=== PATIENT | male | born 1955 | race Caucasian/White ===

== ENCOUNTER 2016-07-14 06:16 | Inpatient (IN) | payer MEDICARE, OTHER ==
[~2016-07-14] VITALS: Ht 193 cm; Wt 117.4 kg
[~2016-07-14 06:16] MED LIST: ACYC-113 PO; ASPI1TAB85 PO; ASPI325T4 PO; ATOR80TA PO; ATOR80TA75 PO; CALC0.25 PO; CEFD300C2 PO; CEPH-368 PO; CYAN1TAB18 PO; CYCL5TAB PO; DOXY100C2 PO; ERGO500017 PO; ESOM40CA PO; ESZO2TAB34 PO; ETANERCEPT INJ; FURO20TA3 PO; FURO40TA6 PO; GABA100C8 PO; GLIP2.5T16 PO; HYDR-3144 PO; HYDR-3307 PO; HYDR10TA11 PO; HYDR200T PO; HYDR20TA22 PO; HYDROCORT PO; IMMUNOGLOBULIN IV; LISI-167 PO; LISI-170 PO; LOSA25TA5 PO; MAGN400T36 PO; MAGNESIUM PO; METO10TA6 PO; MORP15TA3 PO; POTA20TA91 PO; PRED10TA PO; SEVE800T8 PO; TAMS0.4C2 PO; VITA1CAP PO; [UNRECOGNIZED DRUG - OTHER]; calcium PO
[2016-07-14 07:18] LABS: BLOOD UREA NITROGEN 55 mg/dL (7-18)
[2016-07-14 07:23] LABS: IS PT STATUS REG ER OR PRE ER? YES
[2016-07-14] MEDS ORDERED: ASPIRIN 325 MG TABLET PO STA (07:32)
[2016-07-14] MEDS ORDERED: ASPIRIN 325 MG TABLET ONE (07:35)
[2016-07-14] MEDS: SODIUM CHLORIDE FLUSH 10ML SYR IVF ONE ×2 (07:50→09:32)
[2016-07-14 08:03] LABS: DIFF TOTAL CELLS COUNTED 100 CELL DIFF; HEMOGLOBIN 9.9 g/dL (13.7-18.0)
[2016-07-14 08:05] LABS: ANISOCYTOSIS 1+; POLYCHROMASIA 1+; VERIFY COUNTS? YES
[2016-07-14] MEDS ORDERED: ARANESP 100 MCG/ML **ESRD SQ SCH (10:00)
[2016-07-14 10:18] VITALS: BP 110/67
[2016-07-14] MEDS ORDERED: HYDROcodone/APAP 10/325 MG TABLET PO PRN (10:30)
[2016-07-14] MEDS ORDERED: HYDROcodone/APAP 5/325 TABLET ONE (10:46)
[2016-07-14 12:29] VITALS: BP_SYST 122; BP_SYST 141; BP_DIAS 62; BP_DIAS 74
[2016-07-14 12:31] VITALS: BP 146/77
[2016-07-14] MEDS ORDERED: SEVE800T8 PO (12:51)
[2016-07-14] MEDS ORDERED: ALEN70TA5 PO (12:51)
[2016-07-14] MEDS ORDERED: HYDR20TA22 PO (13:58)
[2016-07-14] MEDS ORDERED: ONDANSETRON 2MG/ML, 2ML IVP PRN (14:30)
[2016-07-14] MEDS ORDERED: BISACODYL 10 MG SUPP PR PRN (14:30)
[2016-07-14] MEDS ORDERED: MORPHINE SULFATE 4 MG/ML, 1ML IVPush PRN (14:30)
[2016-07-14] MEDS ORDERED: POLYETHYLENE GLYCOL 17 GM PACKET PO PRN (14:30)
[2016-07-14] MEDS ORDERED: morphine SULFATE 10 MG/ML, 1ML IVPush ONE (15:30)
[2016-07-14] MEDS: GABAPENTIN 100 MG CAPSULE PO SCH (16:00)
[2016-07-14] MEDS: SEVELAMER 800MG TABLET PO SCH (17:00)
[2016-07-14 20:06] LABS: IS PT STATUS REG ER OR PRE ER? NO
[2016-07-14] MEDS ORDERED: TEMPLATE NON-FORMULARY MED. (Vitamin B Complex** 1 TAB) PO SCH (21:00)
[2016-07-14] MEDS: OMEPRAZOLE 20 MG CAPSULE.DR PO SCH (21:00)
[2016-07-14 21:10] VITALS: BP 142/66
[2016-07-14] MEDS ORDERED: DEXTROSE 50%, 50ML SYRINGE ONE (21:15)
[2016-07-14] MEDS ORDERED: DEXTROSE 50%, 50ML SYRINGE IVPush PRN (21:30)
[2016-07-14 21:56] LABS: BLOOD UREA NITROGEN 27 mg/dL (7-18)
[2016-07-14] MEDS ORDERED: ACETAMINOPHEN 325 MG TABLET PO ONE (22:00)
[2016-07-14 22:01] LABS: HEMOGLOBIN 10.1 g/dL (13.7-18.0)
[2016-07-14 23:46] LABS: PATH.CAST-FLAG NOT PRESENT; SPERM-FLAG NOT PRESENT; SRC-FLAG NOT PRESENT; XTAL-FLAG NOT PRESENT; YLC-FLAG NOT PRESENT
[2016-07-15] MEDS: HEPARIN 5,000 UNITS/ML, 1ML SQ SCH ×3 (00:32→17:51)
[2016-07-15] MEDS: PIPERACILLIN/TAZO/PMX 3.375GM 50 ML IV SCH ×2 (00:32→06:03)
[2016-07-15] MEDS: ACYCLOVIR 200 MG CAPSULE PO SCH ×3 (00:33→21:46)
[2016-07-15] MEDS: ASPIRIN 325 MG TABLET PO SCH ×2 (00:33→21:46)
[2016-07-15] MEDS: MAGNESIUM OXIDE 400 MG TABLET PO SCH ×2 (00:33→21:46)
[2016-07-15] MEDS: GABAPENTIN 100 MG CAPSULE PO SCH ×4 (00:33→21:46)
[2016-07-15] MEDS: ATORVASTATIN 80 MG TABLET PO SCH ×2 (00:33→21:46)
[2016-07-15] MEDS: CALCIUM CARBONATE 500 MG TAB.CHEW PO SCH ×3 (00:33→21:46)
[2016-07-15] MEDS: HYDROCORTISONE 20 MG TABLET PO SCH ×4 (00:34→17:51)
[2016-07-15 00:41] VITALS: BP 147/67
[2016-07-15 01:52] VITALS: BP 95/50
[2016-07-15 02:37] LABS: HEMOGLOBIN 9.6 g/dL (13.7-18.0)
[2016-07-15 02:53] LABS: IS PT STATUS REG ER OR PRE ER? NO
[2016-07-15 02:56] LABS: BLOOD UREA NITROGEN 29 mg/dL (7-18)
[2016-07-15 02:59] LABS: ASPARTATE AMINO TRANSFERASE 31 U/L (15-37)
[2016-07-15] MEDS: HYDROcodone/APAP 10/325 MG TABLET PO PRN (03:07)
[2016-07-15] MEDS ORDERED: D5%-0.45% NACL 1,000 ML IV SCH (05:00)
[2016-07-15 05:44] VITALS: BP 97/49
[2016-07-15] MEDS: ALENDRONATE 70 MG TABLET PO SCH (06:05)
[2016-07-15 08:15] VITALS: BP 128/56
[2016-07-15] MEDS: SEVELAMER 800MG TABLET PO SCH ×3 (08:16→17:51)
[2016-07-15] MEDS: CALCITRIOL 0.25 MCG CAPSULE PO SCH (08:16)
[2016-07-15] MEDS: OMEPRAZOLE 20 MG CAPSULE.DR PO SCH ×2 (08:16→21:46)
[2016-07-15] MEDS: MULTIVITS,STRESS FORMULA 1 TABLET PO SCH (08:18)
[2016-07-15] MEDS: SENNA/DOCUSATE TABLET PO SCH (08:20)
[2016-07-15] MEDS ORDERED: CALCITRIOL 0.25 MCG CAPSULE PO SCH (09:00)
[2016-07-15] MEDS ORDERED: [UNRECOGNIZED DRUG - OTHER] PO SCH (09:00)
[2016-07-15] MEDS ORDERED: CYANOCOBALAMIN PO SCH (09:00)
[2016-07-15] MEDS ORDERED: PYRIDOXINE PO SCH (09:00)
[2016-07-15] MEDS ORDERED: PHARMACOKINETIC MONITORING MC PRN (12:00)
[2016-07-15] MEDS ORDERED: VANCOMYCIN PMX 1GM/200ML 200 ML IV ONE (12:00)
[2016-07-15] MEDS ORDERED: VANCOMYCIN PER PHARMACY MC PRN (12:00)
[2016-07-15] MEDS ORDERED: PHARMACOKINETIC CONSULTATION MC ONE (12:00)
[2016-07-15] MEDS: CEFTRIAXONE PMX 1GM/50ML 50 ML IV SCH (12:02)
[2016-07-15] MEDS ORDERED: VANCOMYCIN 2,100 MG in SODIUM CHLORIDE 0.9% 500 ML IV ONE (12:30)
[2016-07-15] MEDS: FLUTICASONE/VILANTEROL 200-25MCG/INH INH SCH (12:57)
[2016-07-15] MEDS: OXYcodone IR 5MG TABLET PO PRN (14:00)
[2016-07-15 14:06] VITALS: BP 133/70
[2016-07-15] MEDS ORDERED: SODIUM BICARBONATE 4.2%, 5ML ONE (16:28)
[2016-07-15] MEDS ORDERED: LIDOCAINE 1%, 20ML ONE (16:28)
[2016-07-15 17:09] LABS: CYTOLOGY BODY FLUID RECD INTO PATHOLOGY; CYTOLOGY BODY FLUID SOURCE SYNOVIAL FLUID
[2016-07-15 19:13] VITALS: BP 124/69
[2016-07-16 00:16] VITALS: BP 112/65
[2016-07-16] MEDS: HEPARIN 5,000 UNITS/ML, 1ML SQ SCH ×3 (00:28→17:29)
[2016-07-16 08:05] LABS: BLOOD UREA NITROGEN 54 mg/dL (7-18)
[2016-07-16] MEDS: FLUTICASONE/VILANTEROL 200-25MCG/INH INH SCH (08:51)
[2016-07-16] MEDS: GABAPENTIN 100 MG CAPSULE PO SCH ×3 (08:53→20:54)
[2016-07-16] MEDS: HYDROCORTISONE 20 MG TABLET PO SCH ×3 (08:53→17:29)
[2016-07-16] MEDS: SEVELAMER 800MG TABLET PO SCH ×3 (08:54→17:29)
[2016-07-16] MEDS: SENNA/DOCUSATE TABLET PO SCH (08:54)
[2016-07-16] MEDS: OMEPRAZOLE 20 MG CAPSULE.DR PO SCH ×2 (08:54→20:54)
[2016-07-16] MEDS: ACYCLOVIR 200 MG CAPSULE PO SCH ×2 (08:55→20:54)
[2016-07-16] MEDS: MULTIVITS,STRESS FORMULA 1 TABLET PO SCH (08:55)
[2016-07-16] MEDS: CALCIUM CARBONATE 500 MG TAB.CHEW PO SCH ×2 (08:55→21:40)
[2016-07-16 09:01] LABS: DIFF TOTAL CELLS COUNTED 100 CELL DIFF
[2016-07-16 09:02] LABS: ANISOCYTOSIS 1+; VERIFY COUNTS? YES
[2016-07-16 09:03] LABS: OVALOCYTES 1+; TARGET CELLS 1+
[2016-07-16 09:04] LABS: SCHISTOCYTES 1+; SPHEROCYTES 1+
[2016-07-16 09:06] LABS: HOWELL-JOLLY BODIES 1+
[2016-07-16 09:07] LABS: ECHINOCYTES 1+; POLYCHROMASIA 1+
[2016-07-16] MEDS: CEFTRIAXONE PMX 1GM/50ML 50 ML IV SCH (14:14)
[2016-07-16 15:26] VITALS: BP 161/66
[2016-07-16] MEDS: HYDROcodone/APAP 10/325 MG TABLET PO PRN (17:29)
[2016-07-16 18:55] VITALS: BP 166/78
[2016-07-16] MEDS: ASPIRIN 325 MG TABLET PO SCH (20:54)
[2016-07-16] MEDS: ATORVASTATIN 80 MG TABLET PO SCH (20:54)
[2016-07-16] MEDS: MAGNESIUM OXIDE 400 MG TABLET PO SCH (20:54)
[2016-07-17] VITALS (9 sets, daily range): BP systolic 155–200; BP diastolic 71–107
[2016-07-17] MEDS: HEPARIN 5,000 UNITS/ML, 1ML SQ SCH ×3 (00:25→17:01)
[2016-07-17] MEDS: HYDROcodone/APAP 10/325 MG TABLET PO PRN ×3 (01:51→20:19)
[2016-07-17] MEDS: FLUTICASONE/VILANTEROL 200-25MCG/INH INH SCH (07:45)
[2016-07-17] MEDS: HYDROCORTISONE 20 MG TABLET PO SCH ×3 (07:45→17:01)
[2016-07-17] MEDS: CALCIUM CARBONATE 500 MG TAB.CHEW PO SCH ×2 (07:46→20:19)
[2016-07-17] MEDS: SEVELAMER 800MG TABLET PO SCH ×3 (07:46→17:01)
[2016-07-17] MEDS: OMEPRAZOLE 20 MG CAPSULE.DR PO SCH ×2 (07:47→20:19)
[2016-07-17] MEDS: CALCITRIOL 0.25 MCG CAPSULE PO SCH (07:47)
[2016-07-17] MEDS: SENNA/DOCUSATE TABLET PO SCH (07:47)
[2016-07-17] MEDS: GABAPENTIN 100 MG CAPSULE PO SCH ×3 (07:47→20:19)
[2016-07-17] MEDS: MULTIVITS,STRESS FORMULA 1 TABLET PO SCH (07:48)
[2016-07-17] MEDS: ACYCLOVIR 200 MG CAPSULE PO SCH ×2 (07:48→20:19)
[2016-07-17] MEDS: AMLODIPINE 2.5 MG TABLET PO SCH ×3 (10:26→17:00)
[2016-07-17] MEDS: CEFTRIAXONE PMX 1GM/50ML 50 ML IV SCH (12:57)
[2016-07-17] MEDS ORDERED: VANCOMYCIN 2,000 MG in SODIUM CHLORIDE 0.9% 250 ML IV ONE (16:00)
[2016-07-17] MEDS: ENALAPRILAT 1.25 MG/ML, 2ML IV PRN (17:32)
[2016-07-17] MEDS ORDERED: hydrALAzine 20 MG/ML, 1ML ONE (18:35)
[2016-07-17] MEDS ORDERED: hydrALAzine 20 MG/ML, 1ML IV ONE ×2 (19:00)
[2016-07-17] MEDS: MAGNESIUM OXIDE 400 MG TABLET PO SCH (20:19)
[2016-07-17] MEDS: ATORVASTATIN 80 MG TABLET PO SCH (20:19)
[2016-07-17] MEDS: ASPIRIN 325 MG TABLET PO SCH (20:19)
[2016-07-17] MEDS ORDERED: AMLODIPINE 5 MG TABLET PO ONE (21:00)
[2016-07-18] VITALS (8 sets, daily range): BP systolic 135–168; BP diastolic 3–85
[2016-07-18] MEDS: HEPARIN 5,000 UNITS/ML, 1ML SQ SCH ×4 (00:18→23:17)
[2016-07-18] MEDS: ENALAPRILAT 1.25 MG/ML, 2ML IV PRN ×2 (04:54→23:21)
[2016-07-18] MEDS: HYDROcodone/APAP 10/325 MG TABLET PO PRN ×2 (04:54→20:02)
[2016-07-18 05:41] LABS: HEMOGLOBIN 9.7 g/dL (13.7-18.0)
[2016-07-18 05:48] LABS: BLOOD UREA NITROGEN 52 mg/dL (7-18)
[2016-07-18 06:07] LABS: DIFF TOTAL CELLS COUNTED 100 CELL DIFF
[2016-07-18 06:09] LABS: VERIFY COUNTS? YES
[2016-07-18 06:10] LABS: ANISOCYTOSIS 1+; OVALOCYTES 1+; POLYCHROMASIA 1+
[2016-07-18 06:11] LABS: ECHINOCYTES 1+
[2016-07-18 06:13] LABS: SPHEROCYTES 1+
[2016-07-18] MEDS: SEVELAMER 800MG TABLET PO SCH ×3 (08:14→15:41)
[2016-07-18] MEDS: HYDROCORTISONE 20 MG TABLET PO SCH ×2 (08:15→20:00)
[2016-07-18] MEDS: FLUTICASONE/VILANTEROL 200-25MCG/INH INH SCH (08:15)
[2016-07-18] MEDS: GABAPENTIN 100 MG CAPSULE PO SCH ×3 (08:15→20:00)
[2016-07-18] MEDS: OMEPRAZOLE 20 MG CAPSULE.DR PO SCH ×2 (08:16→20:00)
[2016-07-18] MEDS: SENNA/DOCUSATE TABLET PO SCH (08:16)
[2016-07-18] MEDS: CALCIUM CARBONATE 500 MG TAB.CHEW PO SCH ×2 (08:16→20:02)
[2016-07-18] MEDS: ACYCLOVIR 200 MG CAPSULE PO SCH ×2 (08:18→20:00)
[2016-07-18] MEDS ORDERED: HYDROCORTISONE 20 MG TABLET PO SCH (09:00)
[2016-07-18] MEDS: MULTIVITS,STRESS FORMULA 1 TABLET PO SCH (13:07)
[2016-07-18] MEDS: CEFTRIAXONE PMX 1GM/50ML 50 ML IV SCH (13:07)
[2016-07-18] MEDS: OXYcodone IR 5MG TABLET PO PRN ×2 (16:35→23:21)
[2016-07-18] MEDS: ASPIRIN 325 MG TABLET PO SCH (20:00)
[2016-07-18] MEDS: ATORVASTATIN 80 MG TABLET PO SCH (20:00)
[2016-07-18] MEDS: MAGNESIUM OXIDE 400 MG TABLET PO SCH (20:00)
[2016-07-18] MEDS: AMLODIPINE 2.5 MG TABLET PO SCH (20:02)
[2016-07-19 01:42] VITALS: BP_SYST 175; BP_SYST 177; BP_SYST 186; BP_DIAS 83; BP_DIAS 88; BP_DIAS 92
[2016-07-19 05:45] VITALS: BP 153/75
[2016-07-19 06:13] LABS: HEMOGLOBIN 9.8 g/dL (13.7-18.0)
[2016-07-19 06:21] LABS: ASPARTATE AMINO TRANSFERASE 18 U/L (15-37); BLOOD UREA NITROGEN 37 mg/dL (7-18)
[2016-07-19 06:36] LABS: DIFF TOTAL CELLS COUNTED 100 CELL DIFF
[2016-07-19 06:38] LABS: ANISOCYTOSIS 1+; VERIFY COUNTS? YES
[2016-07-19 06:39] LABS: OVALOCYTES 1+; POIKILOCYTOSIS 1+; POLYCHROMASIA 1+; SCHISTOCYTES 1+; SPHEROCYTES 1+
[2016-07-19 07:14] VITALS: BP 151/73
[2016-07-19] MEDS: FLUTICASONE/VILANTEROL 200-25MCG/INH INH SCH (08:31)
[2016-07-19] MEDS: MULTIVITS,STRESS FORMULA 1 TABLET PO SCH (08:31)
[2016-07-19] MEDS: ACYCLOVIR 200 MG CAPSULE PO SCH ×2 (08:32→20:44)
[2016-07-19] MEDS: GABAPENTIN 100 MG CAPSULE PO SCH ×3 (08:32→20:44)
[2016-07-19] MEDS: CALCIUM CARBONATE 500 MG TAB.CHEW PO SCH ×2 (08:32→20:44)
[2016-07-19] MEDS: SENNA/DOCUSATE TABLET PO SCH (08:32)
[2016-07-19] MEDS: SEVELAMER 800MG TABLET PO SCH ×3 (08:32→16:52)
[2016-07-19] MEDS: AMLODIPINE 2.5 MG TABLET PO SCH ×2 (08:32→20:43)
[2016-07-19] MEDS: HYDROCORTISONE 20 MG TABLET PO SCH ×2 (08:33→20:44)
[2016-07-19] MEDS: OMEPRAZOLE 20 MG CAPSULE.DR PO SCH ×2 (08:33→20:44)
[2016-07-19] MEDS: HEPARIN 5,000 UNITS/ML, 1ML SQ SCH ×2 (08:33→16:52)
[2016-07-19] MEDS: CALCITRIOL 0.25 MCG CAPSULE PO SCH (08:33)
[2016-07-19] MEDS: HYDROcodone/APAP 10/325 MG TABLET PO PRN ×2 (08:34→16:51)
[2016-07-19] MEDS: METOPROLOL SUCCINATE 25 MG TAB.ER.24H PO SCH (08:34)
[2016-07-19] MEDS ORDERED: ARANESP 100 MCG/ML **ESRD SQ SCH (09:24)
[2016-07-19] MEDS: CEFTRIAXONE PMX 1GM/50ML 50 ML IV SCH (12:07)
[2016-07-19] MEDS: OXYcodone IR 5MG TABLET PO PRN ×2 (13:31→20:43)
[2016-07-19 13:58] VITALS: BP 148/71
[2016-07-19 18:55] VITALS: BP 168/84
[2016-07-19] MEDS: ATORVASTATIN 80 MG TABLET PO SCH (20:44)
[2016-07-19] MEDS: ASPIRIN 325 MG TABLET PO SCH (20:44)
[2016-07-19] MEDS: MAGNESIUM OXIDE 400 MG TABLET PO SCH (20:44)
[2016-07-20] MEDS: HEPARIN 5,000 UNITS/ML, 1ML SQ SCH ×3 (00:04→16:13)
[2016-07-20] MEDS: HYDROcodone/APAP 10/325 MG TABLET PO PRN ×2 (00:04→20:34)
[2016-07-20 02:30] VITALS: BP 157/76
[2016-07-20 04:54] VITALS: BP 162/74
[2016-07-20] MEDS: METOPROLOL SUCCINATE 25 MG TAB.ER.24H PO SCH ×3 (05:04→20:35)
[2016-07-20 06:10] LABS: BLOOD UREA NITROGEN 49 mg/dL (7-18); TOTAL IRON BINDING CAPACITY 193 mcg/dL (250-450)
[2016-07-20 07:00] VITALS: BP_SYST 147; BP_SYST 164; BP_DIAS 63; BP_DIAS 82
[2016-07-20] MEDS: CALCIUM CARBONATE 500 MG TAB.CHEW PO SCH ×2 (07:49→20:35)
[2016-07-20] MEDS: AMLODIPINE 2.5 MG TABLET PO SCH ×2 (07:49→20:35)
[2016-07-20] MEDS: GABAPENTIN 100 MG CAPSULE PO SCH ×3 (07:51→20:35)
[2016-07-20] MEDS: OMEPRAZOLE 20 MG CAPSULE.DR PO SCH ×2 (07:51→21:05)
[2016-07-20] MEDS: SEVELAMER 800MG TABLET PO SCH ×3 (07:51→16:12)
[2016-07-20] MEDS: ACYCLOVIR 200 MG CAPSULE PO SCH ×2 (07:51→20:35)
[2016-07-20] MEDS: FLUTICASONE/VILANTEROL 200-25MCG/INH INH SCH (07:51)
[2016-07-20] MEDS: HYDROCORTISONE 20 MG TABLET PO SCH ×2 (07:51→20:35)
[2016-07-20] MEDS: MULTIVITS,STRESS FORMULA 1 TABLET PO SCH (07:52)
[2016-07-20] MEDS: SENNA/DOCUSATE TABLET PO SCH (08:04)
[2016-07-20] MEDS ORDERED: METHOCARBAMOL 500 MG TABLET PO PRN (08:30)
[2016-07-20] MEDS ORDERED: ERGOCALCIFEROL 50,000 UNIT CAPSULE PO SCH (09:00)
[2016-07-20] MEDS ORDERED: ACETAMINOPHEN 325 MG TABLET PO PRN (09:30)
[2016-07-20 14:03] VITALS: BP 164/83
[2016-07-20] MEDS: CEFTRIAXONE PMX 1GM/50ML 50 ML IV SCH (14:14)
[2016-07-20] MEDS: OXYcodone IR 5MG TABLET PO PRN (16:12)
[2016-07-20 19:28] VITALS: BP 154/80
[2016-07-20] MEDS: ATORVASTATIN 80 MG TABLET PO SCH (20:35)
[2016-07-20] MEDS: MAGNESIUM OXIDE 400 MG TABLET PO SCH (20:35)
[2016-07-20] MEDS: ASPIRIN 325 MG TABLET PO SCH (20:35)
[2016-07-21 01:40] VITALS: BP 153/75
[2016-07-21] MEDS: HEPARIN 5,000 UNITS/ML, 1ML SQ SCH ×3 (01:44→20:23)
[2016-07-21] MEDS: OXYcodone IR 5MG TABLET PO PRN (01:46)
[2016-07-21 05:42] LABS: BLOOD UREA NITROGEN 58 mg/dL (7-18)
[2016-07-21 07:23] VITALS: BP 147/72
[2016-07-21] MEDS ORDERED: ARANESP 100 MCG/ML **ESRD SQ SCH (09:00)
[2016-07-21] MEDS: SEVELAMER 800MG TABLET PO SCH ×3 (09:33→20:21)
[2016-07-21] MEDS: FLUTICASONE/VILANTEROL 200-25MCG/INH INH SCH (09:34)
[2016-07-21] MEDS: HYDROCORTISONE 20 MG TABLET PO SCH ×2 (09:36→20:21)
[2016-07-21] MEDS: GABAPENTIN 100 MG CAPSULE PO SCH ×3 (09:37→20:21)
[2016-07-21] MEDS: AMLODIPINE 2.5 MG TABLET PO SCH ×2 (09:37→20:21)
[2016-07-21] MEDS: OMEPRAZOLE 20 MG CAPSULE.DR PO SCH ×2 (09:38→20:21)
[2016-07-21] MEDS: SENNA/DOCUSATE TABLET PO SCH (09:38)
[2016-07-21] MEDS: CALCITRIOL 0.25 MCG CAPSULE PO SCH (09:38)
[2016-07-21] MEDS: ACYCLOVIR 200 MG CAPSULE PO SCH ×2 (09:39→20:21)
[2016-07-21] MEDS: CALCIUM CARBONATE 500 MG TAB.CHEW PO SCH ×2 (09:39→20:21)
[2016-07-21] MEDS: METOPROLOL SUCCINATE 25 MG TAB.ER.24H PO SCH ×2 (09:39→20:26)
[2016-07-21] MEDS: MULTIVITS,STRESS FORMULA 1 TABLET PO SCH (09:39)
[2016-07-21] MEDS: CEFTRIAXONE PMX 1GM/50ML 50 ML IV SCH (12:22)
[2016-07-21 14:20] VITALS: BP 131/80
[2016-07-21 19:28] VITALS: BP_SYST 168; BP_SYST 170; BP_SYST 178; BP_DIAS 83; BP_DIAS 84; BP_DIAS 85
[2016-07-21] MEDS: ATORVASTATIN 80 MG TABLET PO SCH (20:21)
[2016-07-21] MEDS: MAGNESIUM OXIDE 400 MG TABLET PO SCH (20:21)
[2016-07-21] MEDS: HYDROcodone/APAP 10/325 MG TABLET PO PRN (20:21)
[2016-07-21] MEDS: ASPIRIN 325 MG TABLET PO SCH (20:21)
[2016-07-22 03:17] VITALS: BP 154/75
[2016-07-22] MEDS: HEPARIN 5,000 UNITS/ML, 1ML SQ SCH (04:46)
[2016-07-22 06:29] VITALS: BP 157/75
[2016-07-22] MEDS: ALENDRONATE 70 MG TABLET PO SCH (07:00)
[2016-07-22] MEDS ORDERED: METO25TA91 PO (09:38)
[2016-07-22] MEDS ORDERED: AMLO2.5T PO (09:38)
[2016-07-22] MEDS ORDERED: FLUT1BLS INH (09:38)
[2016-07-22] MEDS: SEVELAMER 800MG TABLET PO SCH (10:06)
[2016-07-22] MEDS: FLUTICASONE/VILANTEROL 200-25MCG/INH INH SCH (10:07)
[2016-07-22] MEDS: HYDROCORTISONE 20 MG TABLET PO SCH (10:07)
[2016-07-22] MEDS: GABAPENTIN 100 MG CAPSULE PO SCH (10:07)
[2016-07-22] MEDS: OMEPRAZOLE 20 MG CAPSULE.DR PO SCH (10:09)
[2016-07-22] MEDS: AMLODIPINE 2.5 MG TABLET PO SCH (10:09)
[2016-07-22] MEDS: SENNA/DOCUSATE TABLET PO SCH (10:09)
[2016-07-22] MEDS: METOPROLOL SUCCINATE 25 MG TAB.ER.24H PO SCH (10:10)
[2016-07-22] MEDS: ACYCLOVIR 200 MG CAPSULE PO SCH (10:10)
[2016-07-22] MEDS: CALCIUM CARBONATE 500 MG TAB.CHEW PO SCH (10:10)
[2016-07-22] MEDS: MULTIVITS,STRESS FORMULA 1 TABLET PO SCH (10:10)
== END 2016-07-22 11:40 | DRG 871 ==
LOC: ED 08:12 → EDIP 08:13 → ED 08:14 → 5SO 09:12 → DCLOUNGE 07-22 11:15
PROVIDERS: ADMIT Hospitalist; ATTEND Hospitalist
PROC: 0T9B70Z Drainage of Bladder with Drainage Device, Via Natural or Artificial Opening (ICD-10-PCS; 2016-07-14)
PROC: 0S9D3ZZ Drainage of Left Knee Joint, Percutaneous Approach (ICD-10-PCS; 2016-07-15)
PROC: BQ48ZZZ Ultrasonography of Left Knee (ICD-10-PCS; 2016-07-15)
PROC: 5A1D60Z (ICD-10-PCS; principal; 2016-07-21)
DX: A41.9 Sepsis, unspecified organism (principal); N18.6 End stage renal disease; E27.40 Unspecified adrenocortical insufficiency; I50.32 Chronic diastolic (congestive) heart failure; I13.2 Hypertensive heart and chronic kidney disease with heart failure and with stage 5 chronic kidney disease, or end stage renal disease; E87.1 Hypo-osmolality and hyponatremia; I47.1 Supraventricular tachycardia; E11.22 Type 2 diabetes mellitus with diabetic chronic kidney disease; D63.1 Anemia in chronic kidney disease; J44.9 Chronic obstructive pulmonary disease, unspecified; E11.649 Type 2 diabetes mellitus with hypoglycemia without coma; E78.5 Hyperlipidemia, unspecified; K21.9 Gastro-esophageal reflux disease without esophagitis; M06.9 Rheumatoid arthritis, unspecified; N40.0 Benign prostatic hyperplasia without lower urinary tract symptoms; D53.9 Nutritional anemia, unspecified; R25.1 Tremor, unspecified; G89.29 Other chronic pain; Z20.5 Contact with and (suspected) exposure to viral hepatitis; M54.9 Dorsalgia, unspecified; Z99.2 Dependence on renal dialysis; Z90.81 Acquired absence of spleen; Z87.891 Personal history of nicotine dependence; Z98.1 Arthrodesis status
CPT/HCPCS: 20611; 36415; 70450; 70551; 71010; 80048; 80053; 80061; 80069; 80202; 81001; 82040; 82533; 82728; 82962; 83036; 83540; 83550; 83605; 83735; 83880; 84439; 84443; 84484; 85014; 85018; 85025; 85810; 87040; 87070; 87075; 87205; 88112; 88305; 89050; 89060; 93005; 93880; 93970; 99285; J0696; J1644; J2543; J3370; J3490; J0360; J0882; J7040

== ENCOUNTER 2016-08-11 11:48 | Inpatient (IN) | payer MEDICARE, OTHER ==
[~2016-08-11] VITALS: Ht 190.5 cm; Wt 108.5 kg
[~2016-08-11 11:48] MED LIST changes: +ALEN70TA5 PO; +AMLO2.5T PO; +FLUT1BLS INH; +METO25TA91 PO
[2016-08-11] MEDS ORDERED: DEXTROSE 10% 500 ML IV ONE (11:59)
[2016-08-11] MEDS ORDERED: SODIUM CHLORIDE FLUSH 10ML SYR IVF ONE (12:00)
[2016-08-11] MEDS ORDERED: DEXTROSE 50%, 50ML SYRINGE IVPush ONE ×2 (12:00→14:30)
[2016-08-11 13:02] LABS: ASPARTATE AMINO TRANSFERASE 31 U/L (15-37); BLOOD UREA NITROGEN 22 mg/dL (7-18)
[2016-08-11] MEDS ORDERED: DEXTROSE 50%, 50ML SYRINGE ONE ×2 (13:02→14:27)
[2016-08-11] MEDS ORDERED: GLUCAGON 1 MG ONE (13:14)
[2016-08-11] MEDS ORDERED: DEXTROSE 50%, 50ML VIAL IVPush ONE (13:30)
[2016-08-11] MEDS ORDERED: GLUCAGON 1 MG IM ONE (13:30)
[2016-08-11 13:49] LABS: DIFF TOTAL CELLS COUNTED 100 CELL DIFF
[2016-08-11 13:50] LABS: ANISOCYTOSIS 1+; POLYCHROMASIA 1+; SCHISTOCYTES 1+
[2016-08-11 13:52] LABS: VERIFY COUNTS? YES
[2016-08-11 13:54] LABS: IS PT STATUS REG ER OR PRE ER? YES
[2016-08-11] MEDS ORDERED: LABETALOL 5MG/ML, 20ML IV PRN (14:30)
[2016-08-11] MEDS ORDERED: POLYETHYLENE GLYCOL 17 GM PACKET PO PRN (14:30)
[2016-08-11] MEDS ORDERED: TOFA5TAB PO (15:37)
[2016-08-11] MEDS ORDERED: METH750T2 PO (15:37)
[2016-08-11] MEDS ORDERED: CYAN1TAB18 PO (15:37)
[2016-08-11] MEDS ORDERED: LOSA50TA6 PO (15:37)
[2016-08-11] MEDS ORDERED: LEFL10TA14 PO (15:37)
[2016-08-11] MEDS ORDERED: HYDR-879 PO (15:37)
[2016-08-11] MEDS ORDERED: FURO20TA3 PO (15:37)
[2016-08-11] MEDS ORDERED: METO-93 PO (15:37)
[2016-08-11] MEDS ORDERED: HYDR-3342 PO (15:37)
[2016-08-11] MEDS ORDERED: MAGN400T7 PO (15:37)
[2016-08-11] MEDS ORDERED: METO10TA6 PO (15:37)
[2016-08-11] MEDS: DEXTROSE 10% 1,000 ML IV SCH ×2 (16:00→21:24)
[2016-08-11] MEDS: DEXTROSE 50%, 50ML SYRINGE IVPush PRN ×4 (16:03→20:50)
[2016-08-11 16:20] LABS: ABG COLLECTION SITE RIGHT BRACHIAL
[2016-08-11] MEDS ORDERED: LINEZOLID PMX 600MG/300ML 300 ML IV SCH (16:30)
[2016-08-11] MEDS: CEFTRIAXONE PMX 1GM/50ML 50 ML IV SCH (16:39)
[2016-08-11] MEDS: HEPARIN 5,000 UNITS/ML, 1ML SQ SCH ×2 (16:39→23:13)
[2016-08-11] MEDS: AZITHROMYCIN 500 MG in SODIUM CHLORIDE 0.9% 250 ML IV SCH (18:03)
[2016-08-11] MEDS: LINEZOLID PMX 600MG/300ML 300 ML IV SCH (21:23)
[2016-08-11] MEDS: OXYcodone IR 5MG TABLET PO PRN (23:13)
[2016-08-12] MEDS: DEXTROSE 50%, 50ML VIAL IVPush PRN ×4 (00:15→10:32)
[2016-08-12] MEDS: OXYcodone IR 5MG TABLET PO PRN ×5 (04:25→23:42)
[2016-08-12 04:41] LABS: BLOOD UREA NITROGEN 14 mg/dL (7-18)
[2016-08-12 04:45] LABS: ASPARTATE AMINO TRANSFERASE 28 U/L (15-37)
[2016-08-12 04:53] VITALS: BP 117/57
[2016-08-12 08:14] LABS: DIFF TOTAL CELLS COUNTED 100 CELL DIFF
[2016-08-12 08:15] LABS: ANISOCYTOSIS 1+; SCHISTOCYTES 1+; SPHEROCYTES 1+; VERIFY COUNTS? YES
[2016-08-12 08:16] LABS: HOWELL-JOLLY BODIES 1+
[2016-08-12] MEDS: HEPARIN 5,000 UNITS/ML, 1ML SQ SCH ×3 (09:02→23:42)
[2016-08-12] MEDS: PANTOPRAZOLE 40 MG IV IVP SCH (09:02)
[2016-08-12] MEDS: SENNA/DOCUSATE TABLET PO SCH (09:03)
[2016-08-12] MEDS: LINEZOLID PMX 600MG/300ML 300 ML IV SCH ×2 (09:12→21:08)
[2016-08-12] MEDS: DEXTROSE 10% 1,000 ML IV SCH ×2 (09:13→21:09)
[2016-08-12] MEDS: DARBEPOETIN 100 MCG/ML SQ SCH (10:20)
[2016-08-12] MEDS: CEFTRIAXONE PMX 1GM/50ML 50 ML IV SCH (16:22)
[2016-08-12] MEDS: AZITHROMYCIN 500 MG in SODIUM CHLORIDE 0.9% 250 ML IV SCH (17:15)
[2016-08-12] MEDS: ONDANSETRON 2MG/ML, 2ML IVP PRN (19:31)
[2016-08-13] MEDS: ACETAMINOPHEN 325 MG TABLET PO PRN (02:37)
[2016-08-13] MEDS: OXYcodone IR 5MG TABLET PO PRN ×4 (03:53→20:09)
[2016-08-13 03:55] VITALS: BP 116/47
[2016-08-13 05:20] LABS: BLOOD UREA NITROGEN 11 mg/dL (7-18)
[2016-08-13] MEDS: SENNA/DOCUSATE TABLET PO SCH (08:39)
[2016-08-13] MEDS: DEXTROSE 10% 1,000 ML IV SCH ×2 (08:47→18:29)
[2016-08-13] MEDS: LINEZOLID PMX 600MG/300ML 300 ML IV SCH ×2 (08:48→21:12)
[2016-08-13] MEDS: HEPARIN 5,000 UNITS/ML, 1ML SQ SCH ×2 (08:48→16:57)
[2016-08-13] MEDS: PANTOPRAZOLE 40 MG IV IVP SCH (08:48)
[2016-08-13] MEDS: AZITHROMYCIN 500 MG in SODIUM CHLORIDE 0.9% 250 ML IV SCH (16:57)
[2016-08-13] MEDS: CEFTRIAXONE PMX 1GM/50ML 50 ML IV SCH (16:57)
[2016-08-13] MEDS: ONDANSETRON 2MG/ML, 2ML IVP PRN (18:38)
[2016-08-13] MEDS: MORPHINE SULFATE 4 MG/ML, 1ML IVPush PRN (21:13)
[2016-08-14] MEDS: HEPARIN 5,000 UNITS/ML, 1ML SQ SCH ×3 (00:11→18:24)
[2016-08-14] MEDS: OXYcodone IR 5MG TABLET PO PRN ×3 (02:43→18:52)
[2016-08-14 04:17] VITALS: BP 112/68
[2016-08-14] MEDS: DEXTROSE 10% 1,000 ML IV SCH ×2 (04:17→13:58)
[2016-08-14 05:02] LABS: BLOOD UREA NITROGEN 8 mg/dL (7-18)
[2016-08-14] MEDS: PANTOPRAZOLE 40 MG IV IVP SCH (08:49)
[2016-08-14] MEDS: ONDANSETRON 2MG/ML, 2ML IVP PRN ×3 (08:49→18:21)
[2016-08-14] MEDS: SENNA/DOCUSATE TABLET PO SCH (08:57)
[2016-08-14] MEDS: LINEZOLID PMX 600MG/300ML 300 ML IV SCH ×2 (08:57→22:30)
[2016-08-14] MEDS: ACETAMINOPHEN 325 MG TABLET PO PRN (08:57)
[2016-08-14] MEDS: CEFTRIAXONE PMX 1GM/50ML 50 ML IV SCH (18:24)
[2016-08-14] MEDS: AZITHROMYCIN 500 MG in SODIUM CHLORIDE 0.9% 250 ML IV SCH (18:24)
[2016-08-14 21:00] VITALS: BP 148/76
[2016-08-15] MEDS: ONDANSETRON 2MG/ML, 2ML IVP PRN ×4 (00:24→23:53)
[2016-08-15] MEDS: OXYcodone IR 5MG TABLET PO PRN ×4 (00:24→23:53)
[2016-08-15] MEDS ORDERED: OXYMETAZOLINE NASAL SPRAY 0.05%, 15ML NAS PRN (00:30)
[2016-08-15] MEDS: DEXTROSE 10% 1,000 ML IV SCH ×2 (01:58→16:38)
[2016-08-15] MEDS: HEPARIN 5,000 UNITS/ML, 1ML SQ SCH ×4 (02:00→23:56)
[2016-08-15 02:18] VITALS: BP 129/57
[2016-08-15 06:08] LABS: BLOOD UREA NITROGEN 14 mg/dL (7-18)
[2016-08-15 07:29] VITALS: BP 155/83
[2016-08-15 08:23] LABS: DIFF TOTAL CELLS COUNTED 100 CELL DIFF
[2016-08-15 08:30] LABS: ANISOCYTOSIS 1+; VERIFY COUNTS? YES
[2016-08-15 08:31] LABS: OVALOCYTES 1+
[2016-08-15] MEDS: SENNA/DOCUSATE TABLET PO SCH (09:00)
[2016-08-15] MEDS: LINEZOLID PMX 600MG/300ML 300 ML IV SCH ×2 (09:49→21:30)
[2016-08-15] MEDS: MORPHINE SULFATE 4 MG/ML, 1ML IVPush PRN (13:11)
[2016-08-15] MEDS: CEFTRIAXONE PMX 1GM/50ML 50 ML IV SCH (16:38)
[2016-08-15] MEDS: hydrALAzine 20 MG/ML, 1ML IV PRN (17:11)
[2016-08-15] MEDS: AZITHROMYCIN 500 MG in SODIUM CHLORIDE 0.9% 250 ML IV SCH (17:28)
[2016-08-15 20:11] VITALS: BP 123/52
[2016-08-16 04:21] VITALS: BP_SYST 182; BP_SYST 191; BP_DIAS 83; BP_DIAS 88
[2016-08-16 04:35] LABS: BLOOD UREA NITROGEN 10 mg/dL (7-18)
[2016-08-16] MEDS: hydrALAzine 20 MG/ML, 1ML IV PRN ×3 (04:45→09:50)
[2016-08-16] MEDS: MORPHINE SULFATE 4 MG/ML, 1ML IVPush PRN (05:18)
[2016-08-16] MEDS: ONDANSETRON 2MG/ML, 2ML IVP PRN (05:32)
[2016-08-16] MEDS: DEXTROSE 10% 1,000 ML IV SCH ×2 (06:00→18:31)
[2016-08-16 07:38] VITALS: BP 184/119
[2016-08-16] MEDS: HEPARIN 5,000 UNITS/ML, 1ML SQ SCH ×3 (07:50→18:24)
[2016-08-16] MEDS: SENNA/DOCUSATE TABLET PO SCH (07:50)
[2016-08-16 08:02] LABS: DIFF TOTAL CELLS COUNTED 100 CELL DIFF
[2016-08-16 08:04] LABS: ANISOCYTOSIS 1+; OVALOCYTES 1+; POLYCHROMASIA 1+; VERIFY COUNTS? YES
[2016-08-16 09:37] VITALS: BP 205/85
[2016-08-16] MEDS: LINEZOLID PMX 600MG/300ML 300 ML IV SCH ×2 (09:51→22:06)
[2016-08-16 10:50] VITALS: BP 178/93
[2016-08-16] MEDS ORDERED: ONDANSETRON 2MG/ML, 2ML IVP PRN (11:30)
[2016-08-16] MEDS: METOPROLOL TARTRATE 25 MG TABLET PO SCH ×2 (11:35→18:24)
[2016-08-16 14:46] VITALS: BP 179/72
[2016-08-16] MEDS: CEFTRIAXONE PMX 1GM/50ML 50 ML IV SCH (18:23)
[2016-08-16] MEDS: AZITHROMYCIN 500 MG in SODIUM CHLORIDE 0.9% 250 ML IV SCH (18:23)
[2016-08-16 18:40] VITALS: BP 177/74
[2016-08-16] MEDS: LOSARTAN 50MG TABLET PO SCH (22:05)
[2016-08-17 00:57] VITALS: BP 170/74
[2016-08-17] MEDS: DEXTROSE 10% 1,000 ML IV SCH (04:50)
[2016-08-17 04:53] LABS: ASPARTATE AMINO TRANSFERASE 18 U/L (15-37); BLOOD UREA NITROGEN 13 mg/dL (7-18)
[2016-08-17] MEDS: METOPROLOL TARTRATE 25 MG TABLET PO SCH (05:53)
[2016-08-17 07:42] VITALS: BP 159/78
[2016-08-17] MEDS: SENNA/DOCUSATE TABLET PO SCH (09:00)
[2016-08-17] MEDS: LOSARTAN 50MG TABLET PO SCH ×2 (10:32→21:49)
[2016-08-17] MEDS: HEPARIN 5,000 UNITS/ML, 1ML SQ SCH ×2 (10:32→18:12)
[2016-08-17] MEDS: OXYcodone IR 5MG TABLET PO PRN ×2 (10:32→16:22)
[2016-08-17] MEDS: LINEZOLID PMX 600MG/300ML 300 ML IV SCH (12:19)
[2016-08-17 14:00] VITALS: BP 156/72
[2016-08-17] MEDS: METOCLOPRAMIDE 10MG TABLET PO SCH ×3 (14:32→22:24)
[2016-08-17] MEDS ORDERED: DEXTROSE 10% 1,000 ML IV SCH (16:00)
[2016-08-17] MEDS: CEFTRIAXONE PMX 1GM/50ML 50 ML IV SCH (18:11)
[2016-08-17] MEDS: METOPROLOL TARTRATE 50 MG TABLET PO SCH (18:11)
[2016-08-17] MEDS: ONDANSETRON 2MG/ML, 2ML IVP PRN (18:32)
[2016-08-17 19:27] VITALS: BP 142/72
[2016-08-18 03:12] VITALS: BP 163/79
[2016-08-18] MEDS: HEPARIN 5,000 UNITS/ML, 1ML SQ SCH ×3 (05:14→23:22)
[2016-08-18] MEDS: METOPROLOL TARTRATE 50 MG TABLET PO SCH ×2 (05:17→18:31)
[2016-08-18 07:12] VITALS: BP 170/78
[2016-08-18] MEDS: METOCLOPRAMIDE 10MG TABLET PO SCH ×4 (07:34→23:20)
[2016-08-18] MEDS: SENNA/DOCUSATE TABLET PO SCH (08:15)
[2016-08-18] MEDS: LOSARTAN 50MG TABLET PO SCH ×2 (08:18→23:20)
[2016-08-18] MEDS: ONDANSETRON 2MG/ML, 2ML IVP PRN (12:05)
[2016-08-18] MEDS: OXYcodone IR 5MG TABLET PO PRN ×2 (12:05→23:53)
[2016-08-18 13:44] VITALS: BP 158/72
[2016-08-18] MEDS ORDERED: GLUCAGON 1 MG IM PRN (22:30)
[2016-08-18] MEDS ORDERED: DEXTROSE 4 GM TAB.CHEW PO PRN (22:30)
[2016-08-18] MEDS ORDERED: DEXTROSE 50%, 50ML SYRINGE IVPush PRN (22:30)
[2016-08-18] MEDS ORDERED: DEXTROSE 10% 1,000 ML IV SCH (22:30)
[2016-08-18 23:10] VITALS: BP 185/85
[2016-08-18] MEDS: CEFTRIAXONE PMX 1GM/50ML 50 ML IV SCH (23:21)
[2016-08-18] MEDS: DEXTROSE 50%, 50ML VIAL IVPush PRN (23:21)
[2016-08-18] MEDS: SODIUM CHLORIDE FLUSH 10ML SYR IVF SCH (23:23)
[2016-08-18 23:40] VITALS: BP 170/95
[2016-08-19 01:28] VITALS: BP 171/91
[2016-08-19 03:29] VITALS: BP 147/75
[2016-08-19] MEDS: METOPROLOL TARTRATE 50 MG TABLET PO SCH ×2 (05:09→17:39)
[2016-08-19 05:11] VITALS: BP 150/75
[2016-08-19 06:14] LABS: ASPARTATE AMINO TRANSFERASE 24 U/L (15-37); BLOOD UREA NITROGEN 11 mg/dL (7-18)
[2016-08-19 06:42] VITALS: BP 150/81
[2016-08-19 08:35] LABS: DIFF TOTAL CELLS COUNTED 100 CELL DIFF
[2016-08-19 08:38] LABS: VERIFY COUNTS? YES
[2016-08-19 08:40] LABS: ANISOCYTOSIS 1+; OVALOCYTES 1+; POLYCHROMASIA 1+; TARGET CELLS 1+
[2016-08-19 08:41] LABS: SCHISTOCYTES 1+
[2016-08-19 08:42] LABS: HYPOCHROMIA 1+
[2016-08-19] MEDS: SENNA/DOCUSATE TABLET PO SCH (09:00)
[2016-08-19] MEDS: SODIUM CHLORIDE FLUSH 10ML SYR IVF SCH ×2 (09:00→20:42)
[2016-08-19 09:24] LABS: SPHEROCYTES 1+
[2016-08-19] MEDS: LOSARTAN 50MG TABLET PO SCH ×2 (09:24→20:43)
[2016-08-19] MEDS: METOCLOPRAMIDE 10MG TABLET PO SCH ×4 (09:24→20:43)
[2016-08-19] MEDS: HEPARIN 5,000 UNITS/ML, 1ML SQ SCH ×2 (09:25→17:39)
[2016-08-19] MEDS: DARBEPOETIN 100 MCG/ML SQ SCH (09:25)
[2016-08-19] MEDS: ONDANSETRON 2MG/ML, 2ML IVP PRN ×2 (09:25→20:44)
[2016-08-19] MEDS: OXYcodone IR 5MG TABLET PO PRN ×2 (09:32→17:44)
[2016-08-19 12:55] VITALS: BP 179/93
[2016-08-19] MEDS ORDERED: DEXTROSE 10% 1,000 ML IV SCH ×2 (16:00→22:30)
[2016-08-19 19:27] VITALS: BP 179/66
[2016-08-19] MEDS: CEFTRIAXONE PMX 1GM/50ML 50 ML IV SCH (22:20)
[2016-08-20 01:48] VITALS: BP 179/77
[2016-08-20] MEDS: HEPARIN 5,000 UNITS/ML, 1ML SQ SCH ×3 (02:39→18:08)
[2016-08-20] MEDS: METOPROLOL TARTRATE 50 MG TABLET PO SCH ×2 (05:48→18:08)
[2016-08-20] MEDS: OXYcodone IR 5MG TABLET PO PRN ×3 (06:18→23:52)
[2016-08-20 07:02] LABS: BLOOD UREA NITROGEN 15 mg/dL (7-18)
[2016-08-20 07:30] VITALS: BP 147/85
[2016-08-20] MEDS: ONDANSETRON 2MG/ML, 2ML IVP PRN ×2 (08:09→21:31)
[2016-08-20] MEDS: METOCLOPRAMIDE 10MG TABLET PO SCH ×4 (08:09→21:13)
[2016-08-20] MEDS: SODIUM CHLORIDE FLUSH 10ML SYR IVF SCH ×2 (08:10→21:00)
[2016-08-20] MEDS: LOSARTAN 50MG TABLET PO SCH ×2 (08:10→21:12)
[2016-08-20] MEDS: SENNA/DOCUSATE TABLET PO SCH (08:10)
[2016-08-20 13:20] VITALS: BP 154/74
[2016-08-20 20:00] VITALS: BP 144/77
[2016-08-20] MEDS: CEFTRIAXONE PMX 1GM/50ML 50 ML IV SCH (22:29)
[2016-08-21 02:00] VITALS: BP 164/69
[2016-08-21] MEDS: HEPARIN 5,000 UNITS/ML, 1ML SQ SCH ×3 (04:04→20:44)
[2016-08-21] MEDS: OXYcodone IR 5MG TABLET PO PRN (04:20)
[2016-08-21] MEDS: METOPROLOL TARTRATE 50 MG TABLET PO SCH ×2 (06:06→19:39)
[2016-08-21 06:19] LABS: BLOOD UREA NITROGEN 10 mg/dL (7-18)
[2016-08-21 07:00] VITALS: BP 128/79
[2016-08-21] MEDS: SODIUM CHLORIDE FLUSH 10ML SYR IVF SCH ×2 (09:00→20:45)
[2016-08-21] MEDS: SENNA/DOCUSATE TABLET PO SCH (09:00)
[2016-08-21] MEDS: LOSARTAN 50MG TABLET PO SCH ×2 (09:05→20:45)
[2016-08-21] MEDS: METOCLOPRAMIDE 10MG TABLET PO SCH ×4 (09:07→20:44)
[2016-08-21] MEDS: ONDANSETRON 2MG/ML, 2ML IVP PRN (09:09)
[2016-08-21 12:46] VITALS: BP 106/62
[2016-08-21] MEDS: CHOLESTYRAMINE 4GM PACKET PO PRN (18:21)
[2016-08-21 20:00] VITALS: BP 107/56
[2016-08-22 02:00] VITALS: BP 112/63
[2016-08-22] MEDS: HEPARIN 5,000 UNITS/ML, 1ML SQ SCH ×2 (03:43→12:00)
[2016-08-22] MEDS: CHOLESTYRAMINE 4GM PACKET PO PRN ×2 (03:44→12:54)
[2016-08-22 05:18] LABS: BLOOD UREA NITROGEN 16 mg/dL (7-18)
[2016-08-22 05:44] LABS: DIFF TOTAL CELLS COUNTED 100 CELL DIFF
[2016-08-22 05:47] LABS: ANISOCYTOSIS 1+; HYPOCHROMIA 1+; OVALOCYTES 1+; POLYCHROMASIA 1+; SCHISTOCYTES 1+; SPHEROCYTES 1+; VERIFY COUNTS? YES
[2016-08-22 05:48] LABS: LARGE PLATELETS 1+; TARGET CELLS 1+
[2016-08-22] MEDS: METOPROLOL TARTRATE 50 MG TABLET PO SCH ×2 (06:48→18:39)
[2016-08-22 07:01] VITALS: BP 117/56
[2016-08-22] MEDS: METOCLOPRAMIDE 10MG TABLET PO SCH ×3 (08:32→17:21)
[2016-08-22] MEDS: SENNA/DOCUSATE TABLET PO SCH (08:33)
[2016-08-22] MEDS: SODIUM CHLORIDE FLUSH 10ML SYR IVF SCH (08:33)
[2016-08-22] MEDS: OXYcodone IR 5MG TABLET PO PRN (10:42)
[2016-08-22 12:53] VITALS: BP 119/64
[2016-08-22] MEDS ORDERED: ONDANSETRON 4 MG TABLET PO PRN (17:00)
[2016-08-22] MEDS ORDERED: ONDANSETRON ODT 4 MG PO PRN (17:01)
[2016-08-22] MEDS ORDERED: LOSARTAN 50MG TABLET PO SCH (21:00)
== END 2016-08-22 18:47 | disposition home or self-care (01) | DRG 871 ==
LOC: ED 13:04 → EDIP 13:05 → ED 13:50 → CSU 15:53 → ICU 08-15 03:00 → 4WST 08-18 23:04
PROVIDERS: ADMIT Internal Medicine; ATTEND Internal Medicine
PROC: 0T9B70Z Drainage of Bladder with Drainage Device, Via Natural or Artificial Opening (ICD-10-PCS; principal; 2016-08-12)
PROC: 5A1D60Z (ICD-10-PCS; 2016-08-12)
DX: A41.9 Sepsis, unspecified organism (principal); J18.9 Pneumonia, unspecified organism; N18.6 End stage renal disease; E43 Unspecified severe protein-calorie malnutrition; G93.41 Metabolic encephalopathy; L03.115 Cellulitis of right lower limb; L03.116 Cellulitis of left lower limb; I50.32 Chronic diastolic (congestive) heart failure; B00.2 Herpesviral gingivostomatitis and pharyngotonsillitis; E87.1 Hypo-osmolality and hyponatremia; I13.2 Hypertensive heart and chronic kidney disease with heart failure and with stage 5 chronic kidney disease, or end stage renal disease; J44.0 Chronic obstructive pulmonary disease with (acute) lower respiratory infection; I47.1 Supraventricular tachycardia; D50.9 Iron deficiency anemia, unspecified; D63.1 Anemia in chronic kidney disease; E11.22 Type 2 diabetes mellitus with diabetic chronic kidney disease; E11.649 Type 2 diabetes mellitus with hypoglycemia without coma; E11.65 Type 2 diabetes mellitus with hyperglycemia; E78.5 Hyperlipidemia, unspecified; G25.2 Other specified forms of tremor; E11.21 Type 2 diabetes mellitus with diabetic nephropathy; G89.29 Other chronic pain; I45.10 Unspecified right bundle-branch block; I80.8 Phlebitis and thrombophlebitis of other sites; K21.9 Gastro-esophageal reflux disease without esophagitis; M06.9 Rheumatoid arthritis, unspecified; N40.0 Benign prostatic hyperplasia without lower urinary tract symptoms; M54.9 Dorsalgia, unspecified; Z79.82 Long term (current) use of aspirin; Z79.899 Other long term (current) drug therapy; Z80.9 Family history of malignant neoplasm, unspecified; Z87.891 Personal history of nicotine dependence; Z90.81 Acquired absence of spleen; Z87.828 Personal history of other (healed) physical injury and trauma; Z98.1 Arthrodesis status; Z99.2 Dependence on renal dialysis; Z68.29 Body mass index [BMI] 29.0-29.9, adult
CPT/HCPCS: 36415; 36600; 71010; 74000; 80048; 80053; 80069; 81001; 82010; 82803; 82962; 83605; 83690; 83735; 84484; 85025; 85610; 87040; 87081; 87324; 93005; 96372; 96374; 96376; J0456; J0696; J0881; J1644; J2020; J2405; Q0162; C9113; J0360; J1610; J7050

== ENCOUNTER 2016-09-09 05:39 | Emergency (ER) | payer MEDICARE, OTHER ==
[~2016-09-09] VITALS: Ht 193 cm; Wt 109.0 kg
[~2016-09-09 05:39] MED LIST changes: -CEFD300C2 PO; +CEFD300C37 PO; +HYDR-3342 PO; +HYDR-879 PO; +LEFL10TA14 PO; +LOSA50TA6 PO; +MAGN400T7 PO; +METH750T2 PO; +METO-93 PO; +TOFA5TAB PO
[2016-09-09] MEDS ORDERED: HYDROcodone/APAP 5/325 TABLET PO STA (05:57)
[2016-09-09] MEDS ORDERED: HYDROcodone/APAP 5/325 TABLET ONE (06:28)
[2016-09-09 07:23] VITALS: BP 138/84
== END 2016-09-09 07:25 | disposition home or self-care (01) ==
LOC: ED 07:10
DX: S42.121A Displaced fracture of acromial process, right shoulder, initial encounter for closed fracture (principal); J44.9 Chronic obstructive pulmonary disease, unspecified; K21.9 Gastro-esophageal reflux disease without esophagitis; I11.0 Hypertensive heart disease with heart failure; I50.9 Heart failure, unspecified; E78.5 Hyperlipidemia, unspecified; E11.9 Type 2 diabetes mellitus without complications; M06.9 Rheumatoid arthritis, unspecified; W07.XXXA Fall from chair, initial encounter; Y93.89 Activity, other specified; Y92.009 Unspecified place in unspecified non-institutional (private) residence as the place of occurrence of the external cause; Y99.9 Unspecified external cause status
CPT/HCPCS: 29105; 99284

== ENCOUNTER 2016-10-22 07:46 | Inpatient (IN) | payer MEDICARE, OTHER ==
[~2016-10-22] VITALS: Ht 193 cm; Wt 105.5 kg
[~2016-10-22 07:46] MED LIST changes: +GABA-826 PO; -GABA100C8 PO
[2016-10-22] MEDS ORDERED: DIPHENHYDRAMINE 50 MG/ML, 1ML ONE (08:28)
[2016-10-22] MEDS ORDERED: SODIUM CHLORIDE FLUSH 10ML SYR IVF ONE (08:30)
[2016-10-22] MEDS ORDERED: SODIUM CHLORIDE 0.9% 1,000ML IVBOLUS ONE (08:30)
[2016-10-22] MEDS ORDERED: DIPHENHYDRAMINE 50 MG/ML, 1ML IVPush ONE (08:30)
[2016-10-22] MEDS ORDERED: AMLO5TAB2 PO (09:11)
[2016-10-22] MEDS ORDERED: MAGN500T PO (09:14)
[2016-10-22 09:23] LABS: ASPARTATE AMINO TRANSFERASE 17 U/L (15-37); BLOOD UREA NITROGEN 45 mg/dL (7-18)
[2016-10-22 09:28] LABS: IS PT STATUS REG ER OR PRE ER? YES
[2016-10-22] MEDS ORDERED: LORazepam 2 MG/ML, 1ML ONE (10:52)
[2016-10-22] MEDS ORDERED: OMNIPAQUE 350 MG/ML, 100ML BOTTLE ONE (11:22)
[2016-10-22] MEDS ORDERED: LORazepam 2 MG/ML, 1ML IVPush STA (11:42)
[2016-10-22] MEDS ORDERED: ALBUTEROL/IPRATROPIUM 2.5MG/0.5MG, 3 ML NPPB ONE (12:00)
[2016-10-22] MEDS ORDERED: ALBUTEROL/IPRATROPIUM 2.5MG/0.5MG, 3 ML ONE (12:49)
[2016-10-22] MEDS ORDERED: ALENDRONATE 70 MG TABLET PO SCH (13:00)
[2016-10-22] MEDS ORDERED: BISACODYL 10 MG SUPP PR PRN (13:00)
[2016-10-22] MEDS ORDERED: ACETAMINOPHEN 325 MG TABLET PO PRN (13:00)
[2016-10-22] MEDS ORDERED: DOCUSATE 100 MG CAPSULE PO PRN (13:00)
[2016-10-22] MEDS ORDERED: POLYETHYLENE GLYCOL 17 GM PACKET PO PRN (13:00)
[2016-10-22 13:53] LABS: IS PT STATUS REG ER OR PRE ER? NO
[2016-10-22 14:15] VITALS: BP 140/76
[2016-10-22] MEDS ORDERED: NALOXONE 0.4 MG/ML, 1ML IVPush ONE (14:30)
[2016-10-22] MEDS ORDERED: DEXTROSE 4 GM TAB.CHEW PO PRN (15:00)
[2016-10-22] MEDS ORDERED: GLUCAGON 1 MG IM PRN (15:00)
[2016-10-22] MEDS ORDERED: DEXTROSE 50%, 50ML SYRINGE IVPush PRN (15:00)
[2016-10-22] MEDS: SEVELAMER 800MG TABLET PO SCH (18:18)
[2016-10-22] MEDS: HEPARIN 5,000 UNITS/ML, 1ML SQ SCH ×2 (18:18→22:57)
[2016-10-22 19:18] LABS: IS PT STATUS REG ER OR PRE ER? NO
[2016-10-22] MEDS ORDERED: ARANESP 100 MCG/ML **ESRD SQ SCH (20:00)
[2016-10-22] MEDS ORDERED: ATORVASTATIN 80 MG TABLET PO SCH (21:00)
[2016-10-22] MEDS ORDERED: ASPIRIN 325 MG TABLET PO SCH (21:00)
[2016-10-22] MEDS ORDERED: AMLODIPINE 5 MG TABLET PO SCH (21:00)
[2016-10-22 22:53] VITALS: BP 145/67
[2016-10-22] MEDS: ACYCLOVIR 200 MG CAPSULE PO SCH (22:55)
[2016-10-22] MEDS: FUROSEMIDE 20 MG TABLET PO SCH (22:56)
[2016-10-22] MEDS: methylPREDNISolone SOD SUCC 125 MG/2 ML IVPush SCH (22:57)
[2016-10-22] MEDS: PANTOPROZOLE 40MG TABLET PO SCH (22:57)
[2016-10-22] MEDS: LOSARTAN 50MG TABLET PO SCH (22:57)
[2016-10-22] MEDS: TEMPLATE NON-FORMULARY MED. (Tofacitinib Citrate** (Xeljanz**) 5 MG) PO SCH (22:57)
[2016-10-23 00:28] VITALS: BP 141/68
[2016-10-23 06:03] LABS: BLOOD UREA NITROGEN 31 mg/dL (7-18)
[2016-10-23 06:17] LABS: ASPARTATE AMINO TRANSFERASE 16 U/L (15-37)
[2016-10-23 07:30] VITALS: BP 116/67
[2016-10-23] MEDS ORDERED: MULTIVITS,STRESS FORMULA 1 TABLET PO SCH (09:00)
[2016-10-23] MEDS ORDERED: METOLAZONE 10 MG TABLET PO SCH (09:00)
[2016-10-23] MEDS: TEMPLATE NON-FORMULARY MED. (Tofacitinib Citrate** (Xeljanz**) 5 MG) PO SCH (09:00)
[2016-10-23] MEDS ORDERED: MAGNESIUM OXIDE 400 MG TABLET PO SCH (09:00)
[2016-10-23] MEDS ORDERED: METOPROLOL SUCCINATE 50 MG TAB.ER.24H PO SCH (09:00)
[2016-10-23] MEDS ORDERED: LEFLUNOMIDE 20 MG TABLET PO SCH (09:00)
[2016-10-23] MEDS: SEVELAMER 800MG TABLET PO SCH (09:06)
[2016-10-23] MEDS: HEPARIN 5,000 UNITS/ML, 1ML SQ SCH (09:07)
[2016-10-23] MEDS: methylPREDNISolone SOD SUCC 125 MG/2 ML IVPush SCH (09:07)
[2016-10-23] MEDS: LOSARTAN 50MG TABLET PO SCH (09:08)
[2016-10-23] MEDS: FUROSEMIDE 20 MG TABLET PO SCH (09:09)
[2016-10-23] MEDS: PANTOPROZOLE 40MG TABLET PO SCH (09:10)
[2016-10-23] MEDS: ACYCLOVIR 200 MG CAPSULE PO SCH (09:11)
== END 2016-10-23 11:57 | disposition home or self-care (01) | DRG 91 ==
LOC: ED 09:20 → EDIP 11:56 → 4EST 13:52 → DCLOUNGE 10-23 11:23
PROVIDERS: ADMIT Internal Medicine; ATTEND Internal Medicine
PROC: 5A1D00Z (ICD-10-PCS; principal; 2016-10-22)
DX: R25.3 Fasciculation (principal); N18.6 End stage renal disease; J96.01 Acute respiratory failure with hypoxia; I13.2 Hypertensive heart and chronic kidney disease with heart failure and with stage 5 chronic kidney disease, or end stage renal disease; M48.54XA Collapsed vertebra, not elsewhere classified, thoracic region, initial encounter for fracture; J44.1 Chronic obstructive pulmonary disease with (acute) exacerbation; B00.2 Herpesviral gingivostomatitis and pharyngotonsillitis; I50.32 Chronic diastolic (congestive) heart failure; E11.22 Type 2 diabetes mellitus with diabetic chronic kidney disease; K21.9 Gastro-esophageal reflux disease without esophagitis; N40.0 Benign prostatic hyperplasia without lower urinary tract symptoms; M06.9 Rheumatoid arthritis, unspecified; I65.22 Occlusion and stenosis of left carotid artery; D63.1 Anemia in chronic kidney disease; M54.9 Dorsalgia, unspecified; D72.829 Elevated white blood cell count, unspecified; G89.4 Chronic pain syndrome; I77.1 Stricture of artery; Z90.81 Acquired absence of spleen; Z98.1 Arthrodesis status; Z99.2 Dependence on renal dialysis; Z87.891 Personal history of nicotine dependence; Z87.01 Personal history of pneumonia (recurrent); Z79.82 Long term (current) use of aspirin; Z79.899 Other long term (current) drug therapy
CPT/HCPCS: 36415; 71010; 71275; 80053; 82550; 82962; 83735; 84100; 84443; 84484; 85025; 85379; 85610; 85730; 87040; 93005; 96361; 96374; 96375; J0882; J1644; J2310; J7620; Q9967; J1200; J2060; J2930; J7030; J7512

== ENCOUNTER 2017-02-09 20:46 | Inpatient (IN) | payer MEDICARE, OTHER ==
[~2017-02-09] VITALS: Ht 193 cm; Wt 99.7 kg
[~2017-02-09 20:46] MED LIST changes: +AMLO5TAB2 PO; +ASPI325T17 PO; -ASPI325T4 PO; +ATOR-2 PO; -ATOR80TA75 PO; +ESZO2TAB22 PO; -ESZO2TAB34 PO; -HYDR-3144 PO; +HYDR-3245 PO; +MAGN500T PO
[2017-02-09] MEDS ORDERED: DEXTROSE 50%, 50ML SYRINGE ONE (21:28)
[2017-02-09] MEDS ORDERED: SODIUM CHLORIDE FLUSH 10ML SYR IVF ONE (21:30)
[2017-02-09 21:31] LABS: HEMATOCRIT 33.7 % (39.2-51.8); HEMOGLOBIN 11.1 g/dL (13.7-18.0); WHITE BLOOD COUNT 25.4 x10^3/uL (3.4-10)
[2017-02-09 21:42] LABS: ACETAMINOPHEN < 2 mcg/mL (10-30); BLOOD UREA NITROGEN 68 mg/dL (7-18)
[2017-02-09] MEDS ORDERED: SODIUM CHLORIDE 0.9% 1,000 ML IV ONE (21:42)
[2017-02-09] MEDS ORDERED: D5%-0.45% NACL 1,000 ML IV ONE (21:46)
[2017-02-09 21:48] LABS: DIFF TOTAL CELLS COUNTED 100 CELL DIFF
[2017-02-09] MEDS ORDERED: HEPARIN SODIUM (21:52)
[2017-02-09] MEDS ORDERED: DOCU-131 PO (21:52)
[2017-02-09] MEDS ORDERED: BACI1TAB2 PO (21:52)
[2017-02-09] MEDS ORDERED: CLON-275 PO (21:52)
[2017-02-09] MEDS ORDERED: FLUT1DIS3 INH (21:52)
[2017-02-09] MEDS ORDERED: MORP-52 PO (21:52)
[2017-02-09] MEDS ORDERED: ACET650S21 PO (21:52)
[2017-02-09] MEDS ORDERED: IRON200V PO (21:52)
[2017-02-09] MEDS ORDERED: PIPERACILLIN/TAZO/PMX 3.375GM 50 ML ONE (21:56)
[2017-02-09 21:57] LABS: ANISOCYTOSIS 1+
[2017-02-09 21:58] LABS: POIKILOCYTOSIS 1+; TARGET CELLS 1+
[2017-02-09 21:59] LABS: OVALOCYTES 1+; SCHISTOCYTES 1+
[2017-02-09] MEDS ORDERED: PHARMACOKINETIC CONSULTATION MC ONE (22:00)
[2017-02-09] MEDS ORDERED: PIPERACILLIN/TAZO/PMX 3.375GM 50 ML IVPB ONE (22:00)
[2017-02-09] MEDS ORDERED: PHARMACOKINETIC MONITORING MC ONE ×2 (22:00→23:45)
[2017-02-09] MEDS ORDERED: VANCOMYCIN PER PHARMACY MC ONE (22:00)
[2017-02-09] MEDS ORDERED: VANCOMYCIN 1,800 MG in SODIUM CHLORIDE 0.9% 250 ML IV ONE (22:00)
[2017-02-09] MEDS ORDERED: DEXTROSE 50%, 50ML SYRINGE IVPush ONE (22:00)
[2017-02-09 22:01] LABS: LARGE PLATELETS 1+; SPHEROCYTES 1+
[2017-02-09 22:10] LABS: VERIFY COUNTS? YES
[2017-02-09] MEDS ORDERED: LIDOCAINE 1%, 20ML ONE (22:12)
[2017-02-09 22:52] LABS: GLUCOSE, CSF 25 mg/dL (40-80)
[2017-02-09] MEDS ORDERED: AMPICILLIN/SULBACTAM 3 GM in SODIUM CHLORIDE 0.9% 100 ML IV SCH (23:00)
[2017-02-09] MEDS ORDERED: ONDANSETRON 2MG/ML, 2ML IVPush PRN (23:00)
[2017-02-09] MEDS ORDERED: POLYETHYLENE GLYCOL 17 GM PACKET PO PRN (23:00)
[2017-02-09] MEDS ORDERED: VANCOMYCIN PER PHARMACY MC PRN (23:00)
[2017-02-09] MEDS ORDERED: DOCUSATE 100 MG CAPSULE PO PRN (23:00)
[2017-02-09] MEDS ORDERED: D5%-0.9% NACL 1,000 ML IV SCH (23:00)
[2017-02-09] MEDS ORDERED: morphine SULFATE 10 MG/ML, 1ML IVPush PRN (23:00)
[2017-02-09] MEDS ORDERED: ACETAMINOPHEN 325 MG TABLET PO PRN (23:00)
[2017-02-09] MEDS ORDERED: HYDROcodone/APAP 5/325 TABLET PO PRN (23:00)
[2017-02-10] MEDS ORDERED: ACYCLOVIR 500 MG in SODIUM CHLORIDE 0.9% 100 ML IV SCH (00:30)
[2017-02-10] MEDS ORDERED: DEXTROSE 50%, 50ML SYRINGE IVPush ONE (00:30)
[2017-02-10] MEDS: INSULIN ASPART 100 UNITS/ML, PEN SQ-INSULIN SCH ×6 (00:42→20:00)
[2017-02-10] MEDS: ASPIRIN 325 MG TABLET PO SCH ×2 (00:43→21:00)
[2017-02-10] MEDS: ATORVASTATIN 80 MG TABLET PO SCH ×2 (00:43→21:00)
[2017-02-10] MEDS: HYDROCORTISONE 20 MG TABLET PO SCH ×3 (00:45→21:00)
[2017-02-10 01:00] VITALS: BP 110/56
[2017-02-10] MEDS: FUROSEMIDE 20 MG TABLET PO SCH ×3 (01:11→21:00)
[2017-02-10] MEDS ORDERED: DEXTROSE 50%, 50ML SYRINGE IVPush PRN (01:30)
[2017-02-10] MEDS: CEFTRIAXONE PMX 2GM/50ML 50 ML IV SCH ×2 (04:06→13:11)
[2017-02-10] MEDS: ACYCLOVIR 500 MG in SODIUM CHLORIDE 0.9% 100 ML IV SCH (04:06)
[2017-02-10] MEDS: HEPARIN 5,000 UNITS/ML, 1ML SQ SCH ×3 (04:14→22:43)
[2017-02-10 05:26] LABS: ASPARTATE AMINO TRANSFERASE 145 U/L (15-37); BLOOD UREA NITROGEN 67 mg/dL (7-18)
[2017-02-10 05:34] LABS: HEMATOCRIT 35.2 % (39.2-51.8); HEMOGLOBIN 11.4 g/dL (13.7-18.0); WHITE BLOOD COUNT 23.5 x10^3/uL (3.4-10)
[2017-02-10 06:06] LABS: DIFF TOTAL CELLS COUNTED 100 CELL DIFF
[2017-02-10 06:08] LABS: VERIFY COUNTS? YES
[2017-02-10 06:09] LABS: ANISOCYTOSIS 1+; HOWELL-JOLLY BODIES 1+
[2017-02-10 06:10] LABS: POIKILOCYTOSIS 1+; POLYCHROMASIA 1+; SPHEROCYTES 1+
[2017-02-10 06:11] LABS: TARGET CELLS 1+
[2017-02-10 06:12] LABS: OVALOCYTES 1+
[2017-02-10 06:13] LABS: LARGE PLATELETS 1+; SCHISTOCYTES 1+
[2017-02-10 06:21] VITALS: BP 101/55
[2017-02-10] MEDS ORDERED: DEXTROSE 50%, 50ML VIAL ONE (07:11)
[2017-02-10] MEDS: SEVELAMER 800MG TABLET PO SCH ×3 (08:00→17:00)
[2017-02-10] MEDS: TEMPLATE NON-FORMULARY MED. (Fluticasone/Salmeterol** (Advair 250-50 Diskus**) 1 PUFF) INH SCH (09:00)
[2017-02-10] MEDS: SENNA/DOCUSATE TABLET PO SCH (09:00)
[2017-02-10] MEDS: LOSARTAN 50MG TABLET PO SCH ×2 (09:00→21:00)
[2017-02-10] MEDS ORDERED: ACYCLOVIR 200 MG CAPSULE PO SCH (09:00)
[2017-02-10] MEDS: METOLAZONE 10 MG TABLET PO SCH (09:00)
[2017-02-10] MEDS: METOPROLOL SUCCINATE 50 MG TAB.ER.24H PO SCH (09:00)
[2017-02-10] MEDS: LEFLUNOMIDE 20 MG TABLET PO SCH (09:00)
[2017-02-10] MEDS: DEXTROSE 10% IV SCH (10:34)
[2017-02-10] MEDS: SODIUM CHLORIDE IV SCH (10:34)
[2017-02-10] MEDS ORDERED: PHARMACOKINETIC MONITORING MC PRN (16:00)
[2017-02-10] MEDS ORDERED: NALOXONE 0.4 MG/ML, 1ML ONE (19:50)
[2017-02-10] MEDS: NALOXONE 0.4 MG/ML, 1ML IVPush PRN (19:53)
[2017-02-10] MEDS: AMLODIPINE 5 MG TABLET PO SCH (21:00)
[2017-02-11] MEDS: DEXTROSE 10% IV SCH ×2 (00:29→17:41)
[2017-02-11] MEDS: SODIUM CHLORIDE IV SCH ×2 (00:29→17:41)
[2017-02-11] MEDS: CEFTRIAXONE PMX 2GM/50ML 50 ML IV SCH ×2 (00:31→13:26)
[2017-02-11] MEDS: INSULIN ASPART 100 UNITS/ML, PEN SQ-INSULIN SCH ×6 (04:55→20:00)
[2017-02-11] MEDS: HEPARIN 5,000 UNITS/ML, 1ML SQ SCH ×3 (04:55→20:51)
[2017-02-11] MEDS: ACYCLOVIR 500 MG in SODIUM CHLORIDE 0.9% 100 ML IV SCH (04:56)
[2017-02-11 05:57] VITALS: BP 96/60
[2017-02-11 06:11] LABS: ABG COLLECTION SITE RIGHT BRACHIAL
[2017-02-11 06:13] LABS: HEMATOCRIT 31.1 % (39.2-51.8); HEMOGLOBIN 10.2 g/dL (13.7-18.0); WHITE BLOOD COUNT 22.3 x10^3/uL (3.4-10)
[2017-02-11 06:35] LABS: DIFF TOTAL CELLS COUNTED 100 CELL DIFF
[2017-02-11 06:40] LABS: ANISOCYTOSIS 1+; OVALOCYTES 1+; POIKILOCYTOSIS 1+; POLYCHROMASIA 1+; SCHISTOCYTES 1+
[2017-02-11 06:43] LABS: LARGE PLATELETS 1+; VERIFY COUNTS? YES
[2017-02-11 06:50] LABS: ASPARTATE AMINO TRANSFERASE 100 U/L (15-37); BLOOD UREA NITROGEN 77 mg/dL (7-18)
[2017-02-11] MEDS: NALOXONE 0.4 MG/ML, 1ML IVPush PRN (08:00)
[2017-02-11] MEDS: SEVELAMER 800MG TABLET PO SCH ×3 (08:00→16:53)
[2017-02-11] MEDS: LOSARTAN 50MG TABLET PO SCH ×2 (08:06→21:35)
[2017-02-11] MEDS: LEFLUNOMIDE 20 MG TABLET PO SCH (08:07)
[2017-02-11] MEDS: TEMPLATE NON-FORMULARY MED. (Fluticasone/Salmeterol** (Advair 250-50 Diskus**) 1 PUFF) INH SCH (08:07)
[2017-02-11] MEDS: HYDROCORTISONE 20 MG TABLET PO SCH ×2 (08:07→22:13)
[2017-02-11] MEDS: FUROSEMIDE 20 MG TABLET PO SCH ×2 (08:08→21:36)
[2017-02-11] MEDS: METOPROLOL SUCCINATE 50 MG TAB.ER.24H PO SCH (08:08)
[2017-02-11] MEDS: SENNA/DOCUSATE TABLET PO SCH (08:08)
[2017-02-11] MEDS: METOLAZONE 10 MG TABLET PO SCH (08:08)
[2017-02-11] MEDS ORDERED: NALOXONE IV SCH ×2 (08:30→10:30)
[2017-02-11] MEDS ORDERED: SODIUM CHLORIDE 0.9% IV SCH ×2 (08:30→10:30)
[2017-02-11] MEDS: ASPIRIN 325 MG TABLET PO SCH (21:35)
[2017-02-11] MEDS: AMLODIPINE 5 MG TABLET PO SCH (21:37)
[2017-02-11] MEDS: ATORVASTATIN 80 MG TABLET PO SCH (21:37)
[2017-02-12] MEDS: CEFTRIAXONE PMX 2GM/50ML 50 ML IV SCH ×2 (00:09→13:10)
[2017-02-12] MEDS: ACYCLOVIR 500 MG in SODIUM CHLORIDE 0.9% 100 ML IV SCH (01:08)
[2017-02-12 03:52] VITALS: BP 155/69
[2017-02-12] MEDS: INSULIN ASPART 100 UNITS/ML, PEN SQ-INSULIN SCH ×6 (04:00→20:00)
[2017-02-12] MEDS: HEPARIN 5,000 UNITS/ML, 1ML SQ SCH ×3 (04:26→20:37)
[2017-02-12 04:46] LABS: ABG COLLECTION SITE RIGHT BRACHIAL
[2017-02-12 04:50] LABS: HEMATOCRIT 35.6 % (39.2-51.8); HEMOGLOBIN 11.6 g/dL (13.7-18.0); WHITE BLOOD COUNT 18.4 x10^3/uL (3.4-10)
[2017-02-12 05:09] LABS: ASPARTATE AMINO TRANSFERASE 97 U/L (15-37); BLOOD UREA NITROGEN 40 mg/dL (7-18)
[2017-02-12] MEDS: SEVELAMER 800MG TABLET PO SCH ×3 (08:00→16:59)
[2017-02-12] MEDS: TEMPLATE NON-FORMULARY MED. (Fluticasone/Salmeterol** (Advair 250-50 Diskus**) 1 PUFF) INH SCH (08:44)
[2017-02-12] MEDS: SENNA/DOCUSATE TABLET PO SCH (08:44)
[2017-02-12] MEDS: FUROSEMIDE 20 MG TABLET PO SCH ×2 (08:45→20:37)
[2017-02-12] MEDS: LOSARTAN 50MG TABLET PO SCH ×2 (08:46→20:35)
[2017-02-12] MEDS: METOPROLOL SUCCINATE 50 MG TAB.ER.24H PO SCH (08:46)
[2017-02-12] MEDS: METOLAZONE 10 MG TABLET PO SCH (08:46)
[2017-02-12] MEDS: LEFLUNOMIDE 20 MG TABLET PO SCH (08:46)
[2017-02-12 09:07] LABS: HEP B SURF. AB 105.2 mIU/mL (0.0-10.0)
[2017-02-12] MEDS: DEXTROSE 10% IV SCH ×2 (10:30→22:13)
[2017-02-12] MEDS: SODIUM CHLORIDE IV SCH ×2 (10:30→22:13)
[2017-02-12] MEDS ORDERED: MIDAZOLAM 1 MG/ML, 5ML ONE (10:54)
[2017-02-12] MEDS: HYDROCORTISONE 20 MG TABLET PO SCH ×2 (13:11→22:13)
[2017-02-12 16:09] LABS: PATH.CAST-FLAG NOT PRESENT; SPERM-FLAG NOT PRESENT; SRC-FLAG NOT PRESENT; XTAL-FLAG NOT PRESENT; YLC-FLAG NOT PRESENT
[2017-02-12] MEDS: ATORVASTATIN 80 MG TABLET PO SCH (20:35)
[2017-02-12] MEDS: AMLODIPINE 5 MG TABLET PO SCH (20:36)
[2017-02-12] MEDS: ASPIRIN 325 MG TABLET PO SCH (20:36)
[2017-02-13] MEDS: CEFTRIAXONE PMX 2GM/50ML 50 ML IV SCH (00:21)
[2017-02-13] MEDS: hydrALAzine 20 MG/ML, 1ML IV PRN ×2 (00:46→04:43)
[2017-02-13] MEDS: ACYCLOVIR 500 MG in SODIUM CHLORIDE 0.9% 100 ML IV SCH (00:46)
[2017-02-13] MEDS: LABETALOL 5MG/ML, 20ML IVPush PRN ×2 (01:16→04:43)
[2017-02-13] MEDS: INSULIN ASPART 100 UNITS/ML, PEN SQ-INSULIN SCH ×6 (04:00→19:47)
[2017-02-13 04:31] LABS: HEMATOCRIT 30.4 % (39.2-51.8); WHITE BLOOD COUNT 12.8 x10^3/uL (3.4-10)
[2017-02-13 04:34] LABS: BLOOD UREA NITROGEN 47 mg/dL (7-18)
[2017-02-13 04:37] LABS: ASPARTATE AMINO TRANSFERASE 72 U/L (15-37)
[2017-02-13] MEDS: HEPARIN 5,000 UNITS/ML, 1ML SQ SCH ×3 (05:13→19:51)
[2017-02-13] MEDS: SEVELAMER 800MG TABLET PO SCH ×4 (08:00→17:00)
[2017-02-13] MEDS: TEMPLATE NON-FORMULARY MED. (Fluticasone/Salmeterol** (Advair 250-50 Diskus**) 1 PUFF) INH SCH (09:00)
[2017-02-13] MEDS: METOPROLOL SUCCINATE 50 MG TAB.ER.24H PO SCH (09:00)
[2017-02-13] MEDS: AMPICILLIN/SULBACTAM 3 GM in SODIUM CHLORIDE 0.9% 100 ML IV SCH (09:00)
[2017-02-13] MEDS ORDERED: VANCOMYCIN 1,800 MG in SODIUM CHLORIDE 0.9% 500 ML IV ONE (09:00)
[2017-02-13] MEDS: LEFLUNOMIDE 20 MG TABLET PO SCH (10:07)
[2017-02-13] MEDS: METOLAZONE 10 MG TABLET PO SCH (10:08)
[2017-02-13] MEDS: FUROSEMIDE 20 MG TABLET PO SCH ×2 (10:08→19:52)
[2017-02-13] MEDS: PANTOPRAZOLE 40 MG IV IVPush SCH (10:09)
[2017-02-13] MEDS: LOSARTAN 50MG TABLET PO SCH ×2 (10:09→19:52)
[2017-02-13] MEDS: SENNA/DOCUSATE TABLET PO SCH (10:09)
[2017-02-13] MEDS: HYDROCORTISONE 20 MG TABLET PO SCH (10:34)
[2017-02-13] MEDS ORDERED: PROPOFOL 10 MG/ML, 20ML ONE (12:30)
[2017-02-13] MEDS ORDERED: PROPOFOL 10 MG/ML, 100ML IV ONE (12:30)
[2017-02-13] MEDS ORDERED: AMPICILLIN/SULBACTAM 3 GM in SODIUM CHLORIDE 0.9% 100 ML IV SCH (12:30)
[2017-02-13] MEDS ORDERED: PROPOFOL 100 ML IV PRN (15:48)
[2017-02-13] MEDS ORDERED: LIDOCAINE-MPF 1%, 2ML ENDO PRN (16:00)
[2017-02-13] MEDS ORDERED: ALBUTEROL/IPRATROPIUM 2.5MG/0.5MG, 3 ML INLINE SCH (16:00)
[2017-02-13] MEDS: DEXTROSE 10% IV SCH (19:47)
[2017-02-13] MEDS: SODIUM CHLORIDE IV SCH (19:47)
[2017-02-13] MEDS: ATORVASTATIN 80 MG TABLET PO SCH (19:50)
[2017-02-13] MEDS: ASPIRIN 325 MG TABLET PO SCH (19:51)
[2017-02-13] MEDS: AMLODIPINE 5 MG TABLET PO SCH (19:51)
[2017-02-14] MEDS: INSULIN ASPART 100 UNITS/ML, PEN SQ-INSULIN SCH ×6 (04:00→20:00)
[2017-02-14 05:18] LABS: HEMATOCRIT 32.5 % (39.2-51.8); HEMOGLOBIN 10.7 g/dL (13.7-18.0); WHITE BLOOD COUNT 11.3 x10^3/uL (3.4-10)
[2017-02-14] MEDS: HEPARIN 5,000 UNITS/ML, 1ML SQ SCH ×2 (05:30→13:49)
[2017-02-14 05:31] LABS: BLOOD UREA NITROGEN 29 mg/dL (7-18)
[2017-02-14 06:21] LABS: ABG COLLECTION SITE RIGHT RADIAL; COLLATERAL CIRCULATION TESTING NORMAL
[2017-02-14] MEDS ORDERED: NALOXONE 0.2 MG in SODIUM CHLORIDE 0.9% 1,000 ML IV SCH (06:30)
[2017-02-14] MEDS ORDERED: NALOXONE IV SCH (06:30)
[2017-02-14] MEDS ORDERED: SODIUM CHLORIDE 0.9% IV SCH (06:30)
[2017-02-14] MEDS: SEVELAMER 800MG TABLET PO SCH ×2 (08:00→11:54)
[2017-02-14] MEDS: TEMPLATE NON-FORMULARY MED. (Fluticasone/Salmeterol** (Advair 250-50 Diskus**) 1 PUFF) INH SCH (08:27)
[2017-02-14] MEDS: METOPROLOL SUCCINATE 50 MG TAB.ER.24H PO SCH (08:28)
[2017-02-14] MEDS: METOLAZONE 10 MG TABLET PO SCH (08:44)
[2017-02-14] MEDS: LEFLUNOMIDE 20 MG TABLET PO SCH (08:44)
[2017-02-14] MEDS: HYDROCORTISONE 20 MG TABLET PO SCH ×2 (08:45→21:22)
[2017-02-14] MEDS: LOSARTAN 50MG TABLET PO SCH ×2 (08:46→21:22)
[2017-02-14] MEDS: PANTOPRAZOLE 40 MG IV IVPush SCH (08:46)
[2017-02-14] MEDS: SENNA/DOCUSATE TABLET PO SCH (08:47)
[2017-02-14] MEDS: FUROSEMIDE 20 MG TABLET PO SCH ×2 (08:47→21:00)
[2017-02-14] MEDS ORDERED: DARBEPOETIN 100 MCG/ML SQ SCH (09:00)
[2017-02-14] MEDS: AMPICILLIN/SULBACTAM 3 GM in SODIUM CHLORIDE 0.9% 100 ML IV SCH (10:04)
[2017-02-14] MEDS: SODIUM CHLORIDE IV SCH (10:04)
[2017-02-14] MEDS: DEXTROSE 10% IV SCH (10:04)
[2017-02-14] MEDS: ALBUTEROL/IPRATROPIUM 2.5MG/0.5MG, 3 ML INLINE SCH ×5 (11:45→22:08)
[2017-02-14] MEDS ORDERED: PROPOFOL 100 ML IV PRN (11:46)
[2017-02-14 12:36] LABS: ABG COLLECTION SITE LEFT RADIAL; COLLATERAL CIRCULATION TESTING NORMAL
[2017-02-14] MEDS ORDERED: PROPOFOL 10 MG/ML, 100ML IV ONE (13:00)
[2017-02-14] MEDS ORDERED: PROPOFOL 10 MG/ML, 20ML ONE (13:00)
[2017-02-14] MEDS ORDERED: OMNIPAQUE 350 MG/ML, 75ML BOTTLE ONE (13:29)
[2017-02-14] MEDS: SEVELAMER 2.4 GM POWD.PACK PO SCH (13:48)
[2017-02-14] MEDS ORDERED: PIPERACILLIN/TAZO/PMX 4.5GM 100 ML IV SCH ×2 (14:30→16:30)
[2017-02-14] MEDS: METRONIDAZOLE PMX 500MG/100ML 100 ML IV SCH ×2 (15:09→21:21)
[2017-02-14] MEDS: AMLODIPINE 5 MG TABLET PO SCH (21:00)
[2017-02-14] MEDS: PIPERACILLIN/TAZO/PMX 2.25GM 50 ML IVPB SCH (21:22)
[2017-02-14] MEDS: ASPIRIN 325 MG TABLET PO SCH (21:22)
[2017-02-14] MEDS: ATORVASTATIN 80 MG TABLET PO SCH (21:22)
[2017-02-15] MEDS: HEPARIN 5,000 UNITS/ML, 1ML SQ SCH ×4 (00:01→20:32)
[2017-02-15] MEDS: SEVELAMER 2.4 GM POWD.PACK PO SCH ×4 (00:04→20:32)
[2017-02-15] MEDS: ALBUTEROL/IPRATROPIUM 2.5MG/0.5MG, 3 ML INLINE SCH ×6 (02:10→22:39)
[2017-02-15] MEDS: METRONIDAZOLE PMX 500MG/100ML 100 ML IV SCH ×4 (02:41→22:43)
[2017-02-15] MEDS: PIPERACILLIN/TAZO/PMX 2.25GM 50 ML IVPB SCH ×4 (02:42→23:49)
[2017-02-15 03:44] LABS: ABG COLLECTION SITE RIGHT BRACHIAL
[2017-02-15 03:57] LABS: BLOOD UREA NITROGEN 36 mg/dL (7-18)
[2017-02-15] MEDS: INSULIN ASPART 100 UNITS/ML, PEN SQ-INSULIN SCH ×7 (04:00→23:53)
[2017-02-15 04:16] LABS: HEMATOCRIT 27.3 % (39.2-51.8); WHITE BLOOD COUNT 8.2 x10^3/uL (3.4-10)
[2017-02-15] MEDS: SODIUM CHLORIDE IV SCH ×3 (06:11→22:44)
[2017-02-15] MEDS: DEXTROSE 10% IV SCH ×3 (06:11→22:44)
[2017-02-15] MEDS: TEMPLATE NON-FORMULARY MED. (Fluticasone/Salmeterol** (Advair 250-50 Diskus**) 1 PUFF) INH SCH (09:00)
[2017-02-15] MEDS: HYDROCORTISONE 20 MG TABLET PO SCH ×2 (10:33→20:32)
[2017-02-15] MEDS: PANTOPRAZOLE 40 MG IV IVPush SCH (10:33)
[2017-02-15] MEDS: SENNA/DOCUSATE TABLET PO SCH (10:34)
[2017-02-15] MEDS: LOSARTAN 50MG TABLET PO SCH ×2 (10:34→20:33)
[2017-02-15] MEDS: FUROSEMIDE 20 MG TABLET PO SCH ×2 (10:34→20:34)
[2017-02-15] MEDS: METOLAZONE 10 MG TABLET PO SCH (10:35)
[2017-02-15] MEDS ORDERED: POLYETHYLENE GLYCOL 17 GM PACKET PO PRN (19:30)
[2017-02-15] MEDS ORDERED: NALOXONE 0.4 MG/ML, 1ML IVPush PRN (19:30)
[2017-02-15] MEDS ORDERED: DOCUSATE 100 MG CAPSULE PO PRN (19:30)
[2017-02-15] MEDS ORDERED: PHARMACOKINETIC MONITORING MC PRN (19:30)
[2017-02-15] MEDS ORDERED: ONDANSETRON 2MG/ML, 2ML IVPush PRN (19:30)
[2017-02-15] MEDS ORDERED: LIDOCAINE-MPF 1%, 2ML ENDO PRN (19:30)
[2017-02-15] MEDS ORDERED: DEXTROSE 50%, 50ML SYRINGE IVPush PRN (19:30)
[2017-02-15] MEDS: ASPIRIN 325 MG TABLET PO SCH (20:32)
[2017-02-15] MEDS: ATORVASTATIN 80 MG TABLET PO SCH (20:32)
[2017-02-15] MEDS: AMLODIPINE 5 MG TABLET PO SCH (20:33)
[2017-02-16] MEDS: ALBUTEROL/IPRATROPIUM 2.5MG/0.5MG, 3 ML INLINE SCH ×5 (02:36→18:25)
[2017-02-16 04:00] VITALS: BP 110/62
[2017-02-16] MEDS: INSULIN ASPART 100 UNITS/ML, PEN SQ-INSULIN SCH ×5 (04:10→19:50)
[2017-02-16] MEDS: METRONIDAZOLE PMX 500MG/100ML 100 ML IV SCH ×3 (04:30→19:47)
[2017-02-16 04:39] LABS: ABG COLLECTION SITE RIGHT BRACHIAL
[2017-02-16 04:47] LABS: HEMATOCRIT 27.2 % (39.2-51.8); HEMOGLOBIN 8.9 g/dL (13.7-18.0); WHITE BLOOD COUNT 10.6 x10^3/uL (3.4-10)
[2017-02-16 04:53] LABS: BLOOD UREA NITROGEN 46 mg/dL (7-18)
[2017-02-16 05:43] LABS: ANISOCYTOSIS 1+; HYPOCHROMIA 1+; OVALOCYTES 1+
[2017-02-16 05:44] LABS: TARGET CELLS 1+
[2017-02-16 05:45] LABS: POIKILOCYTOSIS 1+
[2017-02-16] MEDS: PIPERACILLIN/TAZO/PMX 2.25GM 50 ML IVPB SCH ×3 (05:51→21:31)
[2017-02-16] MEDS: SEVELAMER 2.4 GM POWD.PACK PO SCH ×3 (05:51→21:32)
[2017-02-16] MEDS: HEPARIN 5,000 UNITS/ML, 1ML SQ SCH ×3 (05:52→21:32)
[2017-02-16] MEDS: TEMPLATE NON-FORMULARY MED. (Fluticasone/Salmeterol** (Advair 250-50 Diskus**) 1 PUFF) INH SCH (07:56)
[2017-02-16] MEDS: PANTOPRAZOLE 40 MG IV IVPush SCH (08:53)
[2017-02-16] MEDS: LOSARTAN 50MG TABLET PO SCH ×2 (08:54→21:33)
[2017-02-16] MEDS: FUROSEMIDE 20 MG TABLET PO SCH ×2 (08:54→21:31)
[2017-02-16] MEDS: HYDROCORTISONE 20 MG TABLET PO SCH ×2 (08:54→21:00)
[2017-02-16] MEDS: METOLAZONE 10 MG TABLET PO SCH (08:54)
[2017-02-16] MEDS: SENNA/DOCUSATE TABLET PO SCH (08:55)
[2017-02-16] MEDS: DEXTROSE 10% IV SCH (19:30)
[2017-02-16] MEDS: SODIUM CHLORIDE IV SCH (19:30)
[2017-02-16] MEDS: ATORVASTATIN 80 MG TABLET PO SCH (21:31)
[2017-02-16] MEDS: AMLODIPINE 5 MG TABLET PO SCH (21:32)
[2017-02-16] MEDS: ASPIRIN 325 MG TABLET PO SCH (21:33)
[2017-02-17] MEDS: METRONIDAZOLE PMX 500MG/100ML 100 ML IV SCH ×4 (01:35→20:07)
[2017-02-17] MEDS: PIPERACILLIN/TAZO/PMX 2.25GM 50 ML IVPB SCH ×4 (03:03→21:32)
[2017-02-17 04:00] VITALS: BP 147/70
[2017-02-17] MEDS: INSULIN ASPART 100 UNITS/ML, PEN SQ-INSULIN SCH ×7 (04:00→23:52)
[2017-02-17] MEDS: ACETAMINOPHEN 325 MG TABLET PO PRN ×3 (04:17→16:07)
[2017-02-17 05:08] LABS: BLOOD UREA NITROGEN 30 mg/dL (7-18)
[2017-02-17] MEDS: SEVELAMER 2.4 GM POWD.PACK PO SCH ×3 (06:00→21:36)
[2017-02-17] MEDS: HEPARIN 5,000 UNITS/ML, 1ML SQ SCH ×3 (06:01→21:35)
[2017-02-17 06:11] LABS: ABG COLLECTION SITE RIGHT RADIAL; COLLATERAL CIRCULATION TESTING NORMAL
[2017-02-17] MEDS: TEMPLATE NON-FORMULARY MED. (Fluticasone/Salmeterol** (Advair 250-50 Diskus**) 1 PUFF) INH SCH (07:51)
[2017-02-17 07:52] LABS: HEMATOCRIT 29.5 % (39.2-51.8); HEMOGLOBIN 9.5 g/dL (13.7-18.0); WHITE BLOOD COUNT 11.5 x10^3/uL (3.4-10)
[2017-02-17] MEDS: PANTOPRAZOLE 40 MG IV IVPush SCH (08:06)
[2017-02-17] MEDS: SENNA/DOCUSATE TABLET PO SCH (08:59)
[2017-02-17] MEDS: LOSARTAN 50MG TABLET PO SCH ×2 (09:03→21:33)
[2017-02-17] MEDS: FUROSEMIDE 20 MG TABLET PO SCH ×2 (09:03→21:33)
[2017-02-17] MEDS: DEXTROSE 10% IV SCH (09:04)
[2017-02-17] MEDS: SODIUM CHLORIDE IV SCH (09:04)
[2017-02-17] MEDS: METOLAZONE 10 MG TABLET PO SCH (10:19)
[2017-02-17] MEDS: HYDROCORTISONE 20 MG TABLET PO SCH ×2 (11:17→21:37)
[2017-02-17] MEDS ORDERED: ALBUTEROL/IPRATROPIUM 2.5MG/0.5MG, 3 ML NPPB PRN (21:00)
[2017-02-17] MEDS: ASPIRIN 325 MG TABLET PO SCH (21:32)
[2017-02-17] MEDS: ATORVASTATIN 80 MG TABLET PO SCH (21:33)
[2017-02-17] MEDS: AMLODIPINE 5 MG TABLET PO SCH (21:34)
[2017-02-18] MEDS: METRONIDAZOLE PMX 500MG/100ML 100 ML IV SCH ×4 (02:26→19:49)
[2017-02-18] MEDS: SODIUM CHLORIDE IV SCH (02:27)
[2017-02-18] MEDS: DEXTROSE 10% IV SCH (02:27)
[2017-02-18] MEDS: PIPERACILLIN/TAZO/PMX 2.25GM 50 ML IVPB SCH ×4 (03:04→21:26)
[2017-02-18] MEDS: INSULIN ASPART 100 UNITS/ML, PEN SQ-INSULIN SCH ×6 (04:00→23:50)
[2017-02-18 04:37] VITALS: BP 178/96
[2017-02-18 04:38] LABS: ABG COLLECTION SITE RIGHT RADIAL; COLLATERAL CIRCULATION TESTING NORMAL
[2017-02-18 04:52] LABS: BLOOD UREA NITROGEN 38 mg/dL (7-18)
[2017-02-18 05:12] LABS: HEMATOCRIT 30.1 % (39.2-51.8); HEMOGLOBIN 9.9 g/dL (13.7-18.0); WHITE BLOOD COUNT 14.5 x10^3/uL (3.4-10)
[2017-02-18] MEDS: SEVELAMER 2.4 GM POWD.PACK PO SCH ×3 (05:20→19:52)
[2017-02-18] MEDS: HEPARIN 5,000 UNITS/ML, 1ML SQ SCH ×3 (05:20→19:52)
[2017-02-18] MEDS: PANTOPRAZOLE 40 MG IV IVPush SCH (07:34)
[2017-02-18] MEDS: HYDROCORTISONE 20 MG TABLET PO SCH ×2 (09:00→19:53)
[2017-02-18] MEDS: METOLAZONE 10 MG TABLET PO SCH (09:00)
[2017-02-18] MEDS: LOSARTAN 50MG TABLET PO SCH ×2 (09:00→19:53)
[2017-02-18] MEDS: SENNA/DOCUSATE TABLET PO SCH (09:00)
[2017-02-18] MEDS: TEMPLATE NON-FORMULARY MED. (Fluticasone/Salmeterol** (Advair 250-50 Diskus**) 1 PUFF) INH SCH (09:00)
[2017-02-18] MEDS: FUROSEMIDE 20 MG TABLET PO SCH ×2 (09:00→19:52)
[2017-02-18] MEDS ORDERED: PIPERACILLIN/TAZO/PMX 2.25GM 50 ML IVPB SCH ×2 (15:30)
[2017-02-18] MEDS: ATORVASTATIN 80 MG TABLET PO SCH (19:52)
[2017-02-18] MEDS: AMLODIPINE 5 MG TABLET PO SCH (19:52)
[2017-02-18] MEDS: ASPIRIN 325 MG TABLET PO SCH (19:53)
[2017-02-18] MEDS: hydrALAzine 20 MG/ML, 1ML IV PRN (21:32)
[2017-02-19 00:47] LABS: HEMATOCRIT 34.6 % (39.2-51.8); HEMOGLOBIN 11.3 g/dL (13.7-18.0)
[2017-02-19] MEDS: METRONIDAZOLE PMX 500MG/100ML 100 ML IV SCH ×4 (02:06→20:58)
[2017-02-19] MEDS: LABETALOL 5MG/ML, 20ML IVPush PRN ×3 (02:07→21:46)
[2017-02-19] MEDS: INSULIN ASPART 100 UNITS/ML, PEN SQ-INSULIN SCH ×5 (04:00→20:58)
[2017-02-19 04:27] LABS: HEMATOCRIT 33.5 % (39.2-51.8); HEMOGLOBIN 10.9 g/dL (13.7-18.0)
[2017-02-19 04:33] LABS: BLOOD UREA NITROGEN 27 mg/dL (7-18)
[2017-02-19] MEDS: HEPARIN 5,000 UNITS/ML, 1ML SQ SCH (04:45)
[2017-02-19] MEDS: SEVELAMER 2.4 GM POWD.PACK PO SCH ×3 (04:45→21:00)
[2017-02-19] MEDS: PIPERACILLIN/TAZO/PMX 2.25GM 50 ML IVPB SCH ×3 (05:12→22:58)
[2017-02-19 05:16] LABS: ABG COLLECTION SITE RIGHT RADIAL; COLLATERAL CIRCULATION TESTING NORMAL
[2017-02-19] MEDS: hydrALAzine 20 MG/ML, 1ML IV PRN ×2 (05:16→12:46)
[2017-02-19 05:46] LABS: DIFF TOTAL CELLS COUNTED 100 CELL DIFF
[2017-02-19 05:48] LABS: VERIFY COUNTS? YES
[2017-02-19 05:49] LABS: ANISOCYTOSIS 1+; POLYCHROMASIA 1+; SPHEROCYTES 1+; TARGET CELLS 1+
[2017-02-19 05:50] LABS: HOWELL-JOLLY BODIES 1+; LARGE PLATELETS 1+
[2017-02-19 05:53] LABS: POIKILOCYTOSIS 1+
[2017-02-19 06:04] VITALS: BP 184/80
[2017-02-19] MEDS: PANTOPRAZOLE 40 MG IV IVPush SCH (08:59)
[2017-02-19] MEDS: TEMPLATE NON-FORMULARY MED. (Fluticasone/Salmeterol** (Advair 250-50 Diskus**) 1 PUFF) INH SCH (09:00)
[2017-02-19] MEDS: SENNA/DOCUSATE TABLET PO SCH (09:00)
[2017-02-19] MEDS: METOLAZONE 10 MG TABLET PO SCH (09:00)
[2017-02-19] MEDS: HYDROCORTISONE 20 MG TABLET PO SCH ×2 (09:44→20:59)
[2017-02-19] MEDS: LOSARTAN 50MG TABLET PO SCH ×2 (09:45→21:00)
[2017-02-19] MEDS ORDERED: AMLODIPINE 5 MG TABLET PO ONE ×2 (10:00)
[2017-02-19] MEDS ORDERED: PHYTONADIONE 10 MG/ML, 1ML SQ ONE (12:30)
[2017-02-19] MEDS: THIAMINE 100 MG in SODIUM CHLORIDE 0.9% 50 ML IV SCH (12:46)
[2017-02-19 13:03] LABS: ASPARTATE AMINO TRANSFERASE 16 U/L (15-37); BLOOD UREA NITROGEN 32 mg/dL (7-18)
[2017-02-19] MEDS ORDERED: FENTANYL PF 100 MCG/2ML ONE ×2 (13:32→13:33)
[2017-02-19] MEDS ORDERED: EPINEPHRINE 1 MG/ML, 1ML ONE (13:39)
[2017-02-19] MEDS ORDERED: BUPIVACAINE/PF 0.5% ONE (13:39)
[2017-02-19] MEDS ORDERED: BACITRACIN 50,000 UNIT ONE (13:39)
[2017-02-19] MEDS ORDERED: THROMBIN 5,000 UNIT VIAL TP ONE (13:39)
[2017-02-19] MEDS ORDERED: LIDOCAINE-MPF 1%, 2ML ENDO PRN (14:00)
[2017-02-19] MEDS ORDERED: PROPOFOL 10 MG/ML, 20ML ONE (14:02)
[2017-02-19] MEDS ORDERED: THROMBIN 20,000 UNIT VIAL TP ONE (14:10)
[2017-02-19] MEDS ORDERED: SODIUM CHLORIDE 0.9% IVPB ONE (14:30)
[2017-02-19] MEDS ORDERED: DESMOPRESSIN IVPB ONE (14:30)
[2017-02-19] MEDS ORDERED: SUCCINYLCHOLINE 20 MG/ML, 10ML ONE (15:17)
[2017-02-19] MEDS ORDERED: ROCURONIUM 10 MG/ML,10ML ONE (15:17)
[2017-02-19] MEDS ORDERED: CEFAZOLIN 1,000 MG ONE ×2 (15:18)
[2017-02-19] MEDS ORDERED: PHENYLEPHRINE 10 MG/ML ONE (15:18)
[2017-02-19] MEDS ORDERED: BACITRACIN OINT 500U/GM, 15 GM ONE (16:53)
[2017-02-19] MEDS: FUROSEMIDE 40 MG TABLET PO SCH (17:00)
[2017-02-19] MEDS ORDERED: ACETAMINOPHEN 325 MG TABLET PO PRN (18:00)
[2017-02-19] MEDS ORDERED: ONDANSETRON 2MG/ML, 2ML IV PRN (18:00)
[2017-02-19] MEDS: DEXTROSE 10% IV SCH (20:54)
[2017-02-19] MEDS: SODIUM CHLORIDE IV SCH (20:54)
[2017-02-19] MEDS: AMLODIPINE 5 MG TABLET PO SCH (20:59)
[2017-02-19] MEDS: ATORVASTATIN 80 MG TABLET PO SCH (20:59)
[2017-02-19] MEDS: HYDROmorphone 2 MG/ML, 1ML IV PRN ×2 (21:00→22:19)
[2017-02-19] MEDS: CEFAZOLIN PMX 1GM/50ML 50 ML IVPB SCH (22:19)
[2017-02-20] MEDS: hydrALAzine 20 MG/ML, 1ML IV PRN ×2 (00:04→03:23)
[2017-02-20] MEDS: INSULIN ASPART 100 UNITS/ML, PEN SQ-INSULIN SCH ×7 (00:08→23:39)
[2017-02-20] MEDS: HYDROmorphone 2 MG/ML, 1ML IV PRN ×5 (01:12→23:35)
[2017-02-20] MEDS: LABETALOL 5MG/ML, 20ML IVPush PRN (02:16)
[2017-02-20] MEDS: METRONIDAZOLE PMX 500MG/100ML 100 ML IV SCH ×4 (03:44→20:59)
[2017-02-20 04:30] VITALS: BP 143/51
[2017-02-20 05:38] LABS: ABG COLLECTION SITE ARTERIAL LINE
[2017-02-20 05:45] LABS: ASPARTATE AMINO TRANSFERASE 26 U/L (15-37); BLOOD UREA NITROGEN 37 mg/dL (7-18)
[2017-02-20] MEDS: SEVELAMER 2.4 GM POWD.PACK PO SCH ×3 (05:51→21:01)
[2017-02-20] MEDS: CEFAZOLIN PMX 1GM/50ML 50 ML IVPB SCH (05:52)
[2017-02-20 05:54] LABS: HEMATOCRIT 23.2 % (39.2-51.8); HEMOGLOBIN 7.5 g/dL (13.7-18.0); WHITE BLOOD COUNT 19.6 x10^3/uL (3.4-10)
[2017-02-20 05:55] LABS: DIFF TOTAL CELLS COUNTED 100 CELL DIFF
[2017-02-20 05:57] LABS: ANISOCYTOSIS 1+; VERIFY COUNTS? YES
[2017-02-20 05:58] LABS: OVALOCYTES 1+; POIKILOCYTOSIS 1+; POLYCHROMASIA 1+
[2017-02-20 05:59] LABS: SCHISTOCYTES 1+
[2017-02-20 06:03] LABS: HOWELL-JOLLY BODIES 1+
[2017-02-20 06:07] LABS: LARGE PLATELETS 1+
[2017-02-20] MEDS: PIPERACILLIN/TAZO/PMX 2.25GM 50 ML IVPB SCH ×3 (06:44→21:42)
[2017-02-20] MEDS: PANTOPRAZOLE 40 MG IV IVPush SCH (07:30)
[2017-02-20] MEDS: FUROSEMIDE 40 MG TABLET PO SCH ×2 (08:00→17:00)
[2017-02-20] MEDS: TEMPLATE NON-FORMULARY MED. (Fluticasone/Salmeterol** (Advair 250-50 Diskus**) 1 PUFF) INH SCH (09:00)
[2017-02-20] MEDS: HYDROCORTISONE 20 MG TABLET PO SCH ×2 (09:00→20:59)
[2017-02-20] MEDS: METOLAZONE 10 MG TABLET PO SCH (09:00)
[2017-02-20] MEDS: LOSARTAN 50MG TABLET PO SCH ×2 (09:00→21:00)
[2017-02-20] MEDS: AMLODIPINE 5 MG TABLET PO SCH ×2 (09:00→21:00)
[2017-02-20] MEDS: SENNA/DOCUSATE TABLET PO SCH (09:00)
[2017-02-20] MEDS: SODIUM CHLORIDE IV SCH (09:00)
[2017-02-20] MEDS: DEXTROSE 10% IV SCH (09:00)
[2017-02-20] MEDS ORDERED: LORazepam 2 MG/ML, 1ML ONE (09:42)
[2017-02-20] MEDS ORDERED: LORazepam 2 MG/ML, 1ML IVPush PRN (10:00)
[2017-02-20] MEDS ORDERED: LEVETIRACETAM 500 MG in SODIUM CHLORIDE 0.9% 100 ML IV SCH (10:00)
[2017-02-20] MEDS: LEVETIRACETAM 750 MG in SODIUM CHLORIDE 0.9% 100 ML IV SCH ×2 (10:32→21:43)
[2017-02-20] MEDS: THIAMINE 100 MG in SODIUM CHLORIDE 0.9% 50 ML IV SCH (13:09)
[2017-02-20] MEDS: ATORVASTATIN 80 MG TABLET PO SCH (21:00)
[2017-02-20] MEDS: PROPOFOL 100 ML IV PRN (21:38)
[2017-02-20] MEDS ORDERED: LEVETIRACETAM 750 MG in SODIUM CHLORIDE 0.9% 100 ML IV SCH (22:00)
[2017-02-21] MEDS: hydrALAzine 20 MG/ML, 1ML IV PRN (00:53)
[2017-02-21] MEDS: PROPOFOL 100 ML IV PRN (02:58)
[2017-02-21] MEDS: METRONIDAZOLE PMX 500MG/100ML 100 ML IV SCH ×4 (02:58→20:37)
[2017-02-21] MEDS: INSULIN ASPART 100 UNITS/ML, PEN SQ-INSULIN SCH ×6 (04:00→23:59)
[2017-02-21] MEDS: HYDROmorphone 2 MG/ML, 1ML IV PRN ×6 (04:04→20:00)
[2017-02-21 04:51] LABS: ABG COLLECTION SITE NOT DOCUMENTED
[2017-02-21 04:57] LABS: WHITE BLOOD COUNT 16.2 x10^3/uL (3.4-10)
[2017-02-21 05:04] LABS: HEMATOCRIT 21.1 % (39.2-51.8); HEMOGLOBIN 6.7 g/dL (13.7-18.0)
[2017-02-21 05:05] LABS: BLOOD UREA NITROGEN 23 mg/dL (7-18)
[2017-02-21] MEDS: SEVELAMER 2.4 GM POWD.PACK PO SCH ×3 (05:36→20:50)
[2017-02-21] MEDS: PIPERACILLIN/TAZO/PMX 2.25GM 50 ML IVPB SCH ×3 (05:36→22:18)
[2017-02-21] MEDS: HYDROmorphone 2MG TABLET PO PRN (05:44)
[2017-02-21 05:48] LABS: DIFF TOTAL CELLS COUNTED 100 CELL DIFF
[2017-02-21 05:50] LABS: ANISOCYTOSIS 2+; OVALOCYTES 1+; SCHISTOCYTES 1+; SPHEROCYTES 1+; TARGET CELLS 1+; VERIFY COUNTS? YES
[2017-02-21 05:51] LABS: HOWELL-JOLLY BODIES 1+; LARGE PLATELETS 1+; POIKILOCYTOSIS 1+; POLYCHROMASIA 1+
[2017-02-21] MEDS: PANTOPRAZOLE 40 MG IV IVPush SCH (07:41)
[2017-02-21] MEDS: FUROSEMIDE 40 MG TABLET PO SCH ×2 (07:43→17:58)
[2017-02-21] MEDS: AMLODIPINE 5 MG TABLET PO SCH ×2 (07:43→20:50)
[2017-02-21] MEDS: METOLAZONE 10 MG TABLET PO SCH (07:44)
[2017-02-21] MEDS: HYDROCORTISONE 20 MG TABLET PO SCH ×2 (07:44→20:50)
[2017-02-21] MEDS: LOSARTAN 50MG TABLET PO SCH ×2 (07:44→20:50)
[2017-02-21] MEDS: SENNA/DOCUSATE TABLET PO SCH (07:44)
[2017-02-21] MEDS: TEMPLATE NON-FORMULARY MED. (Fluticasone/Salmeterol** (Advair 250-50 Diskus**) 1 PUFF) INH SCH (09:00)
[2017-02-21 09:17] VITALS: BP 148/65
[2017-02-21 09:35] VITALS: BP 122/60
[2017-02-21] MEDS: LEVETIRACETAM 750 MG in SODIUM CHLORIDE 0.9% 100 ML IV SCH ×2 (10:34→22:48)
[2017-02-21] MEDS: THIAMINE 100 MG in SODIUM CHLORIDE 0.9% 50 ML IV SCH (10:34)
[2017-02-21 10:45] VITALS: BP 146/78
[2017-02-21 11:00] VITALS: BP 144/64
[2017-02-21 11:16] VITALS: BP 162/68
[2017-02-21 12:30] VITALS: BP 147/72
[2017-02-21] MEDS: ACETAMINOPHEN 650 MG/20.3 ML UDC PO PRN (15:42)
[2017-02-21] MEDS: ATORVASTATIN 80 MG TABLET PO SCH (20:50)
[2017-02-22] MEDS: HYDROmorphone 2 MG/ML, 1ML IV PRN ×2 (00:05→04:23)
[2017-02-22] MEDS: METRONIDAZOLE PMX 500MG/100ML 100 ML IV SCH ×4 (02:56→21:02)
[2017-02-22 04:00] VITALS: BP 144/68
[2017-02-22] MEDS: INSULIN ASPART 100 UNITS/ML, PEN SQ-INSULIN SCH ×5 (04:03→21:04)
[2017-02-22 05:07] LABS: HEMATOCRIT 24.6 % (39.2-51.8); HEMOGLOBIN 8.1 g/dL (13.7-18.0); WHITE BLOOD COUNT 13.9 x10^3/uL (3.4-10)
[2017-02-22 05:15] LABS: BLOOD UREA NITROGEN 37 mg/dL (7-18)
[2017-02-22 05:16] LABS: ABG COLLECTION SITE NOT DOCUMENTED
[2017-02-22 05:19] LABS: ASPARTATE AMINO TRANSFERASE 12 U/L (15-37)
[2017-02-22] MEDS: PIPERACILLIN/TAZO/PMX 2.25GM 50 ML IVPB SCH ×3 (05:44→22:50)
[2017-02-22] MEDS: SEVELAMER 2.4 GM POWD.PACK PO SCH ×3 (05:44→21:03)
[2017-02-22 05:52] LABS: DIFF TOTAL CELLS COUNTED 100 CELL DIFF
[2017-02-22 05:53] LABS: ANISOCYTOSIS 2+; POLYCHROMASIA 1+; SPHEROCYTES 1+; VERIFY COUNTS? YES
[2017-02-22 05:54] LABS: GIANT PLATELETS 1+; HOWELL-JOLLY BODIES 1+; LARGE PLATELETS 1+; OVALOCYTES 1+; TARGET CELLS 1+
[2017-02-22 05:56] LABS: POIKILOCYTOSIS 1+; SCHISTOCYTES 1+
[2017-02-22] MEDS: PANTOPRAZOLE 40 MG IV IVPush SCH (08:14)
[2017-02-22] MEDS: FUROSEMIDE 40 MG TABLET PO SCH ×2 (08:14→17:13)
[2017-02-22] MEDS: HYDROCORTISONE 20 MG TABLET PO SCH ×2 (08:40→21:04)
[2017-02-22] MEDS: LOSARTAN 50MG TABLET PO SCH ×2 (08:41→21:04)
[2017-02-22] MEDS: AMLODIPINE 5 MG TABLET PO SCH ×2 (08:41→21:04)
[2017-02-22] MEDS: SENNA/DOCUSATE TABLET PO SCH (08:41)
[2017-02-22] MEDS: METOLAZONE 10 MG TABLET PO SCH (08:42)
[2017-02-22] MEDS: TEMPLATE NON-FORMULARY MED. (Fluticasone/Salmeterol** (Advair 250-50 Diskus**) 1 PUFF) INH SCH (09:00)
[2017-02-22] MEDS ORDERED: ARANESP 100 MCG/ML **ESRD SQ SCH (10:00)
[2017-02-22] MEDS: THIAMINE 100 MG in SODIUM CHLORIDE 0.9% 50 ML IV SCH (10:07)
[2017-02-22] MEDS: LEVETIRACETAM 750 MG in SODIUM CHLORIDE 0.9% 100 ML IV SCH (10:14)
[2017-02-22] MEDS: HYDROmorphone 2MG TABLET PO PRN (12:20)
[2017-02-22] MEDS: ACETAMINOPHEN 650 MG/20.3 ML UDC PO PRN (14:57)
[2017-02-22] MEDS: hydrALAzine 20 MG/ML, 1ML IV PRN (15:20)
[2017-02-22] MEDS ORDERED: LIDOCAINE-MPF 1%, 2ML ENDO PRN (15:30)
[2017-02-22] MEDS ORDERED: ONDANSETRON 2MG/ML, 2ML IVPush PRN (15:30)
[2017-02-22] MEDS ORDERED: DOCUSATE 100 MG CAPSULE PO PRN (15:30)
[2017-02-22] MEDS ORDERED: DEXTROSE 50%, 50ML SYRINGE IVPush PRN (15:30)
[2017-02-22] MEDS ORDERED: LORazepam 2 MG/ML, 1ML IVPush PRN (15:30)
[2017-02-22] MEDS ORDERED: POLYETHYLENE GLYCOL 17 GM PACKET PO PRN (15:30)
[2017-02-22] MEDS ORDERED: ONDANSETRON 2MG/ML, 2ML IV PRN (15:30)
[2017-02-22] MEDS ORDERED: ALBUTEROL/IPRATROPIUM 2.5MG/0.5MG, 3 ML NPPB PRN (15:30)
[2017-02-22] MEDS ORDERED: ACETAMINOPHEN 650 MG/20.3 ML UDC PO PRN (15:30)
[2017-02-22] MEDS ORDERED: ALBUTEROL SULFATE 2.5 MG/3 ML NPPB PRN (17:30)
[2017-02-22] MEDS: LEVETIRACETAM 500 MG TABLET NG SCH (21:03)
[2017-02-22] MEDS: ATORVASTATIN 80 MG TABLET PO SCH (21:03)
[2017-02-23] MEDS: HYDROmorphone 2MG TABLET PO PRN ×4 (00:12→18:02)
[2017-02-23] MEDS: METRONIDAZOLE PMX 500MG/100ML 100 ML IV SCH ×3 (03:02→19:08)
[2017-02-23] MEDS: hydrALAzine 20 MG/ML, 1ML IV PRN ×2 (03:03→13:01)
[2017-02-23] MEDS: INSULIN ASPART 100 UNITS/ML, PEN SQ-INSULIN SCH ×4 (03:15→21:30)
[2017-02-23 04:00] VITALS: BP 153/76
[2017-02-23 04:39] LABS: ASPARTATE AMINO TRANSFERASE 12 U/L (15-37); BLOOD UREA NITROGEN 27 mg/dL (7-18)
[2017-02-23 06:04] LABS: ABG COLLECTION SITE RIGHT RADIAL; COLLATERAL CIRCULATION TESTING NORMAL
[2017-02-23] MEDS: PIPERACILLIN/TAZO/PMX 2.25GM 50 ML IVPB SCH ×3 (06:04→23:39)
[2017-02-23 06:06] LABS: HEMATOCRIT 26.1 % (39.2-51.8); HEMOGLOBIN 8.8 g/dL (13.7-18.0); WHITE BLOOD COUNT 14.9 x10^3/uL (3.4-10)
[2017-02-23] MEDS: SENNA/DOCUSATE TABLET PO SCH (09:00)
[2017-02-23] MEDS: SEVELAMER 2.4 GM POWD.PACK PO SCH ×2 (09:00→16:39)
[2017-02-23] MEDS ORDERED: POTASSIUM PHOSPHATE 44 MEQ in SODIUM CHLORIDE 0.9% 500 ML IV ONE (09:00)
[2017-02-23] MEDS: TEMPLATE NON-FORMULARY MED. (Fluticasone/Salmeterol** (Advair 250-50 Diskus**) 1 PUFF) INH SCH (09:00)
[2017-02-23] MEDS: AMLODIPINE 5 MG TABLET PO SCH (09:33)
[2017-02-23] MEDS: LOSARTAN 50MG TABLET PO SCH (09:33)
[2017-02-23] MEDS: THIAMINE 100 MG in SODIUM CHLORIDE 0.9% 50 ML IV SCH (12:37)
[2017-02-23] MEDS: PANTOPRAZOLE 40 MG IV IVPush SCH (12:40)
[2017-02-23] MEDS: FUROSEMIDE 40 MG TABLET PO SCH ×2 (12:41→19:09)
[2017-02-23] MEDS: HYDROCORTISONE 20 MG TABLET PO SCH (12:42)
[2017-02-23] MEDS: LEVETIRACETAM 500 MG TABLET NG SCH (12:42)
[2017-02-23] MEDS: METOLAZONE 10 MG TABLET PO SCH (12:43)
[2017-02-23] MEDS: LABETALOL 5MG/ML, 20ML IVPush PRN (13:37)
[2017-02-23 19:43] VITALS: BP 172/82
[2017-02-23] MEDS ORDERED: LEVETIRACETAM 100 MG/ML, 5ML IVPush SCH (22:30)
[2017-02-23] MEDS: LEVETIRACETAM 750 MG in SODIUM CHLORIDE 0.9% 100 ML IV SCH (23:39)
[2017-02-23] MEDS: HYDROCORTISONE 100 MG INJ. IVPush SCH (23:39)
[2017-02-24] VITALS (10 sets, daily range): BP systolic 147–206; BP diastolic 76–92
[2017-02-24] MEDS: METRONIDAZOLE PMX 500MG/100ML 100 ML IV SCH ×4 (00:52→19:24)
[2017-02-24] MEDS: INSULIN ASPART 100 UNITS/ML, PEN SQ-INSULIN SCH ×4 (03:30→20:43)
[2017-02-24 05:27] LABS: BLOOD UREA NITROGEN 19 mg/dL (7-18)
[2017-02-24 05:28] LABS: HEMATOCRIT 30.1 % (39.2-51.8); HEMOGLOBIN 9.9 g/dL (13.7-18.0); WHITE BLOOD COUNT 17.4 x10^3/uL (3.4-10)
[2017-02-24 05:30] LABS: ASPARTATE AMINO TRANSFERASE 16 U/L (15-37)
[2017-02-24] MEDS: PIPERACILLIN/TAZO/PMX 2.25GM 50 ML IVPB SCH ×3 (05:36→21:59)
[2017-02-24] MEDS: TEMPLATE NON-FORMULARY MED. (Fluticasone/Salmeterol** (Advair 250-50 Diskus**) 1 PUFF) INH SCH (07:14)
[2017-02-24] MEDS: SENNA/DOCUSATE TABLET PO SCH ×2 (07:15→13:21)
[2017-02-24] MEDS: PANTOPRAZOLE 40 MG IV IVPush SCH (07:23)
[2017-02-24] MEDS: hydrALAzine 20 MG/ML, 1ML IV PRN ×2 (07:23→18:39)
[2017-02-24] MEDS: LABETALOL 5MG/ML, 20ML IVPush PRN ×2 (08:14→09:41)
[2017-02-24] MEDS: THIAMINE 100 MG in SODIUM CHLORIDE 0.9% 50 ML IV SCH (09:40)
[2017-02-24] MEDS ORDERED: LIDOCAINE GEL 2%, 5ML ONE (11:26)
[2017-02-24] MEDS: FUROSEMIDE 40 MG TABLET PO SCH ×2 (12:02→20:41)
[2017-02-24] MEDS: LEVETIRACETAM 750 MG in SODIUM CHLORIDE 0.9% 100 ML IV SCH ×2 (12:25→22:58)
[2017-02-24] MEDS: AMLODIPINE 5 MG TABLET PO SCH (13:00)
[2017-02-24] MEDS: METOLAZONE 10 MG TABLET PO SCH (13:00)
[2017-02-24] MEDS: LOSARTAN 50MG TABLET PO SCH ×2 (13:00→20:40)
[2017-02-24] MEDS: ACETAMINOPHEN 325 MG TABLET PO PRN (13:22)
[2017-02-24] MEDS: CARVEDILOL 12.5 MG TABLET PO SCH ×2 (13:49→20:40)
[2017-02-24] MEDS: D5%-0.45% NACL 1,000 ML IV SCH (15:00)
[2017-02-24 15:12] LABS: ABG COLLECTION SITE RIGHT RADIAL; COLLATERAL CIRCULATION TESTING NORMAL
[2017-02-24] MEDS: HYDROCORTISONE 100 MG INJ. IVPush SCH (22:00)
[2017-02-25] MEDS: METRONIDAZOLE PMX 500MG/100ML 100 ML IV SCH ×4 (00:56→20:34)
[2017-02-25] MEDS: INSULIN ASPART 100 UNITS/ML, PEN SQ-INSULIN SCH ×4 (03:28→21:25)
[2017-02-25 04:00] VITALS: BP 121/49
[2017-02-25] MEDS: hydrALAzine 20 MG/ML, 1ML IV PRN ×2 (04:31→14:12)
[2017-02-25 05:26] LABS: HEMATOCRIT 29.7 % (39.2-51.8); HEMOGLOBIN 9.8 g/dL (13.7-18.0)
[2017-02-25 05:35] LABS: ASPARTATE AMINO TRANSFERASE 14 U/L (15-37); BLOOD UREA NITROGEN 34 mg/dL (7-18)
[2017-02-25] MEDS: PIPERACILLIN/TAZO/PMX 2.25GM 50 ML IVPB SCH ×3 (06:06→22:15)
[2017-02-25] MEDS: CARVEDILOL 12.5 MG TABLET PO SCH ×2 (06:06→17:43)
[2017-02-25] MEDS: TEMPLATE NON-FORMULARY MED. (Fluticasone/Salmeterol** (Advair 250-50 Diskus**) 1 PUFF) INH SCH (09:00)
[2017-02-25] MEDS: PANTOPRAZOLE 40 MG IV IVPush SCH (11:52)
[2017-02-25] MEDS: AMLODIPINE 5 MG TABLET PO SCH (11:53)
[2017-02-25] MEDS: FUROSEMIDE 40 MG TABLET PO SCH ×2 (11:53→17:43)
[2017-02-25] MEDS: LOSARTAN 50MG TABLET PO SCH ×2 (11:53→20:34)
[2017-02-25] MEDS: METOLAZONE 10 MG TABLET PO SCH (11:54)
[2017-02-25] MEDS: LEVETIRACETAM 750 MG in SODIUM CHLORIDE 0.9% 100 ML IV SCH ×2 (11:54→23:24)
[2017-02-25] MEDS: THIAMINE 100 MG in SODIUM CHLORIDE 0.9% 50 ML IV SCH (11:54)
[2017-02-25] MEDS: D5%-0.45% NACL 1,000 ML IV SCH (14:00)
[2017-02-25] MEDS: HYDROCORTISONE 100 MG INJ. IVPush SCH (23:24)
[2017-02-26] MEDS: METRONIDAZOLE PMX 500MG/100ML 100 ML IV SCH ×4 (01:06→19:52)
[2017-02-26] MEDS: INSULIN ASPART 100 UNITS/ML, PEN SQ-INSULIN SCH ×6 (01:15→21:04)
[2017-02-26] MEDS: hydrALAzine 20 MG/ML, 1ML IV PRN (03:15)
[2017-02-26 04:00] VITALS: BP 160/75
[2017-02-26 05:20] LABS: HEMATOCRIT 30.1 % (39.2-51.8); HEMOGLOBIN 9.7 g/dL (13.7-18.0); WHITE BLOOD COUNT 16.8 x10^3/uL (3.4-10)
[2017-02-26 05:23] LABS: BLOOD UREA NITROGEN 28 mg/dL (7-18)
[2017-02-26 05:28] LABS: ASPARTATE AMINO TRANSFERASE 19 U/L (15-37)
[2017-02-26 05:44] LABS: POLYCHROMASIA 1+; TARGET CELLS 1+
[2017-02-26 05:45] LABS: HOWELL-JOLLY BODIES 1+; SPHEROCYTES 1+
[2017-02-26] MEDS: CARVEDILOL 12.5 MG TABLET PO SCH ×2 (05:45→17:03)
[2017-02-26] MEDS: PIPERACILLIN/TAZO/PMX 2.25GM 50 ML IVPB SCH ×3 (05:45→22:02)
[2017-02-26 05:46] LABS: ANISOCYTOSIS 2+; HYPOCHROMIA 1+; OVALOCYTES 1+
[2017-02-26 05:47] LABS: LARGE PLATELETS 1+
[2017-02-26 05:48] LABS: GIANT PLATELETS 1+
[2017-02-26] MEDS: SENNA/DOCUSATE TABLET PO SCH (09:00)
[2017-02-26] MEDS ORDERED: TAMSULOSIN 0.4 MG CAP.ER.24H PO ONE (09:00)
[2017-02-26] MEDS: TEMPLATE NON-FORMULARY MED. (Fluticasone/Salmeterol** (Advair 250-50 Diskus**) 1 PUFF) INH SCH (09:00)
[2017-02-26] MEDS: AMLODIPINE 5 MG TABLET PO SCH (09:22)
[2017-02-26] MEDS: PANTOPRAZOLE 40 MG IV IVPush SCH (09:22)
[2017-02-26] MEDS: FUROSEMIDE 40 MG TABLET PO SCH ×2 (09:23→17:02)
[2017-02-26] MEDS: METOLAZONE 10 MG TABLET PO SCH (09:23)
[2017-02-26] MEDS: LEVETIRACETAM 750 MG in SODIUM CHLORIDE 0.9% 100 ML IV SCH ×2 (09:23→22:39)
[2017-02-26] MEDS: THIAMINE 100 MG in SODIUM CHLORIDE 0.9% 50 ML IV SCH (09:23)
[2017-02-26] MEDS: LOSARTAN 50MG TABLET PO SCH ×2 (09:23→21:04)
[2017-02-26] MEDS ORDERED: IMMUNE GLOBULIN IV ONE (14:30)
[2017-02-26] MEDS: HYDROCORTISONE 100 MG INJ. IVPush SCH (22:39)
[2017-02-27] MEDS: METRONIDAZOLE PMX 500MG/100ML 100 ML IV SCH ×2 (01:09→09:35)
[2017-02-27] MEDS: INSULIN ASPART 100 UNITS/ML, PEN SQ-INSULIN SCH ×6 (01:10→21:01)
[2017-02-27] MEDS: HYDROcodone/APAP 5/325 TABLET PO PRN (03:39)
[2017-02-27 04:00] VITALS: BP 153/70
[2017-02-27 04:53] LABS: HEMATOCRIT 27.2 % (39.2-51.8); HEMOGLOBIN 8.9 g/dL (13.7-18.0); WHITE BLOOD COUNT 11.2 x10^3/uL (3.4-10)
[2017-02-27 05:18] LABS: ASPARTATE AMINO TRANSFERASE 19 U/L (15-37); BLOOD UREA NITROGEN 45 mg/dL (7-18)
[2017-02-27] MEDS: PIPERACILLIN/TAZO/PMX 2.25GM 50 ML IVPB SCH ×3 (05:39→23:16)
[2017-02-27] MEDS: CARVEDILOL 12.5 MG TABLET PO SCH ×2 (05:39→17:26)
[2017-02-27] MEDS: SENNA/DOCUSATE TABLET PO SCH (07:38)
[2017-02-27] MEDS ORDERED: ARANESP 100 MCG/ML **ESRD SQ SCH (08:26)
[2017-02-27] MEDS: TEMPLATE NON-FORMULARY MED. (Fluticasone/Salmeterol** (Advair 250-50 Diskus**) 1 PUFF) INH SCH (09:00)
[2017-02-27] MEDS ORDERED: POTASSIUM PHOSPHATE 22 MEQ in SODIUM CHLORIDE 0.9% 500 ML IV ONE (09:00)
[2017-02-27] MEDS: PANTOPRAZOLE 40 MG IV IVPush SCH (09:34)
[2017-02-27] MEDS: LOSARTAN 50MG TABLET PO SCH ×2 (09:35→21:01)
[2017-02-27] MEDS: AMLODIPINE 5 MG TABLET PO SCH (09:35)
[2017-02-27] MEDS: TAMSULOSIN 0.4 MG CAP.ER.24H PO SCH (09:35)
[2017-02-27] MEDS: METOLAZONE 10 MG TABLET PO SCH (09:35)
[2017-02-27] MEDS: FUROSEMIDE 40 MG TABLET PO SCH ×2 (09:35→17:26)
[2017-02-27] MEDS: ACETAMINOPHEN 325 MG TABLET PO PRN (09:44)
[2017-02-27] MEDS: THIAMINE 100 MG in SODIUM CHLORIDE 0.9% 50 ML IV SCH (11:55)
[2017-02-27] MEDS: LEVETIRACETAM 750 MG in SODIUM CHLORIDE 0.9% 100 ML IV SCH (13:21)
[2017-02-27] MEDS: HYDROCORTISONE 100 MG INJ. IVPush SCH (22:09)
[2017-02-28] MEDS: LEVETIRACETAM 750 MG in SODIUM CHLORIDE 0.9% 100 ML IV SCH ×2 (01:22→13:13)
[2017-02-28] MEDS: INSULIN ASPART 100 UNITS/ML, PEN SQ-INSULIN SCH ×6 (01:25→20:52)
[2017-02-28 04:27] LABS: ASPARTATE AMINO TRANSFERASE 18 U/L (15-37); BLOOD UREA NITROGEN 31 mg/dL (7-18)
[2017-02-28 04:36] LABS: HEMATOCRIT 29.2 % (39.2-51.8); HEMOGLOBIN 9.4 g/dL (13.7-18.0); WHITE BLOOD COUNT 10.5 x10^3/uL (3.4-10)
[2017-02-28] MEDS: CARVEDILOL 12.5 MG TABLET PO SCH (05:30)
[2017-02-28 05:38] VITALS: BP 162/98
[2017-02-28] MEDS: hydrALAzine 20 MG/ML, 1ML IV PRN (06:01)
[2017-02-28] MEDS: PIPERACILLIN/TAZO/PMX 2.25GM 50 ML IVPB SCH (07:42)
[2017-02-28] MEDS: PANTOPRAZOLE 40 MG IV IVPush SCH (07:42)
[2017-02-28] MEDS: TAMSULOSIN 0.4 MG CAP.ER.24H PO SCH (07:43)
[2017-02-28] MEDS: TEMPLATE NON-FORMULARY MED. (Fluticasone/Salmeterol** (Advair 250-50 Diskus**) 1 PUFF) INH SCH (07:43)
[2017-02-28] MEDS: FUROSEMIDE 40 MG TABLET PO SCH ×2 (07:43→16:35)
[2017-02-28] MEDS: AMLODIPINE 5 MG TABLET PO SCH (07:44)
[2017-02-28] MEDS: SENNA/DOCUSATE TABLET PO SCH (07:44)
[2017-02-28] MEDS: LOSARTAN 50MG TABLET PO SCH ×2 (07:44→20:56)
[2017-02-28] MEDS: METOLAZONE 10 MG TABLET PO SCH (07:46)
[2017-02-28] MEDS ORDERED: CARVEDILOL 12.5 MG TABLET PO ONE (08:30)
[2017-02-28] MEDS: THIAMINE 100 MG in SODIUM CHLORIDE 0.9% 50 ML IV SCH (09:30)
[2017-02-28] MEDS: CARVEDILOL 25 MG TABLET PO SCH (16:36)
[2017-02-28] MEDS: HYDROCORTISONE 100 MG INJ. IVPush SCH (23:32)
[2017-03-01] MEDS: LEVETIRACETAM 750 MG in SODIUM CHLORIDE 0.9% 100 ML IV SCH ×2 (01:19→13:08)
[2017-03-01] MEDS: INSULIN ASPART 100 UNITS/ML, PEN SQ-INSULIN SCH ×6 (01:24→21:30)
[2017-03-01] MEDS: hydrALAzine 20 MG/ML, 1ML IV PRN ×2 (03:04→12:06)
[2017-03-01 04:00] VITALS: BP 153/73
[2017-03-01 05:17] LABS: HEMATOCRIT 30.2 % (39.2-51.8); WHITE BLOOD COUNT 11.8 x10^3/uL (3.4-10)
[2017-03-01 05:36] LABS: ASPARTATE AMINO TRANSFERASE 24 U/L (15-37); BLOOD UREA NITROGEN 43 mg/dL (7-18)
[2017-03-01] MEDS: CARVEDILOL 25 MG TABLET PO SCH ×2 (05:57→18:05)
[2017-03-01] MEDS: TEMPLATE NON-FORMULARY MED. (Fluticasone/Salmeterol** (Advair 250-50 Diskus**) 1 PUFF) INH SCH (07:38)
[2017-03-01] MEDS: SENNA/DOCUSATE TABLET PO SCH (07:39)
[2017-03-01] MEDS: METOLAZONE 10 MG TABLET PO SCH (08:12)
[2017-03-01] MEDS: AMLODIPINE 5 MG TABLET PO SCH (08:13)
[2017-03-01] MEDS: LOSARTAN 50MG TABLET PO SCH ×2 (08:13→22:25)
[2017-03-01] MEDS: TAMSULOSIN 0.4 MG CAP.ER.24H PO SCH (08:13)
[2017-03-01] MEDS: FUROSEMIDE 40 MG TABLET PO SCH ×2 (08:13→18:04)
[2017-03-01] MEDS: ARANESP 100 MCG/ML **ESRD SQ SCH (08:13)
[2017-03-01] MEDS: PANTOPRAZOLE 40 MG IV IVPush SCH (08:13)
[2017-03-01 11:43] VITALS: BP 172/82
[2017-03-01 13:09] VITALS: BP 168/78
[2017-03-01 14:20] VITALS: BP 155/79
[2017-03-01] MEDS ORDERED: DEXTROSE 50%, 50ML SYRINGE IVPush PRN (16:30)
[2017-03-01] MEDS ORDERED: POLYETHYLENE GLYCOL 17 GM PACKET PO PRN (16:30)
[2017-03-01] MEDS ORDERED: DOCUSATE 100 MG CAPSULE PO PRN (16:30)
[2017-03-01 20:34] VITALS: BP 182/93
[2017-03-01] MEDS: HYDROCORTISONE 100 MG INJ. IVPush SCH (22:25)
[2017-03-02] MEDS: LEVETIRACETAM 750 MG in SODIUM CHLORIDE 0.9% 100 ML IV SCH ×2 (01:24→17:15)
[2017-03-02] MEDS: INSULIN ASPART 100 UNITS/ML, PEN SQ-INSULIN SCH ×6 (01:30→20:47)
[2017-03-02 01:51] VITALS: BP 180/94
[2017-03-02] MEDS: hydrALAzine 20 MG/ML, 1ML IV PRN (02:27)
[2017-03-02 04:00] VITALS: BP 160/80
[2017-03-02 05:53] LABS: HEMATOCRIT 30.1 % (39.2-51.8); WHITE BLOOD COUNT 12.4 x10^3/uL (3.4-10)
[2017-03-02 06:06] LABS: ASPARTATE AMINO TRANSFERASE 14 U/L (15-37); BLOOD UREA NITROGEN 55 mg/dL (7-18)
[2017-03-02] MEDS: CARVEDILOL 25 MG TABLET PO SCH ×2 (06:18→17:17)
[2017-03-02 06:28] LABS: ANISOCYTOSIS 2+
[2017-03-02 06:29] LABS: HOWELL-JOLLY BODIES 1+; OVALOCYTES 1+; POLYCHROMASIA 1+; SPHEROCYTES 1+; TARGET CELLS 1+
[2017-03-02 06:30] LABS: MICROCYTOSIS 1+
[2017-03-02 08:21] VITALS: BP 160/82
[2017-03-02] MEDS ORDERED: SENNA/DOCUSATE TABLET PO SCH ×2 (09:00)
[2017-03-02] MEDS: TEMPLATE NON-FORMULARY MED. (Fluticasone/Salmeterol** (Advair 250-50 Diskus**) 1 PUFF) INH SCH (09:00)
[2017-03-02] MEDS: METOLAZONE 10 MG TABLET PO SCH (09:50)
[2017-03-02] MEDS: FUROSEMIDE 40 MG TABLET PO SCH ×2 (09:51→17:16)
[2017-03-02] MEDS: TAMSULOSIN 0.4 MG CAP.ER.24H PO SCH (09:51)
[2017-03-02] MEDS: AMLODIPINE 5 MG TABLET PO SCH (09:51)
[2017-03-02] MEDS: LOSARTAN 50MG TABLET PO SCH ×2 (09:51→20:53)
[2017-03-02 12:35] VITALS: BP 154/81
[2017-03-02] MEDS: HYDROcodone/APAP 5/325 TABLET PO PRN (14:11)
[2017-03-02] MEDS ORDERED: OXYcodone 5 MG/5 ML ORAL.SOL UDC PO ONE (15:30)
[2017-03-02 19:00] VITALS: BP 173/84
[2017-03-02] MEDS: HYDROCORTISONE 100 MG INJ. IVPush SCH (22:12)
[2017-03-03] VITALS: BP 174/85
[2017-03-03] MEDS: hydrALAzine 20 MG/ML, 1ML IV PRN (01:06)
[2017-03-03] MEDS: INSULIN ASPART 100 UNITS/ML, PEN SQ-INSULIN SCH ×6 (01:30→19:38)
[2017-03-03 04:00] VITALS: BP 147/82
[2017-03-03] MEDS: LEVETIRACETAM 750 MG in SODIUM CHLORIDE 0.9% 100 ML IV SCH ×2 (05:09→16:37)
[2017-03-03] MEDS: CARVEDILOL 25 MG TABLET PO SCH ×2 (05:10→18:14)
[2017-03-03 05:54] LABS: HEMATOCRIT 29.8 % (39.2-51.8); HEMOGLOBIN 9.7 g/dL (13.7-18.0); WHITE BLOOD COUNT 10.9 x10^3/uL (3.4-10)
[2017-03-03 06:06] LABS: ASPARTATE AMINO TRANSFERASE 23 U/L (15-37); BLOOD UREA NITROGEN 28 mg/dL (7-18)
[2017-03-03 06:54] VITALS: BP 163/80
[2017-03-03] MEDS: TEMPLATE NON-FORMULARY MED. (Fluticasone/Salmeterol** (Advair 250-50 Diskus**) 1 PUFF) INH SCH (08:28)
[2017-03-03] MEDS: SENNA/DOCUSATE TABLET PO SCH (08:28)
[2017-03-03] MEDS: TAMSULOSIN 0.4 MG CAP.ER.24H PO SCH (10:01)
[2017-03-03] MEDS: FUROSEMIDE 40 MG TABLET PO SCH ×2 (10:01→18:14)
[2017-03-03] MEDS: AMLODIPINE 5 MG TABLET PO SCH (10:01)
[2017-03-03] MEDS: METOLAZONE 10 MG TABLET PO SCH (10:02)
[2017-03-03] MEDS: LOSARTAN 50MG TABLET PO SCH ×2 (10:02→20:15)
[2017-03-03] MEDS: ACETAMINOPHEN 325 MG TABLET PO PRN (11:43)
[2017-03-03 13:27] VITALS: BP 157/76
[2017-03-03 18:30] VITALS: BP 166/84
[2017-03-03] MEDS: HYDROCORTISONE 100 MG INJ. IVPush SCH (22:17)
[2017-03-04] MEDS: INSULIN ASPART 100 UNITS/ML, PEN SQ-INSULIN SCH ×6 (01:30→21:30)
[2017-03-04 02:22] VITALS: BP 150/80
[2017-03-04] MEDS: LEVETIRACETAM 750 MG in SODIUM CHLORIDE 0.9% 100 ML IV SCH ×2 (03:32→16:25)
[2017-03-04 06:03] LABS: HEMOGLOBIN 9.2 g/dL (13.7-18.0); WHITE BLOOD COUNT 11.2 x10^3/uL (3.4-10)
[2017-03-04] MEDS: CARVEDILOL 25 MG TABLET PO SCH ×2 (06:05→18:09)
[2017-03-04 06:13] LABS: BLOOD UREA NITROGEN 40 mg/dL (7-18)
[2017-03-04 06:59] VITALS: BP 135/74
[2017-03-04] MEDS: METOLAZONE 10 MG TABLET PO SCH (09:00)
[2017-03-04] MEDS: FUROSEMIDE 40 MG TABLET PO SCH ×2 (09:00→16:24)
[2017-03-04] MEDS: TAMSULOSIN 0.4 MG CAP.ER.24H PO SCH (09:00)
[2017-03-04] MEDS: LOSARTAN 50MG TABLET PO SCH ×2 (09:00→22:23)
[2017-03-04] MEDS: SENNA/DOCUSATE TABLET PO SCH (09:00)
[2017-03-04] MEDS: TEMPLATE NON-FORMULARY MED. (Fluticasone/Salmeterol** (Advair 250-50 Diskus**) 1 PUFF) INH SCH (09:00)
[2017-03-04] MEDS: AMLODIPINE 5 MG TABLET PO SCH (09:00)
[2017-03-04] MEDS ORDERED: NICOTINE 14MG/24 HR PATCH.TD24 TD SCH (10:30)
[2017-03-04] MEDS: ACETAMINOPHEN 325 MG TABLET PO PRN (11:15)
[2017-03-04 12:50] VITALS: BP 158/77
[2017-03-04 18:28] VITALS: BP 149/70
[2017-03-04] MEDS: HYDROCORTISONE 20 MG TABLET PO SCH (22:25)
[2017-03-05] MEDS: INSULIN ASPART 100 UNITS/ML, PEN SQ-INSULIN SCH ×7 (01:07→20:01)
[2017-03-05 03:30] VITALS: BP 169/84
[2017-03-05] MEDS: LEVETIRACETAM 750 MG in SODIUM CHLORIDE 0.9% 100 ML IV SCH ×2 (04:16→16:56)
[2017-03-05 06:25] VITALS: BP 160/77
[2017-03-05] MEDS: CARVEDILOL 25 MG TABLET PO SCH ×2 (06:45→18:17)
[2017-03-05] MEDS: TAMSULOSIN 0.4 MG CAP.ER.24H PO SCH (08:29)
[2017-03-05] MEDS: HYDROCORTISONE 20 MG TABLET PO SCH ×2 (08:29→20:01)
[2017-03-05] MEDS: METOLAZONE 10 MG TABLET PO SCH (08:29)
[2017-03-05] MEDS: AMLODIPINE 5 MG TABLET PO SCH (08:30)
[2017-03-05] MEDS: LOSARTAN 50MG TABLET PO SCH ×2 (08:30→20:01)
[2017-03-05] MEDS: FUROSEMIDE 40 MG TABLET PO SCH ×2 (08:30→16:42)
[2017-03-05] MEDS: SENNA/DOCUSATE TABLET PO SCH (08:36)
[2017-03-05] MEDS: TEMPLATE NON-FORMULARY MED. (Fluticasone/Salmeterol** (Advair 250-50 Diskus**) 1 PUFF) INH SCH (09:00)
[2017-03-05 12:00] VITALS: BP 151/74
[2017-03-05 19:42] VITALS: BP 140/73
[2017-03-06] MEDS: INSULIN ASPART 100 UNITS/ML, PEN SQ-INSULIN SCH ×6 (01:00→21:30)
[2017-03-06 01:46] VITALS: BP 149/70
[2017-03-06] MEDS: LEVETIRACETAM 750 MG in SODIUM CHLORIDE 0.9% 100 ML IV SCH ×2 (05:28→17:38)
[2017-03-06 06:02] LABS: BLOOD UREA NITROGEN 35 mg/dL (7-18)
[2017-03-06 06:21] LABS: HEMATOCRIT 30.9 % (39.2-51.8); HEMOGLOBIN 10.2 g/dL (13.7-18.0); WHITE BLOOD COUNT 8.4 x10^3/uL (3.4-10)
[2017-03-06 06:22] LABS: DIFF TOTAL CELLS COUNTED 100 CELL DIFF
[2017-03-06 06:24] LABS: ANISOCYTOSIS 2+; MICROCYTOSIS 1+; OVALOCYTES 1+; POLYCHROMASIA 1+; TARGET CELLS 1+; VERIFY COUNTS? YES
[2017-03-06 06:25] LABS: LARGE PLATELETS 1+
[2017-03-06] MEDS: CARVEDILOL 25 MG TABLET PO SCH ×2 (06:34→17:39)
[2017-03-06] MEDS: SENNA/DOCUSATE TABLET PO SCH (09:00)
[2017-03-06] MEDS: TEMPLATE NON-FORMULARY MED. (Fluticasone/Salmeterol** (Advair 250-50 Diskus**) 1 PUFF) INH SCH (09:00)
[2017-03-06 09:12] VITALS: BP 158/81
[2017-03-06] MEDS: HYDROcodone/APAP 5/325 TABLET PO PRN (11:33)
[2017-03-06] MEDS: HYDROCORTISONE 20 MG TABLET PO SCH ×2 (14:11→21:00)
[2017-03-06] MEDS: LOSARTAN 50MG TABLET PO SCH ×2 (14:11→21:31)
[2017-03-06] MEDS: FUROSEMIDE 40 MG TABLET PO SCH ×2 (14:12→17:38)
[2017-03-06] MEDS: METOLAZONE 10 MG TABLET PO SCH (14:12)
[2017-03-06] MEDS: TAMSULOSIN 0.4 MG CAP.ER.24H PO SCH (14:13)
[2017-03-06] MEDS: AMLODIPINE 5 MG TABLET PO SCH (14:14)
[2017-03-06 15:07] VITALS: BP 160/85
[2017-03-06 19:10] VITALS: BP 130/65
[2017-03-07] MEDS: INSULIN ASPART 100 UNITS/ML, PEN SQ-INSULIN SCH ×6 (01:30→21:30)
[2017-03-07 01:36] VITALS: BP 155/77
[2017-03-07] MEDS: LEVETIRACETAM 750 MG in SODIUM CHLORIDE 0.9% 100 ML IV SCH ×2 (04:10→17:31)
[2017-03-07 05:24] LABS: HEMATOCRIT 30.1 % (39.2-51.8); HEMOGLOBIN 9.9 g/dL (13.7-18.0); WHITE BLOOD COUNT 9.2 x10^3/uL (3.4-10)
[2017-03-07 05:31] LABS: BLOOD UREA NITROGEN 19 mg/dL (7-18)
[2017-03-07 05:44] VITALS: BP 147/79
[2017-03-07] MEDS: CARVEDILOL 25 MG TABLET PO SCH ×2 (05:45→17:31)
[2017-03-07 07:35] VITALS: BP 124/48
[2017-03-07] MEDS: SENNA/DOCUSATE TABLET PO SCH (08:17)
[2017-03-07] MEDS: TEMPLATE NON-FORMULARY MED. (Fluticasone/Salmeterol** (Advair 250-50 Diskus**) 1 PUFF) INH SCH (08:17)
[2017-03-07] MEDS: METOLAZONE 10 MG TABLET PO SCH (08:20)
[2017-03-07] MEDS: TAMSULOSIN 0.4 MG CAP.ER.24H PO SCH (08:20)
[2017-03-07] MEDS: FUROSEMIDE 40 MG TABLET PO SCH ×2 (08:20→17:31)
[2017-03-07] MEDS: AMLODIPINE 5 MG TABLET PO SCH (08:21)
[2017-03-07] MEDS: HYDROCORTISONE 20 MG TABLET PO SCH ×2 (08:22→22:22)
[2017-03-07] MEDS: LOSARTAN 50MG TABLET PO SCH ×2 (08:22→22:22)
[2017-03-07] MEDS: HYDROcodone/APAP 5/325 TABLET PO PRN (10:11)
[2017-03-07 13:40] VITALS: BP 129/68
[2017-03-07 22:20] VITALS: BP 142/75
[2017-03-08] MEDS: INSULIN ASPART 100 UNITS/ML, PEN SQ-INSULIN SCH ×6 (01:30→21:15)
[2017-03-08 01:39] VITALS: BP 152/83
[2017-03-08] MEDS: LEVETIRACETAM 750 MG in SODIUM CHLORIDE 0.9% 100 ML IV SCH ×2 (04:03→17:22)
[2017-03-08] MEDS: HYDROcodone/APAP 5/325 TABLET PO PRN ×2 (04:03→12:42)
[2017-03-08 05:22] LABS: HEMATOCRIT 28.3 % (39.2-51.8); HEMOGLOBIN 9.4 g/dL (13.7-18.0); WHITE BLOOD COUNT 11.2 x10^3/uL (3.4-10)
[2017-03-08 05:38] LABS: BLOOD UREA NITROGEN 25 mg/dL (7-18)
[2017-03-08] MEDS: CARVEDILOL 25 MG TABLET PO SCH ×2 (05:53→17:22)
[2017-03-08 06:25] VITALS: BP 135/77
[2017-03-08] MEDS: SENNA/DOCUSATE TABLET PO SCH (09:00)
[2017-03-08] MEDS: LOSARTAN 50MG TABLET PO SCH ×2 (09:00→21:15)
[2017-03-08] MEDS: TEMPLATE NON-FORMULARY MED. (Fluticasone/Salmeterol** (Advair 250-50 Diskus**) 1 PUFF) INH SCH (09:00)
[2017-03-08] MEDS: HYDROCORTISONE 20 MG TABLET PO SCH ×2 (09:11→21:15)
[2017-03-08] MEDS: METOLAZONE 10 MG TABLET PO SCH (09:11)
[2017-03-08] MEDS: TAMSULOSIN 0.4 MG CAP.ER.24H PO SCH (09:12)
[2017-03-08] MEDS: AMLODIPINE 5 MG TABLET PO SCH (09:12)
[2017-03-08] MEDS: FUROSEMIDE 40 MG TABLET PO SCH ×2 (09:12→17:22)
[2017-03-08] MEDS: ARANESP 100 MCG/ML **ESRD SQ SCH (10:00)
[2017-03-08 12:14] VITALS: BP 140/79
[2017-03-08 19:00] LABS: IS PT STATUS REG ER OR PRE ER? NO
[2017-03-08 20:00] VITALS: BP 144/73
[2017-03-08] MEDS ORDERED: ONDANSETRON 2MG/ML, 2ML IV PRN (21:30)
[2017-03-08] MEDS ORDERED: POLYETHYLENE GLYCOL 17 GM PACKET PO PRN (21:30)
[2017-03-08] MEDS ORDERED: DOCUSATE 100 MG CAPSULE PO PRN (21:30)
[2017-03-09 01:07] LABS: IS PT STATUS REG ER OR PRE ER? NO
[2017-03-09] MEDS: INSULIN ASPART 100 UNITS/ML, PEN SQ-INSULIN SCH ×6 (01:30→21:38)
[2017-03-09 02:00] VITALS: BP 152/77
[2017-03-09] MEDS: LEVETIRACETAM 750 MG in SODIUM CHLORIDE 0.9% 100 ML IV SCH ×2 (05:41→18:47)
[2017-03-09] MEDS: CARVEDILOL 25 MG TABLET PO SCH ×2 (05:42→18:47)
[2017-03-09 05:56] LABS: ASPARTATE AMINO TRANSFERASE 18 U/L (15-37); BLOOD UREA NITROGEN 32 mg/dL (7-18)
[2017-03-09 06:32] LABS: HEMATOCRIT 29.1 % (39.2-51.8); HEMOGLOBIN 9.5 g/dL (13.7-18.0); WHITE BLOOD COUNT 11.9 x10^3/uL (3.4-10)
[2017-03-09 06:33] LABS: DIFF TOTAL CELLS COUNTED 100 CELL DIFF
[2017-03-09 06:36] LABS: ANISOCYTOSIS 2+; MICROCYTOSIS 1+; VERIFY COUNTS? YES
[2017-03-09 06:37] LABS: OVALOCYTES 1+; POLYCHROMASIA 1+; TARGET CELLS 1+
[2017-03-09 06:41] LABS: LARGE PLATELETS 1+
[2017-03-09 07:26] VITALS: BP 146/76
[2017-03-09] MEDS: FUROSEMIDE 40 MG TABLET PO SCH ×2 (09:00→17:19)
[2017-03-09] MEDS: TEMPLATE NON-FORMULARY MED. (Fluticasone/Salmeterol** (Advair 250-50 Diskus**) 1 PUFF) INH SCH (09:00)
[2017-03-09] MEDS: METOLAZONE 10 MG TABLET PO SCH (09:00)
[2017-03-09] MEDS: LOSARTAN 50MG TABLET PO SCH ×2 (09:00→21:38)
[2017-03-09] MEDS: AMLODIPINE 5 MG TABLET PO SCH (09:00)
[2017-03-09] MEDS: HYDROCORTISONE 20 MG TABLET PO SCH ×2 (09:54→21:38)
[2017-03-09] MEDS: SENNA/DOCUSATE TABLET PO SCH (09:55)
[2017-03-09] MEDS: TAMSULOSIN 0.4 MG CAP.ER.24H PO SCH (09:55)
[2017-03-09 14:10] VITALS: BP 148/85
[2017-03-09] MEDS ORDERED: INSU100I18 SQ-INSULIN (16:07)
[2017-03-09] MEDS ORDERED: HYDR20TA PO (16:07)
[2017-03-09] MEDS ORDERED: HYDR-3240 PO (16:07)
[2017-03-09] MEDS ORDERED: ACET325T14 PO (16:07)
[2017-03-09] MEDS ORDERED: DARB100V SQ (16:07)
[2017-03-09] MEDS ORDERED: HYDR-3343 PO (16:07)
[2017-03-09] MEDS ORDERED: POLY17PO5 PO (16:07)
[2017-03-09] MEDS ORDERED: TAMS-11 PO (16:07)
[2017-03-09] MEDS ORDERED: FURO40TA6 PO (16:07)
[2017-03-09] MEDS ORDERED: LOSA50TA2 PO (16:07)
[2017-03-09] MEDS ORDERED: CARV25TA12 PO (16:07)
[2017-03-09] MEDS ORDERED: DOCU-131 PO (16:07)
[2017-03-09] MEDS ORDERED: SENN1TAB7 PO (16:07)
[2017-03-09] MEDS ORDERED: AMLO5TAB2 PO (16:07)
[2017-03-09] MEDS ORDERED: LEVE750T37 PO (16:08)
[2017-03-09] MEDS: ACETAMINOPHEN 325 MG TABLET PO PRN (17:19)
[2017-03-09 20:00] VITALS: BP 147/73
[2017-03-10] MEDS: INSULIN ASPART 100 UNITS/ML, PEN SQ-INSULIN SCH ×4 (01:29→13:04)
[2017-03-10 02:00] VITALS: BP 146/78
[2017-03-10 05:15] LABS: HEMATOCRIT 29.1 % (39.2-51.8); HEMOGLOBIN 9.4 g/dL (13.7-18.0); WHITE BLOOD COUNT 10.8 x10^3/uL (3.4-10)
[2017-03-10 05:17] LABS: BLOOD UREA NITROGEN 17 mg/dL (7-18)
[2017-03-10 05:21] LABS: ASPARTATE AMINO TRANSFERASE 19 U/L (15-37)
[2017-03-10] MEDS: CARVEDILOL 25 MG TABLET PO SCH (05:45)
[2017-03-10] MEDS: LEVETIRACETAM 750 MG in SODIUM CHLORIDE 0.9% 100 ML IV SCH (05:46)
[2017-03-10 07:17] VITALS: BP 149/73
[2017-03-10] MEDS: FUROSEMIDE 40 MG TABLET PO SCH ×2 (07:58→16:18)
[2017-03-10] MEDS: TEMPLATE NON-FORMULARY MED. (Fluticasone/Salmeterol** (Advair 250-50 Diskus**) 1 PUFF) INH SCH (09:00)
[2017-03-10] MEDS: SENNA/DOCUSATE TABLET PO SCH (09:00)
[2017-03-10] MEDS: HYDROCORTISONE 20 MG TABLET PO SCH (09:03)
[2017-03-10] MEDS: TAMSULOSIN 0.4 MG CAP.ER.24H PO SCH (09:03)
[2017-03-10] MEDS: METOLAZONE 10 MG TABLET PO SCH (09:03)
[2017-03-10] MEDS: LOSARTAN 50MG TABLET PO SCH (09:04)
[2017-03-10] MEDS: AMLODIPINE 5 MG TABLET PO SCH (09:11)
[2017-03-10 14:10] VITALS: BP 144/73
== END 2017-03-10 17:58 | DRG 853 ==
LOC: SUATTDRO 22:20 → ED 22:29 → EDIP 22:35 → ED 23:08 → CCU 23:30 → ICU 02-19 04:04 → CCU 02-20 17:00 → 4WST 02-23 19:34 → CCU 02-24 16:47 → 4EST 03-01 11:01
PROVIDERS: ADMIT Family Medicine; ATTEND Family Medicine
PROC: 5A1D70Z Performance of Urinary Filtration, Intermittent, Less than 6 Hours Per Day (ICD-10-PCS; 2017-02-11)
PROC: 0T9B70Z Drainage of Bladder with Drainage Device, Via Natural or Artificial Opening (ICD-10-PCS; 2017-02-12)
PROC: 5A1D70Z Performance of Urinary Filtration, Intermittent, Less than 6 Hours Per Day (ICD-10-PCS; 2017-02-13)
PROC: 5A1935Z Respiratory Ventilation, Less than 24 Consecutive Hours (ICD-10-PCS; 2017-02-13)
PROC: 0BH17EZ Insertion of Endotracheal Airway into Trachea, Via Natural or Artificial Opening (ICD-10-PCS; 2017-02-13)
PROC: 5A1945Z Respiratory Ventilation, 24-96 Consecutive Hours (ICD-10-PCS; 2017-02-14)
PROC: 0BH17EZ Insertion of Endotracheal Airway into Trachea, Via Natural or Artificial Opening (ICD-10-PCS; 2017-02-14)
PROC: 5A1D70Z Performance of Urinary Filtration, Intermittent, Less than 6 Hours Per Day (ICD-10-PCS; 2017-02-15)
PROC: 5A1D70Z Performance of Urinary Filtration, Intermittent, Less than 6 Hours Per Day (ICD-10-PCS; 2017-02-16)
PROC: 5A1D70Z Performance of Urinary Filtration, Intermittent, Less than 6 Hours Per Day (ICD-10-PCS; 2017-02-18)
PROC: 00C40ZZ Extirpation of Matter from Intracranial Subdural Space, Open Approach (ICD-10-PCS; 2017-02-19)
PROC: 6A551Z2 Pheresis of Platelets, Multiple (ICD-10-PCS; 2017-02-19)
PROC: 30233L1 Transfusion of Nonautologous Fresh Plasma into Peripheral Vein, Percutaneous Approach (ICD-10-PCS; 2017-02-19)
PROC: 30233K1 Transfusion of Nonautologous Frozen Plasma into Peripheral Vein, Percutaneous Approach (ICD-10-PCS; 2017-02-19)
PROC: 5A1945Z Respiratory Ventilation, 24-96 Consecutive Hours (ICD-10-PCS; 2017-02-19)
PROC: 0BH17EZ Insertion of Endotracheal Airway into Trachea, Via Natural or Artificial Opening (ICD-10-PCS; 2017-02-19)
PROC: 009U3ZX Drainage of Spinal Canal, Percutaneous Approach, Diagnostic (ICD-10-PCS; principal; 2017-02-19 13:30)
PROC: 5A1D70Z Performance of Urinary Filtration, Intermittent, Less than 6 Hours Per Day (ICD-10-PCS; 2017-02-20)
PROC: 5A1D70Z Performance of Urinary Filtration, Intermittent, Less than 6 Hours Per Day (ICD-10-PCS; 2017-02-20)
PROC: 30233N1 Transfusion of Nonautologous Red Blood Cells into Peripheral Vein, Percutaneous Approach (ICD-10-PCS; 2017-02-21)
PROC: 5A1D70Z Performance of Urinary Filtration, Intermittent, Less than 6 Hours Per Day (ICD-10-PCS; 2017-02-22)
PROC: 5A1D70Z Performance of Urinary Filtration, Intermittent, Less than 6 Hours Per Day (ICD-10-PCS; 2017-02-23)
PROC: 5A1D70Z Performance of Urinary Filtration, Intermittent, Less than 6 Hours Per Day (ICD-10-PCS; 2017-02-25)
PROC: 5A1D70Z Performance of Urinary Filtration, Intermittent, Less than 6 Hours Per Day (ICD-10-PCS; 2017-02-27)
PROC: 5A1D70Z Performance of Urinary Filtration, Intermittent, Less than 6 Hours Per Day (ICD-10-PCS; 2017-03-02)
PROC: 5A1D70Z Performance of Urinary Filtration, Intermittent, Less than 6 Hours Per Day (ICD-10-PCS; 2017-03-04)
PROC: 5A1D70Z Performance of Urinary Filtration, Intermittent, Less than 6 Hours Per Day (ICD-10-PCS; 2017-03-06)
PROC: 5A1D70Z Performance of Urinary Filtration, Intermittent, Less than 6 Hours Per Day (ICD-10-PCS; 2017-03-09)
DX: A41.9 Sepsis, unspecified organism (principal); G93.41 Metabolic encephalopathy; J96.00 Acute respiratory failure, unspecified whether with hypoxia or hypercapnia; Z99.11 Dependence on respirator [ventilator] status; I13.2 Hypertensive heart and chronic kidney disease with heart failure and with stage 5 chronic kidney disease, or end stage renal disease; I62.01 Nontraumatic acute subdural hemorrhage; J18.9 Pneumonia, unspecified organism; D83.9 Common variable immunodeficiency, unspecified; N18.6 End stage renal disease; G40.209 Localization-related (focal) (partial) symptomatic epilepsy and epileptic syndromes with complex partial seizures, not intractable, without status epilepticus; I50.30 Unspecified diastolic (congestive) heart failure; I82.619 Acute embolism and thrombosis of superficial veins of unspecified upper extremity; J44.0 Chronic obstructive pulmonary disease with (acute) lower respiratory infection; R47.01 Aphasia; E11.21 Type 2 diabetes mellitus with diabetic nephropathy; E11.649 Type 2 diabetes mellitus with hypoglycemia without coma; D64.9 Anemia, unspecified; D75.89 Other specified diseases of blood and blood-forming organs; E11.22 Type 2 diabetes mellitus with diabetic chronic kidney disease; E78.5 Hyperlipidemia, unspecified; E83.39 Other disorders of phosphorus metabolism; E86.0 Dehydration; H70.90 Unspecified mastoiditis, unspecified ear; K21.9 Gastro-esophageal reflux disease without esophagitis; K81.9 Cholecystitis, unspecified; M06.9 Rheumatoid arthritis, unspecified; N40.0 Benign prostatic hyperplasia without lower urinary tract symptoms; R13.10 Dysphagia, unspecified; Z51.5 Encounter for palliative care; Z78.1 Physical restraint status; Z79.52 Long term (current) use of systemic steroids; Z79.899 Other long term (current) drug therapy; Z80.9 Family history of malignant neoplasm, unspecified; Z83.3 Family history of diabetes mellitus; Z87.891 Personal history of nicotine dependence; Z90.81 Acquired absence of spleen; Z98.1 Arthrodesis status; Z99.2 Dependence on renal dialysis
CPT/HCPCS: 36415; 36600; 62270; 70450; 70551; 71010; 71260; 74000; 74177; 74230; 74340; 76700; 78227; 80047; 80048; 80053; 80069; 80202; 80307; 80329; 81001; 82040; 82140; 82330; 82607; 82746; 82803; 82945; 82947; 82962; 83036; 83605; 83735; 84100; 84132; 84145; 84157; 84295; 84443; 84478; 84484; 84550; 85014; 85018; 85025; 85610; 85651; 85730; 86141; 86480; 86592; 86706; 86850; 86870; 86900; 86902; 86923; 87040; 87070; 87081; 87205; 87252; 87324; 87340; 89051; 93005; 93306; 93970; 94002; 94003; 94150; 94640; 95819; 96365; 96366; 96375; C1713; C1729; J0133; J0171; J0295; J0690; J0696; J0881; J0882; J1170; J1459; J1644; J1815; J1953; J2310; J2543; J2597; J2704; J3010; J3370; J3411; J3430; J3490; J7042; J7613; J7620; Q9967; A9537; C1781; C9113; C9898; G0479; G0480; J0330; J0360; J1720; J2370; J7030; J7040; J7050; P9016; P9017; P9035

== ENCOUNTER 2017-04-19 09:34 | Emergency (ER) | payer MEDICARE ==
[~2017-04-19] VITALS: Ht 193 cm; Wt 98.0 kg
[~2017-04-19 09:34] MED LIST changes: +ACET325T14 PO; +ACET650S21 PO; +BACI1TAB2 PO; +CARV25TA12 PO; +CLON-275 PO; +DARB100V SQ; +DOCU-131 PO; +FLUT1DIS3 INH; +HEPARIN SODIUM; +HYDR-3240 PO; +HYDR-3343 PO; +HYDR20TA PO; +INSU100I18 SQ-INSULIN; +IRON200V PO; +LEVE750T37 PO; +LOSA50TA2 PO; +MORP-52 PO; +POLY17PO5 PO; +SENN1TAB7 PO; +TAMS-11 PO
[2017-04-19] MEDS ORDERED: SODIUM CHLORIDE FLUSH 10ML SYR IVF ONE (10:00)
[2017-04-19 10:12] LABS: HEMATOCRIT 35.2 % (39.2-51.8); HEMOGLOBIN 11.4 g/dL (13.7-18.0)
[2017-04-19 10:21] LABS: ASPARTATE AMINO TRANSFERASE 9 U/L (15-37); BLOOD UREA NITROGEN 42 mg/dL (7-18)
[2017-04-19 10:27] LABS: IS PT STATUS REG ER OR PRE ER? YES
[2017-04-19 10:44] LABS: DIFF TOTAL CELLS COUNTED 100 CELL DIFF
[2017-04-19 10:51] LABS: ANISOCYTOSIS 1+; POLYCHROMASIA 1+; VERIFY COUNTS? YES
[2017-04-19 10:52] LABS: HOWELL-JOLLY BODIES 1+
[2017-04-19 10:53] LABS: HYPOCHROMIA 1+; LARGE PLATELETS 1+; OVALOCYTES 1+; TARGET CELLS 1+
[2017-04-19 10:54] LABS: SCHISTOCYTES 1+
[2017-04-19 10:57] LABS: SPHEROCYTES 1+
[2017-04-19 10:58] LABS: ECHINOCYTES 1+; POIKILOCYTOSIS 1+
[2017-04-19] MEDS ORDERED: MECLIZINE CHEWABLE 25 MG TAB PO ONE (11:30)
[2017-04-19] MEDS ORDERED: MECLIZINE CHEWABLE 25 MG TAB ONE (11:32)
[2017-04-19 12:37] VITALS: BP 121/67
== END 2017-04-19 12:49 | disposition home or self-care (01) ==
LOC: ED 12:29
DX: R42 Dizziness and giddiness (principal); R53.1 Weakness; R25.1 Tremor, unspecified; I13.2 Hypertensive heart and chronic kidney disease with heart failure and with stage 5 chronic kidney disease, or end stage renal disease; E11.22 Type 2 diabetes mellitus with diabetic chronic kidney disease; N18.6 End stage renal disease; I50.9 Heart failure, unspecified; Z99.2 Dependence on renal dialysis; E78.5 Hyperlipidemia, unspecified; K21.9 Gastro-esophageal reflux disease without esophagitis; Z98.890 Other specified postprocedural states
CPT/HCPCS: 36415; 70450; 71010; 80053; 82962; 84484; 85025; 93005; 99285

== ENCOUNTER 2017-04-20 05:25 | Inpatient (IN) | payer MEDICARE, OTHER ==
[~2017-04-20] VITALS: Ht 193 cm; Wt 89.2 kg
[2017-04-20 06:28] LABS: BASOPHILS # (AUTO) 0.04 x10^3/uL (0-0.1); BASOPHILS % (AUTO) 0 % (0-1); EOSINOPHILS % (AUTO) 0 % (1-7); LYMPHOCYTES # (AUTO) 1.63 x10^3/uL (1-3.4); LYMPHOCYTES % (AUTO) 12 % (22-44); MD NO; MEAN CORPUSCULAR HEMOGLOBIN 32.2 pg (27.5-34.5); MEAN CORPUSCULAR HGB CONC 33.1 g/dL (33.2-36.2); MEAN CORPUSCULAR VOLUME 97.4 fL (81-97); MEAN PLATELET VOLUME 8.6 fL (7.4-10.4); MONOCYTES # (AUTO) 1.14 x10^3/uL (0.2-0.8); MONOCYTES % (AUTO) 8 % (2-9); NEUTROPHILS % (AUTO) 79 % (42-75); PLATELET COUNT 296 x10^3/uL (130-400); RED BLOOD COUNT 3.23 x10^6/uL (4.38-5.82); RED CELL DISTRIBUTION WIDTH 17.4 % (9.4-14.8)
[2017-04-20] MEDS ORDERED: SODIUM CHLORIDE FLUSH 10ML SYR IVF ONE (06:30)
[2017-04-20 06:41] LABS: ALANINE AMINOTRANSFERASE 12 U/L (12-78); ALBUMIN 2.7 g/dL (3.4-5.0); ANION GAP 11 mmol/L (5-15); CALCIUM 8.8 mg/dL (8.5-10.1); CHLORIDE 98 mmol/L (98-107); CREATININE 8.33 mg/dL (0.7-1.3)
[2017-04-20 06:42] LABS: SALICYLATE LEVEL < 1.7 mg/dL (2.8-20.0)
[2017-04-20 06:46] LABS: ACETAMINOPHEN < 2 mcg/mL (10-30); ALKALINE PHOSPHATASE 175 U/L (45-117); BILIRUBIN,TOTAL 0.5 mg/dL (0.2-1.0); TOTAL PROTEIN 6.4 g/dL (6.4-8.2)
[2017-04-20] MEDS ORDERED: SODIUM CHLORIDE FLUSH 10ML SYR IVF PRN (09:00)
[2017-04-20] MEDS ORDERED: POLYETHYLENE GLYCOL 17 GM PACKET PO PRN (10:00)
[2017-04-20] MEDS ORDERED: ONDANSETRON ODT 4 MG PO PRN (10:30)
[2017-04-20] MEDS ORDERED: TRAZODONE 50MG TABLET PO PRN (10:30)
[2017-04-20] MEDS ORDERED: ONDANSETRON 2MG/ML, 2ML IVPush PRN (10:30)
[2017-04-20 11:01] VITALS: BP 123/67
[2017-04-20 11:43] LABS: TROPONIN I 0.078 ng/mL (0.000-0.045)
[2017-04-20 12:16] VITALS: BP 113/57
[2017-04-20] MEDS: SEVELAMER 800MG TABLET PO SCH ×2 (12:37→17:00)
[2017-04-20] MEDS: LEVETIRACETAM 500 MG TABLET PO SCH ×2 (12:37→21:00)
[2017-04-20] MEDS: DARBEPOETIN 100 MCG/ML SQ SCH (12:39)
[2017-04-20 13:57] VITALS: BP 123/67
[2017-04-20] MEDS ORDERED: GLUCAGON 1 MG IM PRN (14:00)
[2017-04-20] MEDS: DEXTROSE 4 GM TAB.CHEW PO PRN ×2 (14:00→18:05)
[2017-04-20] MEDS ORDERED: DEXTROSE 10% 250 ML IV SCH (18:00)
[2017-04-20 20:00] VITALS: BP 126/71
[2017-04-20] MEDS: ASPIRIN 325 MG TABLET PO SCH (21:00)
[2017-04-20] MEDS ORDERED: SODIUM CHLORIDE FLUSH 10ML SYR IVF SCH (21:00)
[2017-04-20] MEDS: ATORVASTATIN 80 MG TABLET PO SCH (21:00)
[2017-04-20] MEDS: OMEPRAZOLE 20 MG CAPSULE.DR PO SCH (21:00)
[2017-04-20] MEDS: DEXTROSE 50%, 50ML SYRINGE IVPush PRN (22:36)
[2017-04-20 22:45] VITALS: BP 102/48
[2017-04-20] MEDS ORDERED: DEXTROSE 10% 1,000 ML IV SCH (23:00)
[2017-04-20 23:42] VITALS: BP 102/56
[2017-04-21] MEDS: DEXTROSE 50%, 50ML SYRINGE IVPush PRN (00:07)
[2017-04-21 04:27] VITALS: BP 132/76
[2017-04-21 05:50] LABS: ALBUMIN 2.4 g/dL (3.4-5.0); ANION GAP 8 mmol/L (5-15); CALCIUM 8.3 mg/dL (8.5-10.1); CHLORIDE 92 mmol/L (98-107)
[2017-04-21 05:53] LABS: % IRON SATURATION 7 % (20-55); ALANINE AMINOTRANSFERASE 11 U/L (12-78); ALKALINE PHOSPHATASE 194 U/L (45-117); BILIRUBIN,TOTAL 0.6 mg/dL (0.2-1.0); CREATININE 6.27 mg/dL (0.7-1.3); IRON LEVEL 13 mcg/dL (65-175); TOTAL IRON BINDING CAPACITY 185 mcg/dL (250-450); TOTAL PROTEIN 6.3 g/dL (6.4-8.2)
[2017-04-21 05:56] LABS: MEAN CORPUSCULAR HEMOGLOBIN 32.6 pg (27.5-34.5); MEAN CORPUSCULAR HGB CONC 33.3 g/dL (33.2-36.2); MEAN CORPUSCULAR VOLUME 97.9 fL (81-97); PLATELET COUNT 234 x10^3/uL (130-400); RED BLOOD COUNT 3.22 x10^6/uL (4.38-5.82); RED CELL DISTRIBUTION WIDTH 18.2 % (9.4-14.8)
[2017-04-21 06:19] LABS: BASOPHILS # (AUTO) 0.07 x10^3/uL (0-0.1); BASOPHILS % (AUTO) 1 % (0-1); EOSINOPHILS # (AUTO) 0.08 x10^3/uL (0-0.4); EOSINOPHILS % (AUTO) 1 % (1-7); LYMPHOCYTES % (AUTO) 13 % (22-44); MD SCAN; MONOCYTES # (AUTO) 1.66 x10^3/uL (0.2-0.8); MONOCYTES % (AUTO) 13 % (2-9); NEUTROPHILS # (AUTO) 9.42 x10^3/uL (1.8-6.8); NEUTROPHILS % (AUTO) 73 % (42-75)
[2017-04-21 07:18] VITALS: BP 142/68
[2017-04-21] MEDS: SEVELAMER 800MG TABLET PO SCH ×3 (08:00→17:18)
[2017-04-21] MEDS: METOPROLOL SUCCINATE 50 MG TAB.ER.24H PO SCH (09:00)
[2017-04-21] MEDS: OMEPRAZOLE 20 MG CAPSULE.DR PO SCH ×2 (09:00→20:20)
[2017-04-21] MEDS: SENNA/DOCUSATE TABLET PO SCH (09:00)
[2017-04-21] MEDS: LEVETIRACETAM 500 MG in SODIUM CHLORIDE 0.9% 100 ML IV SCH ×2 (09:37→17:18)
[2017-04-21 13:26] VITALS: BP 126/64
[2017-04-21] MEDS ORDERED: DEXTROSE 10% 250 ML IV SCH (18:00)
[2017-04-21 18:52] VITALS: BP 153/75
[2017-04-21] MEDS: ATORVASTATIN 80 MG TABLET PO SCH (20:19)
[2017-04-21] MEDS: ASPIRIN 325 MG TABLET PO SCH (20:20)
[2017-04-21] MEDS ORDERED: DEXTROSE 10% 1,000 ML IV SCH (23:00)
[2017-04-22 00:35] VITALS: BP 145/73
[2017-04-22] MEDS: LEVETIRACETAM 500 MG in SODIUM CHLORIDE 0.9% 100 ML IV SCH ×3 (00:44→17:35)
[2017-04-22] MEDS: ACETAMINOPHEN 325 MG TABLET PO PRN (00:45)
[2017-04-22] MEDS: DEXTROSE 10% 1,000 ML IV SCH ×2 (03:05→18:48)
[2017-04-22 06:12] LABS: ALANINE AMINOTRANSFERASE 12 U/L (12-78); ALBUMIN 2.2 g/dL (3.4-5.0); ANION GAP 10 mmol/L (5-15); CALCIUM 8.7 mg/dL (8.5-10.1); CHLORIDE 93 mmol/L (98-107); CREATININE 8.05 mg/dL (0.7-1.3)
[2017-04-22 06:29] LABS: ALKALINE PHOSPHATASE 264 U/L (45-117); BILIRUBIN,TOTAL 0.7 mg/dL (0.2-1.0); TOTAL PROTEIN 5.8 g/dL (6.4-8.2)
[2017-04-22 07:14] LABS: MEAN CORPUSCULAR HEMOGLOBIN 31.6 pg (27.5-34.5); MEAN CORPUSCULAR HGB CONC 32.6 g/dL (33.2-36.2); MEAN CORPUSCULAR VOLUME 96.9 fL (81-97); MEAN PLATELET VOLUME 8.3 fL (7.4-10.4); PLATELET COUNT 287 x10^3/uL (130-400); RED BLOOD COUNT 3.23 x10^6/uL (4.38-5.82); RED CELL DISTRIBUTION WIDTH 17.7 % (9.4-14.8)
[2017-04-22 07:27] VITALS: BP 142/70
[2017-04-22 07:33] LABS: BASOPHILS # (AUTO) 0.01 x10^3/uL (0-0.1); BASOPHILS % (AUTO) 0 % (0-1); EOSINOPHILS # (AUTO) 0.01 x10^3/uL (0-0.4); EOSINOPHILS % (AUTO) 0 % (1-7); LYMPHOCYTES # (AUTO) 1.55 x10^3/uL (1-3.4); LYMPHOCYTES % (AUTO) 11 % (22-44); MD SCAN; MONOCYTES # (AUTO) 1.63 x10^3/uL (0.2-0.8); MONOCYTES % (AUTO) 12 % (2-9); NEUTROPHILS % (AUTO) 77 % (42-75)
[2017-04-22] MEDS: SEVELAMER 800MG TABLET PO SCH ×3 (08:00→17:00)
[2017-04-22] MEDS: IRON SUCROSE COMPLEX 100MG/5ML IV SCH (08:50)
[2017-04-22] MEDS: METOPROLOL SUCCINATE 50 MG TAB.ER.24H PO SCH (08:55)
[2017-04-22] MEDS: OMEPRAZOLE 20 MG CAPSULE.DR PO SCH ×2 (08:55→19:44)
[2017-04-22] MEDS: SENNA/DOCUSATE TABLET PO SCH (08:55)
[2017-04-22] MEDS ORDERED: VANCOMYCIN PER PHARMACY MC PRN (11:00)
[2017-04-22] MEDS ORDERED: ACYCLOVIR IV SCH (11:00)
[2017-04-22] MEDS ORDERED: SODIUM CHLORIDE 0.9% IV SCH (11:00)
[2017-04-22] MEDS ORDERED: PHARMACOKINETIC CONSULTATION MC ONE (11:30)
[2017-04-22] MEDS ORDERED: VANCOMYCIN 1,900 MG in SODIUM CHLORIDE 0.9% 250 ML IV ONE (12:00)
[2017-04-22 13:04] LABS: HCT (SEDRATE) 32.6 % (39.2-51.8)
[2017-04-22 14:44] VITALS: BP 152/85
[2017-04-22] MEDS: CEFTRIAXONE PMX 2GM/50ML 50 ML IV SCH (15:49)
[2017-04-22 17:49] LABS: GLUCOSE, CSF 40 mg/dL (40-80); TOTAL PROTEIN,CSF 78 mg/dL (15-45)
[2017-04-22] MEDS: ATORVASTATIN 80 MG TABLET PO SCH (19:44)
[2017-04-22 20:06] VITALS: BP 139/62
[2017-04-23 00:58] VITALS: BP 139/66
[2017-04-23] MEDS: LEVETIRACETAM 500 MG in SODIUM CHLORIDE 0.9% 100 ML IV SCH ×3 (01:38→20:17)
[2017-04-23] MEDS: CEFTRIAXONE PMX 2GM/50ML 50 ML IV SCH ×2 (03:44→15:49)
[2017-04-23 06:10] LABS: BASOPHILS # (AUTO) 0.01 x10^3/uL (0-0.1); BASOPHILS % (AUTO) 0 % (0-1); EOSINOPHILS # (AUTO) 0.06 x10^3/uL (0-0.4); EOSINOPHILS % (AUTO) 1 % (1-7); LYMPHOCYTES # (AUTO) 1.17 x10^3/uL (1-3.4); LYMPHOCYTES % (AUTO) 13 % (22-44); MD NO; MEAN CORPUSCULAR HEMOGLOBIN 32.3 pg (27.5-34.5); MEAN CORPUSCULAR HGB CONC 33.4 g/dL (33.2-36.2); MEAN CORPUSCULAR VOLUME 96.8 fL (81-97); MEAN PLATELET VOLUME 8.3 fL (7.4-10.4); MONOCYTES # (AUTO) 1.35 x10^3/uL (0.2-0.8); MONOCYTES % (AUTO) 15 % (2-9); NEUTROPHILS # (AUTO) 6.57 x10^3/uL (1.8-6.8); NEUTROPHILS % (AUTO) 72 % (42-75); PLATELET COUNT 259 x10^3/uL (130-400); RED BLOOD COUNT 3.16 x10^6/uL (4.38-5.82); RED CELL DISTRIBUTION WIDTH 17.9 % (9.4-14.8)
[2017-04-23 06:18] LABS: ANION GAP 9 mmol/L (5-15); CALCIUM 8.7 mg/dL (8.5-10.1); CHLORIDE 95 mmol/L (98-107); CREATININE 5.68 mg/dL (0.7-1.3)
[2017-04-23 06:19] LABS: VANCOMYCIN,RANDOM 22.1 mcg/mL
[2017-04-23 07:05] VITALS: BP 167/83
[2017-04-23] MEDS: SEVELAMER 800MG TABLET PO SCH ×3 (08:00→17:00)
[2017-04-23] MEDS: DEXTROSE 10% 1,000 ML IV SCH (08:26)
[2017-04-23] MEDS: IRON SUCROSE COMPLEX 100MG/5ML IV SCH (08:26)
[2017-04-23] MEDS: SENNA/DOCUSATE TABLET PO SCH (09:00)
[2017-04-23] MEDS: OMEPRAZOLE 20 MG CAPSULE.DR PO SCH ×2 (09:00→20:17)
[2017-04-23] MEDS: METOPROLOL SUCCINATE 50 MG TAB.ER.24H PO SCH (09:00)
[2017-04-23 13:13] VITALS: BP 172/85
[2017-04-23] MEDS: LABETALOL 5MG/ML, 20ML IVPush PRN (13:27)
[2017-04-23 14:13] VITALS: BP 162/75
[2017-04-23 14:54] LABS: TROPONIN I 0.049 ng/mL (0.000-0.045)
[2017-04-23 15:20] LABS: RAPID INFLUENZA A Negative (Negative); RAPID INFLUENZA B Negative (Negative)
[2017-04-23] MEDS: ACYCLOVIR 500 MG in SODIUM CHLORIDE 0.9% 100 ML IV SCH (18:29)
[2017-04-23 19:59] VITALS: BP 137/72
[2017-04-23] MEDS: ATORVASTATIN 80 MG TABLET PO SCH (20:17)
[2017-04-24 00:53] VITALS: BP 170/80
[2017-04-24] MEDS: CEFTRIAXONE PMX 2GM/50ML 50 ML IV SCH ×2 (03:42→15:49)
[2017-04-24] MEDS: DEXTROSE 10% 1,000 ML IV SCH (03:43)
[2017-04-24] MEDS: LEVETIRACETAM 500 MG in SODIUM CHLORIDE 0.9% 100 ML IV SCH ×3 (04:39→22:39)
[2017-04-24 05:47] LABS: BASOPHILS # (AUTO) 0.02 x10^3/uL (0-0.1); BASOPHILS % (AUTO) 0 % (0-1); EOSINOPHILS # (AUTO) 0.11 x10^3/uL (0-0.4); EOSINOPHILS % (AUTO) 1 % (1-7); LYMPHOCYTES # (AUTO) 1.85 x10^3/uL (1-3.4); LYMPHOCYTES % (AUTO) 21 % (22-44); MD NO; MEAN CORPUSCULAR HEMOGLOBIN 32.1 pg (27.5-34.5); MEAN CORPUSCULAR VOLUME 97.3 fL (81-97); MEAN PLATELET VOLUME 8.4 fL (7.4-10.4); MONOCYTES # (AUTO) 1.18 x10^3/uL (0.2-0.8); MONOCYTES % (AUTO) 13 % (2-9); NEUTROPHILS % (AUTO) 65 % (42-75); PLATELET COUNT 278 x10^3/uL (130-400); RED BLOOD COUNT 3.36 x10^6/uL (4.38-5.82); RED CELL DISTRIBUTION WIDTH 17.8 % (9.4-14.8)
[2017-04-24 05:57] LABS: CHLORIDE 94 mmol/L (98-107)
[2017-04-24 06:10] LABS: ALANINE AMINOTRANSFERASE 16 U/L (12-78); ALBUMIN 2.1 g/dL (3.4-5.0); ALKALINE PHOSPHATASE 593 U/L (45-117); ANION GAP 12 mmol/L (5-15); BILIRUBIN,TOTAL 0.4 mg/dL (0.2-1.0); CALCIUM 8.6 mg/dL (8.5-10.1); CREATININE 7.48 mg/dL (0.7-1.3)
[2017-04-24 07:16] VITALS: BP 185/82
[2017-04-24] MEDS ORDERED: ETOMIDATE 20 MG/10 ML ONE (08:00)
[2017-04-24] MEDS ORDERED: MIDAZOLAM 1 MG/ML, 5ML ONE (08:00)
[2017-04-24] MEDS ORDERED: PROPOFOL 10 MG/ML, 100ML IV ONE (08:00)
[2017-04-24] MEDS: SEVELAMER 800MG TABLET PO SCH ×3 (08:00→17:00)
[2017-04-24] MEDS: SENNA/DOCUSATE TABLET PO SCH (08:51)
[2017-04-24] MEDS: METOPROLOL SUCCINATE 50 MG TAB.ER.24H PO SCH (08:51)
[2017-04-24] MEDS: OMEPRAZOLE 20 MG CAPSULE.DR PO SCH ×2 (08:51→21:12)
[2017-04-24 12:48] VITALS: BP 181/78
[2017-04-24] MEDS: LABETALOL 5MG/ML, 20ML IVPush PRN ×2 (13:47→21:36)
[2017-04-24] MEDS: IRON SUCROSE COMPLEX 100MG/5ML IV SCH (13:48)
[2017-04-24 14:20] VITALS: BP 155/79
[2017-04-24] MEDS: ACYCLOVIR 500 MG in SODIUM CHLORIDE 0.9% 100 ML IV SCH (17:08)
[2017-04-24] MEDS ORDERED: PHARMACY MAY ADJ FOR RENAL FX MC SCH (20:00)
[2017-04-24] MEDS ORDERED: LIDOCAINE-MPF 1%, 2ML ENDO PRN (20:00)
[2017-04-24] MEDS ORDERED: SODIUM CHLORIDE 0.9%, 500ML IVBOLUS PRN (21:00)
[2017-04-24] MEDS ORDERED: SODIUM CHLORIDE 0.9%, 500ML IVBOLUS ONE (21:00)
[2017-04-24] MEDS: ATORVASTATIN 80 MG TABLET PO SCH (21:12)
[2017-04-24] MEDS: METRONIDAZOLE PMX 500MG/100ML 100 ML IV SCH (21:22)
[2017-04-24] MEDS: DEXTROSE 50%, 50ML SYRINGE IVPush PRN (22:43)
[2017-04-25] MEDS: DEXTROSE 50%, 50ML SYRINGE IVPush PRN ×9 (03:21→18:24)
[2017-04-25] MEDS: CEFTRIAXONE PMX 2GM/50ML 50 ML IV SCH ×2 (03:22→15:28)
[2017-04-25] MEDS: LEVETIRACETAM 500 MG in SODIUM CHLORIDE 0.9% 100 ML IV SCH ×3 (03:39→21:15)
[2017-04-25 04:00] VITALS: BP 95/39
[2017-04-25] MEDS: METRONIDAZOLE PMX 500MG/100ML 100 ML IV SCH ×3 (04:33→21:15)
[2017-04-25 04:47] LABS: ALBUMIN 1.8 g/dL (3.4-5.0); ANION GAP 12 mmol/L (5-15); CALCIUM 8.1 mg/dL (8.5-10.1); CHLORIDE 99 mmol/L (98-107)
[2017-04-25 04:53] LABS: BASOPHILS # (AUTO) 0.03 x10^3/uL (0-0.1); BASOPHILS % (AUTO) 0 % (0-1); EOSINOPHILS # (AUTO) 0.02 x10^3/uL (0-0.4); EOSINOPHILS % (AUTO) 0 % (1-7); LYMPHOCYTES # (AUTO) 1.37 x10^3/uL (1-3.4); LYMPHOCYTES % (AUTO) 9 % (22-44); MD NO; MEAN CORPUSCULAR HEMOGLOBIN 32.3 pg (27.5-34.5); MEAN CORPUSCULAR HGB CONC 33.7 g/dL (33.2-36.2); MEAN CORPUSCULAR VOLUME 95.9 fL (81-97); MEAN PLATELET VOLUME 9.2 fL (7.4-10.4); MONOCYTES # (AUTO) 1.02 x10^3/uL (0.2-0.8); MONOCYTES % (AUTO) 7 % (2-9); NEUTROPHILS # (AUTO) 12.53 x10^3/uL (1.8-6.8); NEUTROPHILS % (AUTO) 84 % (42-75); PLATELET COUNT 252 x10^3/uL (130-400); RED BLOOD COUNT 3.29 x10^6/uL (4.38-5.82); RED CELL DISTRIBUTION WIDTH 16.5 % (9.4-14.8)
[2017-04-25 05:00] LABS: ALANINE AMINOTRANSFERASE 11 U/L (12-78); ALKALINE PHOSPHATASE 544 U/L (45-117); BILIRUBIN,TOTAL 0.5 mg/dL (0.2-1.0); CREATININE 5.81 mg/dL (0.7-1.3); TOTAL PROTEIN 5.3 g/dL (6.4-8.2); VANCOMYCIN,RANDOM 15.9 mcg/mL
[2017-04-25] MEDS: SEVELAMER 800MG TABLET PO SCH ×3 (08:00→17:00)
[2017-04-25] MEDS: METOPROLOL SUCCINATE 50 MG TAB.ER.24H PO SCH (09:00)
[2017-04-25] MEDS: OMEPRAZOLE 20 MG CAPSULE.DR PO SCH ×2 (09:00→21:15)
[2017-04-25] MEDS: SENNA/DOCUSATE TABLET PO SCH (09:00)
[2017-04-25] MEDS ORDERED: MAGNESIUM SULFATE PMX 4GM/100M 100 ML IV ONE (09:30)
[2017-04-25] MEDS ORDERED: VANCOMYCIN 1,900 MG in SODIUM CHLORIDE 0.9% 250 ML IV ONE (11:00)
[2017-04-25] MEDS ORDERED: NOREPINEPHRINE 4 MG in SODIUM CHLORIDE 0.9% 246 ML IV PRN (12:00)
[2017-04-25] MEDS: IRON SUCROSE COMPLEX 100MG/5ML IV SCH (12:04)
[2017-04-25] MEDS: ACYCLOVIR 500 MG in SODIUM CHLORIDE 0.9% 100 ML IV SCH (16:48)
[2017-04-25] MEDS: ACETAMINOPHEN 325 MG TABLET PO PRN ×2 (17:17→22:54)
[2017-04-25] MEDS ORDERED: MIDAZOLAM 1 MG/ML, 5ML ONE (20:18)
[2017-04-25] MEDS ORDERED: MIDAZOLAM 1 MG/ML, 2ML IVPush ONE (20:30)
[2017-04-25] MEDS: NOREPINEPHRINE 8 MG in SODIUM CHLORIDE 0.9% 242 ML IV PRN (21:29)
[2017-04-25] MEDS: ATORVASTATIN 80 MG TABLET PO SCH (21:42)
[2017-04-25] MEDS ORDERED: VASOPRESSIN 100 UNIT in SODIUM CHLORIDE 0.9% 495 ML IV PRN (22:30)
[2017-04-26] MEDS: PROPOFOL 100 ML IV PRN (00:51)
[2017-04-26] MEDS: NOREPINEPHRINE 8 MG in SODIUM CHLORIDE 0.9% 242 ML IV PRN ×3 (02:43→11:38)
[2017-04-26] MEDS: CEFTRIAXONE PMX 2GM/50ML 50 ML IV SCH ×2 (02:44→15:22)
[2017-04-26] MEDS: DEXTROSE 50%, 50ML SYRINGE IVPush PRN (02:47)
[2017-04-26] MEDS: LEVETIRACETAM 500 MG in SODIUM CHLORIDE 0.9% 100 ML IV SCH ×3 (03:20→19:48)
[2017-04-26] MEDS: METRONIDAZOLE PMX 500MG/100ML 100 ML IV SCH ×3 (03:20→19:48)
[2017-04-26 03:30] LABS: MEAN CORPUSCULAR HEMOGLOBIN 32.1 pg (27.5-34.5); MEAN CORPUSCULAR HGB CONC 33.3 g/dL (33.2-36.2); MEAN CORPUSCULAR VOLUME 96.2 fL (81-97); MEAN PLATELET VOLUME 9.9 fL (7.4-10.4); PLATELET COUNT 202 x10^3/uL (130-400); RED BLOOD COUNT 3.54 x10^6/uL (4.38-5.82); RED CELL DISTRIBUTION WIDTH 18.1 % (9.4-14.8)
[2017-04-26] MEDS ORDERED: PHENYLEPHRINE 20 MG in SODIUM CHLORIDE 0.9% 248 ML IV PRN (03:30)
[2017-04-26 03:36] LABS: ALANINE AMINOTRANSFERASE 22 U/L (12-78); ALBUMIN 1.8 g/dL (3.4-5.0); ANION GAP 13 mmol/L (5-15); CALCIUM 8.2 mg/dL (8.5-10.1); CHLORIDE 100 mmol/L (98-107); CREATININE 5.57 mg/dL (0.7-1.3)
[2017-04-26 03:38] LABS: ALKALINE PHOSPHATASE 602 U/L (45-117); TOTAL PROTEIN 5.4 g/dL (6.4-8.2)
[2017-04-26] MEDS: AMIODARONE 900 MG in DEXTROSE 5% 482 ML IV PRN (03:52)
[2017-04-26 04:00] VITALS: BP 147/60
[2017-04-26] MEDS ORDERED: AMIODARONE 150 MG in DEXTROSE 5% 100 ML IV ONE (04:00)
[2017-04-26] MEDS ORDERED: FILTER 0.22 MICRON IV PRN (04:00)
[2017-04-26 04:18] LABS: MD YES
[2017-04-26 04:20] LABS: BAND#(MANUAL) 2.37 x10^3/uL; BANDS%(MANUAL) 15 % (0-7); BASOS#(MANUAL) 0.16 x10^3/uL (0-0.1); BASOS% (MANUAL) 1 % (0-1); EOS#(MANUAL) 0.16 x10^3/uL (0.0-0.4); EOS% (MANUAL) 1 % (1-7); LYMPH#(MANUAL) 1.26 x10^3/uL (1-3.4); LYMPHS% (MANUAL) 8 % (22-44); MONOS#(MANUAL) 0.47 x10^3/uL (0.3-2.7); MONOS% (MANUAL) 3 % (2-9); NRBC % (MANUAL) 1 % (0-1); SEG#(MANUAL) 11.38 x10^3/uL (1.8-6.8); SEGS% (MANUAL) 72 % (42-75)
[2017-04-26 04:27] LABS: <PLATELET ESTIMATE> ADEQUATE; ANISOCYTOSIS 1+; LARGE PLATELETS 1+; OVALOCYTES 1+; POLYCHROMASIA 1+; TARGET CELLS 1+
[2017-04-26] MEDS: HYDROCORTISONE 100 MG INJ. IVPush SCH ×4 (06:05→23:11)
[2017-04-26] MEDS ORDERED: DEXTROSE 5% 1,000 ML IV SCH (07:00)
[2017-04-26] MEDS: SEVELAMER 800MG TABLET PO SCH ×3 (08:00→17:00)
[2017-04-26] MEDS: SENNA/DOCUSATE TABLET PO SCH (09:00)
[2017-04-26] MEDS: METOPROLOL SUCCINATE 50 MG TAB.ER.24H PO SCH (09:00)
[2017-04-26] MEDS ORDERED: PHARMACOKINETIC MONITORING MC PRN (09:30)
[2017-04-26] MEDS ORDERED: D5%-0.9% NACL 1,000 ML IV SCH (10:00)
[2017-04-26] MEDS: PANTOPRAZOLE 40 MG IV IVPush SCH ×2 (12:00→19:51)
[2017-04-26] MEDS: IRON SUCROSE COMPLEX 100MG/5ML IV SCH (12:00)
[2017-04-26] MEDS: ACYCLOVIR 500 MG in SODIUM CHLORIDE 0.9% 100 ML IV SCH (16:08)
[2017-04-26] MEDS: ATORVASTATIN 80 MG TABLET PO SCH (19:49)
[2017-04-27] MEDS: NOREPINEPHRINE 8 MG in SODIUM CHLORIDE 0.9% 242 ML IV PRN (02:01)
[2017-04-27] MEDS: PROPOFOL 100 ML IV PRN (03:44)
[2017-04-27] MEDS: CEFTRIAXONE PMX 2GM/50ML 50 ML IV SCH ×2 (03:44→15:37)
[2017-04-27] MEDS: LEVETIRACETAM 500 MG in SODIUM CHLORIDE 0.9% 100 ML IV SCH ×3 (04:42→20:32)
[2017-04-27] MEDS: METRONIDAZOLE PMX 500MG/100ML 100 ML IV SCH ×3 (04:42→20:32)
[2017-04-27 05:02] LABS: ALANINE AMINOTRANSFERASE 37 U/L (12-78); ALBUMIN 1.8 g/dL (3.4-5.0); ANION GAP 12 mmol/L (5-15); CALCIUM 7.9 mg/dL (8.5-10.1); CHLORIDE 99 mmol/L (98-107); CREATININE 6.45 mg/dL (0.7-1.3)
[2017-04-27 05:04] LABS: ALKALINE PHOSPHATASE 535 U/L (45-117); BILIRUBIN,TOTAL 0.5 mg/dL (0.2-1.0); TOTAL PROTEIN 5.5 g/dL (6.4-8.2); TRIGLYCERIDES 104 mg/dL (50-200); VANCOMYCIN,RANDOM 27.6 mcg/mL
[2017-04-27 05:47] LABS: MD YES; MEAN CORPUSCULAR HEMOGLOBIN 31.5 pg (27.5-34.5); MEAN CORPUSCULAR HGB CONC 32.7 g/dL (33.2-36.2); MEAN CORPUSCULAR VOLUME 96.4 fL (81-97); MEAN PLATELET VOLUME 10.1 fL (7.4-10.4); PLATELET COUNT 264 x10^3/uL (130-400); RED BLOOD COUNT 3.32 x10^6/uL (4.38-5.82); RED CELL DISTRIBUTION WIDTH 18.2 % (9.4-14.8)
[2017-04-27 05:49] LABS: ANISOCYTOSIS 1+; BAND#(MANUAL) 2.66 x10^3/uL; BANDS%(MANUAL) 20 % (0-7); ECHINOCYTES 1+; LYMPH#(MANUAL) 0.53 x10^3/uL (1-3.4); LYMPHS% (MANUAL) 4 % (22-44); MONOS#(MANUAL) 0.13 x10^3/uL (0.3-2.7); MONOS% (MANUAL) 1 % (2-9); SEG#(MANUAL) 9.98 x10^3/uL (1.8-6.8); SEGS% (MANUAL) 75 % (42-75); SPHEROCYTES 1+
[2017-04-27 05:50] LABS: <PLATELET ESTIMATE> ADEQUATE; LARGE PLATELETS 1+; OVALOCYTES 1+; PMNS WITH VACUOLES 1+; TARGET CELLS 1+
[2017-04-27 05:51] LABS: ACANTHOCYTES 1+; SCHISTOCYTES 1+
[2017-04-27 05:54] LABS: POLYCHROMASIA 1+
[2017-04-27] MEDS: HYDROCORTISONE 100 MG INJ. IVPush SCH ×4 (05:57→22:46)
[2017-04-27 06:18] VITALS: BP 132/68
[2017-04-27] MEDS: D5%-0.9% NACL 1,000 ML IV SCH (07:50)
[2017-04-27] MEDS: SEVELAMER 800MG TABLET PO SCH ×3 (08:00→17:00)
[2017-04-27] MEDS: SENNA/DOCUSATE TABLET PO SCH (08:42)
[2017-04-27] MEDS: METOPROLOL SUCCINATE 50 MG TAB.ER.24H PO SCH (08:43)
[2017-04-27] MEDS: PANTOPRAZOLE 40 MG IV IVPush SCH ×2 (11:41→20:33)
[2017-04-27] MEDS: DARBEPOETIN 100 MCG/ML SQ SCH (14:13)
[2017-04-27] MEDS: ALBUMIN HUMAN 25% 100 ML IV PRN ×2 (16:38→17:25)
[2017-04-27] MEDS ORDERED: ALBUMIN HUMAN 25% 50 ML IV PRN (17:00)
[2017-04-27] MEDS: ACYCLOVIR 500 MG in SODIUM CHLORIDE 0.9% 100 ML IV SCH (20:32)
[2017-04-27] MEDS: ATORVASTATIN 80 MG TABLET PO SCH (20:32)
[2017-04-28] MEDS: CEFTRIAXONE PMX 2GM/50ML 50 ML IV SCH ×2 (02:54→15:49)
[2017-04-28] MEDS: LEVETIRACETAM 500 MG in SODIUM CHLORIDE 0.9% 100 ML IV SCH ×3 (03:53→20:35)
[2017-04-28] MEDS: METRONIDAZOLE PMX 500MG/100ML 100 ML IV SCH ×3 (03:54→20:35)
[2017-04-28 04:48] LABS: ANION GAP 9 mmol/L (5-15); CALCIUM 8.1 mg/dL (8.5-10.1); CHLORIDE 101 mmol/L (98-107); CREATININE 4.37 mg/dL (0.7-1.3)
[2017-04-28 04:50] LABS: VANCOMYCIN,RANDOM 21.9 mcg/mL
[2017-04-28 05:00] VITALS: BP 134/72
[2017-04-28] MEDS: HYDROCORTISONE 100 MG INJ. IVPush SCH ×4 (05:26→23:40)
[2017-04-28] MEDS: D5%-0.9% NACL 1,000 ML IV SCH ×2 (06:00→09:19)
[2017-04-28 06:46] LABS: MEAN CORPUSCULAR HEMOGLOBIN 31.9 pg (27.5-34.5); MEAN CORPUSCULAR HGB CONC 33.4 g/dL (33.2-36.2); MEAN CORPUSCULAR VOLUME 95.4 fL (81-97); MEAN PLATELET VOLUME 10.5 fL (7.4-10.4); PLATELET COUNT 236 x10^3/uL (130-400); RED BLOOD COUNT 3.03 x10^6/uL (4.38-5.82); RED CELL DISTRIBUTION WIDTH 18.1 % (9.4-14.8)
[2017-04-28 07:08] LABS: MD YES
[2017-04-28 07:10] LABS: ANISOCYTOSIS 1+; BAND#(MANUAL) 0.65 x10^3/uL; BANDS%(MANUAL) 7 % (0-7); HYPOCHROMIA 1+; LYMPH#(MANUAL) 0.56 x10^3/uL (1-3.4); LYMPHS% (MANUAL) 6 % (22-44); MONOS#(MANUAL) 0.65 x10^3/uL (0.3-2.7); MONOS% (MANUAL) 7 % (2-9); NRBC % (MANUAL) 1 % (0-1); SEG#(MANUAL) 7.44 x10^3/uL (1.8-6.8); SEGS% (MANUAL) 80 % (42-75)
[2017-04-28 07:11] LABS: OVALOCYTES 1+; POLYCHROMASIA 1+; TARGET CELLS 1+
[2017-04-28 07:12] LABS: <PLATELET ESTIMATE> ADEQUATE; SCHISTOCYTES 1+
[2017-04-28 07:13] LABS: LARGE PLATELETS 1+
[2017-04-28] MEDS: SEVELAMER 800MG TABLET PO SCH ×3 (08:00→16:54)
[2017-04-28] MEDS: METOPROLOL SUCCINATE 50 MG TAB.ER.24H PO SCH (09:00)
[2017-04-28] MEDS: SENNA/DOCUSATE TABLET PO SCH (09:00)
[2017-04-28] MEDS: PANTOPRAZOLE 40 MG IV IVPush SCH ×2 (09:11→20:35)
[2017-04-28] MEDS: HEPARIN 5,000 UNITS/ML, 1ML SQ SCH ×2 (09:19→16:54)
[2017-04-28] MEDS: AMIODARONE 900 MG in DEXTROSE 5% 482 ML IV PRN (11:25)
[2017-04-28] MEDS: PROPOFOL 100 ML IV PRN (14:26)
[2017-04-28] MEDS: ACYCLOVIR 500 MG in SODIUM CHLORIDE 0.9% 100 ML IV SCH (16:54)
[2017-04-28] MEDS: ATORVASTATIN 80 MG TABLET PO SCH (20:34)
[2017-04-29] MEDS: HEPARIN 5,000 UNITS/ML, 1ML SQ SCH ×3 (02:02→17:03)
[2017-04-29] MEDS: LEVETIRACETAM 500 MG in SODIUM CHLORIDE 0.9% 100 ML IV SCH ×3 (03:34→19:57)
[2017-04-29] MEDS: CEFTRIAXONE PMX 2GM/50ML 50 ML IV SCH ×2 (03:35→19:57)
[2017-04-29] MEDS: METRONIDAZOLE PMX 500MG/100ML 100 ML IV SCH ×2 (03:35→12:52)
[2017-04-29] MEDS: PROPOFOL 100 ML IV PRN (03:38)
[2017-04-29] MEDS: HYDROCORTISONE 100 MG INJ. IVPush SCH ×4 (04:54→23:36)
[2017-04-29 05:05] VITALS: BP 147/83
[2017-04-29 05:47] LABS: MD YES; MEAN CORPUSCULAR HEMOGLOBIN 31.8 pg (27.5-34.5); MEAN CORPUSCULAR HGB CONC 33.3 g/dL (33.2-36.2); MEAN CORPUSCULAR VOLUME 95.5 fL (81-97); MEAN PLATELET VOLUME 11.2 fL (7.4-10.4); PLATELET COUNT 231 x10^3/uL (130-400); RED BLOOD COUNT 3.18 x10^6/uL (4.38-5.82); RED CELL DISTRIBUTION WIDTH 17.8 % (9.4-14.8)
[2017-04-29 05:50] LABS: ANISOCYTOSIS 1+; BAND#(MANUAL) 0.26 x10^3/uL; BANDS%(MANUAL) 4 % (0-7); BASOS#(MANUAL) 0.07 x10^3/uL (0-0.1); BASOS% (MANUAL) 1 % (0-1); HYPOCHROMIA 1+; LYMPH#(MANUAL) 0.33 x10^3/uL (1-3.4); LYMPHS% (MANUAL) 5 % (22-44); MONOS#(MANUAL) 0.33 x10^3/uL (0.3-2.7); MONOS% (MANUAL) 5 % (2-9); NRBC % (MANUAL) 5 % (0-1); OVALOCYTES 1+; POLYCHROMASIA 1+; SEG#(MANUAL) 5.53 x10^3/uL (1.8-6.8); SEGS% (MANUAL) 85 % (42-75)
[2017-04-29 05:51] LABS: <PLATELET ESTIMATE> ADEQUATE; ECHINOCYTES 1+; GIANT PLATELETS 1+; LARGE PLATELETS 1+; SCHISTOCYTES 1+; TARGET CELLS 1+
[2017-04-29 05:52] LABS: HOWELL-JOLLY BODIES 1+
[2017-04-29 06:12] LABS: ANION GAP 12 mmol/L (5-15); CALCIUM 7.6 mg/dL (8.5-10.1); CHLORIDE 102 mmol/L (98-107)
[2017-04-29 06:16] LABS: CREATININE 5.65 mg/dL (0.7-1.3)
[2017-04-29] MEDS: PANTOPRAZOLE 40 MG IV IVPush SCH ×2 (08:24→19:59)
[2017-04-29] MEDS: SEVELAMER 800MG TABLET PO SCH (08:24)
[2017-04-29] MEDS ORDERED: D5%-0.9% NACL 1,000 ML IV SCH (09:30)
[2017-04-29] MEDS: AMIODARONE 200 MG TABLET PO SCH ×2 (12:52→21:40)
[2017-04-29] MEDS: SEVELAMER 2.4 GM POWD.PACK NG SCH ×2 (12:52→17:03)
[2017-04-29 13:05] LABS: CLOSTRIDIUM DIFFICILE ANTIGEN NEGATIVE; CLOSTRIDIUM DIFFICILE TOXIN NEGATIVE (Negative)
[2017-04-29] MEDS: LABETALOL 5MG/ML, 20ML IVPush PRN ×4 (14:16→21:57)
[2017-04-29] MEDS: ATORVASTATIN 80 MG TABLET PO SCH (19:59)
[2017-04-29] MEDS: METOPROLOL TARTRATE 25 MG TABLET NG SCH (19:59)
[2017-04-29] MEDS: ENALAPRILAT 1.25 MG/ML, 2ML IVPush PRN (20:14)
[2017-04-29] MEDS: HYDROcodone/APAP 5/325 TABLET PO PRN (20:21)
[2017-04-30] MEDS: LABETALOL 5MG/ML, 20ML IVPush PRN ×4 (00:46→20:10)
[2017-04-30] MEDS: HEPARIN 5,000 UNITS/ML, 1ML SQ SCH ×3 (00:47→17:07)
[2017-04-30] MEDS: PROPOFOL 100 ML IV PRN (00:49)
[2017-04-30] MEDS: ENALAPRILAT 1.25 MG/ML, 2ML IVPush PRN ×2 (00:50→02:15)
[2017-04-30] MEDS: LEVETIRACETAM 500 MG in SODIUM CHLORIDE 0.9% 100 ML IV SCH ×3 (03:00→20:02)
[2017-04-30] MEDS: hydrALAzine 20 MG/ML, 1ML IV PRN ×3 (03:07→21:34)
[2017-04-30] MEDS: CEFTRIAXONE PMX 2GM/50ML 50 ML IV SCH ×2 (04:40→19:53)
[2017-04-30] MEDS: HYDROCORTISONE 100 MG INJ. IVPush SCH ×3 (04:40→19:54)
[2017-04-30 05:00] VITALS: BP 152/72
[2017-04-30] MEDS: SEVELAMER 2.4 GM POWD.PACK NG SCH ×3 (07:40→17:07)
[2017-04-30 08:20] LABS: ANION GAP 10 mmol/L (5-15); CALCIUM 7.8 mg/dL (8.5-10.1); CHLORIDE 100 mmol/L (98-107); CREATININE 4.45 mg/dL (0.7-1.3)
[2017-04-30 08:50] LABS: MEAN CORPUSCULAR HEMOGLOBIN 32.1 pg (27.5-34.5); MEAN CORPUSCULAR HGB CONC 33.8 g/dL (33.2-36.2); MEAN PLATELET VOLUME 11.6 fL (7.4-10.4); PLATELET COUNT 200 x10^3/uL (130-400); RED BLOOD COUNT 3.26 x10^6/uL (4.38-5.82)
[2017-04-30 08:51] LABS: MD YES
[2017-04-30 08:53] LABS: BAND#(MANUAL) 0.09 x10^3/uL; BANDS%(MANUAL) 1 % (0-7); LYMPH#(MANUAL) 0.79 x10^3/uL (1-3.4); LYMPHS% (MANUAL) 9 % (22-44); MONOS#(MANUAL) 0.53 x10^3/uL (0.3-2.7); MONOS% (MANUAL) 6 % (2-9); NRBC % (MANUAL) 1 % (0-1); SEG#(MANUAL) 7.39 x10^3/uL (1.8-6.8); SEGS% (MANUAL) 84 % (42-75)
[2017-04-30 08:54] LABS: ANISOCYTOSIS 1+; HYPOCHROMIA 1+; SPHEROCYTES 1+; TARGET CELLS 1+
[2017-04-30 08:55] LABS: ECHINOCYTES 1+; HOWELL-JOLLY BODIES 1+; OVALOCYTES 1+; POLYCHROMASIA 1+; SCHISTOCYTES 1+
[2017-04-30 08:56] LABS: <PLATELET ESTIMATE> ADEQUATE; GIANT PLATELETS 1+; LARGE PLATELETS 1+
[2017-04-30] MEDS ORDERED: POTASSIUM CHLORIDE 10% 20 MEQ/15 ML UDC PO/NG ONE (09:00)
[2017-04-30] MEDS: PANTOPRAZOLE 40 MG IV IVPush SCH ×2 (10:01→21:12)
[2017-04-30] MEDS: HYDROcodone/APAP 5/325 TABLET PO PRN ×3 (10:02→22:22)
[2017-04-30] MEDS: AMIODARONE 200 MG TABLET PO SCH ×2 (10:02→21:08)
[2017-04-30] MEDS: METOPROLOL TARTRATE 25 MG TABLET NG SCH ×2 (10:02→21:09)
[2017-04-30] MEDS: LOSARTAN 25MG TABLET PO SCH ×2 (10:09→21:08)
[2017-04-30] MEDS: CHOLESTYRAMINE LIGHT 4GM PACKET PO SCH ×2 (11:24→21:08)
[2017-04-30] MEDS: ATORVASTATIN 80 MG TABLET PO SCH (21:09)
[2017-05-01] MEDS: HEPARIN 5,000 UNITS/ML, 1ML SQ SCH ×3 (01:10→17:00)
[2017-05-01] MEDS: HYDROCORTISONE 100 MG INJ. IVPush SCH ×3 (02:54→20:00)
[2017-05-01] MEDS: LEVETIRACETAM 500 MG in SODIUM CHLORIDE 0.9% 100 ML IV SCH ×3 (04:15→20:01)
[2017-05-01 05:00] VITALS: BP 168/62
[2017-05-01 07:02] LABS: ANION GAP 14 mmol/L (5-15); CALCIUM 8.1 mg/dL (8.5-10.1); CHLORIDE 100 mmol/L (98-107); CREATININE 5.38 mg/dL (0.7-1.3)
[2017-05-01] MEDS: CEFTRIAXONE PMX 2GM/50ML 50 ML IV SCH ×2 (07:49→18:59)
[2017-05-01 07:54] LABS: MEAN CORPUSCULAR HEMOGLOBIN 31.3 pg (27.5-34.5); MEAN CORPUSCULAR HGB CONC 32.9 g/dL (33.2-36.2); MEAN CORPUSCULAR VOLUME 95.3 fL (81-97); RED BLOOD COUNT 3.34 x10^6/uL (4.38-5.82); RED CELL DISTRIBUTION WIDTH 18.1 % (9.4-14.8)
[2017-05-01 07:57] LABS: MEAN PLATELET VOLUME 12.4 fL (7.4-10.4); PLATELET COUNT 223 x10^3/uL (130-400)
[2017-05-01 07:58] LABS: MD YES
[2017-05-01 08:12] LABS: LYMPH#(MANUAL) 0.36 x10^3/uL (1-3.4); LYMPHS% (MANUAL) 4 % (22-44); MONOS#(MANUAL) 1.26 x10^3/uL (0.3-2.7); MONOS% (MANUAL) 14 % (2-9); NRBC % (MANUAL) 12 % (0-1); REACTIVE LYMPHS # (MANUAL) 0.09 x10^3/uL (0-0); REACTIVE LYMPHS % (MANUAL) 1 % (0-0); SEG#(MANUAL) 7.29 x10^3/uL (1.8-6.8); SEGS% (MANUAL) 81 % (42-75)
[2017-05-01 08:13] LABS: HOWELL-JOLLY BODIES 1+; SPHEROCYTES 1+
[2017-05-01 08:16] LABS: <PLATELET ESTIMATE> ADEQUATE; GIANT PLATELETS 1+; HYPOCHROMIA 1+; LARGE PLATELETS 1+; OVALOCYTES 1+; POLYCHROMASIA 1+; SCHISTOCYTES 1+
[2017-05-01] MEDS: SEVELAMER 2.4 GM POWD.PACK NG SCH ×3 (08:49→17:33)
[2017-05-01] MEDS: PANTOPRAZOLE 40 MG IV IVPush SCH ×2 (09:15→21:37)
[2017-05-01] MEDS: AMIODARONE 200 MG TABLET PO SCH ×2 (09:16→21:38)
[2017-05-01] MEDS: LOSARTAN 50MG TABLET PO SCH ×3 (09:16→21:38)
[2017-05-01] MEDS: METOPROLOL TARTRATE 25 MG TABLET NG SCH ×3 (09:16→21:38)
[2017-05-01] MEDS: HYDROcodone/APAP 5/325 TABLET PO PRN ×3 (09:16→22:34)
[2017-05-01] MEDS: LABETALOL 5MG/ML, 20ML IVPush PRN ×3 (09:17→17:33)
[2017-05-01] MEDS: OCULAR LUBRICANT OPHTH OINT 3.5 GM OP PRN ×2 (10:19→15:18)
[2017-05-01] MEDS: INSULIN REGULAR, HUMAN 100 UNITS/ML, 3ML MEDIUM DOSE SS SQ-INSULIN SCH ×3 (10:37→23:25)
[2017-05-01] MEDS: ALBUMIN HUMAN 25% 100 ML IV PRN (11:51)
[2017-05-01] MEDS: CHOLESTYRAMINE LIGHT 4GM PACKET PO SCH ×2 (12:27→21:37)
[2017-05-01] MEDS: hydrALAzine 20 MG/ML, 1ML IV PRN (18:01)
[2017-05-01] MEDS: ATORVASTATIN 80 MG TABLET PO SCH (21:38)
[2017-05-02] MEDS: PROPOFOL 100 ML IV PRN ×5 (02:43→21:16)
[2017-05-02] MEDS: hydrALAzine 20 MG/ML, 1ML IV PRN (03:11)
[2017-05-02] MEDS: HYDROCORTISONE 100 MG INJ. IVPush SCH (03:13)
[2017-05-02] MEDS: LEVETIRACETAM 500 MG in SODIUM CHLORIDE 0.9% 100 ML IV SCH ×3 (04:25→20:43)
[2017-05-02] MEDS: LABETALOL 5MG/ML, 20ML IVPush PRN ×2 (04:28→06:46)
[2017-05-02 05:48] LABS: MD YES; MEAN CORPUSCULAR HEMOGLOBIN 31.4 pg (27.5-34.5); MEAN CORPUSCULAR HGB CONC 32.8 g/dL (33.2-36.2); MEAN CORPUSCULAR VOLUME 95.6 fL (81-97); MEAN PLATELET VOLUME 12.2 fL (7.4-10.4); PLATELET COUNT 252 x10^3/uL (130-400); RED BLOOD COUNT 3.17 x10^6/uL (4.38-5.82); RED CELL DISTRIBUTION WIDTH 18.1 % (9.4-14.8)
[2017-05-02 05:50] LABS: LYMPH#(MANUAL) 0.51 x10^3/uL (1-3.4); LYMPHS% (MANUAL) 6 % (22-44); MONOS#(MANUAL) 0.77 x10^3/uL (0.3-2.7); MONOS% (MANUAL) 9 % (2-9); NRBC % (MANUAL) 14 % (0-1); SEG#(MANUAL) 7.23 x10^3/uL (1.8-6.8); SEGS% (MANUAL) 85 % (42-75)
[2017-05-02 05:51] LABS: <PLATELET ESTIMATE> ADEQUATE; ANISOCYTOSIS 1+; GIANT PLATELETS 1+; HOWELL-JOLLY BODIES 1+; LARGE PLATELETS 1+; OVALOCYTES 1+; SCHISTOCYTES 1+; SPHEROCYTES 1+
[2017-05-02 05:53] LABS: POLYCHROMASIA 1+
[2017-05-02] MEDS: INSULIN REGULAR, HUMAN 100 UNITS/ML, 3ML MEDIUM DOSE SS SQ-INSULIN SCH ×4 (05:58→23:12)
[2017-05-02 06:02] VITALS: BP 202/73
[2017-05-02] MEDS: CEFTRIAXONE PMX 2GM/50ML 50 ML IV SCH ×2 (06:47→17:36)
[2017-05-02] MEDS: PANTOPRAZOLE 40 MG IV IVPush SCH ×2 (08:24→21:20)
[2017-05-02] MEDS: METOPROLOL TARTRATE 25 MG TABLET NG SCH (08:24)
[2017-05-02] MEDS: LOSARTAN 50MG TABLET PO SCH ×2 (08:24→21:20)
[2017-05-02] MEDS: CHOLESTYRAMINE LIGHT 4GM PACKET PO SCH ×2 (08:46→21:20)
[2017-05-02] MEDS: SEVELAMER 2.4 GM POWD.PACK NG SCH ×3 (08:46→16:36)
[2017-05-02] MEDS: AMIODARONE 200 MG TABLET PO SCH ×2 (08:47→21:20)
[2017-05-02] MEDS: AMLODIPINE 5 MG TABLET PO SCH ×2 (08:50→21:20)
[2017-05-02] MEDS: HEPARIN 5,000 UNITS/ML, 1ML SQ SCH ×2 (11:57→16:40)
[2017-05-02 12:08] LABS: ANION GAP 11 mmol/L (5-15); CALCIUM 7.7 mg/dL (8.5-10.1); CHLORIDE 101 mmol/L (98-107); CREATININE 4.57 mg/dL (0.7-1.3)
[2017-05-02] MEDS: ATORVASTATIN 80 MG TABLET PO SCH (21:20)
[2017-05-02] MEDS: METOPROLOL TARTRATE 50 MG TABLET NG SCH (21:21)
[2017-05-03] MEDS: HEPARIN 5,000 UNITS/ML, 1ML SQ SCH ×3 (01:33→17:42)
[2017-05-03] MEDS: PROPOFOL 100 ML IV PRN ×3 (03:13→19:21)
[2017-05-03 04:15] VITALS: BP 137/58
[2017-05-03] MEDS: LEVETIRACETAM 500 MG in SODIUM CHLORIDE 0.9% 100 ML IV SCH ×3 (04:19→20:11)
[2017-05-03 04:37] LABS: ANION GAP 10 mmol/L (5-15); CALCIUM 7.9 mg/dL (8.5-10.1); CHLORIDE 101 mmol/L (98-107)
[2017-05-03] MEDS: INSULIN REGULAR, HUMAN 100 UNITS/ML, 3ML MEDIUM DOSE SS SQ-INSULIN SCH ×4 (05:06→22:00)
[2017-05-03 05:44] LABS: MD YES
[2017-05-03 05:45] LABS: MEAN CORPUSCULAR HEMOGLOBIN 31.7 pg (27.5-34.5); MEAN CORPUSCULAR HGB CONC 32.8 g/dL (33.2-36.2); MEAN CORPUSCULAR VOLUME 96.6 fL (81-97); MEAN PLATELET VOLUME 12.4 fL (7.4-10.4); PLATELET COUNT 318 x10^3/uL (130-400); RED BLOOD COUNT 3.33 x10^6/uL (4.38-5.82); RED CELL DISTRIBUTION WIDTH 18.2 % (9.4-14.8)
[2017-05-03 05:46] LABS: LYMPH#(MANUAL) 1.18 x10^3/uL (1-3.4); LYMPHS% (MANUAL) 13 % (22-44); MONOS#(MANUAL) 0.82 x10^3/uL (0.3-2.7); MONOS% (MANUAL) 9 % (2-9); NRBC % (MANUAL) 6 % (0-1); REACTIVE LYMPHS # (MANUAL) 0.09 x10^3/uL (0-0); REACTIVE LYMPHS % (MANUAL) 1 % (0-0); SEG#(MANUAL) 7.01 x10^3/uL (1.8-6.8); SEGS% (MANUAL) 77 % (42-75)
[2017-05-03 05:47] LABS: <PLATELET ESTIMATE> ADEQUATE; ANISOCYTOSIS 1+; HOWELL-JOLLY BODIES 1+; LARGE PLATELETS 2+; OVALOCYTES 1+; POLYCHROMASIA 1+; SCHISTOCYTES 1+; SPHEROCYTES 1+
[2017-05-03 05:48] LABS: GIANT PLATELETS 1+
[2017-05-03] MEDS: CEFTRIAXONE PMX 2GM/50ML 50 ML IV SCH ×2 (06:13→17:43)
[2017-05-03] MEDS ORDERED: POTASSIUM CHLORIDE 10% 40 MEQ/30 ML UDC PO ONE ×2 (07:30→12:00)
[2017-05-03] MEDS: SEVELAMER 2.4 GM POWD.PACK NG SCH ×3 (09:23→16:12)
[2017-05-03] MEDS: PANTOPRAZOLE 40 MG IV IVPush SCH ×2 (09:23→20:14)
[2017-05-03] MEDS: RISPERIDONE 1 MG/ML ORAL SOLN NG SCH ×2 (09:23→20:13)
[2017-05-03] MEDS: AMIODARONE 200 MG TABLET PO SCH ×2 (09:24→20:14)
[2017-05-03] MEDS: AMLODIPINE 5 MG TABLET PO SCH ×2 (09:24→20:13)
[2017-05-03] MEDS: LOSARTAN 50MG TABLET PO SCH ×2 (09:24→20:15)
[2017-05-03] MEDS: METOPROLOL TARTRATE 50 MG TABLET NG SCH ×2 (09:25→20:13)
[2017-05-03] MEDS: CHOLESTYRAMINE LIGHT 4GM PACKET PO SCH ×2 (11:04→20:15)
[2017-05-03] MEDS: ATORVASTATIN 80 MG TABLET PO SCH (20:13)
[2017-05-04] MEDS: HYDROcodone/APAP 5/325 TABLET PO PRN (00:49)
[2017-05-04] MEDS: HEPARIN 5,000 UNITS/ML, 1ML SQ SCH ×3 (00:51→17:42)
[2017-05-04] MEDS: PROPOFOL 100 ML IV PRN (01:41)
[2017-05-04] MEDS: INSULIN REGULAR, HUMAN 100 UNITS/ML, 3ML MEDIUM DOSE SS SQ-INSULIN SCH ×4 (04:00→21:31)
[2017-05-04] MEDS: CEFTRIAXONE PMX 2GM/50ML 50 ML IV SCH ×2 (05:18→17:38)
[2017-05-04] MEDS: LEVETIRACETAM 500 MG in SODIUM CHLORIDE 0.9% 100 ML IV SCH ×3 (05:18→20:42)
[2017-05-04 07:14] LABS: ANION GAP 13 mmol/L (5-15); CALCIUM 8.2 mg/dL (8.5-10.1); CHLORIDE 102 mmol/L (98-107); CREATININE 6.23 mg/dL (0.7-1.3)
[2017-05-04 07:27] LABS: MEAN CORPUSCULAR HEMOGLOBIN 31.8 pg (27.5-34.5); MEAN CORPUSCULAR HGB CONC 33.3 g/dL (33.2-36.2); MEAN CORPUSCULAR VOLUME 95.6 fL (81-97); MEAN PLATELET VOLUME 12.2 fL (7.4-10.4); PLATELET COUNT 313 x10^3/uL (130-400); RED BLOOD COUNT 3.33 x10^6/uL (4.38-5.82); RED CELL DISTRIBUTION WIDTH 18.6 % (9.4-14.8)
[2017-05-04 07:29] LABS: MD YES
[2017-05-04 07:32] LABS: LYMPH#(MANUAL) 1.37 x10^3/uL (1-3.4); LYMPHS% (MANUAL) 14 % (22-44); MONOS#(MANUAL) 0.78 x10^3/uL (0.3-2.7); MONOS% (MANUAL) 8 % (2-9); NRBC % (MANUAL) 17 % (0-1); SEG#(MANUAL) 7.64 x10^3/uL (1.8-6.8); SEGS% (MANUAL) 78 % (42-75)
[2017-05-04 07:33] LABS: ANISOCYTOSIS 1+; HOWELL-JOLLY BODIES 1+; POLYCHROMASIA 1+
[2017-05-04 07:34] LABS: <PLATELET ESTIMATE> ADEQUATE; GIANT PLATELETS 1+; LARGE PLATELETS 1+; OVALOCYTES 1+; SCHISTOCYTES 1+; SPHEROCYTES 1+
[2017-05-04] MEDS: SEVELAMER 2.4 GM POWD.PACK NG SCH ×3 (10:28→16:15)
[2017-05-04] MEDS: RISPERIDONE 1 MG/ML ORAL SOLN NG SCH ×2 (10:28→21:13)
[2017-05-04] MEDS: PANTOPRAZOLE 40 MG IV IVPush SCH ×2 (10:35→21:12)
[2017-05-04] MEDS: LOSARTAN 50MG TABLET PO SCH ×2 (11:52→21:12)
[2017-05-04] MEDS: AMIODARONE 200 MG TABLET PO SCH ×2 (11:52→21:13)
[2017-05-04] MEDS: METOPROLOL TARTRATE 50 MG TABLET NG SCH ×2 (11:52→21:14)
[2017-05-04] MEDS: AMLODIPINE 5 MG TABLET PO SCH ×2 (11:52→21:30)
[2017-05-04] MEDS: CHOLESTYRAMINE LIGHT 4GM PACKET PO SCH ×2 (13:16→21:13)
[2017-05-04] MEDS: DARBEPOETIN 100 MCG/ML SQ SCH (13:31)
[2017-05-04] MEDS: hydrALAzine 20 MG/ML, 1ML IV PRN (17:38)
[2017-05-04] MEDS: ATORVASTATIN 80 MG TABLET PO SCH (21:13)
[2017-05-05] MEDS: HEPARIN 5,000 UNITS/ML, 1ML SQ SCH ×3 (02:28→17:21)
[2017-05-05] MEDS: INSULIN REGULAR, HUMAN 100 UNITS/ML, 3ML MEDIUM DOSE SS SQ-INSULIN SCH ×4 (04:00→22:00)
[2017-05-05] MEDS: LEVETIRACETAM 500 MG in SODIUM CHLORIDE 0.9% 100 ML IV SCH ×3 (04:42→19:47)
[2017-05-05] MEDS: CEFTRIAXONE PMX 2GM/50ML 50 ML IV SCH ×2 (05:51→17:52)
[2017-05-05 06:27] VITALS: BP 152/62
[2017-05-05 08:46] LABS: ANION GAP 12 mmol/L (5-15); CALCIUM 8.4 mg/dL (8.5-10.1); CHLORIDE 101 mmol/L (98-107); CREATININE 5.02 mg/dL (0.7-1.3)
[2017-05-05 09:15] LABS: MD YES; MEAN CORPUSCULAR HEMOGLOBIN 32.5 pg (27.5-34.5); MEAN CORPUSCULAR HGB CONC 33.6 g/dL (33.2-36.2); MEAN CORPUSCULAR VOLUME 96.6 fL (81-97); MEAN PLATELET VOLUME 11.2 fL (7.4-10.4); PLATELET COUNT 295 x10^3/uL (130-400); RED BLOOD COUNT 3.35 x10^6/uL (4.38-5.82); RED CELL DISTRIBUTION WIDTH 19.1 % (9.4-14.8)
[2017-05-05] MEDS: SEVELAMER 2.4 GM POWD.PACK NG SCH ×3 (09:45→17:21)
[2017-05-05] MEDS: PANTOPRAZOLE 40 MG IV IVPush SCH ×2 (09:45→21:12)
[2017-05-05] MEDS: METOPROLOL TARTRATE 50 MG TABLET NG SCH ×2 (09:46→21:13)
[2017-05-05] MEDS: RISPERIDONE 1 MG/ML ORAL SOLN NG SCH ×2 (09:46→21:13)
[2017-05-05] MEDS: AMIODARONE 200 MG TABLET PO SCH ×2 (09:47→21:12)
[2017-05-05] MEDS: AMLODIPINE 5 MG TABLET PO SCH ×2 (09:47→21:12)
[2017-05-05] MEDS: LOSARTAN 50MG TABLET PO SCH ×2 (09:47→21:12)
[2017-05-05] MEDS: CHOLESTYRAMINE LIGHT 4GM PACKET PO SCH ×2 (09:47→21:14)
[2017-05-05 10:07] LABS: BAND#(MANUAL) 0.11 x10^3/uL; BANDS%(MANUAL) 1 % (0-7); EOS#(MANUAL) 0.22 x10^3/uL (0.0-0.4); EOS% (MANUAL) 2 % (1-7); LYMPH#(MANUAL) 0.65 x10^3/uL (1-3.4); LYMPHS% (MANUAL) 6 % (22-44); METAMYELOCYTES# (MANUAL) 0.11 x10^3/uL (0-0); METAMYELOCYTES% (MANUAL) 1 % (0-1); MONOS#(MANUAL) 1.08 x10^3/uL (0.3-2.7); MONOS% (MANUAL) 10 % (2-9); NRBC % (MANUAL) 10 % (0-1); SEG#(MANUAL) 8.64 x10^3/uL (1.8-6.8); SEGS% (MANUAL) 80 % (42-75)
[2017-05-05 10:08] LABS: ANISOCYTOSIS 1+; SCHISTOCYTES 1+
[2017-05-05 10:09] LABS: OVALOCYTES 1+; POLYCHROMASIA 1+; TARGET CELLS 1+
[2017-05-05 10:10] LABS: <PLATELET ESTIMATE> ADEQUATE; GIANT PLATELETS 1+; LARGE PLATELETS 2+
[2017-05-05 10:11] LABS: HOWELL-JOLLY BODIES 1+
[2017-05-05] MEDS: ATORVASTATIN 80 MG TABLET PO SCH (21:13)
[2017-05-06] MEDS: HEPARIN 5,000 UNITS/ML, 1ML SQ SCH ×3 (02:18→16:51)
[2017-05-06] MEDS: INSULIN REGULAR, HUMAN 100 UNITS/ML, 3ML MEDIUM DOSE SS SQ-INSULIN SCH ×4 (04:00→21:44)
[2017-05-06] MEDS: LEVETIRACETAM 500 MG in SODIUM CHLORIDE 0.9% 100 ML IV SCH ×3 (04:16→21:05)
[2017-05-06 04:47] LABS: ANION GAP 11 mmol/L (5-15); CALCIUM 8.6 mg/dL (8.5-10.1); CHLORIDE 101 mmol/L (98-107)
[2017-05-06 04:49] LABS: CREATININE 5.96 mg/dL (0.7-1.3)
[2017-05-06 05:00] VITALS: BP 133/47
[2017-05-06 07:26] LABS: MEAN CORPUSCULAR HEMOGLOBIN 31.8 pg (27.5-34.5); MEAN CORPUSCULAR HGB CONC 32.8 g/dL (33.2-36.2); MEAN CORPUSCULAR VOLUME 96.9 fL (81-97); MEAN PLATELET VOLUME 11.3 fL (7.4-10.4); PLATELET COUNT 343 x10^3/uL (130-400); RED BLOOD COUNT 3.28 x10^6/uL (4.38-5.82); RED CELL DISTRIBUTION WIDTH 19.1 % (9.4-14.8)
[2017-05-06] MEDS: PANTOPRAZOLE 40 MG IV IVPush SCH ×2 (07:57→20:44)
[2017-05-06] MEDS: RISPERIDONE 1 MG/ML ORAL SOLN NG SCH ×2 (07:57→20:45)
[2017-05-06] MEDS: SEVELAMER 2.4 GM POWD.PACK NG SCH ×3 (07:57→16:51)
[2017-05-06 09:25] LABS: BAND#(MANUAL) 0.22 x10^3/uL; BANDS%(MANUAL) 2 % (0-7); EOS#(MANUAL) 0.11 x10^3/uL (0.0-0.4); EOS% (MANUAL) 1 % (1-7); LYMPH#(MANUAL) 0.98 x10^3/uL (1-3.4); LYMPHS% (MANUAL) 9 % (22-44); MD YES; MONOS#(MANUAL) 1.96 x10^3/uL (0.3-2.7); MONOS% (MANUAL) 18 % (2-9); SEG#(MANUAL) 7.63 x10^3/uL (1.8-6.8); SEGS% (MANUAL) 70 % (42-75)
[2017-05-06 09:26] LABS: <PLATELET ESTIMATE> ADEQUATE; NRBC % (MANUAL) 6 % (0-1)
[2017-05-06 09:31] LABS: LARGE PLATELETS 2+; POLYCHROMASIA 1+
[2017-05-06 09:32] LABS: ANISOCYTOSIS 1+; HOWELL-JOLLY BODIES 1+; TARGET CELLS 1+
[2017-05-06 09:33] LABS: GIANT PLATELETS 2+
[2017-05-06 09:34] LABS: HYPOCHROMIA 1+
[2017-05-06] MEDS: AMLODIPINE 5 MG TABLET PO SCH ×2 (11:48→20:45)
[2017-05-06] MEDS: METOPROLOL TARTRATE 50 MG TABLET NG SCH ×2 (11:48→20:44)
[2017-05-06] MEDS: AMIODARONE 200 MG TABLET PO SCH ×2 (11:49→20:45)
[2017-05-06] MEDS: LOSARTAN 50MG TABLET PO SCH ×2 (11:49→20:44)
[2017-05-06] MEDS: CHOLESTYRAMINE LIGHT 4GM PACKET PO SCH ×2 (12:42→20:44)
[2017-05-06] MEDS: ATORVASTATIN 80 MG TABLET PO SCH (20:45)
[2017-05-07] MEDS: HEPARIN 5,000 UNITS/ML, 1ML SQ SCH ×3 (01:17→18:41)
[2017-05-07] MEDS: INSULIN REGULAR, HUMAN 100 UNITS/ML, 3ML MEDIUM DOSE SS SQ-INSULIN SCH ×4 (03:18→21:48)
[2017-05-07] MEDS: LEVETIRACETAM 500 MG in SODIUM CHLORIDE 0.9% 100 ML IV SCH ×3 (03:18→19:46)
[2017-05-07 04:00] VITALS: BP 157/67
[2017-05-07 04:39] LABS: ANION GAP 10 mmol/L (5-15); CALCIUM 8.3 mg/dL (8.5-10.1); CHLORIDE 98 mmol/L (98-107); CREATININE 4.89 mg/dL (0.7-1.3)
[2017-05-07 05:53] LABS: MEAN CORPUSCULAR HEMOGLOBIN 31.4 pg (27.5-34.5); MEAN CORPUSCULAR HGB CONC 32.2 g/dL (33.2-36.2); MEAN CORPUSCULAR VOLUME 97.3 fL (81-97); MEAN PLATELET VOLUME 11.1 fL (7.4-10.4); PLATELET COUNT 351 x10^3/uL (130-400); RED BLOOD COUNT 3.21 x10^6/uL (4.38-5.82); RED CELL DISTRIBUTION WIDTH 19.1 % (9.4-14.8)
[2017-05-07 05:54] LABS: MD YES
[2017-05-07 05:56] LABS: ANISOCYTOSIS 1+; EOS#(MANUAL) 0.11 x10^3/uL (0.0-0.4); EOS% (MANUAL) 1 % (1-7); LYMPHS% (MANUAL) 17 % (22-44); MONOS#(MANUAL) 1.79 x10^3/uL (0.3-2.7); MONOS% (MANUAL) 16 % (2-9); NRBC % (MANUAL) 1 % (0-1); SEG#(MANUAL) 7.39 x10^3/uL (1.8-6.8); SEGS% (MANUAL) 66 % (42-75)
[2017-05-07 05:57] LABS: POLYCHROMASIA 1+
[2017-05-07 05:58] LABS: TARGET CELLS 1+
[2017-05-07 06:00] LABS: <PLATELET ESTIMATE> ADEQUATE; GIANT PLATELETS 1+; LARGE PLATELETS 1+; MICROCYTOSIS 1+
[2017-05-07] MEDS: METOPROLOL TARTRATE 50 MG TABLET NG SCH ×2 (08:40→20:54)
[2017-05-07] MEDS: SEVELAMER 2.4 GM POWD.PACK NG SCH ×3 (08:40→16:20)
[2017-05-07] MEDS: AMIODARONE 200 MG TABLET PO SCH ×2 (08:40→20:53)
[2017-05-07] MEDS: RISPERIDONE 1 MG/ML ORAL SOLN NG SCH ×2 (08:41→20:55)
[2017-05-07] MEDS: AMLODIPINE 5 MG TABLET PO SCH ×2 (08:41→20:54)
[2017-05-07] MEDS: CHOLESTYRAMINE LIGHT 4GM PACKET PO SCH ×2 (08:41→20:54)
[2017-05-07] MEDS: PANTOPRAZOLE 40 MG IV IVPush SCH ×2 (08:41→20:53)
[2017-05-07] MEDS: LOSARTAN 50MG TABLET PO SCH ×2 (08:41→20:54)
[2017-05-07] MEDS: ATORVASTATIN 80 MG TABLET PO SCH (20:54)
[2017-05-08] MEDS: HEPARIN 5,000 UNITS/ML, 1ML SQ SCH ×3 (03:07→17:28)
[2017-05-08] MEDS: LEVETIRACETAM 500 MG in SODIUM CHLORIDE 0.9% 100 ML IV SCH ×3 (03:07→20:24)
[2017-05-08] MEDS: INSULIN REGULAR, HUMAN 100 UNITS/ML, 3ML MEDIUM DOSE SS SQ-INSULIN SCH ×4 (04:00→22:00)
[2017-05-08 05:10] VITALS: BP 131/46
[2017-05-08 06:36] LABS: ANION GAP 11 mmol/L (5-15); CALCIUM 8.7 mg/dL (8.5-10.1); CHLORIDE 99 mmol/L (98-107); CREATININE 6.36 mg/dL (0.7-1.3)
[2017-05-08 06:45] LABS: MD YES; MEAN CORPUSCULAR HEMOGLOBIN 32.4 pg (27.5-34.5); MEAN CORPUSCULAR HGB CONC 33.6 g/dL (33.2-36.2); MEAN CORPUSCULAR VOLUME 96.6 fL (81-97); MEAN PLATELET VOLUME 10.4 fL (7.4-10.4); PLATELET COUNT 416 x10^3/uL (130-400); RED BLOOD COUNT 2.97 x10^6/uL (4.38-5.82); RED CELL DISTRIBUTION WIDTH 18.8 % (9.4-14.8)
[2017-05-08 06:47] LABS: EOS#(MANUAL) 0.11 x10^3/uL (0.0-0.4); EOS% (MANUAL) 1 % (1-7); LYMPH#(MANUAL) 1.64 x10^3/uL (1-3.4); LYMPHS% (MANUAL) 15 % (22-44); METAMYELOCYTES# (MANUAL) 0.22 x10^3/uL (0-0); METAMYELOCYTES% (MANUAL) 2 % (0-1); MONOS#(MANUAL) 2.18 x10^3/uL (0.3-2.7); MONOS% (MANUAL) 20 % (2-9); SEG#(MANUAL) 6.76 x10^3/uL (1.8-6.8); SEGS% (MANUAL) 62 % (42-75)
[2017-05-08 06:49] LABS: ANISOCYTOSIS 1+; MICROCYTOSIS 1+; POLYCHROMASIA 1+
[2017-05-08 06:50] LABS: <PLATELET ESTIMATE> INCREASED; GIANT PLATELETS 1+; LARGE PLATELETS 1+; OVALOCYTES 1+
[2017-05-08] MEDS ORDERED: ETOMIDATE 20 MG/10 ML ONE (08:00)
[2017-05-08] MEDS ORDERED: PROPOFOL 10 MG/ML, 100ML IV ONE (08:00)
[2017-05-08] MEDS ORDERED: MIDAZOLAM 1 MG/ML, 5ML ONE (08:00)
[2017-05-08] MEDS: SEVELAMER 2.4 GM POWD.PACK NG SCH ×3 (10:36→17:28)
[2017-05-08] MEDS: PANTOPRAZOLE 40 MG IV IVPush SCH ×2 (10:36→20:24)
[2017-05-08] MEDS: CHOLESTYRAMINE LIGHT 4GM PACKET PO SCH ×2 (10:36→20:26)
[2017-05-08] MEDS: LOSARTAN 50MG TABLET PO SCH ×2 (10:37→20:28)
[2017-05-08] MEDS: AMLODIPINE 5 MG TABLET PO SCH ×2 (10:37→20:25)
[2017-05-08] MEDS: METOPROLOL TARTRATE 50 MG TABLET NG SCH ×2 (10:37→20:26)
[2017-05-08] MEDS: AMIODARONE 200 MG TABLET PO SCH ×2 (10:37→20:25)
[2017-05-08] MEDS: RISPERIDONE 1 MG/ML ORAL SOLN NG SCH ×2 (10:37→20:27)
[2017-05-08] MEDS ORDERED: DEXTROSE 50%, 50ML SYRINGE IVPush PRN (16:30)
[2017-05-08] MEDS ORDERED: BISACODYL 10 MG SUPP PR PRN (16:30)
[2017-05-08] MEDS ORDERED: PHARMACY MAY ADJ FOR RENAL FX MC SCH (16:30)
[2017-05-08] MEDS ORDERED: GLUCAGON 1 MG IM PRN (16:30)
[2017-05-08] MEDS ORDERED: LIDOCAINE-MPF 1%, 2ML ENDO PRN (16:30)
[2017-05-08] MEDS ORDERED: LACTULOSE 20 GM/30 ML UDC NG PRN (16:30)
[2017-05-08] MEDS ORDERED: SENNA/DOCUSATE TABLET NG PRN (16:30)
[2017-05-08] MEDS ORDERED: DEXTROSE 4 GM TAB.CHEW PO PRN (16:30)
[2017-05-08] MEDS ORDERED: SENNOSIDES 8.8 MG/5 ML ORAL SOL NG PRN (16:30)
[2017-05-08] MEDS: PROPOFOL 100 ML IV PRN ×2 (17:29→20:34)
[2017-05-08] MEDS: ATORVASTATIN 80 MG TABLET PO SCH (20:25)
[2017-05-08] MEDS: SODIUM CHLORIDE FLUSH 10ML SYR IVF SCH (20:36)
[2017-05-09] MEDS: INSULIN REGULAR, HUMAN 100 UNITS/ML, 3ML MEDIUM DOSE SS SQ-INSULIN SCH ×4 (04:00→22:00)
[2017-05-09 04:25] LABS: ANION GAP 9 mmol/L (5-15); CALCIUM 8.8 mg/dL (8.5-10.1); CHLORIDE 98 mmol/L (98-107); CREATININE 4.93 mg/dL (0.7-1.3); TRIGLYCERIDES 248 mg/dL (50-200)
[2017-05-09] MEDS: HEPARIN 5,000 UNITS/ML, 1ML SQ SCH ×3 (04:32→17:32)
[2017-05-09] MEDS: LEVETIRACETAM 500 MG in SODIUM CHLORIDE 0.9% 100 ML IV SCH ×3 (04:33→21:02)
[2017-05-09] MEDS: PROPOFOL 100 ML IV PRN (04:51)
[2017-05-09 05:42] LABS: MD YES; MEAN CORPUSCULAR HEMOGLOBIN 31.6 pg (27.5-34.5); MEAN CORPUSCULAR HGB CONC 32.6 g/dL (33.2-36.2); MEAN CORPUSCULAR VOLUME 96.9 fL (81-97); MEAN PLATELET VOLUME 9.9 fL (7.4-10.4); PLATELET COUNT 431 x10^3/uL (130-400); RED BLOOD COUNT 3.19 x10^6/uL (4.38-5.82); RED CELL DISTRIBUTION WIDTH 19.1 % (9.4-14.8)
[2017-05-09 05:44] LABS: EOS#(MANUAL) 0.19 x10^3/uL (0.0-0.4); EOS% (MANUAL) 2 % (1-7); NRBC % (MANUAL) 1 % (0-1)
[2017-05-09 05:45] LABS: LYMPH#(MANUAL) 1.92 x10^3/uL (1-3.4); LYMPHS% (MANUAL) 20 % (22-44); MONOS#(MANUAL) 1.44 x10^3/uL (0.3-2.7); MONOS% (MANUAL) 15 % (2-9); SEG#(MANUAL) 6.05 x10^3/uL (1.8-6.8); SEGS% (MANUAL) 63 % (42-75)
[2017-05-09 05:46] LABS: ANISOCYTOSIS 1+; MICROCYTOSIS 1+; POLYCHROMASIA 1+
[2017-05-09 05:47] LABS: HOWELL-JOLLY BODIES 1+
[2017-05-09 05:48] LABS: <PLATELET ESTIMATE> INCREASED; GIANT PLATELETS 1+; LARGE PLATELETS 1+
[2017-05-09] MEDS: SEVELAMER 2.4 GM POWD.PACK NG SCH ×3 (08:00→16:29)
[2017-05-09] MEDS: PANTOPRAZOLE 40 MG IV IVPush SCH ×2 (09:18→21:05)
[2017-05-09] MEDS: METOPROLOL TARTRATE 50 MG TABLET NG SCH (09:18)
[2017-05-09] MEDS: AMLODIPINE 5 MG TABLET PO SCH ×2 (09:18→21:03)
[2017-05-09] MEDS: RISPERIDONE 1 MG/ML ORAL SOLN NG SCH ×2 (09:18→21:04)
[2017-05-09] MEDS: AMIODARONE 200 MG TABLET PO SCH ×2 (09:19→21:04)
[2017-05-09] MEDS: SODIUM CHLORIDE FLUSH 10ML SYR IVF SCH ×2 (09:19→21:03)
[2017-05-09] MEDS: LOSARTAN 50MG TABLET PO SCH ×2 (09:19→21:04)
[2017-05-09] MEDS: CHOLESTYRAMINE LIGHT 4GM PACKET PO SCH ×2 (11:44→21:06)
[2017-05-09] MEDS: CARVEDILOL 6.25 MG TABLET PO SCH (17:32)
[2017-05-09] MEDS: ATORVASTATIN 80 MG TABLET PO SCH (21:03)
[2017-05-10] MEDS: HEPARIN 5,000 UNITS/ML, 1ML SQ SCH ×3 (02:00→17:39)
[2017-05-10] MEDS: INSULIN REGULAR, HUMAN 100 UNITS/ML, 3ML MEDIUM DOSE SS SQ-INSULIN SCH ×4 (04:00→22:00)
[2017-05-10 05:08] LABS: ALANINE AMINOTRANSFERASE 11 U/L (12-78); ALBUMIN 2.2 g/dL (3.4-5.0); ANION GAP 10 mmol/L (5-15); CALCIUM 8.4 mg/dL (8.5-10.1); CHLORIDE 99 mmol/L (98-107); CREATININE 6.62 mg/dL (0.7-1.3)
[2017-05-10 05:10] LABS: ALKALINE PHOSPHATASE 318 U/L (45-117); BILIRUBIN,TOTAL 0.4 mg/dL (0.2-1.0); TOTAL PROTEIN 5.6 g/dL (6.4-8.2)
[2017-05-10] MEDS: LEVETIRACETAM 500 MG in SODIUM CHLORIDE 0.9% 100 ML IV SCH ×3 (05:54→20:27)
[2017-05-10] MEDS: CARVEDILOL 6.25 MG TABLET PO SCH ×2 (05:55→17:16)
[2017-05-10 06:09] LABS: MEAN CORPUSCULAR HGB CONC 32.8 g/dL (33.2-36.2); MEAN CORPUSCULAR VOLUME 97.4 fL (81-97); MEAN PLATELET VOLUME 9.5 fL (7.4-10.4); PLATELET COUNT 485 x10^3/uL (130-400); RED BLOOD COUNT 3.08 x10^6/uL (4.38-5.82); RED CELL DISTRIBUTION WIDTH 19.2 % (9.4-14.8)
[2017-05-10 06:10] LABS: MD YES
[2017-05-10 06:12] LABS: BASOS#(MANUAL) 0.12 x10^3/uL (0-0.1); BASOS% (MANUAL) 1 % (0-1); EOS#(MANUAL) 0.12 x10^3/uL (0.0-0.4); EOS% (MANUAL) 1 % (1-7); LYMPH#(MANUAL) 1.69 x10^3/uL (1-3.4); LYMPHS% (MANUAL) 14 % (22-44); MONOS#(MANUAL) 2.18 x10^3/uL (0.3-2.7); MONOS% (MANUAL) 18 % (2-9); SEG#(MANUAL) 7.99 x10^3/uL (1.8-6.8); SEGS% (MANUAL) 66 % (42-75)
[2017-05-10 06:13] LABS: ANISOCYTOSIS 1+; POLYCHROMASIA 1+
[2017-05-10 06:14] LABS: HOWELL-JOLLY BODIES 1+
[2017-05-10 06:15] LABS: <PLATELET ESTIMATE> INCREASED; GIANT PLATELETS 1+; LARGE PLATELETS 1+; MICROCYTOSIS 1+; TARGET CELLS 1+
[2017-05-10] MEDS: SEVELAMER 2.4 GM POWD.PACK NG SCH ×3 (08:48→17:38)
[2017-05-10] MEDS: RISPERIDONE 1 MG/ML ORAL SOLN NG SCH ×2 (08:49→20:28)
[2017-05-10] MEDS: PANTOPRAZOLE 40 MG IV IVPush SCH ×2 (08:49→20:28)
[2017-05-10] MEDS: SODIUM CHLORIDE FLUSH 10ML SYR IVF SCH ×2 (08:49→20:28)
[2017-05-10] MEDS: AMIODARONE 200 MG TABLET PO SCH ×2 (09:00→20:27)
[2017-05-10] MEDS: LOSARTAN 50MG TABLET PO SCH ×2 (09:00→20:27)
[2017-05-10] MEDS: AMLODIPINE 5 MG TABLET PO SCH ×2 (09:00→20:27)
[2017-05-10] MEDS: CHOLESTYRAMINE LIGHT 4GM PACKET PO SCH ×2 (10:48→22:43)
[2017-05-10] MEDS ORDERED: NOREPINEPHRINE 4 MG in SODIUM CHLORIDE 0.9% 246 ML IV PRN (11:00)
[2017-05-10] MEDS: ACETAMINOPHEN 325 MG TABLET PO PRN (13:17)
[2017-05-10 13:58] LABS: INTERNATIONAL NORMALIZED RATIO 1.03 (0.93-1.1); PROTHROMBIN TIME 10.7 Seconds (9.6-11.5)
[2017-05-10] MEDS: ATORVASTATIN 80 MG TABLET PO SCH (20:27)
[2017-05-11] MEDS: LABETALOL 5MG/ML, 20ML IVPush PRN ×4 (00:22→20:57)
[2017-05-11] MEDS: HEPARIN 5,000 UNITS/ML, 1ML SQ SCH ×3 (02:51→17:06)
[2017-05-11] MEDS: LEVETIRACETAM 500 MG in SODIUM CHLORIDE 0.9% 100 ML IV SCH ×3 (04:13→20:57)
[2017-05-11] MEDS: INSULIN REGULAR, HUMAN 100 UNITS/ML, 3ML MEDIUM DOSE SS SQ-INSULIN SCH ×2 (04:52→10:00)
[2017-05-11] MEDS: CARVEDILOL 6.25 MG TABLET PO SCH ×2 (04:59→17:06)
[2017-05-11 05:00] LABS: MEAN CORPUSCULAR HGB CONC 33.1 g/dL (33.2-36.2); MEAN CORPUSCULAR VOLUME 96.5 fL (81-97); MEAN PLATELET VOLUME 8.9 fL (7.4-10.4); PLATELET COUNT 463 x10^3/uL (130-400); RED BLOOD COUNT 3.04 x10^6/uL (4.38-5.82); RED CELL DISTRIBUTION WIDTH 18.2 % (9.4-14.8)
[2017-05-11 05:14] LABS: ANION GAP 11 mmol/L (5-15); CALCIUM 8.9 mg/dL (8.5-10.1); CHLORIDE 100 mmol/L (98-107)
[2017-05-11 05:16] LABS: CREATININE 7.89 mg/dL (0.7-1.3)
[2017-05-11 05:48] LABS: MD YES
[2017-05-11 05:50] LABS: <PLATELET ESTIMATE> INCREASED; ANISOCYTOSIS 1+; BAND#(MANUAL) 0.11 x10^3/uL; BANDS%(MANUAL) 1 % (0-7); EOS#(MANUAL) 0.11 x10^3/uL (0.0-0.4); EOS% (MANUAL) 1 % (1-7); GIANT PLATELETS 1+; HOWELL-JOLLY BODIES 1+; LARGE PLATELETS 1+; LYMPH#(MANUAL) 1.25 x10^3/uL (1-3.4); LYMPHS% (MANUAL) 11 % (22-44); MICROCYTOSIS 1+; MONOS#(MANUAL) 2.28 x10^3/uL (0.3-2.7); MONOS% (MANUAL) 20 % (2-9); NRBC % (MANUAL) 2 % (0-1); POLYCHROMASIA 1+; SEG#(MANUAL) 7.64 x10^3/uL (1.8-6.8); SEGS% (MANUAL) 67 % (42-75)
[2017-05-11] MEDS: PANTOPRAZOLE 40 MG IV IVPush SCH ×2 (08:45→20:58)
[2017-05-11] MEDS: RISPERIDONE 1 MG/ML ORAL SOLN NG SCH ×2 (08:45→20:57)
[2017-05-11] MEDS: SEVELAMER 2.4 GM POWD.PACK NG SCH ×3 (08:45→17:00)
[2017-05-11] MEDS: AMLODIPINE 5 MG TABLET PO SCH ×2 (08:45→20:58)
[2017-05-11] MEDS: LOSARTAN 50MG TABLET PO SCH ×2 (08:46→20:58)
[2017-05-11] MEDS: AMIODARONE 200 MG TABLET PO SCH ×2 (08:46→20:58)
[2017-05-11] MEDS: SODIUM CHLORIDE FLUSH 10ML SYR IVF SCH ×2 (08:50→20:59)
[2017-05-11] MEDS: CHOLESTYRAMINE LIGHT 4GM PACKET PO SCH ×2 (09:55→20:58)
[2017-05-11] MEDS ORDERED: MIDAZOLAM 1 MG/ML, 5ML ONE (11:54)
[2017-05-11] MEDS ORDERED: FENTANYL PF 100 MCG/2ML ONE (11:54)
[2017-05-11] MEDS ORDERED: CEFAZOLIN PMX 1GM/50ML 50 ML IV ONE (12:30)
[2017-05-11] MEDS: DARBEPOETIN 100 MCG/ML SQ SCH (15:40)
[2017-05-11] MEDS: INSULIN REGULAR 100 UNITS/ML, 3ML VIAL SQ-INSULIN SCH (16:00)
[2017-05-11] MEDS: ATORVASTATIN 80 MG TABLET PO SCH (20:58)
[2017-05-12] MEDS: HEPARIN 5,000 UNITS/ML, 1ML SQ SCH ×3 (02:16→17:31)
[2017-05-12] MEDS: INSULIN REGULAR 100 UNITS/ML, 3ML VIAL SQ-INSULIN SCH ×2 (04:00→16:00)
[2017-05-12] MEDS: LEVETIRACETAM 500 MG in SODIUM CHLORIDE 0.9% 100 ML IV SCH ×3 (04:24→20:33)
[2017-05-12] MEDS: DEXTROSE 50%, 50ML SYRINGE IVPush PRN ×2 (04:35→09:43)
[2017-05-12 04:49] LABS: MEAN CORPUSCULAR HEMOGLOBIN 31.7 pg (27.5-34.5); MEAN CORPUSCULAR HGB CONC 33.1 g/dL (33.2-36.2); MEAN CORPUSCULAR VOLUME 95.9 fL (81-97); MEAN PLATELET VOLUME 8.9 fL (7.4-10.4); PLATELET COUNT 458 x10^3/uL (130-400); RED BLOOD COUNT 3.19 x10^6/uL (4.38-5.82); RED CELL DISTRIBUTION WIDTH 18.3 % (9.4-14.8)
[2017-05-12 05:01] LABS: CHLORIDE 101 mmol/L (98-107)
[2017-05-12 05:08] LABS: ALANINE AMINOTRANSFERASE 14 U/L (12-78); ALBUMIN 2.2 g/dL (3.4-5.0); ALKALINE PHOSPHATASE 365 U/L (45-117); ANION GAP 9 mmol/L (5-15); BILIRUBIN,TOTAL 0.6 mg/dL (0.2-1.0); CALCIUM 9.1 mg/dL (8.5-10.1); TOTAL PROTEIN 6.1 g/dL (6.4-8.2); TRIGLYCERIDES 129 mg/dL (50-200)
[2017-05-12 05:45] LABS: MD YES
[2017-05-12 05:47] LABS: <PLATELET ESTIMATE> INCREASED; ANISOCYTOSIS 1+; BAND#(MANUAL) 0.22 x10^3/uL; BANDS%(MANUAL) 2 % (0-7); HOWELL-JOLLY BODIES 1+; LYMPH#(MANUAL) 1.43 x10^3/uL (1-3.4); LYMPHS% (MANUAL) 13 % (22-44); MONOS#(MANUAL) 1.21 x10^3/uL (0.3-2.7); MONOS% (MANUAL) 11 % (2-9); NRBC % (MANUAL) 2 % (0-1); POLYCHROMASIA 1+; SEG#(MANUAL) 8.14 x10^3/uL (1.8-6.8); SEGS% (MANUAL) 74 % (42-75)
[2017-05-12 05:48] LABS: GIANT PLATELETS 1+; LARGE PLATELETS 1+
[2017-05-12 05:51] LABS: MICROCYTOSIS 1+
[2017-05-12] MEDS: CARVEDILOL 6.25 MG TABLET PO SCH ×2 (06:03→17:32)
[2017-05-12] MEDS: SEVELAMER 2.4 GM POWD.PACK NG SCH ×3 (08:00→17:32)
[2017-05-12] MEDS: LOSARTAN 50MG TABLET PO SCH ×2 (09:00→20:34)
[2017-05-12] MEDS: RISPERIDONE 1 MG/ML ORAL SOLN NG SCH ×2 (09:00→20:33)
[2017-05-12] MEDS: AMIODARONE 200 MG TABLET PO SCH ×2 (09:00→20:36)
[2017-05-12] MEDS: AMLODIPINE 5 MG TABLET PO SCH ×2 (09:00→20:35)
[2017-05-12] MEDS ORDERED: MIDAZOLAM 1 MG/ML, 5ML ONE (11:01)
[2017-05-12] MEDS ORDERED: FENTANYL PF 100 MCG/2ML ONE (11:04)
[2017-05-12] MEDS: SODIUM CHLORIDE FLUSH 10ML SYR IVF SCH ×2 (11:45→20:33)
[2017-05-12] MEDS: PANTOPRAZOLE 40 MG IV IVPush SCH ×2 (11:51→20:33)
[2017-05-12] MEDS: PSYLLIUM PACKET PO SCH ×2 (11:54→20:34)
[2017-05-12] MEDS ORDERED: FENTANYL PF 100 MCG/2ML IV ONE (12:00)
[2017-05-12] MEDS ORDERED: ROCURONIUM 10MG/ML,5ML IVPush ONE (12:00)
[2017-05-12] MEDS ORDERED: MIDAZOLAM 1 MG/ML, 5ML IVPush ONE (12:00)
[2017-05-12 12:07] LABS: MEAN CORPUSCULAR HEMOGLOBIN 31.5 pg (27.5-34.5); MEAN CORPUSCULAR HGB CONC 32.5 g/dL (33.2-36.2); MEAN CORPUSCULAR VOLUME 96.9 fL (81-97); MEAN PLATELET VOLUME 8.8 fL (7.4-10.4); PLATELET COUNT 469 x10^3/uL (130-400); RED BLOOD COUNT 3.27 x10^6/uL (4.38-5.82); RED CELL DISTRIBUTION WIDTH 18.1 % (9.4-14.8)
[2017-05-12 12:18] LABS: CHLORIDE 101 mmol/L (98-107)
[2017-05-12 12:20] LABS: BASOPHILS # (AUTO) 0.07 x10^3/uL (0-0.1); BASOPHILS % (AUTO) 1 % (0-1); EOSINOPHILS # (AUTO) 0.24 x10^3/uL (0-0.4); EOSINOPHILS % (AUTO) 2 % (1-7); LYMPHOCYTES # (AUTO) 2.17 x10^3/uL (1-3.4); LYMPHOCYTES % (AUTO) 20 % (22-44); MD SCAN; MONOCYTES # (AUTO) 1.62 x10^3/uL (0.2-0.8); MONOCYTES % (AUTO) 15 % (2-9); NEUTROPHILS % (AUTO) 62 % (42-75)
[2017-05-12 12:21] LABS: ANION GAP 10 mmol/L (5-15)
[2017-05-12] MEDS ORDERED: ROCURONIUM 10MG/ML,5ML ONE (14:00)
[2017-05-12] MEDS: ATORVASTATIN 80 MG TABLET PO SCH (20:35)
[2017-05-13] MEDS: HEPARIN 5,000 UNITS/ML, 1ML SQ SCH ×3 (02:04→20:49)
[2017-05-13] MEDS: INSULIN REGULAR 100 UNITS/ML, 3ML VIAL SQ-INSULIN SCH ×2 (04:00→16:00)
[2017-05-13] MEDS: LEVETIRACETAM 500 MG in SODIUM CHLORIDE 0.9% 100 ML IV SCH ×3 (04:01→20:49)
[2017-05-13] MEDS: CARVEDILOL 6.25 MG TABLET PO SCH ×2 (05:57→17:42)
[2017-05-13 06:21] LABS: MEAN CORPUSCULAR HEMOGLOBIN 32.3 pg (27.5-34.5); MEAN CORPUSCULAR HGB CONC 33.1 g/dL (33.2-36.2); MEAN CORPUSCULAR VOLUME 97.6 fL (81-97); MEAN PLATELET VOLUME 8.8 fL (7.4-10.4); PLATELET COUNT 322 x10^3/uL (130-400); RED BLOOD COUNT 3.07 x10^6/uL (4.38-5.82); RED CELL DISTRIBUTION WIDTH 18.3 % (9.4-14.8)
[2017-05-13 06:34] LABS: CHLORIDE 102 mmol/L (98-107)
[2017-05-13 06:41] LABS: ALANINE AMINOTRANSFERASE 10 U/L (12-78); ALBUMIN 2.1 g/dL (3.4-5.0); ALKALINE PHOSPHATASE 360 U/L (45-117); ANION GAP 9 mmol/L (5-15); BILIRUBIN,TOTAL 0.6 mg/dL (0.2-1.0); CREATININE 7.05 mg/dL (0.7-1.3); TOTAL PROTEIN 5.9 g/dL (6.4-8.2)
[2017-05-13 06:51] LABS: MD YES
[2017-05-13 06:55] LABS: BAND#(MANUAL) 0.62 x10^3/uL; BANDS%(MANUAL) 7 % (0-7); EOS#(MANUAL) 0.18 x10^3/uL (0.0-0.4); EOS% (MANUAL) 2 % (1-7); LYMPHS% (MANUAL) 18 % (22-44); METAMYELOCYTES# (MANUAL) 0.09 x10^3/uL (0-0); METAMYELOCYTES% (MANUAL) 1 % (0-1); MONOS#(MANUAL) 1.07 x10^3/uL (0.3-2.7); MONOS% (MANUAL) 12 % (2-9); NRBC % (MANUAL) 1 % (0-1); REACTIVE LYMPHS # (MANUAL) 0.18 x10^3/uL (0-0); REACTIVE LYMPHS % (MANUAL) 2 % (0-0); SEG#(MANUAL) 5.16 x10^3/uL (1.8-6.8); SEGS% (MANUAL) 58 % (42-75)
[2017-05-13 06:56] LABS: <PLATELET ESTIMATE> ADEQUATE; ANISOCYTOSIS 1+; HOWELL-JOLLY BODIES 1+; LARGE PLATELETS 1+; POLYCHROMASIA 1+
[2017-05-13] MEDS: PSYLLIUM PACKET PO SCH ×2 (09:16→20:51)
[2017-05-13] MEDS: SODIUM CHLORIDE FLUSH 10ML SYR IVF SCH ×2 (09:16→20:49)
[2017-05-13] MEDS: RISPERIDONE 1 MG/ML ORAL SOLN NG SCH ×2 (09:16→20:50)
[2017-05-13] MEDS: SEVELAMER 2.4 GM POWD.PACK NG SCH ×3 (09:16→20:51)
[2017-05-13] MEDS: PANTOPRAZOLE 40 MG IV IVPush SCH ×2 (09:17→20:49)
[2017-05-13] MEDS: AMLODIPINE 5 MG TABLET PO SCH ×2 (12:31→20:52)
[2017-05-13] MEDS: AMIODARONE 200 MG TABLET PO SCH ×2 (12:31→20:51)
[2017-05-13] MEDS: LOSARTAN 50MG TABLET PO SCH ×2 (12:31→20:51)
[2017-05-13] MEDS: ACETAMINOPHEN 325 MG TABLET PO PRN (12:38)
[2017-05-13] MEDS: ATORVASTATIN 80 MG TABLET PO SCH (20:50)
[2017-05-14] MEDS: ACETAMINOPHEN 325 MG TABLET PO PRN ×2 (03:19→12:07)
[2017-05-14] MEDS: INSULIN REGULAR 100 UNITS/ML, 3ML VIAL SQ-INSULIN SCH (04:00)
[2017-05-14] MEDS: LEVETIRACETAM 500 MG in SODIUM CHLORIDE 0.9% 100 ML IV SCH ×2 (04:08→11:42)
[2017-05-14] MEDS: HEPARIN 5,000 UNITS/ML, 1ML SQ SCH ×2 (04:09→11:42)
[2017-05-14 04:45] LABS: BASOPHILS # (AUTO) 0.08 x10^3/uL (0-0.1); BASOPHILS % (AUTO) 1 % (0-1); EOSINOPHILS # (AUTO) 0.07 x10^3/uL (0-0.4); EOSINOPHILS % (AUTO) 1 % (1-7); LYMPHOCYTES # (AUTO) 2.46 x10^3/uL (1-3.4); LYMPHOCYTES % (AUTO) 25 % (22-44); MD NO; MEAN CORPUSCULAR HEMOGLOBIN 31.4 pg (27.5-34.5); MEAN CORPUSCULAR HGB CONC 32.7 g/dL (33.2-36.2); MEAN CORPUSCULAR VOLUME 96.1 fL (81-97); MEAN PLATELET VOLUME 9.1 fL (7.4-10.4); MONOCYTES # (AUTO) 1.29 x10^3/uL (0.2-0.8); MONOCYTES % (AUTO) 13 % (2-9); NEUTROPHILS # (AUTO) 6.09 x10^3/uL (1.8-6.8); NEUTROPHILS % (AUTO) 61 % (42-75); PLATELET COUNT 366 x10^3/uL (130-400); RED BLOOD COUNT 3.07 x10^6/uL (4.38-5.82); RED CELL DISTRIBUTION WIDTH 18.4 % (9.4-14.8)
[2017-05-14 04:52] LABS: ALBUMIN 2.1 g/dL (3.4-5.0); ANION GAP 8 mmol/L (5-15); CALCIUM 9.1 mg/dL (8.5-10.1); CHLORIDE 99 mmol/L (98-107)
[2017-05-14 04:55] LABS: ALANINE AMINOTRANSFERASE 11 U/L (12-78); ALKALINE PHOSPHATASE 333 U/L (45-117); BILIRUBIN,TOTAL 0.4 mg/dL (0.2-1.0); CREATININE 5.05 mg/dL (0.7-1.3); TOTAL PROTEIN 5.8 g/dL (6.4-8.2)
[2017-05-14] MEDS: CARVEDILOL 6.25 MG TABLET PO SCH (05:48)
[2017-05-14] MEDS: AMLODIPINE 5 MG TABLET PO SCH (08:31)
[2017-05-14] MEDS: LOSARTAN 50MG TABLET PO SCH (08:31)
[2017-05-14] MEDS: AMIODARONE 200 MG TABLET PO SCH (08:36)
[2017-05-14] MEDS: RISPERIDONE 1 MG/ML ORAL SOLN NG SCH (08:36)
[2017-05-14] MEDS: SODIUM CHLORIDE FLUSH 10ML SYR IVF SCH (08:36)
[2017-05-14] MEDS: PSYLLIUM PACKET PO SCH (08:36)
[2017-05-14] MEDS: SEVELAMER 2.4 GM POWD.PACK NG SCH ×2 (08:37→11:42)
[2017-05-14] MEDS: PANTOPRAZOLE 40 MG IV IVPush SCH (08:38)
[2017-05-14] MEDS ORDERED: HEPA50002 SQ (10:50)
[2017-05-14] MEDS ORDERED: INSU100V5 SQ-INSULIN (10:50)
[2017-05-14] MEDS ORDERED: AMIO200T42 PO (10:50)
[2017-05-14] MEDS ORDERED: PANT40VI IVPush (10:50)
[2017-05-15] MEDS ORDERED: LOSARTAN 50MG TABLET PO SCH (09:00)
== END 2017-05-14 14:35 | DRG 3 ==
LOC: ED 06:49 → MERGE 06:49 → EDIP 08:42 → 4EST 10:10 → CCU 04-24 17:45 → CSU 04-24 19:14 → CCU 04-29 11:02
PROVIDERS: ADMIT Internal Medicine; ATTEND Internal Medicine
PROC: 0BH18EZ Insertion of Endotracheal Airway into Trachea, Via Natural or Artificial Opening Endoscopic (ICD-10-PCS; 2017-04-20)
PROC: 5A1955Z Respiratory Ventilation, Greater than 96 Consecutive Hours (ICD-10-PCS; 2017-04-20)
PROC: 5A1D70Z Performance of Urinary Filtration, Intermittent, Less than 6 Hours Per Day (ICD-10-PCS; 2017-04-20)
PROC: 009U3ZX Drainage of Spinal Canal, Percutaneous Approach, Diagnostic (ICD-10-PCS; principal; 2017-04-22)
PROC: B01B1ZZ Fluoroscopy of Spinal Cord using Low Osmolar Contrast (ICD-10-PCS; 2017-04-22)
PROC: 5A1D70Z Performance of Urinary Filtration, Intermittent, Less than 6 Hours Per Day (ICD-10-PCS; 2017-04-22)
PROC: 5A1D70Z Performance of Urinary Filtration, Intermittent, Less than 6 Hours Per Day (ICD-10-PCS; 2017-04-24)
PROC: 0B9J8ZZ Drainage of Left Lower Lung Lobe, Via Natural or Artificial Opening Endoscopic (ICD-10-PCS; 2017-04-24)
PROC: 0B9F8ZZ Drainage of Right Lower Lung Lobe, Via Natural or Artificial Opening Endoscopic (ICD-10-PCS; 2017-04-24)
PROC: 06HM33Z Insertion of Infusion Device into Right Femoral Vein, Percutaneous Approach (ICD-10-PCS; 2017-04-25)
PROC: 5A1D70Z Performance of Urinary Filtration, Intermittent, Less than 6 Hours Per Day (ICD-10-PCS; 2017-04-25)
PROC: 5A1D70Z Performance of Urinary Filtration, Intermittent, Less than 6 Hours Per Day (ICD-10-PCS; 2017-04-27)
PROC: 5A1D70Z Performance of Urinary Filtration, Intermittent, Less than 6 Hours Per Day (ICD-10-PCS; 2017-04-29)
PROC: 5A1D70Z Performance of Urinary Filtration, Intermittent, Less than 6 Hours Per Day (ICD-10-PCS; 2017-05-01)
PROC: 5A1D70Z Performance of Urinary Filtration, Intermittent, Less than 6 Hours Per Day (ICD-10-PCS; 2017-05-04)
PROC: 5A1D70Z Performance of Urinary Filtration, Intermittent, Less than 6 Hours Per Day (ICD-10-PCS; 2017-05-06)
PROC: 5A1D70Z Performance of Urinary Filtration, Intermittent, Less than 6 Hours Per Day (ICD-10-PCS; 2017-05-08)
PROC: 0DH63UZ Insertion of Feeding Device into Stomach, Percutaneous Approach (ICD-10-PCS; 2017-05-11)
PROC: 3E0G76Z Introduction of Nutritional Substance into Upper GI, Via Natural or Artificial Opening (ICD-10-PCS; 2017-05-11)
PROC: 5A1D70Z Performance of Urinary Filtration, Intermittent, Less than 6 Hours Per Day (ICD-10-PCS; 2017-05-11)
PROC: 0B113F4 Bypass Trachea to Cutaneous with Tracheostomy Device, Percutaneous Approach (ICD-10-PCS; 2017-05-12)
PROC: 5A1D70Z Performance of Urinary Filtration, Intermittent, Less than 6 Hours Per Day (ICD-10-PCS; 2017-05-13)
DX: A41.9 Sepsis, unspecified organism (principal); R65.21 Severe sepsis with septic shock; J69.0 Pneumonitis due to inhalation of food and vomit; G93.41 Metabolic encephalopathy; J96.21 Acute and chronic respiratory failure with hypoxia; I13.2 Hypertensive heart and chronic kidney disease with heart failure and with stage 5 chronic kidney disease, or end stage renal disease; E46 Unspecified protein-calorie malnutrition; D83.9 Common variable immunodeficiency, unspecified; E11.22 Type 2 diabetes mellitus with diabetic chronic kidney disease; N18.6 End stage renal disease; I47.1 Supraventricular tachycardia; Z99.11 Dependence on respirator [ventilator] status; E87.1 Hypo-osmolality and hyponatremia; I50.42 Chronic combined systolic (congestive) and diastolic (congestive) heart failure; G40.209 Localization-related (focal) (partial) symptomatic epilepsy and epileptic syndromes with complex partial seizures, not intractable, without status epilepticus; J98.11 Atelectasis; E11.649 Type 2 diabetes mellitus with hypoglycemia without coma; I95.3 Hypotension of hemodialysis; I48.91 Unspecified atrial fibrillation; D63.1 Anemia in chronic kidney disease; N25.0 Renal osteodystrophy; M06.9 Rheumatoid arthritis, unspecified; N40.0 Benign prostatic hyperplasia without lower urinary tract symptoms; K21.9 Gastro-esophageal reflux disease without esophagitis; Z66 Do not resuscitate; E87.6 Hypokalemia; Z51.5 Encounter for palliative care; Z86.718 Personal history of other venous thrombosis and embolism; Z99.2 Dependence on renal dialysis; Z90.81 Acquired absence of spleen; Z88.5 Allergy status to narcotic agent
CPT/HCPCS: 31622; 36415; 36600; 62270; 70450; 70551; 71010; 71045; 74000; 76700; 80048; 80053; 80069; 80202; 80307; 80329; 82140; 82306; 82533; 82607; 82728; 82803; 82805; 82945; 82947; 82962; 83525; 83540; 83550; 83605; 83735; 83880; 83970; 84100; 84157; 84443; 84478; 84484; 84550; 84681; 85025; 85610; 85651; 86140; 86704; 86706; 87040; 87070; 87081; 87205; 87324; 87340; 87400; 87496; 87529; 87798; 89051; 93005; 93306; 94002; 94003; 94150; 95819; 99285; B4087; J0133; J0690; J0696; J0881; J1644; J1756; J1815; J1953; J2250; J2704; J3010; J3370; J7042; P9047; C1751; C9113; G0480; J0282; J0360; J1720; J3475; J7040; J7050; J7060

== ENCOUNTER 2017-07-11 17:38 | Inpatient (IN) | payer MEDICARE, OTHER ==
[~2017-07-11] VITALS: Ht 193 cm; Wt 85.5 kg
[~2017-07-11 17:38] MED LIST changes: +ACET-1600 PO; +ACYC-57 PO; +AMIO100T4 PO; +AMIO200T42 PO; +CARV3.1212 PO; +CARV6.2512 PO; +DOCU-180 PO; +GABA-827 PO; +GABA100C PO; +HEPA50002 SQ; +HYDR-3237 PO; -HYDR200T PO; +HYDR200T72 PO; +INSU100V5 SQ-INSULIN; +LEVO200T PO; +LINE600T7 PO; +LOSA25TA2 PO; +PANT40TA5 PO; +PANT40VI IVPush; +PREG25CA PO; +SEVE800T7 PO; +SULF1TAB23 PO; +sulfamethoxazole PO
[2017-07-11] MEDS ORDERED: HYDR-3237 PO (18:20)
[2017-07-11] MEDS ORDERED: MORP-52 PO (18:20)
[2017-07-11] MEDS ORDERED: DOCU100C33 PO (18:20)
[2017-07-11] MEDS ORDERED: LOSA50TA6 PO (18:20)
[2017-07-11] MEDS ORDERED: ACET500T76 PO (18:20)
[2017-07-11] MEDS ORDERED: POLY17PO5 PO (18:20)
[2017-07-11] MEDS ORDERED: SODIUM CHLORIDE 0.9% 1,000ML IVBOLUS ONE (19:30)
[2017-07-11] MEDS ORDERED: MORPHINE SULFATE 4 MG/ML, 1ML IVPush PRN (19:30)
[2017-07-11] MEDS ORDERED: ONDANSETRON 2MG/ML, 2ML IVPush ONE (19:30)
[2017-07-11] MEDS ORDERED: SODIUM CHLORIDE FLUSH 10ML SYR IVF ONE (19:30)
[2017-07-11 19:42] LABS: ALANINE AMINOTRANSFERASE 10 U/L (12-78); ALBUMIN 2.4 g/dL (3.4-5.0); ANION GAP 7 mmol/L (5-15); CALCIUM 8.2 mg/dL (8.5-10.1); CHLORIDE 95 mmol/L (98-107); CREATININE 3.25 mg/dL (0.7-1.3)
[2017-07-11 19:44] LABS: ALKALINE PHOSPHATASE 211 U/L (45-117); BILIRUBIN,TOTAL 0.7 mg/dL (0.2-1.0); TOTAL PROTEIN 5.8 g/dL (6.4-8.2)
[2017-07-11 20:05] LABS: MEAN CORPUSCULAR HEMOGLOBIN 33.2 pg (27.5-34.5); MEAN CORPUSCULAR HGB CONC 33.2 g/dL (33.2-36.2); MEAN PLATELET VOLUME 8.9 fL (7.4-10.4); PLATELET COUNT 419 x10^3/uL (130-400); RED BLOOD COUNT 3.31 x10^6/uL (4.38-5.82)
[2017-07-11 20:06] LABS: MD YES
[2017-07-11 20:08] LABS: BAND#(MANUAL) 0.13 x10^3/uL; BANDS%(MANUAL) 1 % (0-7); LYMPH#(MANUAL) 1.02 x10^3/uL (1-3.4); LYMPHS% (MANUAL) 8 % (22-44); MONOS#(MANUAL) 1.54 x10^3/uL (0.3-2.7); MONOS% (MANUAL) 12 % (2-9); NRBC % (MANUAL) 1 % (0-1); SEG#(MANUAL) 10.11 x10^3/uL (1.8-6.8); SEGS% (MANUAL) 79 % (42-75)
[2017-07-11 20:09] LABS: ANISOCYTOSIS 2+; POLYCHROMASIA 1+
[2017-07-11 20:13] LABS: ACANTHOCYTES 1+; ECHINOCYTES 1+
[2017-07-11 20:18] LABS: <PLATELET ESTIMATE> INCREASED; SCHISTOCYTES 1+
[2017-07-11 20:19] LABS: LARGE PLATELETS 1+
[2017-07-11] MEDS ORDERED: ONDANSETRON 2MG/ML, 2ML ONE (20:39)
[2017-07-11] MEDS ORDERED: MORPHINE SULFATE 4 MG/ML, 1ML ONE (20:40)
[2017-07-11] MEDS ORDERED: POTASSIUM CHLORIDE 20 MEQ TAB.ER.PRT PO ONE (21:30)
[2017-07-11] MEDS ORDERED: LINEZOLID 600 MG TABLET PO ONE (21:30)
[2017-07-11] MEDS ORDERED: LINEZOLID 20MG/ML ORAL SUSP PO ONE (21:30)
[2017-07-11] MEDS ORDERED: SODIUM CHLORIDE 0.9% 1,000 ML IV SCH (21:44)
[2017-07-11] MEDS ORDERED: OXYcodone IR 5MG TABLET PO PRN (22:00)
[2017-07-11] MEDS ORDERED: HYDROCORTISONE PO SCH (22:00)
[2017-07-11] MEDS ORDERED: ERGOCALCIFEROL 50,000 UNIT CAPSULE PO SCH (22:00)
[2017-07-11] MEDS: AMLODIPINE 5 MG TABLET PO SCH (22:00)
[2017-07-11] MEDS ORDERED: POLYETHYLENE GLYCOL 17 GM PACKET PO SCH (22:00)
[2017-07-11] MEDS ORDERED: ONDANSETRON 2MG/ML, 2ML IVPush PRN (22:00)
[2017-07-11] MEDS ORDERED: hydrALAzine 20 MG/ML, 1ML IVPush PRN (22:00)
[2017-07-11] MEDS ORDERED: ACETAMINOPHEN 325 MG TABLET PO PRN (22:00)
[2017-07-12 00:25] VITALS: BP 153/54
[2017-07-12 02:00] VITALS: BP 153/54
[2017-07-12] MEDS: OXYcodone IR 5MG TABLET PO PRN ×4 (03:03→21:30)
[2017-07-12 03:15] VITALS: BP 159/80
[2017-07-12] MEDS ORDERED: DEXTROSE 50%, 50ML SYRINGE ONE (06:39)
[2017-07-12 06:45] LABS: MEAN CORPUSCULAR HEMOGLOBIN 33.5 pg (27.5-34.5); MEAN CORPUSCULAR HGB CONC 33.6 g/dL (33.2-36.2); MEAN CORPUSCULAR VOLUME 99.7 fL (81-97); MEAN PLATELET VOLUME 9.2 fL (7.4-10.4); PLATELET COUNT 365 x10^3/uL (130-400); RED BLOOD COUNT 3.23 x10^6/uL (4.38-5.82)
[2017-07-12 06:53] LABS: ALBUMIN 2.4 g/dL (3.4-5.0); ANION GAP 7 mmol/L (5-15); CALCIUM 8.1 mg/dL (8.5-10.1); CHLORIDE 95 mmol/L (98-107)
[2017-07-12 06:54] VITALS: BP 168/79
[2017-07-12 06:58] LABS: ALANINE AMINOTRANSFERASE 9 U/L (12-78); ALKALINE PHOSPHATASE 212 U/L (45-117); BILIRUBIN,TOTAL 0.9 mg/dL (0.2-1.0); CREATININE 3.82 mg/dL (0.7-1.3); TOTAL PROTEIN 5.7 g/dL (6.4-8.2)
[2017-07-12] MEDS ORDERED: GLUCAGON 1 MG IM PRN (07:00)
[2017-07-12] MEDS ORDERED: DEXTROSE 50%, 50ML SYRINGE IVPush PRN (07:00)
[2017-07-12] MEDS ORDERED: DEXTROSE 4 GM TAB.CHEW PO PRN (07:00)
[2017-07-12 07:37] LABS: BASOPHILS # (AUTO) 0.04 x10^3/uL (0-0.1); BASOPHILS % (AUTO) 0 % (0-1); EOSINOPHILS % (AUTO) 1 % (1-7); LYMPHOCYTES # (AUTO) 1.51 x10^3/uL (1-3.4); LYMPHOCYTES % (AUTO) 12 % (22-44); MD SCAN; MONOCYTES # (AUTO) 1.43 x10^3/uL (0.2-0.8); MONOCYTES % (AUTO) 11 % (2-9); NEUTROPHILS # (AUTO) 9.43 x10^3/uL (1.8-6.8); NEUTROPHILS % (AUTO) 75 % (42-75)
[2017-07-12] MEDS: SEVELAMER HCL 800MG TABLET PO SCH ×2 (08:00→12:00)
[2017-07-12] MEDS ORDERED: LINEZOLID 600 MG TABLET PO SCH (09:00)
[2017-07-12] MEDS ORDERED: HYDROCORTISONE 20 MG TABLET PO SCH (09:00)
[2017-07-12] MEDS ORDERED: FENTANYL PF 100 MCG/2ML ONE (09:47)
[2017-07-12] MEDS ORDERED: MIDAZOLAM 1 MG/ML, 2ML ONE (09:47)
[2017-07-12] MEDS ORDERED: CEFAZOLIN 1,000 MG ONE (09:48)
[2017-07-12] MEDS ORDERED: PROPOFOL 10 MG/ML, 20ML ONE (09:48)
[2017-07-12] MEDS ORDERED: DEXAMETHASONE 4 MG/ML, 1ML ONE (09:48)
[2017-07-12] MEDS ORDERED: ONDANSETRON 2MG/ML, 2ML ONE (09:48)
[2017-07-12] MEDS ORDERED: SUCCINYLCHOLINE 20 MG/ML, 10ML ONE (09:54)
[2017-07-12] MEDS ORDERED: EPHEDRINE 50 MG/ML, 1ML ONE (10:16)
[2017-07-12] MEDS ORDERED: HYDROCORTISONE 100 MG INJ. ONE (10:20)
[2017-07-12] MEDS ORDERED: morphine SULFATE 10 MG/ML, 1ML IV PRN (10:30)
[2017-07-12] MEDS ORDERED: FENTANYL PF 100 MCG/2ML IV PRN (10:30)
[2017-07-12] MEDS ORDERED: ALBUTEROL/IPRATROPIUM 2.5MG/0.5MG, 3 ML NPPB PRN (10:30)
[2017-07-12] MEDS ORDERED: ONDANSETRON 2MG/ML, 2ML IVPush PRN (10:30)
[2017-07-12] MEDS ORDERED: OXYcodone 5 MG/5 ML ORAL.SOL UDC PO PRN (10:30)
[2017-07-12] MEDS ORDERED: ACETAMINOPHEN 325 MG TABLET PO PRN (10:30)
[2017-07-12] MEDS ORDERED: MIDAZOLAM 1 MG/ML, 2ML IV PRN (10:30)
[2017-07-12] MEDS ORDERED: METOPROLOL 1 MG/ML, 5ML IV PRN (10:30)
[2017-07-12] MEDS ORDERED: hydrALAzine 20 MG/ML, 1ML IV PRN (10:30)
[2017-07-12] MEDS ORDERED: OXYcodone 5 MG/5 ML ORAL.SOL UDC ONE (11:12)
[2017-07-12] MEDS ORDERED: ACETAMINOPHEN 650 MG/20.3 ML UDC ONE (11:12)
[2017-07-12] MEDS: LEVETIRACETAM 500 MG TABLET PO SCH ×2 (11:59→21:00)
[2017-07-12] MEDS: AMIODARONE 200 MG TABLET PO SCH (12:01)
[2017-07-12] MEDS: ACYCLOVIR 200 MG CAPSULE PO SCH (12:01)
[2017-07-12] MEDS: PANTOPROZOLE 40MG TABLET PO SCH (12:02)
[2017-07-12] MEDS: LOSARTAN 50MG TABLET PO SCH ×2 (12:03→21:00)
[2017-07-12] MEDS: CARVEDILOL 6.25 MG TABLET PO SCH ×2 (12:04→21:00)
[2017-07-12] MEDS: SODIUM CHLORIDE FLUSH 10ML SYR IVF SCH ×2 (12:05→21:00)
[2017-07-12] MEDS: FLUTICASONE/VILANTEROL 200-25MCG/INH INH SCH (12:30)
[2017-07-12 12:50] VITALS: BP 143/70
[2017-07-12] MEDS: HYDROCORTISONE 100 MG INJ. IVPush SCH (14:04)
[2017-07-12] MEDS: INSULIN LISPRO 100 UNITS/ML, PEN SQ-INSULIN SCH ×2 (16:00→21:00)
[2017-07-12] MEDS: AMLODIPINE 5 MG TABLET PO SCH (21:00)
[2017-07-12] MEDS: PREGABALIN 25 MG CAPSULE PO SCH (21:00)
[2017-07-12] MEDS: LINEZOLID 600 MG TABLET PO SCH (21:00)
[2017-07-12] MEDS ORDERED: LINEZOLID PMX 600MG/300ML 300 ML IV SCH (21:00)
[2017-07-12 21:55] VITALS: BP 126/72
[2017-07-13] MEDS: HYDROCORTISONE 100 MG INJ. IVPush SCH (02:15)
[2017-07-13 02:47] VITALS: BP 119/44
[2017-07-13 05:10] LABS: ANION GAP 8 mmol/L (5-15); CALCIUM 7.9 mg/dL (8.5-10.1); CHLORIDE 94 mmol/L (98-107)
[2017-07-13 05:11] LABS: CREATININE 4.91 mg/dL (0.7-1.3)
[2017-07-13 05:19] LABS: MEAN CORPUSCULAR HEMOGLOBIN 32.8 pg (27.5-34.5); MEAN CORPUSCULAR HGB CONC 32.7 g/dL (33.2-36.2); MEAN CORPUSCULAR VOLUME 100.5 fL (81-97); PLATELET COUNT 314 x10^3/uL (130-400); RED BLOOD COUNT 2.99 x10^6/uL (4.38-5.82); RED CELL DISTRIBUTION WIDTH 24.4 % (9.4-14.8)
[2017-07-13 05:54] LABS: BASOPHILS % (AUTO) 0 % (0-1); EOSINOPHILS % (AUTO) 0 % (1-7); LYMPHOCYTES # (AUTO) 0.47 x10^3/uL (1-3.4); LYMPHOCYTES % (AUTO) 6 % (22-44); MD MORPH REVIEW ONLY; MONOCYTES # (AUTO) 0.48 x10^3/uL (0.2-0.8); MONOCYTES % (AUTO) 6 % (2-9); NEUTROPHILS # (AUTO) 7.48 x10^3/uL (1.8-6.8); NEUTROPHILS % (AUTO) 89 % (42-75)
[2017-07-13 05:55] LABS: ANISOCYTOSIS 2+; POLYCHROMASIA 1+; SCHISTOCYTES 1+; SPHEROCYTES 1+
[2017-07-13 05:56] LABS: HOWELL-JOLLY BODIES 1+
[2017-07-13 05:57] LABS: OVALOCYTES 1+; TARGET CELLS 1+
[2017-07-13 05:58] LABS: <PLATELET ESTIMATE> ADEQUATE; <PLT MORPHOLOGY> NORMAL PLT MORPH; ECHINOCYTES 1+
[2017-07-13] MEDS: INSULIN LISPRO 100 UNITS/ML, PEN SQ-INSULIN SCH ×4 (07:00→21:00)
[2017-07-13 08:29] VITALS: BP 116/46
[2017-07-13] MEDS: LINEZOLID 600 MG TABLET PO SCH ×2 (09:00→21:40)
[2017-07-13] MEDS: SODIUM CHLORIDE FLUSH 10ML SYR IVF SCH ×2 (09:00→22:00)
[2017-07-13] MEDS: ACYCLOVIR 200 MG CAPSULE PO SCH (09:00)
[2017-07-13] MEDS: CARVEDILOL 6.25 MG TABLET PO SCH ×2 (09:00→21:00)
[2017-07-13] MEDS: PANTOPROZOLE 40MG TABLET PO SCH (09:00)
[2017-07-13] MEDS: FLUTICASONE/VILANTEROL 200-25MCG/INH INH SCH (09:00)
[2017-07-13] MEDS: HYDROCORTISONE 20 MG TABLET PO SCH ×2 (09:00→21:40)
[2017-07-13] MEDS: LEVETIRACETAM 500 MG TABLET PO SCH ×2 (09:00→21:40)
[2017-07-13] MEDS: AMIODARONE 200 MG TABLET PO SCH (09:00)
[2017-07-13] MEDS: OXYcodone IR 5MG TABLET PO PRN (10:05)
[2017-07-13 13:20] VITALS: BP 114/55
[2017-07-13 19:45] VITALS: BP 147/72
[2017-07-13] MEDS: PREGABALIN 25 MG CAPSULE PO SCH (21:40)
[2017-07-13] MEDS: AMLODIPINE 5 MG TABLET PO SCH (22:00)
[2017-07-13] MEDS: LOSARTAN 50MG TABLET PO SCH (22:00)
[2017-07-14 01:03] VITALS: BP 121/57
[2017-07-14 02:04] VITALS: BP 121/57
[2017-07-14 05:09] LABS: MEAN CORPUSCULAR HEMOGLOBIN 33.6 pg (27.5-34.5); MEAN CORPUSCULAR HGB CONC 32.9 g/dL (33.2-36.2); MEAN CORPUSCULAR VOLUME 101.9 fL (81-97); MEAN PLATELET VOLUME 9.2 fL (7.4-10.4); PLATELET COUNT 273 x10^3/uL (130-400); RED BLOOD COUNT 2.78 x10^6/uL (4.38-5.82); RED CELL DISTRIBUTION WIDTH 26.3 % (9.4-14.8)
[2017-07-14 05:18] LABS: ALBUMIN 2.4 g/dL (3.4-5.0); ANION GAP 8 mmol/L (5-15); CALCIUM 7.8 mg/dL (8.5-10.1); CHLORIDE 98 mmol/L (98-107)
[2017-07-14 05:22] LABS: ALANINE AMINOTRANSFERASE 8 U/L (12-78); ALKALINE PHOSPHATASE 193 U/L (45-117); BILIRUBIN,TOTAL 0.9 mg/dL (0.2-1.0); CREATININE 3.97 mg/dL (0.7-1.3); TOTAL PROTEIN 5.9 g/dL (6.4-8.2)
[2017-07-14 05:49] LABS: BASOPHILS # (AUTO) 0.12 x10^3/uL (0-0.1); BASOPHILS % (AUTO) 1 % (0-1); EOSINOPHILS # (AUTO) 0.02 x10^3/uL (0-0.4); EOSINOPHILS % (AUTO) 0 % (1-7); LYMPHOCYTES # (AUTO) 0.85 x10^3/uL (1-3.4); LYMPHOCYTES % (AUTO) 9 % (22-44); MD SCAN; MONOCYTES # (AUTO) 0.88 x10^3/uL (0.2-0.8); MONOCYTES % (AUTO) 9 % (2-9); NEUTROPHILS # (AUTO) 7.57 x10^3/uL (1.8-6.8); NEUTROPHILS % (AUTO) 80 % (42-75)
[2017-07-14] MEDS: INSULIN LISPRO 100 UNITS/ML, PEN SQ-INSULIN SCH ×4 (07:00→21:00)
[2017-07-14 07:35] VITALS: BP 124/63
[2017-07-14] MEDS: LEVETIRACETAM 500 MG TABLET PO SCH ×2 (09:00→21:00)
[2017-07-14] MEDS: FLUTICASONE/VILANTEROL 200-25MCG/INH INH SCH (09:00)
[2017-07-14] MEDS: CARVEDILOL 6.25 MG TABLET PO SCH ×2 (09:00→21:46)
[2017-07-14] MEDS: SODIUM CHLORIDE FLUSH 10ML SYR IVF SCH ×2 (09:01→21:46)
[2017-07-14] MEDS: LINEZOLID 600 MG TABLET PO SCH ×2 (09:02→21:48)
[2017-07-14] MEDS: AMIODARONE 200 MG TABLET PO SCH (09:02)
[2017-07-14] MEDS: ACYCLOVIR 200 MG CAPSULE PO SCH (09:02)
[2017-07-14] MEDS: HYDROCORTISONE 20 MG TABLET PO SCH ×2 (09:02→21:47)
[2017-07-14] MEDS: PANTOPROZOLE 40MG TABLET PO SCH (09:02)
[2017-07-14 14:53] VITALS: BP 138/73
[2017-07-14] MEDS: OXYcodone IR 5MG TABLET PO PRN (17:53)
[2017-07-14 21:09] VITALS: BP 137/73
[2017-07-14] MEDS: PREGABALIN 25 MG CAPSULE PO SCH (21:47)
[2017-07-14] MEDS: LOSARTAN 50MG TABLET PO SCH (21:47)
[2017-07-14] MEDS: AMLODIPINE 5 MG TABLET PO SCH (21:48)
[2017-07-15 01:48] VITALS: BP 133/68
[2017-07-15 05:51] LABS: MEAN CORPUSCULAR HEMOGLOBIN 33.2 pg (27.5-34.5); MEAN CORPUSCULAR HGB CONC 32.8 g/dL (33.2-36.2); MEAN CORPUSCULAR VOLUME 101.1 fL (81-97); PLATELET COUNT 271 x10^3/uL (130-400); RED BLOOD COUNT 2.82 x10^6/uL (4.38-5.82)
[2017-07-15 05:58] LABS: CHLORIDE 96 mmol/L (98-107)
[2017-07-15 06:07] LABS: ALANINE AMINOTRANSFERASE 9 U/L (12-78); ALBUMIN 2.3 g/dL (3.4-5.0); ALKALINE PHOSPHATASE 184 U/L (45-117); BILIRUBIN,TOTAL 0.6 mg/dL (0.2-1.0); CALCIUM 8.2 mg/dL (8.5-10.1); CREATININE 5.12 mg/dL (0.7-1.3); TOTAL PROTEIN 5.6 g/dL (6.4-8.2)
[2017-07-15 06:10] LABS: ANION GAP 9 mmol/L (5-15)
[2017-07-15 06:21] LABS: BASOPHILS # (AUTO) 0.03 x10^3/uL (0-0.1); BASOPHILS % (AUTO) 0 % (0-1); EOSINOPHILS # (AUTO) 0.11 x10^3/uL (0-0.4); EOSINOPHILS % (AUTO) 1 % (1-7); LYMPHOCYTES # (AUTO) 0.86 x10^3/uL (1-3.4); LYMPHOCYTES % (AUTO) 7 % (22-44); MD SCAN; MONOCYTES # (AUTO) 1.25 x10^3/uL (0.2-0.8); MONOCYTES % (AUTO) 10 % (2-9); NEUTROPHILS # (AUTO) 10.38 x10^3/uL (1.8-6.8); NEUTROPHILS % (AUTO) 82 % (42-75)
[2017-07-15] MEDS: INSULIN LISPRO 100 UNITS/ML, PEN SQ-INSULIN SCH ×4 (07:00→21:00)
[2017-07-15 08:35] VITALS: BP 135/69
[2017-07-15] MEDS: SODIUM CHLORIDE FLUSH 10ML SYR IVF SCH ×2 (09:00→22:44)
[2017-07-15] MEDS: OXYcodone IR 5MG TABLET PO PRN (10:54)
[2017-07-15] MEDS: AMIODARONE 200 MG TABLET PO SCH (10:55)
[2017-07-15] MEDS: LEVETIRACETAM 500 MG TABLET PO SCH ×2 (10:56→22:46)
[2017-07-15] MEDS: CARVEDILOL 6.25 MG TABLET PO SCH ×2 (10:56→22:46)
[2017-07-15] MEDS: PANTOPROZOLE 40MG TABLET PO SCH (10:56)
[2017-07-15] MEDS: ACYCLOVIR 200 MG CAPSULE PO SCH (10:56)
[2017-07-15] MEDS: LINEZOLID 600 MG TABLET PO SCH ×2 (10:57→22:47)
[2017-07-15] MEDS: FLUTICASONE/VILANTEROL 200-25MCG/INH INH SCH (11:45)
[2017-07-15] MEDS: HYDROCORTISONE 20 MG TABLET PO SCH ×2 (11:45→22:44)
[2017-07-15 13:00] VITALS: BP 125/70
[2017-07-15 19:34] VITALS: BP 120/64
[2017-07-15] MEDS: AMLODIPINE 5 MG TABLET PO SCH (22:44)
[2017-07-15] MEDS: PREGABALIN 25 MG CAPSULE PO SCH (22:45)
[2017-07-15] MEDS: LOSARTAN 50MG TABLET PO SCH (22:46)
[2017-07-16 01:58] VITALS: BP 138/70
[2017-07-16 05:57] LABS: CHLORIDE 96 mmol/L (98-107)
[2017-07-16 06:05] LABS: ALANINE AMINOTRANSFERASE 12 U/L (12-78); ALBUMIN 2.4 g/dL (3.4-5.0); ALKALINE PHOSPHATASE 197 U/L (45-117); ANION GAP 11 mmol/L (5-15); BILIRUBIN,TOTAL 0.8 mg/dL (0.2-1.0); CALCIUM 8.1 mg/dL (8.5-10.1); CREATININE 4.31 mg/dL (0.7-1.3); TOTAL PROTEIN 5.8 g/dL (6.4-8.2)
[2017-07-16 06:06] LABS: MEAN CORPUSCULAR HEMOGLOBIN 33.7 pg (27.5-34.5); MEAN CORPUSCULAR HGB CONC 33.1 g/dL (33.2-36.2); MEAN CORPUSCULAR VOLUME 101.9 fL (81-97); MEAN PLATELET VOLUME 9.6 fL (7.4-10.4); PLATELET COUNT 245 x10^3/uL (130-400); RED BLOOD COUNT 2.95 x10^6/uL (4.38-5.82); RED CELL DISTRIBUTION WIDTH 24.5 % (9.4-14.8)
[2017-07-16 06:30] LABS: MD YES
[2017-07-16 06:32] LABS: ANISOCYTOSIS 2+; LYMPH#(MANUAL) 1.74 x10^3/uL (1-3.4); LYMPHS% (MANUAL) 16 % (22-44); MONOS#(MANUAL) 0.33 x10^3/uL (0.3-2.7); MONOS% (MANUAL) 3 % (2-9); POLYCHROMASIA 1+; SEG#(MANUAL) 8.83 x10^3/uL (1.8-6.8); SEGS% (MANUAL) 81 % (42-75)
[2017-07-16 06:34] LABS: OVALOCYTES 1+; SCHISTOCYTES 1+; TARGET CELLS 1+
[2017-07-16 06:35] LABS: ECHINOCYTES 1+; SPHEROCYTES 1+
[2017-07-16 06:36] LABS: <PLATELET ESTIMATE> ADEQUATE; LARGE PLATELETS 1+
[2017-07-16] MEDS: INSULIN LISPRO 100 UNITS/ML, PEN SQ-INSULIN SCH ×2 (07:00→11:24)
[2017-07-16 08:28] VITALS: BP 148/78
[2017-07-16] MEDS ORDERED: ARANESP 60 MCG/ML **ESRD SQ SCH (09:00)
[2017-07-16] MEDS: LINEZOLID 600 MG TABLET PO SCH (10:25)
[2017-07-16] MEDS: AMIODARONE 200 MG TABLET PO SCH (10:25)
[2017-07-16] MEDS: LEVETIRACETAM 500 MG TABLET PO SCH (10:25)
[2017-07-16] MEDS: PANTOPROZOLE 40MG TABLET PO SCH (10:25)
[2017-07-16] MEDS: CARVEDILOL 6.25 MG TABLET PO SCH (10:25)
[2017-07-16] MEDS: HYDROCORTISONE 20 MG TABLET PO SCH (10:25)
[2017-07-16] MEDS: SODIUM CHLORIDE FLUSH 10ML SYR IVF SCH (10:26)
[2017-07-16] MEDS: FLUTICASONE/VILANTEROL 200-25MCG/INH INH SCH (10:53)
[2017-07-16] MEDS: ACYCLOVIR 200 MG CAPSULE PO SCH (10:53)
[2017-07-16 14:20] VITALS: BP 146/63
[2017-07-16] MEDS ORDERED: ACETAMINOPHEN 500 MG TABLET PO PRN (15:04)
== END 2017-07-16 16:00 | DRG 500 ==
LOC: ED 21:01 → EDIP 21:25 → 4WST 07-12 00:08
PROVIDERS: ADMIT Hospitalist; ATTEND Hospitalist
PROC: 0MB30ZZ Excision of Right Elbow Bursa and Ligament, Open Approach (ICD-10-PCS; principal; 2017-07-12 10:00)
DX: M70.21 Olecranon bursitis, right elbow (principal); E43 Unspecified severe protein-calorie malnutrition; I13.2 Hypertensive heart and chronic kidney disease with heart failure and with stage 5 chronic kidney disease, or end stage renal disease; D84.9 Immunodeficiency, unspecified; E11.22 Type 2 diabetes mellitus with diabetic chronic kidney disease; E11.649 Type 2 diabetes mellitus with hypoglycemia without coma; N18.6 End stage renal disease; E87.1 Hypo-osmolality and hyponatremia; F19.20 Other psychoactive substance dependence, uncomplicated; E27.40 Unspecified adrenocortical insufficiency; N04.9 Nephrotic syndrome with unspecified morphologic changes; I50.32 Chronic diastolic (congestive) heart failure; E87.6 Hypokalemia; Z99.2 Dependence on renal dialysis; D63.1 Anemia in chronic kidney disease; Z96.659 Presence of unspecified artificial knee joint; M70.31 Other bursitis of elbow, right elbow; I48.91 Unspecified atrial fibrillation; G47.33 Obstructive sleep apnea (adult) (pediatric); G40.909 Epilepsy, unspecified, not intractable, without status epilepticus; M06.9 Rheumatoid arthritis, unspecified; Z86.711 Personal history of pulmonary embolism; Z87.891 Personal history of nicotine dependence; Z90.81 Acquired absence of spleen; Z86.718 Personal history of other venous thrombosis and embolism; Z80.8 Family history of malignant neoplasm of other organs or systems; Z93.1 Gastrostomy status; Z68.22 Body mass index [BMI] 22.0-22.9, adult
CPT/HCPCS: 36415; 71045; 80048; 80053; 82533; 82784; 82787; 82962; 83605; 83735; 84100; 84145; 85025; 87040; 87070; 87075; 87205; 93005; 99285; J0690; J0882; J1100; J2250; J2405; J2704; J3010; J0330; J1720; J7030

== ENCOUNTER 2017-10-26 09:36 | Inpatient (IN) | payer MEDICARE, OTHER ==
[~2017-10-26] VITALS: Ht 193 cm; Wt 108.4 kg
[~2017-10-26 09:36] MED LIST changes: +ACET500T76 PO; +ASPI-515 PO; +DARB60VI SQ; +DOCU100C33 PO; +LEFL20TA16 PO; +METO25TA35 PO; +SULF-169 PO
[2017-10-26] MEDS ORDERED: PLEASE ENTER HEIGHT AND WEIGHT MC SCH (09:51)
[2017-10-26] MEDS ORDERED: SODIUM CHLORIDE FLUSH 10ML SYR IVF ONE (10:00)
[2017-10-26] MEDS ORDERED: SODIUM CHLORIDE 0.9% 1,000ML IVBOLUS ONE ×3 (10:00→11:00)
[2017-10-26 10:18] LABS: MICROSCOPIC INDICATED
[2017-10-26 10:28] LABS: CULTURE INDICATED? NO
[2017-10-26] MEDS ORDERED: DEXTROSE 50%, 50ML SYRINGE ONE (10:29)
[2017-10-26] MEDS ORDERED: SODIUM CHLORIDE 0.9%, 500ML IVBOLUS ONE (10:30)
[2017-10-26] MEDS ORDERED: NOREPINEPHRINE 4 MG in SODIUM CHLORIDE 0.9% 246 ML IV PRN ×2 (10:30→13:00)
[2017-10-26 10:41] LABS: BASOPHILS # (AUTO) 0.04 x10^3/uL (0-0.1); BASOPHILS % (AUTO) 0 % (0-1); EOSINOPHILS # (AUTO) 0.02 x10^3/uL (0-0.4); EOSINOPHILS % (AUTO) 0 % (1-7); LYMPHOCYTES # (AUTO) 1.19 x10^3/uL (1-3.4); LYMPHOCYTES % (AUTO) 9 % (22-44); MD NO; MEAN CORPUSCULAR HEMOGLOBIN 34.6 pg (27.5-34.5); MEAN CORPUSCULAR HGB CONC 32.6 g/dL (33.2-36.2); MEAN CORPUSCULAR VOLUME 106.1 fL (81-97); MEAN PLATELET VOLUME 9.6 fL (7.4-10.4); MONOCYTES # (AUTO) 0.85 x10^3/uL (0.2-0.8); MONOCYTES % (AUTO) 7 % (2-9); NEUTROPHILS # (AUTO) 10.84 x10^3/uL (1.8-6.8); NEUTROPHILS % (AUTO) 84 % (42-75); PLATELET COUNT 253 x10^3/uL (130-400); RED BLOOD COUNT 3.57 x10^6/uL (4.38-5.82); RED CELL DISTRIBUTION WIDTH 18.6 % (9.4-14.8)
[2017-10-26 10:53] LABS: ALANINE AMINOTRANSFERASE 172 U/L (12-78); ALBUMIN 2.9 g/dL (3.4-5.0); ANION GAP 13 mmol/L (5-15); CHLORIDE 102 mmol/L (98-107)
[2017-10-26 10:55] LABS: ALKALINE PHOSPHATASE 202 U/L (45-117); BILIRUBIN,TOTAL 1.1 mg/dL (0.2-1.0); CREATININE 9.04 mg/dL (0.7-1.3)
[2017-10-26] MEDS ORDERED: DEXTROSE 50%, 50ML SYRINGE IVPush ONE (11:00)
[2017-10-26] MEDS ORDERED: PIPERACILLIN/TAZO/PMX 3.375GM 50 ML IV ONE (11:00)
[2017-10-26] MEDS ORDERED: DEXTROSE 10% 250 ML IV SCH (11:00)
[2017-10-26] MEDS ORDERED: VANCOMYCIN PER PHARMACY MC PRN ×2 (11:00→11:30)
[2017-10-26 11:07] LABS: INTERNATIONAL NORMALIZED RATIO 1.17 (0.93-1.1)
[2017-10-26] MEDS ORDERED: DEXAMETHASONE 4 MG/ML, 5ML ONE (11:09)
[2017-10-26] MEDS ORDERED: D5%-0.9% NACL 1,000 ML IV SCH (11:30)
[2017-10-26] MEDS ORDERED: CALCIUM CHLORIDE 13.6 MEQ in SODIUM CHLORIDE 0.9% 100 ML IV ONE (11:30)
[2017-10-26] MEDS ORDERED: CEFUROXIME 1.5 GM in SODIUM CHLORIDE 0.9% 100 ML IV ONE (11:30)
[2017-10-26] MEDS ORDERED: DEXAMETHASONE 12 MG in SODIUM CHLORIDE 0.9% 50 ML IV ONE (11:30)
[2017-10-26] MEDS ORDERED: VANCOMYCIN 1,800 MG in SODIUM CHLORIDE 0.9% 250 ML IV ONE (11:30)
[2017-10-26] MEDS ORDERED: DEXAMETHASONE 4 MG/ML, 1ML IVPush ONE (11:30)
[2017-10-26] MEDS ORDERED: ACETAMINOPHEN 325 MG TABLET PO PRN (11:30)
[2017-10-26] MEDS ORDERED: PIPERACILLIN/TAZO 0.75 GM in SODIUM CHLORIDE 0.9% 50 ML IV SCH (11:30)
[2017-10-26] MEDS ORDERED: ONDANSETRON ODT 4 MG PO PRN (11:30)
[2017-10-26] MEDS ORDERED: POLYETHYLENE GLYCOL 17 GM PACKET PO PRN (11:30)
[2017-10-26] MEDS ORDERED: DEXTROSE 10% 1,000 ML IV SCH (12:30)
[2017-10-26] MEDS ORDERED: VASOPRESSIN 100 UNIT in SODIUM CHLORIDE 0.9% 495 ML IV PRN (13:00)
[2017-10-26] MEDS: D5%-0.9% NACL 1,000 ML IV SCH ×2 (13:22→21:11)
[2017-10-26] MEDS: PIPERACILLIN/TAZO/PMX 2.25GM 50 ML IV SCH ×2 (13:32→19:29)
[2017-10-26] MEDS: LINEZOLID PMX 600MG/300ML 300 ML IV SCH (13:32)
[2017-10-26] MEDS: HYDROCORTISONE 100 MG INJ. IVPush SCH ×2 (13:35→19:29)
[2017-10-26] MEDS: HEPARIN 5,000 UNITS/ML, 1ML SQ SCH ×2 (13:35→21:06)
[2017-10-26] MEDS ORDERED: ERGOCALCIFEROL 50,000 UNIT CAPSULE PO SCH (14:00)
[2017-10-26] MEDS ORDERED: CALCIUM GLUCONATE 4.6 MEQ in SODIUM CHLORIDE 0.9% 50 ML IV STA (15:54)
[2017-10-26] MEDS ORDERED: CALCIUM GLUCONATE 4.6 MEQ/10 ML IVPush ONE (16:00)
[2017-10-26] MEDS ORDERED: ALBUMIN HUMAN 25% 100 ML IV PRN (17:00)
[2017-10-26] MEDS ORDERED: ALBUMIN HUMAN 25% 50 ML IV PRN (17:00)
[2017-10-26] MEDS: SEVELAMER CARBONATE 800MG TAB PO SCH ×2 (17:37→21:06)
[2017-10-26] MEDS: FLUTICASONE/VILANTEROL 200-25MCG/INH INH SCH (18:27)
[2017-10-26] MEDS: LEVETIRACETAM 500 MG TABLET PO SCH (21:03)
[2017-10-26] MEDS: PREGABALIN 25 MG CAPSULE PO SCH (21:04)
[2017-10-26] MEDS: ATORVASTATIN 80 MG TABLET PO SCH (21:04)
[2017-10-26] MEDS: GABAPENTIN 100 MG CAPSULE PO SCH (21:06)
[2017-10-27] MEDS: PIPERACILLIN/TAZO/PMX 2.25GM 50 ML IV SCH ×4 (02:11→23:24)
[2017-10-27] MEDS: LINEZOLID PMX 600MG/300ML 300 ML IV SCH ×2 (03:04→18:06)
[2017-10-27] MEDS: HYDROCORTISONE 100 MG INJ. IVPush SCH ×3 (03:42→19:34)
[2017-10-27 04:00] VITALS: BP 116/64
[2017-10-27 04:13] LABS: ALBUMIN 2.9 g/dL (3.4-5.0); ANION GAP 11 mmol/L (5-15); CALCIUM 8.7 mg/dL (8.5-10.1); CHLORIDE 100 mmol/L (98-107)
[2017-10-27 04:15] LABS: BASOPHILS # (AUTO) 0.01 x10^3/uL (0-0.1); BASOPHILS % (AUTO) 0 % (0-1); EOSINOPHILS % (AUTO) 0 % (1-7); LYMPHOCYTES # (AUTO) 0.61 x10^3/uL (1-3.4); LYMPHOCYTES % (AUTO) 4 % (22-44); MD NO; MEAN CORPUSCULAR HEMOGLOBIN 33.9 pg (27.5-34.5); MEAN PLATELET VOLUME 9.8 fL (7.4-10.4); MONOCYTES # (AUTO) 1.05 x10^3/uL (0.2-0.8); MONOCYTES % (AUTO) 7 % (2-9); NEUTROPHILS # (AUTO) 13.72 x10^3/uL (1.8-6.8); NEUTROPHILS % (AUTO) 89 % (42-75); PLATELET COUNT 242 x10^3/uL (130-400); RED BLOOD COUNT 3.57 x10^6/uL (4.38-5.82); RED CELL DISTRIBUTION WIDTH 18.5 % (9.4-14.8)
[2017-10-27 04:18] LABS: ALANINE AMINOTRANSFERASE 352 U/L (12-78); ALKALINE PHOSPHATASE 235 U/L (45-117); BILIRUBIN,TOTAL 0.8 mg/dL (0.2-1.0); CREATININE 6.63 mg/dL (0.7-1.3)
[2017-10-27] MEDS: HEPARIN 5,000 UNITS/ML, 1ML SQ SCH ×3 (05:38→21:05)
[2017-10-27] MEDS: D5%-0.9% NACL 1,000 ML IV SCH (08:58)
[2017-10-27] MEDS: ACYCLOVIR 200 MG CAPSULE PO SCH (09:56)
[2017-10-27] MEDS: SEVELAMER CARBONATE 800MG TAB PO SCH ×3 (09:57→17:17)
[2017-10-27] MEDS: ASPIRIN 325 MG TABLET EC PO SCH (09:57)
[2017-10-27] MEDS: SENNA/DOCUSATE TABLET PO SCH (09:58)
[2017-10-27] MEDS: GABAPENTIN 100 MG CAPSULE PO SCH ×2 (09:58→21:04)
[2017-10-27] MEDS: LEVETIRACETAM 500 MG TABLET PO SCH ×2 (10:00→21:03)
[2017-10-27] MEDS: LEFLUNOMIDE 20 MG TABLET PO SCH (10:05)
[2017-10-27] MEDS: INSULIN LISPRO 100 UNITS/ML, PEN SQ-INSULIN SCH ×3 (11:00→21:28)
[2017-10-27] MEDS: FLUTICASONE/VILANTEROL 200-25MCG/INH INH SCH (17:15)
[2017-10-27] MEDS: PREGABALIN 25 MG CAPSULE PO SCH (21:04)
[2017-10-27] MEDS: ATORVASTATIN 80 MG TABLET PO SCH (21:04)
[2017-10-28] MEDS: D5%-0.9% NACL 1,000 ML IV SCH ×2 (00:52→15:03)
[2017-10-28 02:00] VITALS: BP 137/76
[2017-10-28] MEDS: HYDROCORTISONE 100 MG INJ. IVPush SCH ×2 (03:34→11:44)
[2017-10-28] MEDS: PIPERACILLIN/TAZO/PMX 2.25GM 50 ML IV SCH ×4 (04:57→23:42)
[2017-10-28] MEDS: HEPARIN 5,000 UNITS/ML, 1ML SQ SCH ×3 (04:58→20:16)
[2017-10-28 05:29] LABS: MEAN CORPUSCULAR HEMOGLOBIN 34.2 pg (27.5-34.5); MEAN CORPUSCULAR HGB CONC 32.4 g/dL (33.2-36.2); MEAN CORPUSCULAR VOLUME 105.8 fL (81-97); MEAN PLATELET VOLUME 10.6 fL (7.4-10.4); PLATELET COUNT 230 x10^3/uL (130-400); RED BLOOD COUNT 3.62 x10^6/uL (4.38-5.82)
[2017-10-28 05:33] LABS: ALBUMIN 2.8 g/dL (3.4-5.0); ANION GAP 11 mmol/L (5-15); CALCIUM 8.8 mg/dL (8.5-10.1); CHLORIDE 100 mmol/L (98-107)
[2017-10-28 05:36] LABS: ALANINE AMINOTRANSFERASE 303 U/L (12-78); ALKALINE PHOSPHATASE 213 U/L (45-117); BILIRUBIN,TOTAL 0.8 mg/dL (0.2-1.0); CREATININE 5.22 mg/dL (0.7-1.3); TOTAL PROTEIN 6.2 g/dL (6.4-8.2)
[2017-10-28] MEDS: LINEZOLID PMX 600MG/300ML 300 ML IV SCH ×2 (05:47→18:13)
[2017-10-28 05:50] LABS: BASOPHILS # (AUTO) 0.01 x10^3/uL (0-0.1); BASOPHILS % (AUTO) 0 % (0-1); EOSINOPHILS % (AUTO) 0 % (1-7); LYMPHOCYTES # (AUTO) 1.38 x10^3/uL (1-3.4); LYMPHOCYTES % (AUTO) 12 % (22-44); MD SCAN; MONOCYTES # (AUTO) 1.03 x10^3/uL (0.2-0.8); MONOCYTES % (AUTO) 9 % (2-9); NEUTROPHILS # (AUTO) 9.57 x10^3/uL (1.8-6.8); NEUTROPHILS % (AUTO) 80 % (42-75)
[2017-10-28 06:55] VITALS: BP 160/91
[2017-10-28] MEDS: INSULIN LISPRO 100 UNITS/ML, PEN SQ-INSULIN SCH ×4 (07:00→22:59)
[2017-10-28] MEDS: SEVELAMER CARBONATE 800MG TAB PO SCH ×3 (09:00→20:15)
[2017-10-28] MEDS: ACYCLOVIR 200 MG CAPSULE PO SCH (09:23)
[2017-10-28] MEDS: ASPIRIN 325 MG TABLET EC PO SCH (09:23)
[2017-10-28] MEDS: LEVETIRACETAM 500 MG TABLET PO SCH ×2 (09:24→20:30)
[2017-10-28] MEDS: GABAPENTIN 100 MG CAPSULE PO SCH ×2 (09:24→20:15)
[2017-10-28] MEDS: SENNA/DOCUSATE TABLET PO SCH (09:24)
[2017-10-28] MEDS: LEFLUNOMIDE 20 MG TABLET PO SCH (09:46)
[2017-10-28 12:39] VITALS: BP 162/94
[2017-10-28 12:45] VITALS: BP 167/83
[2017-10-28] MEDS: FLUTICASONE/VILANTEROL 200-25MCG/INH INH SCH (13:40)
[2017-10-28] MEDS: HYDROCORTISONE 20 MG TABLET PO SCH (18:13)
[2017-10-28] MEDS: PREGABALIN 25 MG CAPSULE PO SCH (20:14)
[2017-10-28] MEDS: ATORVASTATIN 80 MG TABLET PO SCH (20:15)
[2017-10-28 21:26] VITALS: BP 177/89
[2017-10-28] MEDS ORDERED: hydrALAzine 20 MG/ML, 1ML IV PRN (22:00)
[2017-10-29 02:25] VITALS: BP 153/87
[2017-10-29] MEDS: HEPARIN 5,000 UNITS/ML, 1ML SQ SCH ×3 (05:01→20:42)
[2017-10-29] MEDS: PIPERACILLIN/TAZO/PMX 2.25GM 50 ML IV SCH ×3 (05:01→21:03)
[2017-10-29 05:30] LABS: CALCIUM 8.5 mg/dL (8.5-10.1); CHLORIDE 100 mmol/L (98-107)
[2017-10-29 05:35] LABS: ALANINE AMINOTRANSFERASE 261 U/L (12-78); ALBUMIN 2.7 g/dL (3.4-5.0); ALKALINE PHOSPHATASE 208 U/L (45-117); ANION GAP 11 mmol/L (5-15); BILIRUBIN,TOTAL 0.6 mg/dL (0.2-1.0); CREATININE 4.71 mg/dL (0.7-1.3); TOTAL PROTEIN 6.1 g/dL (6.4-8.2)
[2017-10-29 05:39] LABS: MEAN CORPUSCULAR HEMOGLOBIN 34.2 pg (27.5-34.5); MEAN CORPUSCULAR HGB CONC 32.5 g/dL (33.2-36.2); MEAN CORPUSCULAR VOLUME 105.4 fL (81-97); MEAN PLATELET VOLUME 10.4 fL (7.4-10.4); PLATELET COUNT 237 x10^3/uL (130-400); RED BLOOD COUNT 3.55 x10^6/uL (4.38-5.82); RED CELL DISTRIBUTION WIDTH 18.1 % (9.4-14.8)
[2017-10-29 06:08] LABS: MD YES
[2017-10-29] MEDS: LINEZOLID PMX 600MG/300ML 300 ML IV SCH (06:08)
[2017-10-29 06:11] LABS: BAND#(MANUAL) 0.47 x10^3/uL; BANDS%(MANUAL) 4 % (0-7); LYMPH#(MANUAL) 1.05 x10^3/uL (1-3.4); LYMPHS% (MANUAL) 9 % (22-44); MONOS% (MANUAL) 12 % (2-9); SEG#(MANUAL) 8.78 x10^3/uL (1.8-6.8); SEGS% (MANUAL) 75 % (42-75)
[2017-10-29 06:15] LABS: OVALOCYTES 1+
[2017-10-29 06:16] LABS: ACANTHOCYTES 1+; SCHISTOCYTES 1+; TOXIC GRAN 1+
[2017-10-29 06:18] LABS: ANISOCYTOSIS 2+; NRBC % (MANUAL) 1 % (0-1); POLYCHROMASIA 1+
[2017-10-29 06:19] LABS: <PLATELET ESTIMATE> ADEQUATE; GIANT PLATELETS 1+; LARGE PLATELETS 2+; SPHEROCYTES 2+; TEAR DROPS 1+
[2017-10-29] MEDS: SEVELAMER CARBONATE 800MG TAB PO SCH ×3 (08:33→20:42)
[2017-10-29] MEDS: LEVETIRACETAM 500 MG TABLET PO SCH ×2 (08:33→20:42)
[2017-10-29] MEDS: LEFLUNOMIDE 20 MG TABLET PO SCH (08:33)
[2017-10-29] MEDS: GABAPENTIN 100 MG CAPSULE PO SCH ×2 (08:33→20:41)
[2017-10-29] MEDS: HYDROCORTISONE 20 MG TABLET PO SCH ×2 (08:33→17:12)
[2017-10-29] MEDS: SENNA/DOCUSATE TABLET PO SCH (08:34)
[2017-10-29] MEDS: ACYCLOVIR 200 MG CAPSULE PO SCH (08:34)
[2017-10-29] MEDS: ASPIRIN 81 MG TABLET EC PO SCH (08:34)
[2017-10-29] MEDS: INSULIN LISPRO 100 UNITS/ML, PEN SQ-INSULIN SCH ×4 (08:41→20:41)
[2017-10-29 10:13] VITALS: BP 168/87
[2017-10-29 12:39] VITALS: BP 167/94
[2017-10-29] MEDS: FLUTICASONE/VILANTEROL 200-25MCG/INH INH SCH (12:54)
[2017-10-29] MEDS: ATORVASTATIN 80 MG TABLET PO SCH (20:42)
[2017-10-29] MEDS: PREGABALIN 25 MG CAPSULE PO SCH (20:42)
[2017-10-29 21:55] VITALS: BP_SYST 177
[2017-10-30 01:24] VITALS: BP 164/85
[2017-10-30] MEDS: HEPARIN 5,000 UNITS/ML, 1ML SQ SCH ×3 (05:11→21:00)
[2017-10-30] MEDS: PIPERACILLIN/TAZO/PMX 2.25GM 50 ML IV SCH ×3 (05:11→23:31)
[2017-10-30 05:41] LABS: ALANINE AMINOTRANSFERASE 222 U/L (12-78); ALBUMIN 2.6 g/dL (3.4-5.0); ANION GAP 12 mmol/L (5-15); CALCIUM 8.1 mg/dL (8.5-10.1); CHLORIDE 101 mmol/L (98-107); CREATININE 5.87 mg/dL (0.7-1.3)
[2017-10-30 05:44] LABS: ALKALINE PHOSPHATASE 180 U/L (45-117); BILIRUBIN,TOTAL 0.8 mg/dL (0.2-1.0); TOTAL PROTEIN 5.8 g/dL (6.4-8.2)
[2017-10-30 05:57] LABS: MD YES; MEAN CORPUSCULAR HEMOGLOBIN 33.4 pg (27.5-34.5); MEAN CORPUSCULAR HGB CONC 31.8 g/dL (33.2-36.2); MEAN CORPUSCULAR VOLUME 104.9 fL (81-97); MEAN PLATELET VOLUME 10.1 fL (7.4-10.4); PLATELET COUNT 224 x10^3/uL (130-400); RED BLOOD COUNT 3.66 x10^6/uL (4.38-5.82); RED CELL DISTRIBUTION WIDTH 18.6 % (9.4-14.8)
[2017-10-30 05:59] LABS: BAND#(MANUAL) 0.22 x10^3/uL; BANDS%(MANUAL) 2 % (0-7); LYMPH#(MANUAL) 1.89 x10^3/uL (1-3.4); LYMPHS% (MANUAL) 17 % (22-44); MONOS#(MANUAL) 0.67 x10^3/uL (0.3-2.7); MONOS% (MANUAL) 6 % (2-9); SEG#(MANUAL) 8.33 x10^3/uL (1.8-6.8); SEGS% (MANUAL) 75 % (42-75)
[2017-10-30 06:00] LABS: POLYCHROMASIA 1+; SPHEROCYTES 1+; TARGET CELLS 1+
[2017-10-30 06:02] LABS: <PLATELET ESTIMATE> ADEQUATE; ANISOCYTOSIS 2+; SCHISTOCYTES 1+
[2017-10-30 06:03] LABS: GIANT PLATELETS 1+; LARGE PLATELETS 1+
[2017-10-30] MEDS: INSULIN LISPRO 100 UNITS/ML, PEN SQ-INSULIN SCH ×4 (07:00→21:00)
[2017-10-30 07:42] VITALS: BP 187/106
[2017-10-30] MEDS: SENNA/DOCUSATE TABLET PO SCH (08:04)
[2017-10-30 08:13] VITALS: BP 173/94
[2017-10-30] MEDS: SEVELAMER CARBONATE 800MG TAB PO SCH ×3 (08:51→21:00)
[2017-10-30] MEDS: ASPIRIN 81 MG TABLET EC PO SCH (08:51)
[2017-10-30] MEDS: LEFLUNOMIDE 20 MG TABLET PO SCH (08:51)
[2017-10-30] MEDS: ACYCLOVIR 200 MG CAPSULE PO SCH (08:51)
[2017-10-30] MEDS: HYDROCORTISONE 20 MG TABLET PO SCH ×2 (08:51→16:47)
[2017-10-30] MEDS: GABAPENTIN 100 MG CAPSULE PO SCH ×2 (08:51→23:32)
[2017-10-30] MEDS: LEVETIRACETAM 500 MG TABLET PO SCH ×2 (08:52→23:32)
[2017-10-30] MEDS ORDERED: IMMUNE GLOBULIN 50 GM in VIAL 0 EACH IV ONE (11:00)
[2017-10-30 12:34] VITALS: BP 168/86
[2017-10-30] MEDS: FLUTICASONE/VILANTEROL 200-25MCG/INH INH SCH (13:00)
[2017-10-30 20:45] VITALS: BP 169/106
[2017-10-30] MEDS: ATORVASTATIN 80 MG TABLET PO SCH (23:32)
[2017-10-30] MEDS: PREGABALIN 25 MG CAPSULE PO SCH (23:32)
[2017-10-31 01:28] VITALS: BP 151/84
[2017-10-31] MEDS: HEPARIN 5,000 UNITS/ML, 1ML SQ SCH ×3 (05:00→21:53)
[2017-10-31] MEDS: INSULIN LISPRO 100 UNITS/ML, PEN SQ-INSULIN SCH ×4 (07:00→20:08)
[2017-10-31 07:44] LABS: MEAN CORPUSCULAR HEMOGLOBIN 33.4 pg (27.5-34.5); MEAN CORPUSCULAR HGB CONC 32.2 g/dL (33.2-36.2); MEAN CORPUSCULAR VOLUME 103.7 fL (81-97); MEAN PLATELET VOLUME 10.1 fL (7.4-10.4); PLATELET COUNT 229 x10^3/uL (130-400); RED BLOOD COUNT 3.69 x10^6/uL (4.38-5.82); RED CELL DISTRIBUTION WIDTH 19.2 % (9.4-14.8)
[2017-10-31 07:51] LABS: ALBUMIN 2.5 g/dL (3.4-5.0); ANION GAP 9 mmol/L (5-15); CALCIUM 8.3 mg/dL (8.5-10.1); CHLORIDE 98 mmol/L (98-107)
[2017-10-31 07:52] VITALS: BP 154/81
[2017-10-31 07:55] LABS: ALANINE AMINOTRANSFERASE 167 U/L (12-78); ALKALINE PHOSPHATASE 157 U/L (45-117); BILIRUBIN,TOTAL 0.7 mg/dL (0.2-1.0); CREATININE 4.84 mg/dL (0.7-1.3); TOTAL PROTEIN 6.5 g/dL (6.4-8.2)
[2017-10-31 08:28] LABS: BASOPHILS # (AUTO) 0.03 x10^3/uL (0-0.1); BASOPHILS % (AUTO) 0 % (0-1); EOSINOPHILS # (AUTO) 0.07 x10^3/uL (0-0.4); EOSINOPHILS % (AUTO) 1 % (1-7); LYMPHOCYTES # (AUTO) 0.68 x10^3/uL (1-3.4); LYMPHOCYTES % (AUTO) 7 % (22-44); MD MORPH REVIEW ONLY; MONOCYTES # (AUTO) 0.74 x10^3/uL (0.2-0.8); MONOCYTES % (AUTO) 8 % (2-9); NEUTROPHILS % (AUTO) 85 % (42-75)
[2017-10-31 08:29] LABS: ANISOCYTOSIS 2+; SPHEROCYTES 1+
[2017-10-31 08:30] LABS: <PLATELET ESTIMATE> ADEQUATE; OVALOCYTES 1+; POLYCHROMASIA 1+; SCHISTOCYTES 1+; TARGET CELLS 1+
[2017-10-31 08:31] LABS: LARGE PLATELETS 1+
[2017-10-31] MEDS: SEVELAMER CARBONATE 800MG TAB PO SCH ×4 (09:00→21:52)
[2017-10-31] MEDS: LEFLUNOMIDE 20 MG TABLET PO SCH (09:00)
[2017-10-31] MEDS: SENNA/DOCUSATE TABLET PO SCH (09:00)
[2017-10-31] MEDS: PIPERACILLIN/TAZO/PMX 2.25GM 50 ML IV SCH ×2 (10:11→18:39)
[2017-10-31] MEDS: ASPIRIN 81 MG TABLET EC PO SCH (10:13)
[2017-10-31] MEDS: HYDROCORTISONE 20 MG TABLET PO SCH ×2 (10:13→18:39)
[2017-10-31] MEDS: ACYCLOVIR 200 MG CAPSULE PO SCH (10:13)
[2017-10-31] MEDS: LEVETIRACETAM 500 MG TABLET PO SCH ×2 (10:13→21:52)
[2017-10-31] MEDS: GABAPENTIN 100 MG CAPSULE PO SCH ×2 (10:13→21:52)
[2017-10-31] MEDS ORDERED: D5%-LACTATED RINGERS 1,000 ML IV SCH (12:00)
[2017-10-31 13:10] VITALS: BP 158/84
[2017-10-31] MEDS ORDERED: DEXTROSE 5% 1,000 ML IV SCH (14:30)
[2017-10-31] MEDS: FLUTICASONE/VILANTEROL 200-25MCG/INH INH SCH (15:11)
[2017-10-31] MEDS ORDERED: PROTAMINE SULFATE 10 MG/ML, 5ML ONE (15:24)
[2017-10-31] MEDS ORDERED: HEPARIN 1,000 UNITS/ML, 10ML ONE (15:24)
[2017-10-31] MEDS ORDERED: BUPIVACAINE/PF 0.5% ONE (15:24)
[2017-10-31] MEDS ORDERED: THROMBIN 5,000 UNIT VIAL TP ONE (15:24)
[2017-10-31] MEDS ORDERED: EPINEPHRINE 1 MG/ML, 1ML ONE (15:24)
[2017-10-31] MEDS ORDERED: BACITRACIN 50,000 UNIT ONE (15:25)
[2017-10-31] MEDS ORDERED: METOPROLOL 1 MG/ML, 5ML IV PRN (15:30)
[2017-10-31] MEDS ORDERED: PROMETHAZINE 25 MG/ML, 1ML IV PRN (15:30)
[2017-10-31] MEDS ORDERED: FENTANYL PF 100 MCG/2ML IV PRN (15:30)
[2017-10-31] MEDS ORDERED: ALBUTEROL SULFATE 2.5 MG/3 ML NPPB PRN (15:30)
[2017-10-31] MEDS ORDERED: hydrALAzine 20 MG/ML, 1ML IV PRN (15:30)
[2017-10-31] MEDS ORDERED: ONDANSETRON ODT 8 MG PO PRN (15:30)
[2017-10-31] MEDS ORDERED: ACETAMINOPHEN 325 MG TABLET PO PRN (15:30)
[2017-10-31] MEDS ORDERED: OXYcodone 5 MG/5 ML ORAL.SOL UDC PO PRN (15:30)
[2017-10-31] MEDS ORDERED: LABETALOL 5MG/ML, 20ML IV PRN (15:30)
[2017-10-31] MEDS ORDERED: EPHEDRINE 50 MG/ML, 1ML IVPush PRN (15:30)
[2017-10-31] MEDS ORDERED: HYDROCORTISONE 100 MG INJ. ONE (15:33)
[2017-10-31] MEDS ORDERED: PROPOFOL 10 MG/ML, 20ML ONE (15:34)
[2017-10-31] MEDS ORDERED: ROCURONIUM 10MG/ML,5ML ONE (15:36)
[2017-10-31] MEDS ORDERED: ONDANSETRON 2MG/ML, 2ML ONE (16:34)
[2017-10-31] MEDS ORDERED: NEOSTIGMINE 1 MG/ML, 10ML ONE (16:34)
[2017-10-31] MEDS ORDERED: GLYCOPYRROLATE 0.4 MG/2 ML, 2ML ONE (16:34)
[2017-10-31] MEDS ORDERED: BUPIVACAINE/PF-EPI 0.5% 1:200K IM ONE (16:35)
[2017-10-31] MEDS ORDERED: hydrALAzine 20 MG/ML, 1ML ONE (17:45)
[2017-10-31 20:10] VITALS: BP 160/79
[2017-10-31] MEDS: PREGABALIN 25 MG CAPSULE PO SCH (21:52)
[2017-10-31] MEDS: ATORVASTATIN 80 MG TABLET PO SCH (21:52)
[2017-11-01 00:58] VITALS: BP 154/74
[2017-11-01] MEDS: PIPERACILLIN/TAZO/PMX 2.25GM 50 ML IV SCH ×2 (02:02→11:08)
[2017-11-01] MEDS: HEPARIN 5,000 UNITS/ML, 1ML SQ SCH ×2 (04:48→14:21)
[2017-11-01 05:18] LABS: ALANINE AMINOTRANSFERASE 120 U/L (12-78); ALBUMIN 2.3 g/dL (3.4-5.0); ANION GAP 10 mmol/L (5-15); CALCIUM 7.7 mg/dL (8.5-10.1); CHLORIDE 96 mmol/L (98-107); CREATININE 6.24 mg/dL (0.7-1.3); MEAN CORPUSCULAR HEMOGLOBIN 33.3 pg (27.5-34.5); MEAN PLATELET VOLUME 10.3 fL (7.4-10.4); PLATELET COUNT 209 x10^3/uL (130-400); RED BLOOD COUNT 3.47 x10^6/uL (4.38-5.82); RED CELL DISTRIBUTION WIDTH 18.7 % (9.4-14.8)
[2017-11-01 05:20] LABS: ALKALINE PHOSPHATASE 146 U/L (45-117); BILIRUBIN,TOTAL 0.6 mg/dL (0.2-1.0); TOTAL PROTEIN 5.8 g/dL (6.4-8.2)
[2017-11-01 06:00] LABS: BASOPHILS # (AUTO) 0.09 x10^3/uL (0-0.1); BASOPHILS % (AUTO) 1 % (0-1); EOSINOPHILS % (AUTO) 0 % (1-7); LYMPHOCYTES % (AUTO) 9 % (22-44); MD MORPH REVIEW ONLY; MONOCYTES # (AUTO) 0.81 x10^3/uL (0.2-0.8); MONOCYTES % (AUTO) 6 % (2-9); NEUTROPHILS # (AUTO) 11.42 x10^3/uL (1.8-6.8); NEUTROPHILS % (AUTO) 85 % (42-75)
[2017-11-01 06:01] LABS: <PLATELET ESTIMATE> ADEQUATE; ANISOCYTOSIS 2+; LARGE PLATELETS 1+; OVALOCYTES 1+; POLYCHROMASIA 1+; SCHISTOCYTES 1+; SPHEROCYTES 1+; TARGET CELLS 1+
[2017-11-01 07:45] VITALS: BP 159/74
[2017-11-01] MEDS: LEVETIRACETAM 500 MG TABLET PO SCH (07:50)
[2017-11-01] MEDS: SEVELAMER CARBONATE 800MG TAB PO SCH ×2 (07:50→16:00)
[2017-11-01] MEDS: ASPIRIN 81 MG TABLET EC PO SCH (07:50)
[2017-11-01] MEDS: INSULIN LISPRO 100 UNITS/ML, PEN SQ-INSULIN SCH ×3 (07:51→16:00)
[2017-11-01] MEDS: GABAPENTIN 100 MG CAPSULE PO SCH (07:51)
[2017-11-01] MEDS: HYDROCORTISONE 20 MG TABLET PO SCH ×2 (07:51→17:00)
[2017-11-01] MEDS: ACYCLOVIR 200 MG CAPSULE PO SCH (07:51)
[2017-11-01] MEDS: SENNA/DOCUSATE TABLET PO SCH (07:52)
[2017-11-01] MEDS: LEFLUNOMIDE 20 MG TABLET PO SCH (08:00)
[2017-11-01] MEDS: FLUTICASONE/VILANTEROL 200-25MCG/INH INH SCH (14:20)
[2017-11-01 14:21] VITALS: BP 119/58
[2017-11-01] MEDS ORDERED: ASPI-515 PO (14:50)
[2017-11-06] MEDS ORDERED: SEVE800T8 PO (10:14)
[2017-11-06] MEDS ORDERED: PREG25CA PO (10:14)
[2017-11-06] MEDS ORDERED: AMLO5TAB2 PO (10:14)
[2017-11-06] MEDS ORDERED: MORP15TA PO (10:14)
[2017-11-06] MEDS ORDERED: ESOM40CA PO (10:14)
[2017-11-06] MEDS ORDERED: miralax (10:14)
[2017-11-12] MEDS ORDERED: zosyn IVPB (15:22)
[2017-11-12] MEDS ORDERED: HEPARIN SC (15:26)
[2017-11-12] MEDS ORDERED: ASPI-515 PO (15:34)
== END 2017-11-01 17:38 | disposition home health service (06) | DRG 441 ==
LOC: ED 10:22 → EDIP 11:26 → CCU 12:45 → 4WST 10-28 02:43
PROVIDERS: ADMIT Internal Medicine; ATTEND Internal Medicine
PROC: 5A1D70Z Performance of Urinary Filtration, Intermittent, Less than 6 Hours Per Day (ICD-10-PCS; principal; 2017-10-27)
PROC: 5A1D70Z Performance of Urinary Filtration, Intermittent, Less than 6 Hours Per Day (ICD-10-PCS; 2017-10-28)
PROC: 5A1D70Z Performance of Urinary Filtration, Intermittent, Less than 6 Hours Per Day (ICD-10-PCS; 2017-10-29)
PROC: 5A1D70Z Performance of Urinary Filtration, Intermittent, Less than 6 Hours Per Day (ICD-10-PCS; 2017-10-30)
PROC: 30233S1 Transfusion of Nonautologous Globulin into Peripheral Vein, Percutaneous Approach (ICD-10-PCS; 2017-10-30)
PROC: 0T9B70Z Drainage of Bladder with Drainage Device, Via Natural or Artificial Opening (ICD-10-PCS; 2017-10-31)
PROC: 02HV33Z Insertion of Infusion Device into Superior Vena Cava, Percutaneous Approach (ICD-10-PCS; 2017-10-31)
PROC: 0JH60WZ Insertion of Totally Implantable Vascular Access Device into Chest Subcutaneous Tissue and Fascia, Open Approach (ICD-10-PCS; 2017-10-31)
PROC: 5A1D70Z Performance of Urinary Filtration, Intermittent, Less than 6 Hours Per Day (ICD-10-PCS; 2017-11-01)
DX: K72.00 Acute and subacute hepatic failure without coma (principal); G93.41 Metabolic encephalopathy; N18.6 End stage renal disease; B17.9 Acute viral hepatitis, unspecified; D83.9 Common variable immunodeficiency, unspecified; I50.32 Chronic diastolic (congestive) heart failure; E27.40 Unspecified adrenocortical insufficiency; E44.0 Moderate protein-calorie malnutrition; E87.1 Hypo-osmolality and hyponatremia; I13.2 Hypertensive heart and chronic kidney disease with heart failure and with stage 5 chronic kidney disease, or end stage renal disease; Z99.2 Dependence on renal dialysis; D63.1 Anemia in chronic kidney disease; E87.5 Hyperkalemia; I48.91 Unspecified atrial fibrillation; D53.9 Nutritional anemia, unspecified; E11.22 Type 2 diabetes mellitus with diabetic chronic kidney disease; E11.649 Type 2 diabetes mellitus with hypoglycemia without coma; E11.65 Type 2 diabetes mellitus with hyperglycemia; E78.5 Hyperlipidemia, unspecified; K21.9 Gastro-esophageal reflux disease without esophagitis; M06.9 Rheumatoid arthritis, unspecified; N25.0 Renal osteodystrophy; N40.0 Benign prostatic hyperplasia without lower urinary tract symptoms; Z96.652 Presence of left artificial knee joint; F41.9 Anxiety disorder, unspecified; G40.909 Epilepsy, unspecified, not intractable, without status epilepticus; I25.2 Old myocardial infarction; I27.20 Pulmonary hypertension, unspecified; J44.9 Chronic obstructive pulmonary disease, unspecified; K81.9 Cholecystitis, unspecified; E83.51 Hypocalcemia; Z99.81 Dependence on supplemental oxygen; Z79.82 Long term (current) use of aspirin; Z79.899 Other long term (current) drug therapy; Z87.891 Personal history of nicotine dependence; Z80.8 Family history of malignant neoplasm of other organs or systems; Z86.718 Personal history of other venous thrombosis and embolism; Z90.81 Acquired absence of spleen; Z93.0 Tracheostomy status; Z93.1 Gastrostomy status; Z68.29 Body mass index [BMI] 29.0-29.9, adult; Z98.1 Arthrodesis status
CPT/HCPCS: 36415; 36556; 71045; 76001; 76700; 80053; 81001; 82330; 82533; 82962; 83605; 83735; 84100; 84145; 84443; 85025; 85610; 85730; 87040; 87081; 93005; 96374; J0171; J0697; J1100; J1561; J1644; J2020; J2405; J2543; J2704; J2710; J2720; J3370; J3490; J7042; J7070; C1788; J0360; J0610; J1720; J1815; J7030; J7040; J7050

== ENCOUNTER 2017-11-30 08:12 | Inpatient (IN) | payer MEDICARE, OTHER ==
[~2017-11-30] VITALS: Ht 185.4 cm; Wt 111.4 kg
[~2017-11-30 08:12] MED LIST changes: +HEPARIN SC; +MORP15TA PO; +miralax; +zosyn IVPB
[2017-11-30] MEDS ORDERED: SODIUM CHLORIDE 0.9% 1,000ML IVBOLUS ONE ×2 (09:00→10:00)
[2017-11-30] MEDS ORDERED: SODIUM CHLORIDE FLUSH 10ML SYR IVF ONE (09:00)
[2017-11-30 09:14] LABS: BASOPHILS # (AUTO) 0.02 x10^3/uL (0-0.1); BASOPHILS % (AUTO) 0 % (0-1); EOSINOPHILS # (AUTO) 0.04 x10^3/uL (0-0.4); EOSINOPHILS % (AUTO) 0 % (1-7); LYMPHOCYTES # (AUTO) 0.72 x10^3/uL (1-3.4); LYMPHOCYTES % (AUTO) 5 % (22-44); MD NO; MEAN CORPUSCULAR HEMOGLOBIN 32.6 pg (27.5-34.5); MEAN CORPUSCULAR HGB CONC 32.6 g/dL (33.2-36.2); MEAN CORPUSCULAR VOLUME 99.9 fL (81-97); MEAN PLATELET VOLUME 8.7 fL (7.4-10.4); MONOCYTES # (AUTO) 0.82 x10^3/uL (0.2-0.8); MONOCYTES % (AUTO) 6 % (2-9); NEUTROPHILS # (AUTO) 13.06 x10^3/uL (1.8-6.8); NEUTROPHILS % (AUTO) 89 % (42-75); PLATELET COUNT 458 x10^3/uL (130-400); RED BLOOD COUNT 2.95 x10^6/uL (4.38-5.82); RED CELL DISTRIBUTION WIDTH 18.6 % (9.4-14.8)
[2017-11-30 09:27] LABS: ALANINE AMINOTRANSFERASE 10 U/L (12-78); ALBUMIN 2.3 g/dL (3.4-5.0); ANION GAP 12 mmol/L (5-15); CALCIUM 7.9 mg/dL (8.5-10.1); CHLORIDE 95 mmol/L (98-107); CREATININE 5.64 mg/dL (0.7-1.3)
[2017-11-30 09:28] LABS: INTERNATIONAL NORMALIZED RATIO 1.13 (0.93-1.1); PROTHROMBIN TIME 11.7 Seconds (9.6-11.5)
[2017-11-30 09:32] LABS: ALKALINE PHOSPHATASE 211 U/L (45-117); BILIRUBIN,TOTAL 0.6 mg/dL (0.2-1.0); TOTAL PROTEIN 5.9 g/dL (6.4-8.2); TROPONIN I 0.096 ng/mL (0.000-0.045)
[2017-11-30] MEDS ORDERED: PIPERACILLIN/TAZO/PMX 3.375GM 50 ML ONE (09:41)
[2017-11-30] MEDS ORDERED: NOREPINEPHRINE 4 MG in SODIUM CHLORIDE 0.9% 246 ML IV PRN ×2 (09:54→13:00)
[2017-11-30] MEDS ORDERED: VANCOMYCIN PER PHARMACY MC ONE (10:00)
[2017-11-30] MEDS ORDERED: DEXTROSE 50%, 50ML SYRINGE IVPush ONE (10:00)
[2017-11-30] MEDS ORDERED: PIPERACILLIN/TAZO/PMX 3.375GM 50 ML IVPB ONE (10:00)
[2017-11-30] MEDS ORDERED: VANCOMYCIN 1,600 MG in SODIUM CHLORIDE 0.9% 250 ML IV ONE (10:30)
[2017-11-30] MEDS ORDERED: DEXTROSE 50%, 50ML SYRINGE ONE (10:40)
[2017-11-30] MEDS ORDERED: PIPERACILLIN/TAZO 0.75 GM in SODIUM CHLORIDE 0.9% 50 ML IV SCH (11:00)
[2017-11-30] MEDS ORDERED: POLYETHYLENE GLYCOL 17 GM PACKET PO PRN (11:00)
[2017-11-30] MEDS: INSULIN LISPRO 100 UNITS/ML, PEN SQ-INSULIN SCH ×3 (11:00→21:00)
[2017-11-30] MEDS ORDERED: PIPERACILLIN/TAZO 2.25 GM in SODIUM CHLORIDE 0.9% 50 ML IV SCH (11:00)
[2017-11-30] MEDS ORDERED: ACETAMINOPHEN 325 MG TABLET PO PRN (11:00)
[2017-11-30] MEDS ORDERED: D5%-0.9% NACL 1,000 ML IV SCH (11:00)
[2017-11-30] MEDS: PIPERACILLIN/TAZO/PMX 2.25GM 50 ML IVPB SCH ×3 (12:04→23:51)
[2017-11-30] MEDS: HEPARIN 5,000 UNITS/ML, 1ML SQ SCH ×2 (12:38→21:13)
[2017-11-30] MEDS: LINEZOLID PMX 600MG/300ML 300 ML IV SCH (12:38)
[2017-11-30] MEDS ORDERED: ERGOCALCIFEROL 50,000 UNIT CAPSULE PO SCH (13:00)
[2017-11-30 14:28] LABS: CALCIUM 7.6 mg/dL (8.5-10.1)
[2017-11-30] MEDS ORDERED: HYDROcodone/APAP 10/325 MG TABLET PO SCH (16:00)
[2017-11-30] MEDS: SEVELAMER CARBONATE 800MG TAB PO SCH ×2 (17:14→21:14)
[2017-11-30] MEDS ORDERED: HYDROCORTISONE 20 MG PO SCH (21:00)
[2017-11-30] MEDS: ATORVASTATIN 80 MG TABLET PO SCH (21:14)
[2017-11-30] MEDS: LEVETIRACETAM 500 MG TABLET PO SCH (21:14)
[2017-12-01] MEDS: LINEZOLID PMX 600MG/300ML 300 ML IV SCH ×2 (01:30→13:02)
[2017-12-01] MEDS: HEPARIN 5,000 UNITS/ML, 1ML SQ SCH ×3 (03:58→20:56)
[2017-12-01] MEDS: PIPERACILLIN/TAZO/PMX 2.25GM 50 ML IVPB SCH ×3 (03:58→20:57)
[2017-12-01] MEDS: HYDROcodone/APAP 10/325 MG TABLET PO PRN ×3 (03:58→18:30)
[2017-12-01 04:02] VITALS: BP 135/69
[2017-12-01 04:55] LABS: BASOPHILS # (AUTO) 0.51 x10^3/uL (0-0.1); BASOPHILS % (AUTO) 3 % (0-1); EOSINOPHILS % (AUTO) 1 % (1-7); LYMPHOCYTES # (AUTO) 1.58 x10^3/uL (1-3.4); LYMPHOCYTES % (AUTO) 10 % (22-44); MD NO; MEAN CORPUSCULAR HEMOGLOBIN 33.6 pg (27.5-34.5); MEAN CORPUSCULAR HGB CONC 33.6 g/dL (33.2-36.2); MEAN PLATELET VOLUME 9.1 fL (7.4-10.4); MONOCYTES # (AUTO) 1.17 x10^3/uL (0.2-0.8); MONOCYTES % (AUTO) 7 % (2-9); NEUTROPHILS # (AUTO) 12.52 x10^3/uL (1.8-6.8); NEUTROPHILS % (AUTO) 78 % (42-75); PLATELET COUNT 401 x10^3/uL (130-400); RED BLOOD COUNT 2.64 x10^6/uL (4.38-5.82); RED CELL DISTRIBUTION WIDTH 18.9 % (9.4-14.8)
[2017-12-01 05:54] LABS: ALANINE AMINOTRANSFERASE 10 U/L (12-78); ALBUMIN 2.2 g/dL (3.4-5.0); ANION GAP 11 mmol/L (5-15); CALCIUM 8.3 mg/dL (8.5-10.1); CHLORIDE 96 mmol/L (98-107); CREATININE 6.31 mg/dL (0.7-1.3)
[2017-12-01 05:57] LABS: ALKALINE PHOSPHATASE 183 U/L (45-117); BILIRUBIN,TOTAL 0.5 mg/dL (0.2-1.0); TOTAL PROTEIN 5.9 g/dL (6.4-8.2)
[2017-12-01] MEDS: INSULIN LISPRO 100 UNITS/ML, PEN SQ-INSULIN SCH ×4 (06:00→21:00)
[2017-12-01] MEDS: SENNA/DOCUSATE TABLET PO SCH ×2 (09:00→09:10)
[2017-12-01] MEDS: LEVETIRACETAM 500 MG TABLET PO SCH ×2 (09:09→20:56)
[2017-12-01] MEDS: ACYCLOVIR 200 MG CAPSULE PO SCH (09:09)
[2017-12-01] MEDS: PANTOPROZOLE 40MG TABLET PO SCH ×2 (09:10→20:56)
[2017-12-01] MEDS: ASPIRIN 81 MG TABLET EC PO SCH (09:11)
[2017-12-01] MEDS: SEVELAMER CARBONATE 800MG TAB PO SCH ×3 (09:14→20:57)
[2017-12-01] MEDS: LEFLUNOMIDE 20 MG TABLET PO SCH (09:14)
[2017-12-01] MEDS ORDERED: ARANESP 60 MCG/ML **ESRD SQ SCH (11:00)
[2017-12-01] MEDS: ONDANSETRON ODT 4 MG PO PRN (16:00)
[2017-12-01] MEDS: ATORVASTATIN 80 MG TABLET PO SCH (20:56)
[2017-12-01] MEDS ORDERED: INSULIN LISPRO 100 UNITS/ML, PEN SQ-INSULIN SCH (21:00)
[2017-12-01] MEDS: HYDROCORTISONE 20 MG TABLET PO SCH (23:08)
[2017-12-02] MEDS: LINEZOLID PMX 600MG/300ML 300 ML IV SCH ×2 (00:08→14:41)
[2017-12-02] MEDS: HYDROcodone/APAP 10/325 MG TABLET PO PRN ×2 (00:09→06:42)
[2017-12-02] MEDS: PIPERACILLIN/TAZO/PMX 2.25GM 50 ML IVPB SCH ×4 (03:45→23:59)
[2017-12-02 03:46] VITALS: BP 114/60
[2017-12-02] MEDS: HEPARIN 5,000 UNITS/ML, 1ML SQ SCH ×3 (03:46→20:33)
[2017-12-02] MEDS: INSULIN LISPRO 100 UNITS/ML, PEN SQ-INSULIN SCH ×4 (06:44→20:34)
[2017-12-02] MEDS: SENNA/DOCUSATE TABLET PO SCH (09:00)
[2017-12-02] MEDS: ACYCLOVIR 200 MG CAPSULE PO SCH (09:50)
[2017-12-02] MEDS: ASPIRIN 81 MG TABLET EC PO SCH (09:50)
[2017-12-02] MEDS: LEVETIRACETAM 500 MG TABLET PO SCH ×2 (09:50→20:34)
[2017-12-02] MEDS: SEVELAMER CARBONATE 800MG TAB PO SCH ×3 (09:50→20:33)
[2017-12-02] MEDS: PANTOPROZOLE 40MG TABLET PO SCH ×2 (09:51→20:34)
[2017-12-02] MEDS: HYDROCORTISONE 20 MG TABLET PO SCH ×2 (10:04→20:34)
[2017-12-02] MEDS: LEFLUNOMIDE 20 MG TABLET PO SCH (10:04)
[2017-12-02 12:20] VITALS: BP 136/78
[2017-12-02 20:17] VITALS: BP 138/79
[2017-12-02] MEDS: ATORVASTATIN 80 MG TABLET PO SCH (20:34)
[2017-12-03 01:32] VITALS: BP 161/90
[2017-12-03] MEDS: LINEZOLID PMX 600MG/300ML 300 ML IV SCH ×2 (01:46→14:16)
[2017-12-03] MEDS: HYDROcodone/APAP 10/325 MG TABLET PO PRN ×3 (03:00→17:47)
[2017-12-03] MEDS: HEPARIN 5,000 UNITS/ML, 1ML SQ SCH ×3 (04:49→21:26)
[2017-12-03] MEDS: PIPERACILLIN/TAZO/PMX 2.25GM 50 ML IVPB SCH ×4 (04:59→23:45)
[2017-12-03 05:36] LABS: MEAN CORPUSCULAR HEMOGLOBIN 33.3 pg (27.5-34.5); MEAN CORPUSCULAR HGB CONC 33.5 g/dL (33.2-36.2); MEAN CORPUSCULAR VOLUME 99.5 fL (81-97); PLATELET COUNT 478 x10^3/uL (130-400); RED BLOOD COUNT 2.81 x10^6/uL (4.38-5.82); RED CELL DISTRIBUTION WIDTH 18.2 % (9.4-14.8)
[2017-12-03 05:37] LABS: ALANINE AMINOTRANSFERASE 9 U/L (12-78); ALBUMIN 2.2 g/dL (3.4-5.0); ANION GAP 8 mmol/L (5-15); CALCIUM 8.5 mg/dL (8.5-10.1); CHLORIDE 93 mmol/L (98-107); CREATININE 4.15 mg/dL (0.7-1.3)
[2017-12-03 05:39] LABS: ALKALINE PHOSPHATASE 220 U/L (45-117); BILIRUBIN,TOTAL 0.5 mg/dL (0.2-1.0); TOTAL PROTEIN 6.1 g/dL (6.4-8.2)
[2017-12-03 05:57] LABS: BASOPHILS # (AUTO) 0.05 x10^3/uL (0-0.1); BASOPHILS % (AUTO) 0 % (0-1); EOSINOPHILS # (AUTO) 0.01 x10^3/uL (0-0.4); EOSINOPHILS % (AUTO) 0 % (1-7); LYMPHOCYTES % (AUTO) 9 % (22-44); MD MORPH REVIEW ONLY; MONOCYTES # (AUTO) 1.16 x10^3/uL (0.2-0.8); MONOCYTES % (AUTO) 11 % (2-9); NEUTROPHILS # (AUTO) 8.52 x10^3/uL (1.8-6.8); NEUTROPHILS % (AUTO) 79 % (42-75)
[2017-12-03 05:58] LABS: ANISOCYTOSIS 1+; POLYCHROMASIA 1+; TARGET CELLS 1+
[2017-12-03 06:00] LABS: <PLATELET ESTIMATE> INCREASED; ACANTHOCYTES 1+; MICROCYTOSIS 1+; OVALOCYTES 1+; SCHISTOCYTES 1+; SPHEROCYTES 1+
[2017-12-03 06:01] LABS: <PLT MORPHOLOGY> NORMAL PLT MORPH; TOXIC GRAN 1+
[2017-12-03] MEDS: INSULIN LISPRO 100 UNITS/ML, PEN SQ-INSULIN SCH ×4 (07:00→21:00)
[2017-12-03] MEDS: SEVELAMER CARBONATE 800MG TAB PO SCH ×3 (08:07→21:27)
[2017-12-03] MEDS: ACYCLOVIR 200 MG CAPSULE PO SCH (08:07)
[2017-12-03] MEDS: LEVETIRACETAM 500 MG TABLET PO SCH ×2 (08:07→21:30)
[2017-12-03] MEDS: PANTOPROZOLE 40MG TABLET PO SCH ×2 (08:08→21:30)
[2017-12-03] MEDS: SENNA/DOCUSATE TABLET PO SCH (08:08)
[2017-12-03] MEDS: HYDROCORTISONE 20 MG TABLET PO SCH ×2 (08:08→21:30)
[2017-12-03] MEDS: LEFLUNOMIDE 20 MG TABLET PO SCH (08:08)
[2017-12-03] MEDS: ASPIRIN 81 MG TABLET EC PO SCH (08:08)
[2017-12-03 08:18] VITALS: BP 180/79
[2017-12-03] MEDS: ONDANSETRON 2MG/ML, 2ML IVPush PRN (11:05)
[2017-12-03] MEDS: ONDANSETRON ODT 4 MG PO PRN (13:08)
[2017-12-03 13:29] VITALS: BP 170/97
[2017-12-03] MEDS: AMLODIPINE 5 MG TABLET PO SCH ×2 (17:47→21:31)
[2017-12-03] MEDS: CARVEDILOL 6.25 MG TABLET PO SCH (17:48)
[2017-12-03 20:41] VITALS: BP 165/84
[2017-12-03] MEDS: ATORVASTATIN 80 MG TABLET PO SCH (21:30)
[2017-12-04 01:04] VITALS: BP 164/80
[2017-12-04] MEDS: LINEZOLID PMX 600MG/300ML 300 ML IV SCH (02:19)
[2017-12-04 05:00] VITALS: BP 180/88
[2017-12-04] MEDS: HEPARIN 5,000 UNITS/ML, 1ML SQ SCH ×3 (05:34→20:55)
[2017-12-04] MEDS: CARVEDILOL 6.25 MG TABLET PO SCH ×2 (05:34→18:41)
[2017-12-04] MEDS: PIPERACILLIN/TAZO/PMX 2.25GM 50 ML IVPB SCH ×2 (05:35→11:45)
[2017-12-04 06:14] LABS: MEAN CORPUSCULAR HEMOGLOBIN 33.6 pg (27.5-34.5); MEAN CORPUSCULAR HGB CONC 33.8 g/dL (33.2-36.2); MEAN CORPUSCULAR VOLUME 99.3 fL (81-97); MEAN PLATELET VOLUME 8.6 fL (7.4-10.4); PLATELET COUNT 525 x10^3/uL (130-400); RED BLOOD COUNT 2.89 x10^6/uL (4.38-5.82); RED CELL DISTRIBUTION WIDTH 18.8 % (9.4-14.8)
[2017-12-04 06:26] LABS: ALBUMIN 2.3 g/dL (3.4-5.0); ANION GAP 10 mmol/L (5-15); CALCIUM 8.6 mg/dL (8.5-10.1); CHLORIDE 92 mmol/L (98-107)
[2017-12-04 06:29] LABS: CREATININE 5.34 mg/dL (0.7-1.3)
[2017-12-04 06:37] LABS: BASOPHILS # (AUTO) 0.02 x10^3/uL (0-0.1); BASOPHILS % (AUTO) 0 % (0-1); EOSINOPHILS # (AUTO) 0.01 x10^3/uL (0-0.4); EOSINOPHILS % (AUTO) 0 % (1-7); LYMPHOCYTES # (AUTO) 0.95 x10^3/uL (1-3.4); LYMPHOCYTES % (AUTO) 12 % (22-44); MD SCAN; MONOCYTES # (AUTO) 1.12 x10^3/uL (0.2-0.8); MONOCYTES % (AUTO) 14 % (2-9); NEUTROPHILS # (AUTO) 6.09 x10^3/uL (1.8-6.8); NEUTROPHILS % (AUTO) 74 % (42-75)
[2017-12-04 07:53] VITALS: BP 164/77
[2017-12-04] MEDS: INSULIN LISPRO 100 UNITS/ML, PEN SQ-INSULIN SCH ×4 (07:55→21:00)
[2017-12-04] MEDS: PANTOPROZOLE 40MG TABLET PO SCH ×2 (08:22→20:55)
[2017-12-04] MEDS: ACYCLOVIR 200 MG CAPSULE PO SCH (08:22)
[2017-12-04] MEDS: HYDROcodone/APAP 10/325 MG TABLET PO PRN ×2 (08:22→21:59)
[2017-12-04] MEDS: SEVELAMER CARBONATE 800MG TAB PO SCH ×3 (08:23→20:55)
[2017-12-04] MEDS: LEVETIRACETAM 500 MG TABLET PO SCH ×2 (08:23→20:55)
[2017-12-04] MEDS: ASPIRIN 81 MG TABLET EC PO SCH (08:23)
[2017-12-04] MEDS: AMLODIPINE 5 MG TABLET PO SCH ×2 (08:24→20:55)
[2017-12-04] MEDS: HYDROCORTISONE 20 MG TABLET PO SCH ×2 (08:24→20:54)
[2017-12-04] MEDS: SENNA/DOCUSATE TABLET PO SCH (08:24)
[2017-12-04] MEDS: ONDANSETRON 2MG/ML, 2ML IVPush PRN (08:27)
[2017-12-04] MEDS: LEFLUNOMIDE 20 MG TABLET PO SCH (08:56)
[2017-12-04] MEDS ORDERED: LINEZOLID 600 MG TABLET PO SCH (14:00)
[2017-12-04 14:38] VITALS: BP 166/93
[2017-12-04] MEDS: CEPHALEXIN 500 MG CAPSULE PO SCH (17:28)
[2017-12-04 17:49] VITALS: BP 174/83
[2017-12-04] MEDS: DOXYCYCLINE 100MG TABLET PO SCH (20:55)
[2017-12-04] MEDS: ATORVASTATIN 80 MG TABLET PO SCH (20:55)
[2017-12-04 23:01] VITALS: BP 130/76
[2017-12-05 00:48] VITALS: BP 152/64
[2017-12-05] MEDS: CEPHALEXIN 500 MG CAPSULE PO SCH (05:13)
[2017-12-05] MEDS: HEPARIN 5,000 UNITS/ML, 1ML SQ SCH (05:13)
[2017-12-05] MEDS: CARVEDILOL 6.25 MG TABLET PO SCH (05:14)
[2017-12-05] MEDS: HYDROcodone/APAP 10/325 MG TABLET PO PRN ×2 (05:41→11:32)
[2017-12-05 06:06] LABS: ALBUMIN 2.3 g/dL (3.4-5.0); ANION GAP 10 mmol/L (5-15); CALCIUM 8.3 mg/dL (8.5-10.1); CHLORIDE 93 mmol/L (98-107)
[2017-12-05 06:10] LABS: ALANINE AMINOTRANSFERASE 10 U/L (12-78); ALKALINE PHOSPHATASE 197 U/L (45-117); BILIRUBIN,TOTAL 0.7 mg/dL (0.2-1.0); CREATININE 4.22 mg/dL (0.7-1.3); TOTAL PROTEIN 6.1 g/dL (6.4-8.2)
[2017-12-05 06:19] LABS: MEAN CORPUSCULAR HEMOGLOBIN 33.3 pg (27.5-34.5); MEAN CORPUSCULAR HGB CONC 33.4 g/dL (33.2-36.2); MEAN CORPUSCULAR VOLUME 99.8 fL (81-97); MEAN PLATELET VOLUME 8.9 fL (7.4-10.4); PLATELET COUNT 516 x10^3/uL (130-400); RED BLOOD COUNT 2.94 x10^6/uL (4.38-5.82); RED CELL DISTRIBUTION WIDTH 18.4 % (9.4-14.8)
[2017-12-05 06:42] VITALS: BP 145/74
[2017-12-05 07:12] LABS: MD YES
[2017-12-05 07:14] LABS: EOS#(MANUAL) 0.08 x10^3/uL (0.0-0.4); EOS% (MANUAL) 1 % (1-7); LYMPH#(MANUAL) 1.14 x10^3/uL (1-3.4); LYMPHS% (MANUAL) 15 % (22-44); MONOS#(MANUAL) 1.14 x10^3/uL (0.3-2.7); MONOS% (MANUAL) 15 % (2-9); SEG#(MANUAL) 5.24 x10^3/uL (1.8-6.8); SEGS% (MANUAL) 69 % (42-75); SPHEROCYTES 1+
[2017-12-05 07:15] LABS: ANISOCYTOSIS 1+; MICROCYTOSIS 1+; OVALOCYTES 1+; POLYCHROMASIA 1+; TARGET CELLS 1+
[2017-12-05 07:16] LABS: <PLATELET ESTIMATE> INCREASED; <PLT MORPHOLOGY> NORMAL PLT MORPH; SCHISTOCYTES 1+
[2017-12-05] MEDS: LEFLUNOMIDE 20 MG TABLET PO SCH (08:41)
[2017-12-05] MEDS: ACYCLOVIR 200 MG CAPSULE PO SCH (08:41)
[2017-12-05] MEDS: PANTOPROZOLE 40MG TABLET PO SCH (08:42)
[2017-12-05] MEDS: LEVETIRACETAM 500 MG TABLET PO SCH (08:43)
[2017-12-05] MEDS: AMLODIPINE 5 MG TABLET PO SCH (08:43)
[2017-12-05] MEDS: HYDROCORTISONE 20 MG TABLET PO SCH (08:43)
[2017-12-05] MEDS: INSULIN LISPRO 100 UNITS/ML, PEN SQ-INSULIN SCH ×2 (08:44→11:35)
[2017-12-05] MEDS: DOXYCYCLINE 100MG TABLET PO SCH (08:44)
[2017-12-05] MEDS: ASPIRIN 81 MG TABLET EC PO SCH (08:44)
[2017-12-05] MEDS: SEVELAMER CARBONATE 800MG TAB PO SCH (08:44)
[2017-12-05] MEDS: SENNA/DOCUSATE TABLET PO SCH (08:45)
[2017-12-05] MEDS ORDERED: DOXY100T PO (10:05)
[2017-12-05] MEDS ORDERED: CEPH-376 PO (10:05)
[2017-12-05 12:19] VITALS: BP 168/83
== END 2017-12-05 12:15 | disposition home health service (06) | DRG 871 ==
LOC: ED 10:33 → CCU 10:34 → ED 11:10 → 4EST 12-02 11:53
PROVIDERS: ADMIT Internal Medicine; ATTEND Internal Medicine
PROC: 5A1D70Z Performance of Urinary Filtration, Intermittent, Less than 6 Hours Per Day (ICD-10-PCS; principal; 2017-12-01)
PROC: 5A1D70Z Performance of Urinary Filtration, Intermittent, Less than 6 Hours Per Day (ICD-10-PCS; 2017-12-02)
PROC: 5A1D70Z Performance of Urinary Filtration, Intermittent, Less than 6 Hours Per Day (ICD-10-PCS; 2017-12-04)
DX: A41.9 Sepsis, unspecified organism (principal); G93.41 Metabolic encephalopathy; E43 Unspecified severe protein-calorie malnutrition; J96.01 Acute respiratory failure with hypoxia; N18.6 End stage renal disease; J18.1 Lobar pneumonia, unspecified organism; R65.21 Severe sepsis with septic shock; D83.9 Common variable immunodeficiency, unspecified; E27.40 Unspecified adrenocortical insufficiency; I13.2 Hypertensive heart and chronic kidney disease with heart failure and with stage 5 chronic kidney disease, or end stage renal disease; I50.32 Chronic diastolic (congestive) heart failure; B95.2 Enterococcus as the cause of diseases classified elsewhere; D63.1 Anemia in chronic kidney disease; E11.22 Type 2 diabetes mellitus with diabetic chronic kidney disease; E11.649 Type 2 diabetes mellitus with hypoglycemia without coma; G40.909 Epilepsy, unspecified, not intractable, without status epilepticus; I48.91 Unspecified atrial fibrillation; K21.9 Gastro-esophageal reflux disease without esophagitis; M06.9 Rheumatoid arthritis, unspecified; N25.0 Renal osteodystrophy; N40.0 Benign prostatic hyperplasia without lower urinary tract symptoms; Z96.652 Presence of left artificial knee joint; Z79.899 Other long term (current) drug therapy; Z80.8 Family history of malignant neoplasm of other organs or systems; Z86.718 Personal history of other venous thrombosis and embolism; Z87.891 Personal history of nicotine dependence; Z90.81 Acquired absence of spleen; Z93.0 Tracheostomy status; Z93.1 Gastrostomy status; Z99.2 Dependence on renal dialysis; Z68.32 Body mass index [BMI] 32.0-32.9, adult; I25.2 Old myocardial infarction
CPT/HCPCS: 36415; 70450; 71045; 74230; 80053; 80069; 80177; 80307; 82140; 82306; 82310; 82330; 82533; 82728; 82962; 83036; 83540; 83550; 83605; 83735; 83970; 84100; 84484; 84550; 85025; 85610; 85730; 87040; 87081; 93005; 96365; 99285; J0882; J1644; J2020; J2405; J2543; J3370; J7042; Q0162; J1815; J7030; J7050

== ENCOUNTER → 2018-02-26 | Outpatient (CLI) | payer MEDICARE, OTHER ==
[~2018-02-26] MED LIST changes: -AMLO2.5T PO; +AMLO2.5T3 PO; -AMLO5TAB2 PO; +AMLO5TAB7 PO; +CEPH-376 PO; +DOXY100T PO; +HYDR-3622 PO; -HYDR-879 PO; +LINE600T33 PO; -LINE600T7 PO; -LOSA25TA5 PO; +LOSA25TA6 PO; -LOSA50TA6 PO; +LOSA50TA7 PO; -SENN1TAB7 PO; +SENN1TAB8 PO
== END | disposition home or self-care (01) ==
LOC: CFH 11:22
PROVIDERS: ATTEND Family Medicine
DX: R06.02 Shortness of breath (principal); R05 Cough
CPT/HCPCS: 71046

== ENCOUNTER 2019-12-08 13:29 | Outpatient (CLI) | payer MEDICARE, OTHER ==
[~2019-12-08 13:29] MED LIST changes: -ALEN70TA5 PO; +ALEN70TA6 PO; +AMLO-150 PO; -AMLO2.5T3 PO; +AMLO2.5T5 PO; -AMLO5TAB7 PO; +HYDR-3246 PO; -HYDR-3307 PO; +HYDR-3590 PO; -HYDR10TA11 PO; -HYDR20TA22 PO; +HYDR20TA23 PO; +LINE600T15 PO; -LINE600T33 PO; +LOSA25TA25 PO; -LOSA25TA6 PO; +LOSA50TA14 PO; -LOSA50TA7 PO; -MAGN400T7 PO; +MAGN400T9 PO; +MORP-29 PO; -MORP15TA3 PO; +SENN-177 PO; -SENN1TAB8 PO
[2019-12-08] MEDS ORDERED: TOFA5TAB PO (14:01)
[2019-12-08] MEDS ORDERED: HYDR-3240 PO (14:01)
[2019-12-08] MEDS ORDERED: GABA100C PO (14:01)
[2019-12-08] MEDS ORDERED: ACYC-113 PO (14:01)
[2019-12-08] MEDS ORDERED: OMEP40CA42 PO (14:01)
[2019-12-08] MEDS ORDERED: VALP250C59 PO (14:01)
[2019-12-08] MEDS ORDERED: DOXY100T PO (14:01)
[2019-12-08 15:18] LABS: BASOPHILS # (AUTO) 0.03 x10^3/uL (0-0.1); BASOPHILS % (AUTO) 0 % (0-1); EOSINOPHILS # (AUTO) 0.05 x10^3/uL (0-0.4); EOSINOPHILS % (AUTO) 1 % (1-7); LYMPHOCYTES # (AUTO) 3.39 x10^3/uL (1-3.4); LYMPHOCYTES % (AUTO) 45 % (22-44); MD NO; MEAN CORPUSCULAR HEMOGLOBIN 33.3 pg (27.5-34.5); MEAN CORPUSCULAR HGB CONC 31.8 g/dL (33.2-36.2); MEAN CORPUSCULAR VOLUME 104.7 fL (81-97); MEAN PLATELET VOLUME 8.9 fL (7.4-10.4); MONOCYTES # (AUTO) 1.17 x10^3/uL (0.2-0.8); MONOCYTES % (AUTO) 16 % (2-9); NEUTROPHILS # (AUTO) 2.84 x10^3/uL (1.8-6.8); NEUTROPHILS % (AUTO) 38 % (42-75); PLATELET COUNT 347 x10^3/uL (130-400); RED BLOOD COUNT 3.67 x10^6/uL (4.38-5.82); RED CELL DISTRIBUTION WIDTH 18.4 % (9.4-14.8)
[2019-12-08 15:24] LABS: ALANINE AMINOTRANSFERASE 14 U/L (12-78); ALBUMIN 2.8 g/dL (3.4-5.0); ANION GAP 5 mmol/L (5-15); CALCIUM 8.5 mg/dL (8.5-10.1); CHLORIDE 104 mmol/L (98-107)
[2019-12-08 15:26] LABS: ALKALINE PHOSPHATASE 207 U/L (45-117); BILIRUBIN,TOTAL 0.5 mg/dL (0.2-1.0); CREATININE 6.25 mg/dL (0.7-1.3); TOTAL PROTEIN 6.8 g/dL (6.4-8.2)
[2019-12-08 15:35] LABS: INTERNATIONAL NORMALIZED RATIO 1.07 (0.93-1.1); PROTHROMBIN TIME 11.4 Seconds (9.6-11.5)
== END 2019-12-08 23:59 | disposition home or self-care (01) ==
LOC: STAR 13:29
PROVIDERS: ATTEND Surgery
DX: Z01.818 Encounter for other preprocedural examination (principal); Z11.59 Encounter for screening for other viral diseases; I77.0 Arteriovenous fistula, acquired
CPT/HCPCS: 36415; 80053; 85025; 85610; 85730; 87635; 93005

== ENCOUNTER 2019-12-12 13:07 | Day surgery (SDC) | payer MEDICARE, OTHER ==
[~2019-12-12] VITALS: Ht 190.5 cm; Wt 91.0 kg
[~2019-12-12 13:07] MED LIST changes: +OMEP40CA42 PO; +VALP250C59 PO
[2019-12-12] MEDS ORDERED: CHLORHEXIDINE 15 ML UDC MM STA (13:20)
[2019-12-12] MEDS ORDERED: SODIUM CHLORIDE 0.9% 1,000 ML IV SCH (13:20)
[2019-12-12 13:21] VITALS: BP 168/89
[2019-12-12] MEDS ORDERED: CHLORHEXIDINE 15 ML UDC ONE (13:21)
[2019-12-12] MEDS ORDERED: HEPARIN 1,000 UNITS/ML, 10ML ONE (13:55)
[2019-12-12] MEDS ORDERED: PROTAMINE SULFATE 10 MG/ML, 5ML ONE (13:55)
[2019-12-12] MEDS ORDERED: BUPIVACAINE/PF-EPI 0.5% 1:200K ONE (13:55)
[2019-12-12] MEDS ORDERED: PAPAVERINE 30 MG/ML, 2ML ONE (13:55)
[2019-12-12] MEDS ORDERED: BACITRACIN 50,000 UNIT ONE (13:56)
[2019-12-12] MEDS ORDERED: LIDOCAINE 1%, 20ML ONE (13:56)
[2019-12-12] MEDS ORDERED: HYDROmorphone 1 MG/ML, 1ML INJ IVPush PRN (14:30)
[2019-12-12] MEDS ORDERED: PROMETHAZINE 25 MG/ML, 1ML IVPush PRN (14:30)
[2019-12-12] MEDS ORDERED: hydrALAzine 20 MG/ML, 1ML IV PRN (14:30)
[2019-12-12] MEDS ORDERED: FENTANYL PF 100 MCG/2ML IV PRN (14:30)
[2019-12-12] MEDS ORDERED: OXYcodone 5 MG/5 ML ORAL.SOL UDC PO PRN (14:30)
[2019-12-12] MEDS ORDERED: HALOPERIDOL 5 MG/ML IV PRN (14:30)
[2019-12-12] MEDS ORDERED: LABETALOL 5MG/ML, 20ML IV PRN (14:30)
[2019-12-12] MEDS ORDERED: FENTANYL PF 100 MCG/2ML ONE (14:41)
[2019-12-12] MEDS ORDERED: PHENYLEPHRINE 10 MG/ML ONE (15:23)
[2019-12-12] MEDS ORDERED: BUPIVACAINE/PF 0.25% ONE (16:13)
[2019-12-12] MEDS ORDERED: CEFAZOLIN 1,000 MG ONE (16:35)
[2019-12-12] MEDS ORDERED: PROPOFOL 10 MG/ML, 20ML ONE (16:35)
[2019-12-12] MEDS ORDERED: DEXAMETHASONE 4 MG/ML, 1ML ONE (16:35)
[2019-12-12] MEDS ORDERED: ONDANSETRON 2MG/ML, 2ML ONE (16:35)
== END 2019-12-12 18:20 | disposition home or self-care (01) ==
LOC: OR 13:07
PROVIDERS: ATTEND Surgery
DX: T82.898A Other specified complication of vascular prosthetic devices, implants and grafts, initial encounter (principal); N18.6 End stage renal disease; D64.9 Anemia, unspecified; J44.9 Chronic obstructive pulmonary disease, unspecified; K21.9 Gastro-esophageal reflux disease without esophagitis; G43.909 Migraine, unspecified, not intractable, without status migrainosus; M06.9 Rheumatoid arthritis, unspecified; F17.210 Nicotine dependence, cigarettes, uncomplicated; Z88.8 Allergy status to other drugs, medicaments and biological substances; Y83.8 Other surgical procedures as the cause of abnormal reaction of the patient, or of later complication, without mention of misadventure at the time of the procedure
CPT/HCPCS: 36415; 36832; 80047; J0690; J1100; J1644; J2370; J2405; J2704; J2720; J3010; J3490; J2440

== ENCOUNTER → 2020-05-17 | Outpatient (CLI) | payer MEDICARE, OTHER ==
[~2020-05-17] MED LIST changes: +ACET325T26 PO; -ALEN70TA6 PO; +ALEN70TA77 PO; +CLON-364 PO; +FERR-51 PO; +HYDR20TA2 PO; -HYDR20TA23 PO; +HYDR5TAB PO; -PANT40TA5 PO; +PANT40TA6 PO; +SENN-99 PO
== END | disposition home or self-care (01) ==
LOC: RAD 10:37
PROVIDERS: ATTEND Internal Medicine Infectious Disease
DX: M86.172 Other acute osteomyelitis, left ankle and foot (principal)
CPT/HCPCS: 78315; A9503

== ENCOUNTER 2020-05-25 10:18 | Outpatient (CLI) | payer MEDICARE, OTHER ==
[~2020-05-25 10:18] MED LIST changes: +HYDR-1067 PO; -HYDR-3240 PO; -HYDR-3246 PO; +HYDR-3248 PO
== END 2020-05-25 23:59 | disposition home or self-care (01) ==
LOC: CFH 10:18
PROVIDERS: ATTEND Family Medicine
DX: M15.9 Polyosteoarthritis, unspecified (principal); Z96.642 Presence of left artificial hip joint
CPT/HCPCS: 73523

== ENCOUNTER 2020-06-01 10:02 | Outpatient (CLI) | payer MEDICARE, OTHER ==
[~2020-06-01 10:02] MED LIST changes: -ASPI-515 PO; +ASPI-963 PO; -HYDR-3245 PO; +HYDR1TAB53 PO; -HYDR20TA2 PO; +HYDR20TA24 PO; +METH-640 PO; -METH750T2 PO
== END 2020-06-01 23:59 | disposition home or self-care (01) ==
LOC: WOUND 10:02
PROVIDERS: ATTEND Internal Medicine
DX: E11.621 Type 2 diabetes mellitus with foot ulcer (principal); L97.522 Non-pressure chronic ulcer of other part of left foot with fat layer exposed; E11.69 Type 2 diabetes mellitus with other specified complication; M86.072 Acute hematogenous osteomyelitis, left ankle and foot; E11.22 Type 2 diabetes mellitus with diabetic chronic kidney disease; I12.0 Hypertensive chronic kidney disease with stage 5 chronic kidney disease or end stage renal disease; N18.6 End stage renal disease; G90.09 Other idiopathic peripheral autonomic neuropathy; M15.9 Polyosteoarthritis, unspecified; E78.5 Hyperlipidemia, unspecified; M06.9 Rheumatoid arthritis, unspecified; E11.42 Type 2 diabetes mellitus with diabetic polyneuropathy; Z96.642 Presence of left artificial hip joint; Z99.2 Dependence on renal dialysis; Z87.891 Personal history of nicotine dependence
CPT/HCPCS: 97597; G0463

== ENCOUNTER 2020-06-08 11:08 | Outpatient (CLI) | payer MEDICARE, OTHER | END 2020-06-08 23:59 | disposition home or self-care (01) | LOC: WOUND 11:08 | PROVIDERS: ATTEND Internal Medicine | DX: E11.621 Type 2 diabetes mellitus with foot ulcer (principal); L97.521 Non-pressure chronic ulcer of other part of left foot limited to breakdown of skin; E11.42 Type 2 diabetes mellitus with diabetic polyneuropathy; E11.69 Type 2 diabetes mellitus with other specified complication; M86.072 Acute hematogenous osteomyelitis, left ankle and foot; E11.22 Type 2 diabetes mellitus with diabetic chronic kidney disease; I12.0 Hypertensive chronic kidney disease with stage 5 chronic kidney disease or end stage renal disease; N18.6 End stage renal disease; M06.9 Rheumatoid arthritis, unspecified; E78.5 Hyperlipidemia, unspecified; Z87.891 Personal history of nicotine dependence; Z99.2 Dependence on renal dialysis; Z96.652 Presence of left artificial knee joint; Z96.642 Presence of left artificial hip joint | CPT/HCPCS: G0463 ==

== ENCOUNTER 2020-06-15 11:00 | Outpatient (CLI) | payer MEDICARE, OTHER | END 2020-06-15 23:59 | disposition home or self-care (01) | LOC: WOUND 11:00 | PROVIDERS: ATTEND Internal Medicine | DX: E11.621 Type 2 diabetes mellitus with foot ulcer (principal); L97.521 Non-pressure chronic ulcer of other part of left foot limited to breakdown of skin; E11.69 Type 2 diabetes mellitus with other specified complication; M86.072 Acute hematogenous osteomyelitis, left ankle and foot; E11.42 Type 2 diabetes mellitus with diabetic polyneuropathy; E11.22 Type 2 diabetes mellitus with diabetic chronic kidney disease; I12.0 Hypertensive chronic kidney disease with stage 5 chronic kidney disease or end stage renal disease; N18.6 End stage renal disease; M06.9 Rheumatoid arthritis, unspecified; M13.0 Polyarthritis, unspecified; E78.5 Hyperlipidemia, unspecified; Z99.2 Dependence on renal dialysis; Z87.891 Personal history of nicotine dependence; Z96.652 Presence of left artificial knee joint; Z96.642 Presence of left artificial hip joint | CPT/HCPCS: 97597 ==

== ENCOUNTER → 2020-06-22 | Outpatient (CLI) | payer MEDICARE, OTHER | END | disposition home or self-care (01) | LOC: WOUND 10:51 | PROVIDERS: ATTEND Internal Medicine | DX: E11.621 Type 2 diabetes mellitus with foot ulcer (principal); L97.522 Non-pressure chronic ulcer of other part of left foot with fat layer exposed; E11.43 Type 2 diabetes mellitus with diabetic autonomic (poly)neuropathy; E11.69 Type 2 diabetes mellitus with other specified complication; M86.072 Acute hematogenous osteomyelitis, left ankle and foot; M06.9 Rheumatoid arthritis, unspecified; E11.22 Type 2 diabetes mellitus with diabetic chronic kidney disease; I12.0 Hypertensive chronic kidney disease with stage 5 chronic kidney disease or end stage renal disease; N18.6 End stage renal disease; E78.5 Hyperlipidemia, unspecified; L84 Corns and callosities; Z96.642 Presence of left artificial hip joint; Z96.652 Presence of left artificial knee joint; Z99.2 Dependence on renal dialysis; Z87.891 Personal history of nicotine dependence | CPT/HCPCS: 97597 ==

== ENCOUNTER 2020-06-29 11:00 | Outpatient (CLI) | payer MEDICARE, OTHER | END 2020-06-29 23:59 | disposition home or self-care (01) | LOC: WOUND 11:00 | PROVIDERS: ATTEND Internal Medicine | DX: E11.621 Type 2 diabetes mellitus with foot ulcer (principal); L97.522 Non-pressure chronic ulcer of other part of left foot with fat layer exposed; E11.69 Type 2 diabetes mellitus with other specified complication; M86.072 Acute hematogenous osteomyelitis, left ankle and foot; E11.43 Type 2 diabetes mellitus with diabetic autonomic (poly)neuropathy; L84 Corns and callosities; M06.9 Rheumatoid arthritis, unspecified; E78.5 Hyperlipidemia, unspecified; E11.22 Type 2 diabetes mellitus with diabetic chronic kidney disease; I12.0 Hypertensive chronic kidney disease with stage 5 chronic kidney disease or end stage renal disease; N18.6 End stage renal disease; Z87.891 Personal history of nicotine dependence; Z99.2 Dependence on renal dialysis; Z96.652 Presence of left artificial knee joint; Z96.642 Presence of left artificial hip joint | CPT/HCPCS: 97597 ==

== ENCOUNTER → 2020-07-06 | Outpatient (CLI) | payer MEDICARE, OTHER | END | disposition home or self-care (01) | LOC: WOUND 10:49 | PROVIDERS: ATTEND Internal Medicine | DX: E11.621 Type 2 diabetes mellitus with foot ulcer (principal); L97.522 Non-pressure chronic ulcer of other part of left foot with fat layer exposed; L84 Corns and callosities; E11.43 Type 2 diabetes mellitus with diabetic autonomic (poly)neuropathy; M06.9 Rheumatoid arthritis, unspecified; E78.5 Hyperlipidemia, unspecified; E11.69 Type 2 diabetes mellitus with other specified complication; M86.072 Acute hematogenous osteomyelitis, left ankle and foot; Z87.891 Personal history of nicotine dependence; Z99.2 Dependence on renal dialysis; Z96.652 Presence of left artificial knee joint; Z96.642 Presence of left artificial hip joint; Z79.899 Other long term (current) drug therapy | CPT/HCPCS: 97597 ==

== ENCOUNTER 2020-07-20 10:54 | Outpatient (CLI) | payer MEDICARE, OTHER | END 2020-07-20 23:59 | disposition home or self-care (01) | LOC: WOUND 10:54 | PROVIDERS: ATTEND Internal Medicine | DX: E11.621 Type 2 diabetes mellitus with foot ulcer (principal); L97.522 Non-pressure chronic ulcer of other part of left foot with fat layer exposed; E11.43 Type 2 diabetes mellitus with diabetic autonomic (poly)neuropathy; E11.69 Type 2 diabetes mellitus with other specified complication; M86.072 Acute hematogenous osteomyelitis, left ankle and foot; E11.22 Type 2 diabetes mellitus with diabetic chronic kidney disease; I12.0 Hypertensive chronic kidney disease with stage 5 chronic kidney disease or end stage renal disease; N18.6 End stage renal disease; M06.9 Rheumatoid arthritis, unspecified; L84 Corns and callosities; E78.5 Hyperlipidemia, unspecified; I48.0 Paroxysmal atrial fibrillation; M15.9 Polyosteoarthritis, unspecified; Z87.891 Personal history of nicotine dependence; Z79.899 Other long term (current) drug therapy; Z99.2 Dependence on renal dialysis; Z96.652 Presence of left artificial knee joint; Z96.642 Presence of left artificial hip joint | CPT/HCPCS: C5275; Q4166 ==

== ENCOUNTER → 2020-07-23 | Outpatient (CLI) | payer MEDICARE, OTHER ==
[~2020-07-23] MED LIST changes: +REGADENOSON 0.4 MG/5 ML SYRINGE ONE; +hydrocortisone PO
== END | disposition home or self-care (01) ==
LOC: CVU 10:25
PROVIDERS: ATTEND Internal Medicine Cardiovascular Disease
DX: Z01.810 Encounter for preprocedural cardiovascular examination (principal); I48.0 Paroxysmal atrial fibrillation; I08.0 Rheumatic disorders of both mitral and aortic valves; E78.5 Hyperlipidemia, unspecified; N18.6 End stage renal disease; I13.11 Hypertensive heart and chronic kidney disease without heart failure, with stage 5 chronic kidney disease, or end stage renal disease; Z99.2 Dependence on renal dialysis
CPT/HCPCS: 78452; 93017; 93306; A9502; J2785

== ENCOUNTER 2020-07-24 09:04 | Day surgery (SDC) | payer MEDICARE, OTHER ==
[~2020-07-24] VITALS: Ht 193 cm; Wt 92.0 kg
[~2020-07-24 09:04] MED LIST changes: -REGADENOSON 0.4 MG/5 ML SYRINGE ONE; -hydrocortisone PO
[2020-07-24 09:55] LABS: BASOPHILS % (AUTO) 2 % (0-1); EOSINOPHILS % (AUTO) 2 % (1-7); LYMPHOCYTES % (AUTO) 30 % (22-44); MEAN CORPUSCULAR HEMOGLOBIN 35.1 pg (27.5-34.5); MEAN CORPUSCULAR HGB CONC 33.6 g/dL (33.2-36.2); MEAN PLATELET VOLUME 8.6 fL (7.4-10.4); MONOCYTES % (AUTO) 13 % (2-9); NEUTROPHILS % (AUTO) 54 % (42-75); PLATELET COUNT 384 x10^3/uL (130-400); RED BLOOD COUNT 3.67 x10^6/uL (4.38-5.82); RED CELL DISTRIBUTION WIDTH 17.1 % (9.4-14.8)
[2020-07-24 09:56] LABS: MD NO
[2020-07-24] MEDS ORDERED: VERAPAMIL 2.5 MG/ML, 2ML ONE (09:58)
[2020-07-24] MEDS ORDERED: MIDAZOLAM 1 MG/ML, 2ML ONE (09:58)
[2020-07-24] MEDS ORDERED: FENTANYL PF 100 MCG/2ML ONE (09:58)
[2020-07-24] MEDS ORDERED: LIDOCAINE 2%, 20ML ONE (09:59)
[2020-07-24] MEDS ORDERED: NITROGLYCERIN 5 MG/ML, 10ML ONE (10:00)
[2020-07-24] MEDS ORDERED: HEPARIN 1,000 UNITS/ML, 10ML ONE (10:00)
[2020-07-24] MEDS ORDERED: hydrocortisone PO (10:01)
[2020-07-24] MEDS ORDERED: GABA100C PO (10:01)
[2020-07-24 10:04] LABS: ANION GAP 10 mmol/L (5-15); CALCIUM 8.8 mg/dL (8.5-10.1); CHLORIDE 102 mmol/L (98-107); CREATININE 7.25 mg/dL (0.7-1.3)
== END 2020-07-24 12:52 | disposition home or self-care (01) ==
LOC: CACL 09:04
PROVIDERS: ATTEND Internal Medicine Cardiovascular Disease
DX: Z01.810 Encounter for preprocedural cardiovascular examination (principal); I27.20 Pulmonary hypertension, unspecified; I48.0 Paroxysmal atrial fibrillation; N18.6 End stage renal disease; G47.33 Obstructive sleep apnea (adult) (pediatric); Z86.711 Personal history of pulmonary embolism; Z99.2 Dependence on renal dialysis
CPT/HCPCS: 36415; 80048; 85025; 93451; C1894; J1644; J2250; J3010

== ENCOUNTER 2020-07-27 10:36 | Outpatient (CLI) | payer MEDICARE, OTHER ==
[~2020-07-27 10:36] MED LIST changes: +hydrocortisone PO
== END 2020-07-27 23:59 | disposition home or self-care (01) ==
LOC: WOUND 10:36
PROVIDERS: ATTEND Internal Medicine
DX: E11.621 Type 2 diabetes mellitus with foot ulcer (principal); L97.522 Non-pressure chronic ulcer of other part of left foot with fat layer exposed; E11.69 Type 2 diabetes mellitus with other specified complication; M86.072 Acute hematogenous osteomyelitis, left ankle and foot; E11.42 Type 2 diabetes mellitus with diabetic polyneuropathy; E11.610 Type 2 diabetes mellitus with diabetic neuropathic arthropathy; L84 Corns and callosities; M06.9 Rheumatoid arthritis, unspecified; E78.5 Hyperlipidemia, unspecified; E11.22 Type 2 diabetes mellitus with diabetic chronic kidney disease; I12.0 Hypertensive chronic kidney disease with stage 5 chronic kidney disease or end stage renal disease; N18.6 End stage renal disease; I48.0 Paroxysmal atrial fibrillation; I27.20 Pulmonary hypertension, unspecified; M13.0 Polyarthritis, unspecified; G47.33 Obstructive sleep apnea (adult) (pediatric); Z86.711 Personal history of pulmonary embolism; Z87.891 Personal history of nicotine dependence; Z99.2 Dependence on renal dialysis; Z96.652 Presence of left artificial knee joint; Z96.642 Presence of left artificial hip joint
CPT/HCPCS: C5275; Q4166; 15275

== ENCOUNTER 2020-08-03 10:13 | Outpatient (CLI) | payer MEDICARE, OTHER | END 2020-08-03 23:59 | disposition home or self-care (01) | LOC: WOUND 10:13 | PROVIDERS: ATTEND Internal Medicine | DX: E11.621 Type 2 diabetes mellitus with foot ulcer (principal); L97.522 Non-pressure chronic ulcer of other part of left foot with fat layer exposed; G90.09 Other idiopathic peripheral autonomic neuropathy; E11.69 Type 2 diabetes mellitus with other specified complication; M86.072 Acute hematogenous osteomyelitis, left ankle and foot; E11.42 Type 2 diabetes mellitus with diabetic polyneuropathy; E11.610 Type 2 diabetes mellitus with diabetic neuropathic arthropathy; L84 Corns and callosities; M06.9 Rheumatoid arthritis, unspecified; E78.5 Hyperlipidemia, unspecified; E11.22 Type 2 diabetes mellitus with diabetic chronic kidney disease; I12.0 Hypertensive chronic kidney disease with stage 5 chronic kidney disease or end stage renal disease; N18.6 End stage renal disease; I48.0 Paroxysmal atrial fibrillation; I27.20 Pulmonary hypertension, unspecified; M15.9 Polyosteoarthritis, unspecified; G47.33 Obstructive sleep apnea (adult) (pediatric); E11.43 Type 2 diabetes mellitus with diabetic autonomic (poly)neuropathy; Z79.899 Other long term (current) drug therapy; Z86.711 Personal history of pulmonary embolism; Z87.891 Personal history of nicotine dependence; Z96.652 Presence of left artificial knee joint; Z96.642 Presence of left artificial hip joint; Z99.2 Dependence on renal dialysis | CPT/HCPCS: 99214; G0463 ==

== ENCOUNTER 2020-08-10 11:37 | Outpatient (CLI) | payer MEDICARE, OTHER | END 2020-08-10 23:59 | disposition home or self-care (01) | LOC: WOUND 11:37 | PROVIDERS: ATTEND Internal Medicine | DX: E11.621 Type 2 diabetes mellitus with foot ulcer (principal); L97.522 Non-pressure chronic ulcer of other part of left foot with fat layer exposed; G90.09 Other idiopathic peripheral autonomic neuropathy; E11.69 Type 2 diabetes mellitus with other specified complication; M86.072 Acute hematogenous osteomyelitis, left ankle and foot; E11.42 Type 2 diabetes mellitus with diabetic polyneuropathy; E11.610 Type 2 diabetes mellitus with diabetic neuropathic arthropathy; L84 Corns and callosities; M06.9 Rheumatoid arthritis, unspecified; E78.5 Hyperlipidemia, unspecified; E11.22 Type 2 diabetes mellitus with diabetic chronic kidney disease; I12.0 Hypertensive chronic kidney disease with stage 5 chronic kidney disease or end stage renal disease; N18.6 End stage renal disease; I48.0 Paroxysmal atrial fibrillation; I27.20 Pulmonary hypertension, unspecified; M15.9 Polyosteoarthritis, unspecified; G47.33 Obstructive sleep apnea (adult) (pediatric); E11.43 Type 2 diabetes mellitus with diabetic autonomic (poly)neuropathy; Z79.899 Other long term (current) drug therapy; Z86.711 Personal history of pulmonary embolism; Z87.891 Personal history of nicotine dependence; Z96.652 Presence of left artificial knee joint; Z96.642 Presence of left artificial hip joint; Z99.2 Dependence on renal dialysis | CPT/HCPCS: G0463 ==

== ENCOUNTER → 2020-12-17 | Outpatient (CLI) | payer MEDICARE, OTHER ==
[~2020-12-17] MED LIST changes: -ACYC-113 PO; +ACYC200C13 PO; -DOCU-180 PO; +DOCU-192 PO; -HYDR-1067 PO; +HYDR-2214 PO; -OMEP40CA42 PO; +OMEP40CA8 PO
== END | disposition home or self-care (01) ==
LOC: CFH 09:35
PROVIDERS: ATTEND Family Medicine
DX: M81.0 Age-related osteoporosis without current pathological fracture (principal); Z94.0 Kidney transplant status
CPT/HCPCS: 77080